=== PATIENT | male | born 1985 | race Caucasian/White ===

== ENCOUNTER 2019-04-18 17:41 | Inpatient (IN) | payer MEDICAID ==
[2019-04-18 18:24] LABS: BASOPHILS 0.1 % (0-2); EOSINOPHILS 0.8 % (0-7); HEMATOCRIT 32.1 % (42.0-54.0); HEMOGLOBIN 12.2 g/dL (13.5-17.5); IMMATURE GRANULOCYTES 1.2 % (0-5); LYMPHOCYTES 7.5 % (15-50); MCV 76.2 fL (80.0-100.0); MONOCYTES 3.8 % (2-11); NEUTROPHILS 86.6 % (40-80); PLATELET COUNT 123 10x3/uL (130-400); RBC 4.21 10x6/uL (4.20-6.10); RDW 14.9 % (11.5-14.5); WBC 8.5 10x3/uL (4.8-10.8)
[2019-04-18 18:37] LABS: INR 1.18 (0.85-1.17); PROTIME 14.5 SECONDS (11.6-15.0)
[2019-04-18 19:04] LABS: ALBUMIN 2.4 g/dL (3.4-5.0); ALKALINE PHOSPHATASE 118 U/L (46-116); ALT (SGPT) 77 U/L (10-68); BILIRUBIN - TOTAL 0.78 mg/dL (0.2-1.3); CALC OSMOLALITY 247 mosm/kg (275-300); CALCIUM 7.8 mg/dL (8.5-10.1); CARBON DIOXIDE 28.6 mmol/L (21.0-32.0); CHLORIDE - SERUM 90 mmol/L (98-107); CREATININE - SERUM 0.9 mg/dL (0.6-1.3); GLUCOSE 97 mg/dL (74-106); POTASSIUM - SERUM 3.8 mmol/L (3.5-5.1); PROTEIN - SERUM 6.9 g/dL (6.4-8.2); SODIUM 124 mmol/L (136-145); UREA NITROGEN 8 mg/dL (7-18); eGFR NON AFRICAN AMERICAN > 90 mL/min (90-120)
[2019-04-18 19:16] LABS: CKMB 0.1 U/L (0.0-3.6); CREATINE KINASE 253 UL (21-232)
[2019-04-18 19:17] LABS: TROPONIN-I < 0.017 ng/mL (0.000-0.060)
--- NOTE | 2019-04-18 19:46 | NUR ---
PT GONE FOR SCANS AT THIS TIME VIA STRETCHER
--- NOTE | 2019-04-18 20:02 | NUR ---
REPORT CALLED TO MATT, FLOOR NURSE AT THIS TIME.
[2019-04-18 20:37] VITALS: BP 112/79
--- NOTE | 2019-04-18 20:38 | NUR ---
ROCEPHIN INFUSION COMPLETE AT THIS TIME.
[2019-04-18 21:13] LABS: APPEARANCE CLEAR (CLEAR); BILIRUBIN NEGATIVE (NEGATIVE); COLOR YELLOW (YELLOW); GLUCOSE NEGATIVE (NEGATIVE); KETONE NEGATIVE (NEGATIVE); NITRITE NEGATIVE (NEGATIVE); PROTEIN TRACE mg/dL (NEGATIVE); SPECIFIC GRAVITY 1.005 (1.005-1.020); UROBILINOGEN NORMAL (NORMAL)
[2019-04-18 21:17] LABS: BACTERIA FEW /hpf (NONE SEEN); EPITHELIAL CELLS NSEEN /hpf (0-5); RED CELLS - URINE 0-5 /hpf (0-5); WHITE CELLS - URINE 0-5 /hpf (0-5)
[2019-04-18 21:27] LABS: UDS - AMPHET NEGATIVE QUAL (NEGATIVE); UDS - BARB NEGATIVE QUAL (NEGATIVE); UDS - BENZO NEGATIVE QUAL (NEGATIVE); UDS - COCAINE NEGATIVE QUAL (NEGATIVE); UDS - OPIATE NEGATIVE QUAL (NEGATIVE); UDS - PCP NEGATIVE QUAL (NEGATIVE); UDS - THC POSITIVE QUAL (NEGATIVE)
[2019-04-18 23:44] VITALS: BP 111/70
[2019-04-19] VITALS (7 sets, daily range): BP systolic 100–122; BP diastolic 57–78; BMI 22.4
--- NOTE | 2019-04-19 01:45 | NUR ---
ADMISSION ASSESSMENT COMPLETED. PT VERY WARM TO TOUCH. AXILLARY TEMP 101.[address] ROBERSON AND RECIEVED ORDER FOR TYLENOL FOR FEVER.
--- NOTE | 2019-04-19 01:55 | NUR ---
CALLED DR. ROBERSON TO INFORM HIM THAT PT HAS A TEMP OF 102. AT THIS TIME I HAVE NO MEDICATIONS TO HELP RELIEVE TEMP.
--- NOTE | 2019-04-19 01:58 | NUR ---
LOU HANSON WAS ABLE TO GET AHOLD OF DR. ROBERSON. MEDS ORDERED.
--- NOTE | 2019-04-19 07:00 | NUR ---
RECEIVED REPORT. ASSUMED CARE OF PATIENT. CALL LIGHT WITHIN REACH. RESP EVEN AND UNLABORED. PATIENT NOTED TO HAVE FREQUENT DRY COUGH. PATIENT WITH VERY EVIDENT RASH ALL OVER HIS BODY, MORE PROMINENT TO HIS FACE. LIPS ARE VERY DRY, APPEARS IF LIPS HAVE CRACKED AND DRY BLOOD NOTED TO LOWER LIP WHILE SPEAKING WITH PATIENT THIS AM. PATIENT COMPLAIN OF BODY ACHES AND THAT HE DIDN'T COME TO THE HOSPITAL SOONER BECAUSE HE THOUGHT HE JUST HAD A SUMMER COLD FROM ALLERGIES AND GOT MUCINEX. NO ACUTE DISTRESS. IV FLUIDS INFUSING ORDERED.
--- NOTE | 2019-04-19 07:59 | NUR ---
FRESH ICE WATER AND SODA PROVIDED ON REQUEST AT THIS TIME. NO DISTRESS.
--- NOTE | 2019-04-19 09:07 | NUR ---
AWAITING ON IV BACTRIM FOR ADMINISTRATION.
--- NOTE | 2019-04-19 09:43 | NUR ---
WAS GIVEN AN ORDER TO CONSULT ID FOR HIV. WHEN QUESTIONING PATIENT ABOUT MEDICATIONS FOR HIV, HE STATES HE HAS BEEN DELUSIONAL OVER THE PAST FEW WEEKS AND HE MAY NOT EVEN HAVE IT. THIS CATCHER PLUG ASKED HIM WHY WOULD HE THINK HE HAS IT AND WHY WOULD HE TELL PEOPLE HE HAS THIS DISEASE IF HE WAS NOT SURE. PATIENT STATES "HE DOESN'T KNOW". PATIENT STATES THAT HE HAS HAD SEXUAL ENCOUNTERS WITH A PERSON THAT IS HIV POSITIVE. CALLED NOEMI REED TO REQUEST HIV TESTING WE DO NOT HAVE CONFIRMATION OF THIS DIAGNOSIS AND PATIENT NOW STATES HE DOESN'T KNOW IF HE HAS IT OR NOT AND NOT SURE I NEED TO CONSULT ID IF WE DO NOT KNOW IF HE HAS HIV. BRIANNA STATES HE WILL LOOK AT HIS CHART AND ORDER TEST IF NEEDED. THANKED BRIANNA.
--- NOTE | 2019-04-19 13:49 | NUR ---
TEMP 103, MEDICATED WITH TYLENOL FOR TEMP AND BODY ACHES. CALL LIGHT WITHIN REACH. NO DISTRESS.
--- NOTE | 2019-04-19 13:58 | NUR ---
CONSULT PLACED FOR AFTER OBTAINING HIV TEST RESULTS.
--- NOTE | 2019-04-19 14:54 | NUR ---
SCDS APPLIED TO BILATERAL LOWER EXTREMITIES. NO DISTRESS.
--- NOTE | 2019-04-19 14:58 | NUR ---
TEMP 99.1 ORALLY.
--- NOTE | 2019-04-19 15:17 | NUR ---
BRIANNA PROVIDED 'S PHONE NUMBER WAS CONSULTED FOR PATIENTS RASH AND HE STATES THAT IF PATIENT NEEDS A CONSULT THAN HE WOULD LIKE THE PHYSICIAN TO CONSULT HIM DIRECTLY. DR. LATHAM' NUMBER [phone] PROVIDED TO BRIANNA.
[2019-04-19 15:43] LABS: HEMATOCRIT 27.2 % (42.0-54.0); HEMOGLOBIN 10.3 g/dL (13.5-17.5); MCH 28.8 pg (26.0-34.0); MCHC 37.9 g/dL (31.0-37.0); MEAN PLATELET VOLUME 10.6 fL (7.4-10.4); RBC 3.58 10x6/uL (4.20-6.10); RDW 14.8 % (11.5-14.5); WBC 7.5 10x3/uL (4.8-10.8)
[2019-04-19 15:44] LABS: PLATELET COUNT 95 10x3/uL (130-400)
[2019-04-19 15:55] LABS: ALBUMIN 2.1 g/dL (3.4-5.0); ALKALINE PHOSPHATASE 120 U/L (46-116); ALT (SGPT) 66 U/L (10-68); BILIRUBIN - TOTAL 0.59 mg/dL (0.2-1.3); CALC OSMOLALITY 251 mosm/kg (275-300); CALCIUM 7.2 mg/dL (8.5-10.1); CARBON DIOXIDE 24.7 mmol/L (21.0-32.0); CHLORIDE - SERUM 92 mmol/L (98-107); CREATININE - SERUM 0.8 mg/dL (0.6-1.3); GLUCOSE 95 mg/dL (74-106); POTASSIUM - SERUM 3.6 mmol/L (3.5-5.1); PROTEIN - SERUM 5.7 g/dL (6.4-8.2); SODIUM 126 mmol/L (136-145); UREA NITROGEN 9 mg/dL (7-18); eGFR NON AFRICAN AMERICAN > 90 mL/min (90-120)
[2019-04-19 16:05] LABS: EOSINOPHILS 1 % (0-7); LYMPHOCYTES 3 % (15-50); MONOCYTES 9 % (2-11); NEUTROPHILS 87 % (40-80); PLATELET ESTIMATE NORMAL
--- NOTE | 2019-04-19 16:13 | NUR ---
RESTING IN BED. NO DISTRESS.
--- NOTE | 2019-04-19 16:18 | NUR ---
CEPACHOL LOZENGE ORDER RECEIVED AND PLACED TO PHARMACY PT COMPLAIN OF SORE THROAT. JONA ON UNIT FOR ROUNDS.
--- NOTE | 2019-04-19 18:00 | NUR ---
EKG COMPLETED AND ON CHART
--- NOTE | 2019-04-19 18:08 | NUR ---
CALLED AND SPOKE WITH PATIENT IS SINUS TACHYCARDIA WITH A RATE OF 147. PATIENT WAS NOT TACHYCARDIC UNTIL HE GOT UP AND WENT TO THE RESTROOM. PATIENT FEVER IS ALSO TRENDING UPWARD AGAIN AT THIS TIME, 101.7. NEW ORDERS OBTAINED TO BOLUS WITH 500ML NS. ORDERS ENTERED AND BOLUS GIVEN FROM NEW BAG OF NS HANGING AT THIS TIME.
--- NOTE | 2019-04-19 18:10 | NUR ---
VS 130/85, 147, 17, 101.7, 99%
--- NOTE | 2019-04-19 18:42 | NUR ---
PATIENT RESTING IN BED. IB BOLUS OF 500ML NS COMPLETE. HR ST 136. NO DISTRESS. STATES HE FEELS FINE.
--- NOTE | 2019-04-19 19:00 | NUR ---
PATIENT LAYING IN BED. NO DISTRESS NOTED. COMPLAINS OF FEELING LIKE HE HAS A FEVER. TEMP 102.2. TYLENOL 650MG GIVEN. WILL CONTINUE TO MONITOR. NO OTHER COMPLAINTS AT THIS TIME.
--- NOTE | 2019-04-20 03:27 | NUR ---
I have reviewed this patient and I concur with the Shift Assessment completed by the Licensed Practical Nurse today this shift.
[2019-04-20 03:55] VITALS: BP 102/56
[2019-04-20 04:51] LABS: BASOPHILS 0.2 % (0-2); EOSINOPHILS 0 % (0-7); HEMATOCRIT 26.8 % (42.0-54.0); HEMOGLOBIN 9.8 g/dL (13.5-17.5); IMMATURE GRANULOCYTES 1.1 % (0-5); LYMPHOCYTES 9.5 % (15-50); MCH 28.2 pg (26.0-34.0); MCHC 36.6 g/dL (31.0-37.0); MEAN PLATELET VOLUME 10.1 fL (7.4-10.4); MONOCYTES 1.6 % (2-11); NEUTROPHILS 87.6 % (40-80); PLATELET COUNT 88 10x3/uL (130-400); RBC 3.48 10x6/uL (4.20-6.10); RDW 15.2 % (11.5-14.5); WBC 5.7 10x3/uL (4.8-10.8)
[2019-04-20 05:22] LABS: ALBUMIN 1.9 g/dL (3.4-5.0); ALKALINE PHOSPHATASE 134 U/L (46-116); ALT (SGPT) 59 U/L (10-68); BILIRUBIN - TOTAL 0.64 mg/dL (0.2-1.3); CALC OSMOLALITY 250 mosm/kg (275-300); CALCIUM 7.4 mg/dL (8.5-10.1); CARBON DIOXIDE 22.2 mmol/L (21.0-32.0); CHLORIDE - SERUM 94 mmol/L (98-107); GLUCOSE 88 mg/dL (74-106); POTASSIUM - SERUM 3.9 mmol/L (3.5-5.1); PROTEIN - SERUM 5.7 g/dL (6.4-8.2); SODIUM 126 mmol/L (136-145); UREA NITROGEN 10 mg/dL (7-18); eGFR NON AFRICAN AMERICAN > 90 mL/min (90-120)
--- NOTE | 2019-04-20 05:34 | NUR ---
PATIENT LAYING IN BED. PATIENT'S TEMP 99.0 AT THIS TIME. NO DISTRESS NOTED. NO COMPLAINTS AT THIS TIME.
--- NOTE | 2019-04-20 07:58 | NUR ---
AM ROUNDS COMPLETED. INTRODUCED MYSELF TO PT PRIMARY RN FOR TODAYS SHIFT. PT IS A&O LYING BACK IN BED SHIVERING. PT IS FEBRILE AND HAS BEEN RUNNING HIGH TEMPS THROUGHOUT THE NIGHT. WILL CONTINUE TO TREAT WITH TYLENOL ORDERED. SHIFT ASSESSMENT COMPLETED. PT HAS A FULL BODY DIFFUSED RED BODY RASH ALL OVER WITH MULTIPLE SMALL SPOTS DARKENED REDDISH PURPLE IN COLOR. NO ITCHING OR IRRITATION NOTED WITH IT PT STATES. PTS LIPS ARE DRY AND CRACKING, PROVIDED HIM WITH MOISTURIZER. EMPTIED BEDSIDE URINAL OF 425ML CLEAR YELLOW URINE. PT REQUESTING TO USE BEDPAN AND STATES HIS HR GETS TOO HIGH WHEN HE GETS OOB OR USES EXERTION, ASSISTED PT ONTO BEDPAN AND HE IS HAVING DIARRHEA AND STATES HE HAS FOR DAYS NOW AND WAS RECENTLY ON ANBX THERAPY. NEW ORDER OBTAINED FOR CDT SPECIMEN AND WILL SEND TO LAB. RR NONLABORED ON RA. HEART SOUNDS TACHYCARDIC BUT NORMAL S1S2 NOTED. PT IS WEARING SCDS. PT C/O GENERALIZED BODY ACHES AND PAINS AND STATES HE HAS ARTHRITIS. PT HAS R.FA PIV WITH NS @75ML/HR INFUSING AND NOW ANBX ROCEPHIN PIGGYBACK. PROVIDED PT WITH NEW NICOTENE PATCH TO L.DELTOID AND HE STATES IT IS HELPING WITH HIS CRAVINGS. ASSISTED PT UP IN BED TO EAT BREAKFAST PT STATES DECREASE IN APPETITE AND LOSS OF WEIGHT ABOUT 30 POUNDS IN A MONTH HE STATES. NO IMMEDIATE NEEDS AT THIS TIME. WILL DISCUSS WITH PRIMARY PT IS PRETTY ILL AT THIS TIME. CL IN REACH, BED IN LOWEST, SIDE RAILS X2 AND BUILT IN BED ALARM ON. WILL CTM.
[2019-04-20 08:05] VITALS: BP 101/66
[2019-04-20 11:38] VITALS: BP 116/73
--- NOTE | 2019-04-20 11:40 | NUR ---
TEMPERATURE REMAINS FEBRILE DESPITE TREATMENT OF TYLENOL. AT BEDSIDE FOR CONSULT. WILL AWAIT FURTHER PLANS. TOO SOON FOR NEXT DOSE OF TYLENOL. WILL CPOC.
[2019-04-20 12:29] VITALS: BMI 22.3
--- NOTE | 2019-04-20 13:09 | NUR ---
PT HAS NO APPETITE FOR LUNCH. REMOVED TRAY BUT DID ORDER HIM A ROOTBEER TO CHEER HIM UP AND HE VOICED THANKS. PROVIDED PT WITH A WARMED BLANKET HE IS SHIVERING AND REQUESTED ONE. EMPTIED URINAL OF 200ML CONCENTRATED URINE. PT WANTING TO TALK TO HIS MOTHER SO I CALLED HER PER HIS REQUEST AND TRANSFERRED THE PHONE CALL TO HIM. PT VOICED THANKS. NO CURRENT NEEDS. WILL CTM.
--- NOTE | 2019-04-20 15:51 | NUR ---
BACTRIM ANBX OVER AN HR LATE. STILL NOT AVAILABLE FROM PHARMACY. WILL CALL AND ASK FOR IT.
--- NOTE | 2019-04-20 18:41 | NUR ---
TEMPERATURE UP TO 103. PT HAS ALREADY MAXED HIS TYLENOL DOSE FOR THE DAY. WILL PAGE PRIMARY.
[2019-04-20 18:48] VITALS: BP 123/77
--- NOTE | 2019-04-20 18:50 | NUR ---
NEW ORDERS OBTAINED TO ALTERNATE BETWEEN MOTRIN AND TYLENOL FOR FEVER PLEASE.
--- NOTE | 2019-04-20 19:25 | NUR ---
AWAKE AND ALERT PRN FOR FEVER WILL BE GIVEN BED LOW AND LOCKED AND CALL LIGHT IN REACH SCD IS IN USE PT DENIES OTHER NEEDS
--- NOTE | 2019-04-20 19:32 | NUR ---
BEDSIDE SHIFT COMPLETED AND NIGHTSHIFT NURSE KARYNA WILL PROVIDED WITH MOTRIN ONCE VERIFIED WITH PHARMACY TO TRY AND DECREASE TEMPERATURE. PT VOICED THANKS AND DENIES ANY FURTHER NEEDS.
[2019-04-20 20:00] VITALS: BP 120/66
--- NOTE | 2019-04-21 00:57 | NUR ---
FEVER IS NOTABLE DOWN AT THIS TIME AND PT REPORTS FEELING MUCH BETTTER
--- NOTE | 2019-04-21 02:21 | NUR ---
I have reviewed this patient and I concur with the Shift Assessment completed by the Licensed Practical Nurse today this shift.
--- NOTE | 2019-04-21 03:27 | NUR ---
PT HR UP AND HE IS COUGHING AND GAGING AND CO SOME NAUSEA ZOFRAN AND MOLTRIN GIVEN BUT NOTED HR UP TO 185 SO I SURESH MCGOWAN AND IM WAITING [facility] WORKER BACK HR AROUND 160 NO CP
--- NOTE | 2019-04-21 03:38 | NUR ---
TEMP WAS READING 97.9 ORAL BUT CHECKED UNDER ARM AND FEVER OF 103 DETECTED I REMOVED SEVERAL BLANKETRS AT THIS TIME
--- NOTE | 2019-04-21 03:59 | NUR ---
NO CALL BACK FROM FAYE PT DENIES CP HE CONTINUES TO RETRACT BUT NO EMISIS
[2019-04-21 04:00] VITALS: BP 105/59
--- NOTE | 2019-04-21 05:40 | NUR ---
HR 138...PT RESTING AND AROUSES AND DENIES PAIN OR DISTRESS
--- NOTE | 2019-04-21 06:17 | NUR ---
HR 126 PT RESTING WITH NO NOTED DISTRESS
[2019-04-21 07:18] LABS: APTT 66.5 SECONDS (22.8-39.4); HEMATOCRIT 25.8 % (42.0-54.0); HEMOGLOBIN 9.4 g/dL (13.5-17.5); INR 1.65 (0.85-1.17); MCH 27.9 pg (26.0-34.0); MCHC 36.4 g/dL (31.0-37.0); MCV 76.6 fL (80.0-100.0); MEAN PLATELET VOLUME 10.9 fL (7.4-10.4); PLATELET COUNT 79 10x3/uL (130-400); PROTIME 18.9 SECONDS (11.6-15.0); RBC 3.37 10x6/uL (4.20-6.10); RDW 15.4 % (11.5-14.5); WBC 2.3 10x3/uL (4.8-10.8)
[2019-04-21 07:18] LABS: RAPID PLASMA REAGIN Non Reactive (Non Reactive)
[2019-04-21 07:27] LABS: ALBUMIN 1.6 g/dL (3.4-5.0); BILIRUBIN - TOTAL 0.31 mg/dL (0.2-1.3); CALCIUM 7.2 mg/dL (8.5-10.1); CARBON DIOXIDE 21.2 mmol/L (21.0-32.0); PROTEIN - SERUM 5.4 g/dL (6.4-8.2)
[2019-04-21 08:14] LABS: ANION GAP 13.1 mmol/L (8-16); CREATININE - SERUM 1.3 mg/dL (0.6-1.3); POTASSIUM - SERUM 3.3 mmol/L (3.5-5.1)
[2019-04-21 08:49] VITALS: BP 106/59
[2019-04-21 09:59] LABS: BASOPHILS 2 % (0-2); EOSINOPHILS 2 % (0-7); LYMPHOCYTES 6 % (15-50); MONOCYTES 5 % (2-11); NEUTROPHILS 75 % (40-80); PLATELET ESTIMATE DECREASED
[2019-04-21 10:00] LABS: ANISOCYTOSIS OCC
--- NOTE | 2019-04-21 10:12 | NUR ---
PT HAS POOR HYGIENE AND HAS BEEN SWEATING AND HAS FOUL ODOR. OFFERED A SHOWER AND HE WOULD LOVE ONE. ASSISTED PT INTO SHOWER CHAIR AND WITH SUPPLIES. PT VOICED THANKS. NO CURRENT NEEDS. WILL CTM.
--- NOTE | 2019-04-21 11:22 | NUR ---
PT TOOK SHOWER AND VOICED THANKS AND STATES IT FELT GREAT. PT IS NOW RESTING IN BED AND WANTS TO NAP. PT WAS ACTUALLY ABLE TO EAT THIS MORNING AND IS FEELING BETTER OVERALL. PT DENIES ANY CURRENT PAIN OR NEEDS AT THIS TIME. WILL CTM.
[2019-04-21 12:11] LABS: HEPATITIS C ANTIBODY <0.1 S/CO RAT (0.0-0.9)
[2019-04-21 12:57] LABS: % SATURATION 50 % (15-55); IRON 80 ug/dl (35-150); TOTAL IRON BIND CAPACITY 157 ug/dl (260-445); UNSAT IRON BIND CAPACITY 77 ug/dl (150-375)
[2019-04-21 13:43] VITALS: BP 92/47
[2019-04-21 17:26] VITALS: BP 94/57
--- NOTE | 2019-04-21 19:00 | NUR ---
PT IS IN PROCESS OF BEING TRASFERED TO ANOTHER FACILITY. DENIES PAIN SKIN IS WARM AND DRY I WILL SL IV BED IS LOW AND LOCKED CALL LIGHT IS IN PLACE.
[2019-04-21 20:00] VITALS: BP 95/57
--- NOTE | 2019-04-21 23:27 | NUR ---
PTIS NOW DCED TO TRANSFER WITH [facility]
[2019-04-22 12:12] LABS: ANA REFLEX - DIRECT Negative (Negative)
[2019-04-22 13:13] LABS: BASOS 0 % (Not Estab.); CD4 - % CD4 POS. LYMPH 1.8 % (30.8-58.5); CD4 - ABSOLUTE CD4 HELPER 7 /uL (359-1519); EOS 0 % (Not Estab.); HEMATOCRIT 26.3 % (37.5-51.0); HEMATOLOGY COMMENTS Note: (()); HEMOGLOBIN 9.3 g/dL (13.0-17.7); LYMPHS 16 % (Not Estab.); LYMPHS (ABSOLUTE) 0.4 x10E3/uL (0.7-3.1); MCH 28.4 pg (26.6-33.0); MCHC 35.4 g/dL (31.5-35.7); MCV 80 fL (79-97); MONOCYTES 4 % (Not Estab.); MONOCYTES (ABSOLUTE) 0.1 x10E3/uL (0.1-0.9); NEUTROPHILS 80 % (Not Estab.); NEUTROPHILS (ABSOLUTE) 1.8 x10E3/uL (1.4-7.0); PLATELETS 75 x10E3/uL (150-450); RBC 3.27 x10E6/uL (4.14-5.80); RDW 15.4 % (12.3-15.4); WBC 2.2 x10E3/uL (3.4-10.8)
[2019-04-22 19:08] LABS: HIV-1 RNA BY PCR 2530000 (()); LOG10 HIV-1 RNA 6.403 (())
[2019-04-23 04:09] LABS: FOLATE (FOLIC ACID) - SERUM 13.4 ng/mL (>3.0)
[2019-04-23 12:12] LABS: CRYPTOCOCCUS AG - SERUM Negative (Negative)
== END 2019-04-21 23:25 | disposition short-term general hospital (02) | DRG 974 ==
LOC: D.ER 17:41 → D.M2 19:08
PROVIDERS: Emergency Medicine; Family Medicine; Internal Medicine Pulmonary Disease; Student in an Organized Health Care Education/Training Program; ADMIT Internal Medicine Nephrology; ATTEND Internal Medicine Nephrology
DX: B20 Human immunodeficiency virus [HIV] disease (principal); J18.9 Pneumonia, unspecified organism; J96.01 Acute respiratory failure with hypoxia; E46 Unspecified protein-calorie malnutrition; B37.0 Candidal stomatitis; E87.1 Hypo-osmolality and hyponatremia; J98.4 Other disorders of lung; D69.6 Thrombocytopenia, unspecified; F17.200 Nicotine dependence, unspecified, uncomplicated; D70.4 Cyclic neutropenia; Z68.22 Body mass index [BMI] 22.0-22.9, adult; D50.9 Iron deficiency anemia, unspecified; L30.9 Dermatitis, unspecified

== ENCOUNTER 2019-06-21 16:53 | Emergency (ER) | payer SELFPAY ==
[~2019-06-21] VITALS: Ht 182.9 cm; Wt 63.6 kg
[2019-06-21 17:14] VITALS: Ht 182.9 cm; Wt 63.6 kg
[2019-06-21 18:05] LABS: BASOPHILS 0 % (0-2); EOSINOPHILS 0.3 % (0-7); HEMATOCRIT 25.8 % (42.0-54.0); HEMOGLOBIN 8.8 g/dL (13.5-17.5); IMMATURE GRANULOCYTES 0.3 % (0-5); LYMPHOCYTES 4.7 % (15-50); MCH 28.6 pg (26.0-34.0); MCHC 34.1 g/dL (31.0-37.0); MCV 83.8 fL (80.0-100.0); MEAN PLATELET VOLUME 10.3 fL (7.4-10.4); MONOCYTES 9.1 % (2-11); NEUTROPHILS 85.6 % (40-80); RBC 3.08 10x6/uL (4.20-6.10); RDW 14.8 % (11.5-14.5); WBC 3.6 10x3/uL (4.8-10.8)
[2019-06-21 18:08] LABS: PLATELET COUNT 106 10x3/uL (130-400)
[2019-06-21 18:26] LABS: ALBUMIN 2.3 g/dL (3.4-5.0); ALKALINE PHOSPHATASE 84 U/L (46-116); ALT (SGPT) 19 U/L (10-68); BILIRUBIN - TOTAL 0.35 mg/dL (0.2-1.3); CALC OSMOLALITY 257 mosm/kg (275-300); CALCIUM 8.4 mg/dL (8.5-10.1); CHLORIDE - SERUM 96 mmol/L (98-107); CREATININE - SERUM 0.8 mg/dL (0.6-1.3); GLUCOSE 86 mg/dL (74-106); POTASSIUM - SERUM 3.3 mmol/L (3.5-5.1); PROTEIN - SERUM 8.3 g/dL (6.4-8.2); SODIUM 130 mmol/L (136-145); UREA NITROGEN 8 mg/dL (7-18); eGFR NON AFRICAN AMERICAN > 90 mL/min (90-120)
[2019-06-21] MEDS ORDERED: AMOXICILLIN500 M1 PO (18:49)
[2019-06-21] MEDS ORDERED: PHENERGAN6.25 MG/5 PO (18:49)
[2019-06-21 19:51] VITALS: BP 96/54
== END 2019-06-21 19:52 | disposition home or self-care (01) ==
LOC: D.ER 16:53
PROVIDERS: Family Medicine
DX: J40 Bronchitis, not specified as acute or chronic (principal); J06.9 Acute upper respiratory infection, unspecified

== ENCOUNTER 2019-07-15 18:00 | Inpatient (IN) | payer OTHER ==
[~2019-07-15] VITALS: Ht 182.9 cm; Wt 63.5 kg
[~2019-07-15 18:00] MED LIST: AMOXICILLIN500 M1 PO; PHENERGAN6.25 MG/5 PO
--- NOTE | 2019-07-15 18:35 | NUR ---
LAB AT FOR 2ND SET OF BC
--- NOTE | 2019-07-15 18:35 | NUR ---
IV SITED AND 11ST SET OF BC'S DRAWN FROM SITE
[2019-07-15 18:47] LABS: BASOPHILS 0 % (0-2); EOSINOPHILS 0 % (0-7); HEMATOCRIT 23.6 % (42.0-54.0); IMMATURE GRANULOCYTES 0.3 % (0-5); LYMPHOCYTES 5.9 % (15-50); MCH 26.6 pg (26.0-34.0); MCHC 33.9 g/dL (31.0-37.0); MCV 78.4 fL (80.0-100.0); MEAN PLATELET VOLUME 10.8 fL (7.4-10.4); MONOCYTES 6.2 % (2-11); NEUTROPHILS 87.6 % (40-80); RBC 3.01 10x6/uL (4.20-6.10); RDW 15.1 % (11.5-14.5); WBC 3.1 10x3/uL (4.8-10.8)
[2019-07-15 19:11] LABS: ALKALINE PHOSPHATASE 76 U/L (46-116); ALT (SGPT) 14 U/L (10-68); BILIRUBIN - TOTAL 0.56 mg/dL (0.2-1.3); CALC OSMOLALITY 253 mosm/kg (275-300); CALCIUM 7.3 mg/dL (8.5-10.1); CARBON DIOXIDE 27.2 mmol/L (21.0-32.0); CHLORIDE - SERUM 92 mmol/L (98-107); CREATININE - SERUM 0.8 mg/dL (0.6-1.3); GLUCOSE 96 mg/dL (74-106); POTASSIUM - SERUM 3.7 mmol/L (3.5-5.1); PROTEIN - SERUM 7.3 g/dL (6.4-8.2); SODIUM 127 mmol/L (136-145); UREA NITROGEN 9 mg/dL (7-18); eGFR NON AFRICAN AMERICAN > 90 mL/min (90-120)
--- NOTE | 2019-07-15 19:12 | NUR ---
BS REPORT TO MARGIE DHILLON
[2019-07-15 19:22] LABS: PLATELET COUNT 62 10x3/uL (130-400)
[2019-07-15 19:38] VITALS: BP 110/69
--- NOTE | 2019-07-15 19:39 | NUR ---
AWAKE, ERSTING QUIETLY, RESPIRATIONS REGULAR, COMPLAINS OF BEING COLD, TEMP ELEVATED 101.4. NS INFUSING TO LEFT FA IV, TOLERATING WELL. NO ACUTE DISTRESS NOTED.
[2019-07-15 20:35] LABS: PLATELET ESTIMATE DECREASED
[2019-07-15 21:51] LABS: APPEARANCE CLEAR (CLEAR); BILIRUBIN NEGATIVE (NEGATIVE); COLOR YELLOW (YELLOW); GLUCOSE NEGATIVE (NEGATIVE); KETONE NEGATIVE (NEGATIVE); NITRITE NEGATIVE (NEGATIVE); PROTEIN NEGATIVE (NEGATIVE); UROBILINOGEN NORMAL (NORMAL)
[2019-07-15 23:33] LABS: % SATURATION 10 % (15-55); IRON 15 ug/dl (35-150); TOTAL IRON BIND CAPACITY 147 ug/dl (260-445); UNSAT IRON BIND CAPACITY 132 ug/dl (150-375)
[2019-07-16] VITALS (11 sets, daily range): BP systolic 109–131; BP diastolic 69–82; BMI 19.0
--- NOTE | 2019-07-16 00:39 | NUR ---
REPORT GIVEN TO BROWING GENERATOR MECHANIC, VS GIVEN 98.2, 101/67, 89, 100%.
[2019-07-16 06:14] LABS: MCH 26.9 pg (26.0-34.0); MCHC 33.9 g/dL (31.0-37.0); MCV 79.3 fL (80.0-100.0); MEAN PLATELET VOLUME 10.8 fL (7.4-10.4); RBC 2.42 10x6/uL (4.20-6.10); RDW 14.9 % (11.5-14.5); WBC 2.7 10x3/uL (4.8-10.8)
[2019-07-16 06:16] LABS: CALC OSMOLALITY 261 mosm/kg (275-300); CARBON DIOXIDE 25.2 mmol/L (21.0-32.0); CHLORIDE - SERUM 100 mmol/L (98-107); CREATININE - SERUM 0.8 mg/dL (0.6-1.3); GLUCOSE 86 mg/dL (74-106); HEMATOCRIT 19.2 % (42.0-54.0); HEMOGLOBIN 6.5 g/dL (13.5-17.5); MAGNESIUM - SERUM 1.7 mg/dL (1.8-2.4); PHOSPHOROUS 3.8 mg/dL (2.5-4.9); PLATELET COUNT 40 10x3/uL (130-400); POTASSIUM - SERUM 3.2 mmol/L (3.5-5.1); SODIUM 132 mmol/L (136-145); UREA NITROGEN 8 mg/dL (7-18); eGFR NON AFRICAN AMERICAN > 90 mL/min (90-120)
[2019-07-16 06:28] LABS: CALCIUM 6.9 mg/dL (8.5-10.1)
[2019-07-16 07:43] LABS: LYMPHOCYTES 4 % (15-50); MONOCYTES 1 % (2-11); NEUTROPHILS 92 % (40-80); PLATELET ESTIMATE DECREASED
--- NOTE | 2019-07-16 08:49 | NUR ---
AWAKE AND ALERT. ORIENTED X3. REQUESTED AND GIVEN 4MG MORPHINE SLOW IVP FOR C/O KNEE PAIN LEVEL 10. WILL MONITOR. LUNGS HAVE WHEEZES THROUGHOUT LUNG SPICER, NON PRODUCTIVE COUGH NOTED. SKIN IS INTACT WITHOUT REDNESS. IV TO LEFT FOREARM IS PATENT WITHOUT REDNESS AT INSERTION SITE. DENIES NEEDS. BREAKFAST SERVED IN ROOM.
--- NOTE | 2019-07-16 10:41 | NUR ---
RESTING QUIETLY IN BED. REFUSED SCD'S "UNLESS THEY HELP MY LEG CRAMPS". WILL MONITOR.
--- NOTE | 2019-07-16 13:50 | NUR ---
UNIT (1) OF PRBC TRANFUSION INITIATED. VSS. SEE TRANSFUSION CARD. PT IS AAO X 4. BED IS IN THE LOWEST POSITION. CALL LIGHT AND BEDSIDE TABLE ARE WITHIN REACH. SIDE RAILS X 2. PRBC UNIT VERIFIED WITH OBI BARRY RN AT PT BEDSIDE. SIGNED BLOOD CONSENTS ARE IN PT CHART. WILL STAY IN ROOM TO MONITOR CLOSELY FOR NEXT 15 MINUTES.
[2019-07-16 14:19] LABS: PATH REVIEW PERIPHERAL SMEAR REVIEWED
--- NOTE | 2019-07-16 17:10 | NUR ---
SECOND UNIT PRBC UP AT THIS TIME. VSS. NO C/O
--- NOTE | 2019-07-16 17:25 | NUR ---
TRANSFUSION CONTINUES WITHOUT COMPLICATIONS. VSS.
--- NOTE | 2019-07-16 19:23 | NUR ---
NO CHANGES NOTED. DENIES NEEDS.
[2019-07-17 01:31] VITALS: BP 126/78
[2019-07-17 05:54] VITALS: BP 134/80
[2019-07-17 06:47] LABS: BASOPHILS 0 % (0-2); EOSINOPHILS 0 % (0-7); HEMATOCRIT 22.7 % (42.0-54.0); HEMOGLOBIN 7.7 g/dL (13.5-17.5); LYMPHOCYTES 6.7 % (15-50); MCH 26.9 pg (26.0-34.0); MCHC 33.9 g/dL (31.0-37.0); MCV 79.4 fL (80.0-100.0); MEAN PLATELET VOLUME 11.9 fL (7.4-10.4); MONOCYTES 3.8 % (2-11); NEUTROPHILS 88.5 % (40-80); RBC 2.86 10x6/uL (4.20-6.10); RDW 14.8 % (11.5-14.5); WBC 2.1 10x3/uL (4.8-10.8)
[2019-07-17 07:05] LABS: PLATELET COUNT 32 10x3/uL (130-400)
[2019-07-17 07:12] LABS: ALBUMIN 1.6 g/dL (3.4-5.0); ALKALINE PHOSPHATASE 77 U/L (46-116); BILIRUBIN - TOTAL 0.58 mg/dL (0.2-1.3); CALC OSMOLALITY 253 mosm/kg (275-300); CARBON DIOXIDE 22.4 mmol/L (21.0-32.0); CHLORIDE - SERUM 98 mmol/L (98-107); CREATININE - SERUM 0.7 mg/dL (0.6-1.3); GLUCOSE 80 mg/dL (74-106); PROTEIN - SERUM 6.5 g/dL (6.4-8.2); SODIUM 128 mmol/L (136-145); UREA NITROGEN 7 mg/dL (7-18); eGFR NON AFRICAN AMERICAN > 90 mL/min (90-120)
[2019-07-17 07:13] LABS: ALT (SGPT) 10 U/L (10-68); POTASSIUM - SERUM 3.9 mmol/L (3.5-5.1)
--- NOTE | 2019-07-17 08:00 | NUR ---
AWAKE AND ALERT. ORIENTED X3. NO C/O AT THIS TIME. LUNGS HAVE WHEEZES THROUGHOUT LUNG SPICER, PRODUCTIVE COUGH NOTED WITH WHITISH SPUTUM. SKIN IS INTACT WITHOUT REDNESS. IV TO LEFT FOREARM IS PATENT WITHOUT REDNESS AT INSERTION SITE. DENIES NEEDS.
--- NOTE | 2019-07-17 09:23 | NUR ---
REQUESTED AND GIVNE 4MG MORPHINE SLOW IVP FOR C/O KNEE BACK PAIN LEVEL 8. WILL MONITOR.
[2019-07-17 09:28] VITALS: BP 124/75
--- NOTE | 2019-07-17 10:10 | NUR ---
RESTING QUIETLY IN BED WITH EYES CLOSED. DENIES NEEDS. VOIDED CLEAR YELLOW URINE USED URINAL.
--- NOTE | 2019-07-17 12:15 | NUR ---
LUNCH SERVED IN ROOM. REFUSED TO EAT AT THIS TIME. DENIES NEEDS.
[2019-07-17 12:32] VITALS: BP 150/60
--- NOTE | 2019-07-17 14:10 | NUR ---
REQUESTED AND GIVEN 4MG MORPHINE AND 4MG ZOFRAN SLOW IVP FOR C/O PAIN LEVEL 8 AND NAUSEA. WILL MONITOR.
--- NOTE | 2019-07-17 14:54 | NUR ---
SITTING UP IN BED EATING A SALAD. NO C/O NAUSE OR PAIN AT THIS TIME. MOM AT [facility].
--- NOTE | 2019-07-17 14:59 | MORECARE ---
CASE MANAGEMENT DISCHARGE SUMMARY PATIENT: YEMI DAVID UNIT: [id number] ADM DATE: 07/15/19 AGE: 34 : 87 SEX: M ROOM/BED: D.2239 AUTHOR: PAM JOSE PHYSICIAN: REFERRING PHYSICIAN: GISELL VILLASEÑOR MD DATE OF SERVICE: 07/17/19 Discharge Plan Patient Name: YEMI DAVID [facility] [facility] 1985 Planned Disposition: Anticipated Discharge Date: Discharge Date: Expected LOS: Initial Reviewer: [email or web address] Initial Review Date: 07/17/2019 Generated: 07/17/19 3:59 pm Comments DCP- Discharge Planning Updated by [email or web address]: Ora Keane on 07/17/19 12:[address] Patient Name: YEMI DAVID Admission Status: ER Accout number: [id number] Admission Date: 07-15-2019 : 1985 Admission Diagnosis: Attending: RAQUEL VILLASEÑOR Current LOS: 2 Anticipated DC Date: Planned Disposition: Primary Insurance: [facility] MANAGED MEDICAID Discharge Planning Comments: CM SPOKE WITH [facility] AT [phone]. JIM WRIGHT PAGER GIVEN FOR [facility] TO CALL. CM TO FOLLOW AND ASSIST. Farm Machinery Set Up Mechanic: Ora Keane Appended by Ora Keane on 07/17/2019 13:42 CDT: HAS BEEN ACCEPTED TO [facility], WAITING ON A BED. Patient Name: YEMI DAVID Page [phone] at 6225 All edits/amendments must be made on the electronic document DICTATION DATE: 07/17/199 PUBLIC INFORMATION RELATIONS MANAGER: CHIO 07/17/19 1459 RPT#: [id number] DC DATE: STATUS: ADM IN [facility] [address] [place] [address] END OF REPORT
[2019-07-17 16:08] LABS: BASOS 0 % (Not Estab.); CD4:8 - % CD4 POS. LYMPH 0.7 % (30.8-58.5); CD4:8 - ABS CD8 SUPPRESSOR 57 /uL (109-897); CD4:8 - ABSOLUTE CD4 HELPER 1 /uL (359-1519); CD4:8 - CD4/CD8 RATIO 0.01 (0.92-3.72); EOS 1 % (Not Estab.); HEMATOCRIT 24.6 % (37.5-51.0); HEMATOLOGY COMMENTS Note: (()); HEMOGLOBIN 7.6 g/dL (13.0-17.7); LYMPHS 7 % (Not Estab.); LYMPHS (ABSOLUTE) 0.1 x10E3/uL (0.7-3.1); MCHC 30.9 g/dL (31.5-35.7); MCV 84 fL (79-97); MONOCYTES 4 % (Not Estab.); MONOCYTES (ABSOLUTE) 0.1 x10E3/uL (0.1-0.9); NEUTROPHILS 87 % (Not Estab.); NEUTROPHILS (ABSOLUTE) 1.7 x10E3/uL (1.4-7.0); PLATELETS 42 x10E3/uL (150-450); RBC 2.92 x10E6/uL (4.14-5.80)
[2019-07-17 16:52] VITALS: BP 126/68
--- NOTE | 2019-07-17 18:47 | NUR ---
RESTING QUIETLY WITH EYES CLOSED. DENIES NEEDS. NO CHANGES NOTED.
[2019-07-17 20:15] VITALS: BP 124/68
[2019-07-18 00:06] VITALS: BP 122/75
[2019-07-18 04:02] VITALS: BP 100/65
[2019-07-18 05:49] LABS: BASOPHILS 0 % (0-2); EOSINOPHILS 0 % (0-7); HEMATOCRIT 23.5 % (42.0-54.0); HEMOGLOBIN 7.9 g/dL (13.5-17.5); IMMATURE GRANULOCYTES 0.6 % (0-5); LYMPHOCYTES 2.9 % (15-50); MCH 27.5 pg (26.0-34.0); MCHC 33.6 g/dL (31.0-37.0); MONOCYTES 2.6 % (2-11); NEUTROPHILS 93.9 % (40-80); RBC 2.87 10x6/uL (4.20-6.10); RDW 15.1 % (11.5-14.5)
[2019-07-18 05:52] LABS: MCV 81.9 fL (80.0-100.0); WBC 3.4 10x3/uL (4.8-10.8)
[2019-07-18 05:53] LABS: PLATELET COUNT 21 10x3/uL (130-400)
[2019-07-18 05:55] LABS: ALBUMIN 1.7 g/dL (3.4-5.0); ALKALINE PHOSPHATASE 317 U/L (46-116); BILIRUBIN - TOTAL 0.56 mg/dL (0.2-1.3); CALC OSMOLALITY 259 mosm/kg (275-300); CALCIUM 7.4 mg/dL (8.5-10.1); CARBON DIOXIDE 23.2 mmol/L (21.0-32.0); CHLORIDE - SERUM 101 mmol/L (98-107); CREATININE - SERUM 0.8 mg/dL (0.6-1.3); GLUCOSE 81 mg/dL (74-106); POTASSIUM - SERUM 3.4 mmol/L (3.5-5.1); PROTEIN - SERUM 6.6 g/dL (6.4-8.2); SODIUM 131 mmol/L (136-145); UREA NITROGEN 6 mg/dL (7-18); eGFR NON AFRICAN AMERICAN > 90 mL/min (90-120)
[2019-07-18 05:56] LABS: ALT (SGPT) 26 U/L (10-68)
--- NOTE | 2019-07-18 08:12 | NUR ---
PT RESTING IN BED. DENIES N/V AT THIS TIME. NO S/S OF ACUTE DISTRESS. CL IN PLACE.
--- NOTE | 2019-07-18 08:46 | NUR ---
CALLED [facility] ENGINEER IN [facility] TO 100.3. 150. 151/75. 95%
[2019-07-18 09:16] VITALS: BP 151/75
--- NOTE | 2019-07-18 09:30 | NUR ---
CALLED [facility] AND HAD DR DAVIS PAGED.
--- NOTE | 2019-07-18 12:02 | NUR ---
PLATELETS INFUSED. NO S/S OF ACUTE DISTRESS. PRBC INFUSING NO S/S OF ACUTE DISTRESS.
[2019-07-18 12:30] VITALS: BP 100/54
--- NOTE | 2019-07-18 18:01 | NUR ---
PT RESTING IN BED. PRBC INFUSING. NO S/S OF ACUTE DISTRESS. CL IN PLACE.
--- NOTE | 2019-07-18 18:46 | NUR ---
MICHAEL [facility] CALLED NO BEDS AT THIS TIME. WILL CALL WHEN ONE IS READY.
--- NOTE | 2019-07-18 19:15 | NUR ---
PT ALERT AND ORIENTED. BLOOD TRANFUSING WHEN ENTERING THE ROOM. IV TO THE RIGHT FORARM APPEARS PATENT WITH NO REDNESS OR SWELLING NOTED TO THE INSERTION SITE. PATIENT HAS SEVERAL BLANKETS ON TOP OF HIM AT THIS TIME. DENIES FURTHER NEEDS AT THIS TIME. CALL LIGHT IN REACH. CPOC.
--- NOTE | 2019-07-18 20:21 | NUR ---
PT ASKING FOR PAIN MEDICINE. ADVISED PATIENT NOT DUE AT THIS TIME. PATIENT STATES UNDERSTANDING. CALL LIGHT IN REACH, DENIES FURTHER NEEDS AT THIS TIME. BOILERMAKER SHIP.
[2019-07-18 20:40] VITALS: BP 131/62
[2019-07-19 01:10] VITALS: BP 109/65
--- NOTE | 2019-07-19 03:17 | NUR ---
I have reviewed this patient and I concur with the Shift Assessment completed by the Licensed Practical Nurse today this shift.
[2019-07-19 05:18] VITALS: BP 145/75
[2019-07-19 06:46] LABS: BASOPHILS 0 % (0-2); EOSINOPHILS 0.4 % (0-7); HEMATOCRIT 28.2 % (42.0-54.0); HEMOGLOBIN 9.9 g/dL (13.5-17.5); IMMATURE GRANULOCYTES 0.6 % (0-5); LYMPHOCYTES 2.4 % (15-50); MCH 29.6 pg (26.0-34.0); MCHC 35.1 g/dL (31.0-37.0); MCV 84.4 fL (80.0-100.0); MONOCYTES 2.4 % (2-11); NEUTROPHILS 94.2 % (40-80); RBC 3.34 10x6/uL (4.20-6.10); RDW 15.3 % (11.5-14.5)
[2019-07-19 06:47] LABS: PLATELET COUNT 27 10x3/uL (130-400)
[2019-07-19 07:11] LABS: ALBUMIN 1.7 g/dL (3.4-5.0); ALKALINE PHOSPHATASE 256 U/L (46-116); ALT (SGPT) 22 U/L (10-68); BILIRUBIN - TOTAL 0.77 mg/dL (0.2-1.3); CALCIUM 7.6 mg/dL (8.5-10.1); CHLORIDE - SERUM 105 mmol/L (98-107); CREATININE - SERUM 0.9 mg/dL (0.6-1.3); GLUCOSE 94 mg/dL (74-106); PROTEIN - SERUM 6.6 g/dL (6.4-8.2); SODIUM 135 mmol/L (136-145); eGFR NON AFRICAN AMERICAN > 90 mL/min (90-120)
[2019-07-19 07:12] LABS: CALC OSMOLALITY 268 mosm/kg (275-300); POTASSIUM - SERUM 4.7 mmol/L (3.5-5.1); UREA NITROGEN 11 mg/dL (7-18)
--- NOTE | 2019-07-19 07:52 | NUR ---
AAOX4. WATCHING TV. MORPHINE GIVEN FOR PAIN ORDERED PER MD. BROUGHT PT SOME ICE. NO S/S OF ACUTE DISTRESS. CL IN PLACE.
[2019-07-19 08:38] VITALS: BP 115/69
[2019-07-19 08:45] LABS: PLATELET ESTIMATE DECREASED; PLATELET MORPHOLOGY NORMAL PLT MORPH
--- NOTE | 2019-07-19 12:22 | NUR ---
CALLED MICHAEL [phone] AT [facility] NO BED OPEN.
[2019-07-19 12:40] VITALS: BP 114/79
[2019-07-19 14:08] LABS: HIV-1 RNA BY PCR 753000 (()); LOG10 HIV-1 RNA 5.877 (())
[2019-07-19 17:20] VITALS: BP 117/80
--- NOTE | 2019-07-19 18:18 | NUR ---
ASSISTED PT TO BR SUPERVISION ONLY. NO S/S OF ACUTE DISTRESS. CL IN PLACE.
--- NOTE | 2019-07-19 19:39 | NUR ---
RECREATION CLERK CALLED THIS NURSE INTO PATIENTS ROOM WHEN VITALS WERE BEING ASSESSED. PATIENT TEMPERATURE 102.6 ORALLY. PATIENT ROOM HOT AND PATIENT HAS 4 BLANKETS ON TOP OF HIM INCLUDING A BLANKET FROM THE WARMER. REMOVED BLANKETS AND PROVIDED PATIENT WITH SHEET. EDUCATED PATIENT ON INTERVENTIONS. LOOKING AT PATIENT MAR, PREVIOUS NURSE ADMINISTERED NORCO 7.5 TO PATIENT WITHIN THE HOUR, 184, PATIENT HAS TYLENOL IN SYSTEM AT THIS TIME. ALSO PROVIDED PATIENT WITH INCENTIVE SPIROMETER AND INSTRUCTED ON HOW TO USE AND CORRELEATION WITH LOWERING FEVER. PATIENT VERBALIZES UNDERSTANDING. USING I/S WHEN LEAVING ROOM. CALL LIGHT IN REACH.
[2019-07-19 20:00] VITALS: BP 122/73
--- NOTE | 2019-07-19 20:11 | NUR ---
FEVER DOWN TO 100.3
--- NOTE | 2019-07-19 23:04 | NUR ---
RECEIVED CALLED FROM [facility] THAT THEY HAVE A BED FOR THE PATIENT. UNIT F6 BED 620.
--- NOTE | 2019-07-19 23:17 | NUR ---
CALLED REPORT TO [facility]. VICKY HANSON WILL BE TAKING PATIENT.
--- NOTE | 2019-07-19 23:22 | NUR ---
CALL TO [employer]. 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
--- NOTE | 2019-07-20 00:18 | NUR ---
RUNNING ABX PER ORDER. PATIENT PACKED UP AND READY TO GO. WAITING FOR [facility] [employer]. PAPERWORK TOGETHER AND READY.
--- NOTE | 2019-07-20 00:57 | NUR ---
PT LEFT UNIT WITH [employer].
--- NOTE | 2019-07-20 02:23 | NUR ---
I have reviewed this patient and I concur with the Shift Assessment completed by the Licensed Practical Nurse today this shift.
--- NOTE | 2019-07-20 12:08 | MORECARE ---
CASE MANAGEMENT DISCHARGE SUMMARY PATIENT: YEMI DAVID UNIT: [id number] ADM DATE: 07/15/19 AGE: 34 : 87 SEX: M ROOM/BED: D.2239 AUTHOR: PAM JOSE PHYSICIAN: REFERRING PHYSICIAN: GISELL VILLASEÑOR MD DATE OF SERVICE: 07/20/19 Discharge Plan Patient Name: YEMI DAVID [facility] [facility] 1985 Planned Disposition: Anticipated Discharge Date: Discharge Date: 07/20/2019 Expected LOS: Initial Reviewer: [email or web address] Initial Review Date: 07/17/2019 Generated: 07/20/19 1:08 pm Comments DCP- Discharge Planning Updated by [email or web address]: Ora Keane on 07/17/19 12:[address] Patient Name: YEMI DAVID Admission Status: ER Accout number: [id number] Admission Date: 07-15-2019 : 1985 Admission Diagnosis: Attending: RAQUEL VILLASEÑOR Current LOS: 2 Anticipated DC Date: Planned Disposition: Primary Insurance: [facility] MANAGED MEDICAID Discharge Planning Comments: CM SPOKE WITH [facility] TRANSFER C[facility] AT [phone]. JIM WRIGHT PAGER GIVEN FOR [facility] TO CALL. CM TO FOLLOW AND ASSIST. Financial Risk Manager: Ora Keane Appended by Ora Keane on 07/17/2019 13:42 CDT: HAS BEEN ACCEPTED TO [facility], WAITING ON A BED. Last DP export: 07/17/19 1:59 p Patient Name: YEMI DAVID Page 85084 at 1208 All edits/amendments must be made on the electronic document DICTATION DATE: 07/20/19 1208 SQUAD BOSS: CHIO 07/20/19 1208 RPT#: [id number] DC DATE:07/20/19 STATUS: DIS IN [facility] [address] [place] [address] END OF REPORT
[2019-07-20 12:09] LABS: HIV AB INTERPRETATION HIV-1 Positive (())
[2019-07-29 17:05] VITALS: Ht 182.9 cm; Wt 63.5 kg
== END 2019-07-20 00:57 | disposition short-term general hospital (02) | DRG 974 ==
LOC: D.ER 18:00 → D.MS 22:44
PROVIDERS: Family Medicine; Internal Medicine Hematology & Oncology; ADMIT Emergency Medicine; ATTEND Emergency Medicine
DX: B20 Human immunodeficiency virus [HIV] disease (principal); J18.9 Pneumonia, unspecified organism; J96.21 Acute and chronic respiratory failure with hypoxia; B39.2 Pulmonary histoplasmosis capsulati, unspecified; E46 Unspecified protein-calorie malnutrition; Z68.1 Body mass index [BMI] 19.9 or less, adult; E87.1 Hypo-osmolality and hyponatremia; B37.0 Candidal stomatitis; F17.213 Nicotine dependence, cigarettes, with withdrawal; D50.9 Iron deficiency anemia, unspecified; E87.6 Hypokalemia; L30.9 Dermatitis, unspecified; E53.8 Deficiency of other specified B group vitamins; Z87.01 Personal history of pneumonia (recurrent)

== ENCOUNTER 2019-08-10 14:56 | Emergency (ER) | payer OTHER ==
[~2019-08-10] VITALS: Ht 182.9 cm; Wt 63.6 kg
[2019-08-10 14:57] VITALS: Ht 182.9 cm; Wt 63.6 kg
[2019-08-10] MEDS ORDERED: ACETAMINOPHEN500 M1 (15:08)
[2019-08-10] MEDS ORDERED: BIKTARVY 50-201 EACH (15:09)
[2019-08-10] MEDS ORDERED: ALBUTEROL SULF8.5 GM (15:09)
[2019-08-10] MEDS ORDERED: MYAMBUTOL400 MG (15:10)
[2019-08-10] MEDS ORDERED: ZITHROMAX500 MG PO (16:55)
[2019-08-10] MEDS ORDERED: SPORANOX100 MG PO (16:55)
[2019-08-10 18:05] VITALS: BP 108/61
== END 2019-08-10 18:12 | disposition home or self-care (01) ==
LOC: D.ER 14:56
DX: G89.29 Other chronic pain (principal); B20 Human immunodeficiency virus [HIV] disease

== ENCOUNTER 2019-09-06 12:19 | Inpatient (IN) | payer OTHER ==
[~2019-09-06] VITALS: Ht 182.9 cm; Wt 63.5 kg
[~2019-09-06 12:19] MED LIST changes: +ACETAMINOPHEN500 M1; +ALBUTEROL SULF8.5 GM; +BIKTARVY 50-201 EACH; +MYAMBUTOL400 MG; +SPORANOX100 MG PO; +ZITHROMAX500 MG PO
[2019-09-06 12:53] LABS: BASOPHILS 0.3 % (0-2); EOSINOPHILS 0.3 % (0-7); HEMATOCRIT 29.5 % (42.0-54.0); HEMOGLOBIN 9.9 g/dL (13.5-17.5); IMMATURE GRANULOCYTES 7.2 % (0-5); LYMPHOCYTES 10.6 % (15-50); MCH 30.1 pg (26.0-34.0); MCHC 33.6 g/dL (31.0-37.0); MCV 89.7 fL (80.0-100.0); MEAN PLATELET VOLUME 8.8 fL (7.4-10.4); MONOCYTES 11.5 % (2-11); NEUTROPHILS 70.1 % (40-80); RBC 3.29 10x6/uL (4.20-6.10); WBC 3.2 10x3/uL (4.8-10.8)
[2019-09-06 12:54] LABS: PLATELET COUNT 193 10x3/uL (130-400)
[2019-09-06 12:59] LABS: CALC OSMOLALITY 253 mosm/kg (275-300); CALCIUM 8.3 mg/dL (8.5-10.1); CARBON DIOXIDE 23.6 mmol/L (21.0-32.0); CHLORIDE - SERUM 96 mmol/L (98-107); CREATININE - SERUM 0.8 mg/dL (0.6-1.3); GLUCOSE 87 mg/dL (74-106); SODIUM 127 mmol/L (136-145); UREA NITROGEN 12 mg/dL (7-18); eGFR NON AFRICAN AMERICAN > 90 mL/min (90-120)
[2019-09-06 13:08] LABS: ALBUMIN 2.2 g/dL (3.4-5.0); ALKALINE PHOSPHATASE 78 U/L (46-116); ALT (SGPT) 13 U/L (10-68); AMYLASE - SERUM 39 U/L (25-115); BILIRUBIN - TOTAL 0.45 mg/dL (0.2-1.3); LIPASE 80 U/L (73-393); PROTEIN - SERUM 8.7 g/dL (6.4-8.2); TROPONIN-I < 0.017 ng/mL (0.000-0.060)
[2019-09-06 14:08] LABS: APPEARANCE CLEAR (CLEAR); BILIRUBIN NEGATIVE (NEGATIVE); COLOR YELLOW (YELLOW); GLUCOSE NEGATIVE (NEGATIVE); KETONE NEGATIVE (NEGATIVE); NITRITE NEGATIVE (NEGATIVE); PROTEIN NEGATIVE (NEGATIVE); UROBILINOGEN NORMAL (NORMAL)
[2019-09-06 17:00] LABS: INR 1.21 (0.85-1.17); PROTIME 14.8 SECONDS (11.6-15.0)
[2019-09-06 17:01] LABS: APTT 39.9 SECONDS (22.8-39.4)
--- NOTE | 2019-09-06 17:25 | NUR ---
PT TO ROOM FROM ER ON CART, ABLE TO TRANSFER TO BED. LARGE BRUISE NOTED TO RIGHT HIP. STATES HE IS HUNGRY. WITH PERSISTANT COUGH. PAIN TO HIP 10/10.
--- NOTE | 2019-09-06 17:31 | MORECARE ---
CASE MANAGEMENT DISCHARGE SUMMARY PATIENT: YEMI DAVID UNIT: [id number] ADM DATE: 09/06/19 AGE: 34 : 87 SEX: M ROOM/BED: D.1209 AUTHOR: PAM JOSE PHYSICIAN: REFERRING PHYSICIAN: VIOLETA ROBERSON MD DATE OF SERVICE: 09/06/19 Discharge Plan Patient Name: YEMI DAVID Facility: [facility]:[place] : 1985 Planned Disposition: Home Anticipated Discharge Date: 09/09/19 Discharge Date: Expected LOS: 3 Initial Reviewer: [email or web address] Initial Review Date: 09/06/2019 Generated: 09/06/19 6:31 pm Patient Name: YEMI DAVID Page [phone] at 1731 All edits/amendments must be made on the electronic document DICTATION DATE: 09/06/191730 MANAGER OF PRODUCT: CHIO 09/06/191730 RPT#: [id number] DC DATE: STATUS: ADM IN [facility] [address] [place] [address] END OF REPORT
--- NOTE | 2019-09-06 17:37 | MORECARE ---
CASE MANAGEMENT DISCHARGE SUMMARY PATIENT: YEMI VEGA UNIT: [id number] ADM DATE: 09/06/19 AGE: 34 : 87 SEX: M ROOM/BED: D.1209 AUTHOR: REBECA,DOC PHYSICIAN: REFERRING PHYSICIAN: VIOLETA ROBERSON MD DATE OF SERVICE: 09/06/19 Discharge Plan Patient Name: YEMI VEGA Facility: [facility]:[place] : 1985 Planned Disposition: Home Anticipated Discharge Date: 09/09/19 Discharge Date: Expected LOS: 3 Initial Reviewer: [email or web address] Initial Review Date: 09/06/2019 Generated: 09/06/19 6:37 pm DCP- Discharge Planning Updated by [email or web address]: Brandy Barnhart on 09/06/19 4:[address] DC PLAN: Return home with his mother and brother. ANTICIPATED DC NEEDS: Denied known dc needs. CM met with patient to complete initial dc planning assessment. CM educated patient on the CM role and verbal consent given by patient to complete assessment. CM verified patient's address, phone number, and emergency contact phone numbers. Patient lives at home with his mother and his brother. He stated he is dependent on his mother and his brother for ADL/IADL assistance. At discharge patient plans to return home and feels this is a safe discharge. CM discussed availability of home health, rehab services, and medical equipment. Patient denied known discharge needs at this time. Transportation provider at discharge will be either his mother or brother. CM will continue to follow and will assist as needed with dc plans/needs. Brandy Barnhart RN, [facility] DCPIA - Discharge Planning Initial Assessment Updated by [email or web address]: Brandy Barnhart on 09/06/19 5:31 pm * Is the patient Alert and Oriented? Yes * How many steps to enter\exit or inside your home? 3 flights * PCP No PCP - stated he goes to [facility] for his HIV treatment/medications. * Pharmacy [facility] [address] * Preadmission Environment Home with Family * ADLs Partial Dependent * Partial ADLs (Assistance needed) Ambulation Bathing Transfers * Equipment None * Other Equipment Unable to stand or walk on by himself. Stated he requires assistance with all ADL's. His mother and brother are his caregivers. * List name and contact numbers for known caregivers / representatives who currently or will assist patient after discharge: Carlitos Vega - brother - [phone] * Verbal permission to speak to the caregivers and representatives has been obtained from the patient. Yes * Community resources currently utilized None * Additional services required to return to the preadmission environment? No * Can the patient safely return to the preadmission environment? Yes * Has this patient been hospitalized within the prior 30 days at any hospital? No Last DP export: 09/06/19 4:31 Patient Name: YEMI VEGA Page [phone] at 1737 All edits/amendments must be made on the electronic document DICTATION DATE: 09/06/191736 COOKER HELPER: CHIO 09/06/191736 RPT#: [id number] DC DATE: STATUS: ADM IN [facility] [address] [place] [address] END OF REPORT
[2019-09-06] MEDS ORDERED: SULFAMETHOXAZOL1 TA2 PO (18:24)
[2019-09-06 19:07] VITALS: BP 89/54
--- NOTE | 2019-09-06 19:20 | NUR ---
PT LYING IN BED. CL IN REACH. DENIES NEEDS AT THIS TIME. BED IN LOW SIDE RAILS X2. A/O X4. RESP EVEN AND UNLABORED. LUNGS DIMINISHED. BOWEL ACTIVE X4. WILL CONTINUE TO MONITOR.
[2019-09-06 23:52] VITALS: BP 104/57
[2019-09-07 04:09] VITALS: BP 102/59
[2019-09-07 06:46] LABS: MCH 29.1 pg (26.0-34.0); MCHC 32.3 g/dL (31.0-37.0); MCV 90.2 fL (80.0-100.0); MEAN PLATELET VOLUME 8.6 fL (7.4-10.4); PLATELET COUNT 161 10x3/uL (130-400); WBC 2.6 10x3/uL (4.8-10.8)
[2019-09-07 06:48] LABS: ALBUMIN 1.7 g/dL (3.4-5.0); ALKALINE PHOSPHATASE 154 U/L (46-116); ALT (SGPT) 11 U/L (10-68); BILIRUBIN - TOTAL 0.29 mg/dL (0.2-1.3); CALC OSMOLALITY 250 mosm/kg (275-300); CALCIUM 7.5 mg/dL (8.5-10.1); CARBON DIOXIDE 21.4 mmol/L (21.0-32.0); CHLORIDE - SERUM 98 mmol/L (98-107); CREATININE - SERUM 0.9 mg/dL (0.6-1.3); GLUCOSE 84 mg/dL (74-106); MAGNESIUM - SERUM 1.4 mg/dL (1.8-2.4); PHOSPHOROUS 3.3 mg/dL (2.5-4.9); POTASSIUM - SERUM 3.4 mmol/L (3.5-5.1); PROTEIN - SERUM 6.8 g/dL (6.4-8.2); SODIUM 126 mmol/L (136-145); UREA NITROGEN 11 mg/dL (7-18); eGFR NON AFRICAN AMERICAN > 90 mL/min (90-120)
[2019-09-07 06:52] LABS: RBC 2.44 10x6/uL (4.20-6.10)
[2019-09-07 06:53] LABS: HEMOGLOBIN 7.1 g/dL (13.5-17.5)
--- NOTE | 2019-09-07 07:20 | NUR ---
RECIEVE REPORT. ALERT AND ORIENTED X4. RESTING IN BED. PAGE JONA, HERBOLOGIST FOR HGB 7.1. INITIATE ELECTROLYTE PROTOCOL ORDERED. DENIES ANY NEEDS AT THIS TIME. CONTINUE PLAN OF CARE AND SAFETY PRECAUTIONS.
[2019-09-07 08:02] VITALS: BP 92/53
[2019-09-07 08:36] LABS: % SATURATION 15 % (15-55); IRON 20 ug/dl (35-150); TOTAL IRON BIND CAPACITY 127 ug/dl (260-445); UNSAT IRON BIND CAPACITY 107 ug/dl (150-375)
[2019-09-07 09:36] LABS: BASOPHILS 0.4 % (0-2); EOSINOPHILS 0.4 % (0-7); IMMATURE GRANULOCYTES 1.9 % (0-5); LYMPHOCYTES 10.7 % (15-50); MONOCYTES 11.1 % (2-11); NEUTROPHILS 75.5 % (40-80)
--- NOTE | 2019-09-07 10:25 | NUR ---
ALERT AND ORIENTED X4. RESTING IN BED. BLOOD CONSENT SIGNED ON CHART. INITIATE UNIT1 PRBC TRANSFUSION THROUGH RT FA 20G IV. BP-99/67, HR-95, T-98.3, R-20. REMAIN IN ROOM FIRST 15 MINUTES TO MONITOR FOR REACTION.
--- NOTE | 2019-09-07 10:40 | NUR ---
ALERT AND ORIENTED X4. BP-106/69, HR-95, R-18, T-98.3. NO SIGNS OF REACTION. RECIEVING UPDRAFT. INCREASE TRANSFUSION RATE TO 125ml/HR. DENIES ANY NEEDS. CONTINUE PLAN OF CARE AND SAFETY PRECAUTIONS.
--- NOTE | 2019-09-07 10:51 | NUR ---
DR PRIDE AWARE OF CONSULT
[2019-09-07 12:17] VITALS: BP 106/69
--- NOTE | 2019-09-07 13:03 | NUR ---
ALERT AND ORIENTED X4. SITTING UP IN BED. TEMP SPIKE TO 101.2. BLOOD TRANSFUSION STOPPED. BP-110/64, HR-115. REPORTS NAUSEA. ZOFRAN ADMINISTERED ORDERED AT 1045. MESSAGE LEFT ON 'S PHONE. NOEMI REED NOTIFIED.
[2019-09-07 15:15] VITALS: Ht 182.9 cm; Wt 63.5 kg
[2019-09-07 16:30] VITALS: BP 95/56
--- NOTE | 2019-09-07 17:20 | NUR ---
ALERT AND ORIENTED X4. RESTING IN BED. FLU SCAB TAKEN TO LAB. TEMP 99. DENIES ANY NEEDS. CONTINUE PLAN OF CARE AND SAFETY PRECAUTIONS.
[2019-09-07 17:48] LABS: MAGNESIUM - SERUM 1.6 mg/dL (1.8-2.4); POTASSIUM - SERUM 3.5 mmol/L (3.5-5.1)
[2019-09-07 20:38] VITALS: BP 122/74
--- NOTE | 2019-09-07 21:00 | NUR ---
A/O WITH NO SIGNS OF ACUTE DISTRESS. IV TO THE RT FOREARM WITH NO REDNESS OR SWELLING. DURNING MED PASS PT BECAME NAUSEOUS AND THREW UP YELLOW EMESIS INTO BAG. GAVE ZOFRAN AND MORPHINE INSTEAD OF TYLENOL SINCE BP WAS UP. DENIES NO OTHER NEEDS AT THIS TIME. CONTINUE PLAN OF CARE.
[2019-09-08 00:09] VITALS: BP 92/57
[2019-09-08 04:00] VITALS: BP 106/64
[2019-09-08 05:59] LABS: BASOPHILS 0.4 % (0-2); EOSINOPHILS 0.4 % (0-7); HEMATOCRIT 25.4 % (42.0-54.0); HEMOGLOBIN 8.4 g/dL (13.5-17.5); LYMPHOCYTES 7.9 % (15-50); MCH 29.1 pg (26.0-34.0); MCHC 33.1 g/dL (31.0-37.0); MEAN PLATELET VOLUME 8.7 fL (7.4-10.4); MONOCYTES 12.2 % (2-11); NEUTROPHILS 77.1 % (40-80); PLATELET COUNT 163 10x3/uL (130-400); RBC 2.89 10x6/uL (4.20-6.10); RDW 19.5 % (11.5-14.5); WBC 2.5 10x3/uL (4.8-10.8)
[2019-09-08 06:23] LABS: MCV 87.9 fL (80.0-100.0)
[2019-09-08 06:29] LABS: ALBUMIN 1.8 g/dL (3.4-5.0); ALKALINE PHOSPHATASE 204 U/L (46-116); BILIRUBIN - TOTAL 0.28 mg/dL (0.2-1.3); CALC OSMOLALITY 258 mosm/kg (275-300); CALCIUM 7.6 mg/dL (8.5-10.1); CARBON DIOXIDE 22.6 mmol/L (21.0-32.0); CHLORIDE - SERUM 100 mmol/L (98-107); CREATININE - SERUM 0.9 mg/dL (0.6-1.3); GLUCOSE 89 mg/dL (74-106); MAGNESIUM - SERUM 1.5 mg/dL (1.8-2.4); POTASSIUM - SERUM 3.9 mmol/L (3.5-5.1); SODIUM 130 mmol/L (136-145); UREA NITROGEN 9 mg/dL (7-18); eGFR NON AFRICAN AMERICAN > 90 mL/min (90-120)
[2019-09-08 06:30] LABS: ALT (SGPT) 18 U/L (10-68)
[2019-09-08 08:34] VITALS: BP 98/52
--- NOTE | 2019-09-08 09:32 | NUR ---
PT RECEIVED ALERT AND ORIENTED IN BED. COMPLAINTS OF PAIN 10/10 TO RIGHT HIP. MORPHINE GIVEN.
[2019-09-08] MEDS ORDERED: SULFAMETHOXAZOL1 TA2 PO (10:41)
[2019-09-08] MEDS ORDERED: SPORANOX100 MG PO (10:41)
[2019-09-08 11:10] LABS: BASOS 0 % (Not Estab.); CD4 - % CD4 POS. LYMPH 6.7 % (30.8-58.5); CD4 - ABSOLUTE CD4 HELPER 13 /uL (359-1519); EOS 0 % (Not Estab.); HEMATOCRIT 26.6 % (37.5-51.0); HEMOGLOBIN 8.2 g/dL (13.0-17.7); LYMPHS 9 % (Not Estab.); LYMPHS (ABSOLUTE) 0.2 x10E3/uL (0.7-3.1); MCHC 30.8 g/dL (31.5-35.7); MCV 94 fL (79-97); MONOCYTES 12 % (Not Estab.); MONOCYTES (ABSOLUTE) 0.3 x10E3/uL (0.1-0.9); NEUTROPHILS 78 % (Not Estab.); PLATELETS 209 x10E3/uL (150-450); RBC 2.83 x10E6/uL (4.14-5.80); RDW 19.2 % (12.3-15.4); WBC 2.5 x10E3/uL (3.4-10.8)
--- NOTE | 2019-09-08 17:06 | NUR ---
IV REMOVED AND DISCHARGE PAPERWORK REVIEWED. SCRIPTS AT [facility]. PT TRANSPORTED OUT VIA WHEELCHAIR.
--- NOTE | 2019-09-08 19:07 | MORECARE ---
CASE MANAGEMENT DISCHARGE SUMMARY PATIENT: YEMI VEGA UNIT: [id number] ADM DATE: 09/06/19 AGE: 34 : 86 SEX: M ROOM/BED: D.1209 AUTHOR: REBECA,DOC PHYSICIAN: REFERRING PHYSICIAN: VIOLETA ROBERSON MD DATE OF SERVICE: 09/08/19 Discharge Plan Patient Name: YEMI VEGA Facility: [facility]:[place] : 1985 Planned Disposition: Home Anticipated Discharge Date: 09/09/19 Discharge Date: 09/08/2019 Expected LOS: 3 Initial Reviewer: [email or web address] Initial Review Date: 09/06/2019 Generated: 09/08/19 8:06 pm Comments DCP- Discharge Planning Updated by [email or web address]: Nyasia Vaz on 09/08/19 6:[address] CM received request for assistance in getting PA for Sporonox 200mg PO daily. CM contacted insurance company and completed PA over phone. Conf # [id number]. Ayanna stated we would have result faxed within 24hrs. CM received faxed PA approved and CM called [facility] on [facility]. CM confirmed that RX was there and clarified order. CM notified patient that Rx was approved and he could pick it up at pharmacy upon discharge. CM will continue to follow and assist as needed with discharge planning / needs. DCP- Discharge Planning Updated by [email or web address]: Brandy Barnhart on 09/06/19 4:[address] DC PLAN: Return home with his mother and brother. ANTICIPATED DC NEEDS: Denied known dc needs. CM met with patient to complete initial dc planning assessment. CM educated patient on the CM role and verbal consent given by patient to complete assessment. CM verified patient's address, phone number, and emergency contact phone numbers. Patient lives at home with his mother and his brother. He stated he is dependent on his mother and his brother for ADL/IADL assistance. At discharge patient plans to return home and feels this is a safe discharge. CM discussed availability of home health, rehab services, and medical equipment. Patient denied known discharge needs at this time. Transportation provider at discharge will be either his mother or brother. CM will continue to follow and will assist as needed with dc plans/needs. Brandy Barnhart RN, [facility] DCPIA - Discharge Planning Initial Assessment Updated by [id number]: Brandy Barnhart on 09/06/19 5:31 pm * Is the patient Alert and Oriented? Yes * How many steps to enter\exit or inside your home? 3 flights * PCP No PCP - stated he goes to [facility] for his HIV treatment/medications. * Pharmacy [facility] on [address] * Preadmission Environment Home with Family * ADLs Partial Dependent * Partial ADLs (Assistance needed) Ambulation Bathing Transfers * Equipment None * Other Equipment Unable to stand or walk on by himself. Stated he requires assistance with all ADL's. His mother and brother are his caregivers. * List name and contact numbers for known caregivers / representatives who currently or will assist patient after discharge: Carlitos Vega - brother - [phone] * Verbal permission to speak to the caregivers and representatives has been obtained from the patient. Yes * Community resources currently utilized None * Additional services required to return to the preadmission environment? No * Can the patient safely return to the preadmission environment? Yes * Has this patient been hospitalized within the prior 30 days at any hospital? No Last DP export: 09/06/19 4:37 Patient Name: YEMI VEGA Page 25583 at 1907 All edits/amendments must be made on the electronic document DICTATION DATE: 09/08/191905 OAKES MACHINE OPERATOR: CHIO 09/08/191905 RPT#: [id number] DC DATE:09/08/19 STATUS: DIS IN [facility] [address] [place] [address] END OF REPORT
== END 2019-09-08 17:07 | disposition home or self-care (01) | DRG 974 ==
LOC: D.ER 12:19 → D.M3 15:52
PROVIDERS: Family Medicine; ADMIT Internal Medicine Nephrology; ATTEND Internal Medicine Nephrology
DX: B20 Human immunodeficiency virus [HIV] disease (principal); J18.9 Pneumonia, unspecified organism; J96.21 Acute and chronic respiratory failure with hypoxia; B39.2 Pulmonary histoplasmosis capsulati, unspecified; E43 Unspecified severe protein-calorie malnutrition; F17.213 Nicotine dependence, cigarettes, with withdrawal; Z68.1 Body mass index [BMI] 19.9 or less, adult; E87.1 Hypo-osmolality and hyponatremia; S70.01XA Contusion of right hip, initial encounter; W19.XXXA Unspecified fall, initial encounter

== ENCOUNTER 2019-11-10 13:39 | Emergency (ER) | payer OTHER ==
[~2019-11-10] VITALS: Ht 182.9 cm; Wt 59.1 kg
[~2019-11-10 13:39] MED LIST changes: +SULFAMETHOXAZOL1 TA2 PO
[2019-11-10 13:48] VITALS: Ht 182.9 cm; Wt 59.1 kg
[2019-11-10 14:58] LABS: HEMATOCRIT 28.2 % (42.0-54.0); HEMOGLOBIN 8.8 g/dL (13.5-17.5); MCHC 31.2 g/dL (31.0-37.0); MCV 83.4 fL (80.0-100.0); MEAN PLATELET VOLUME 8.2 fL (7.4-10.4); RBC 3.38 10x6/uL (4.20-6.10); RDW 16.6 % (11.5-14.5); WBC 7.2 10x3/uL (4.8-10.8)
[2019-11-10 14:59] LABS: PLATELET COUNT 290 10x3/uL (130-400)
[2019-11-10 15:30] LABS: CALC OSMOLALITY 262 mosm/kg (275-300); CALCIUM 7.7 mg/dL (8.5-10.1); CARBON DIOXIDE 29.4 mmol/L (21.0-32.0); CHLORIDE - SERUM 99 mmol/L (98-107); CREATININE - SERUM 0.7 mg/dL (0.6-1.3); GLUCOSE 80 mg/dL (74-106); POTASSIUM - SERUM 3.9 mmol/L (3.5-5.1); SODIUM 133 mmol/L (136-145); UREA NITROGEN 8 mg/dL (7-18); eGFR NON AFRICAN AMERICAN > 90 mL/min (90-120)
[2019-11-10] MEDS ORDERED: ZOFRAN ODT4 MG/UDTAB PO (15:32)
[2019-11-10 15:36] LABS: ALBUMIN 1.8 g/dL (3.4-5.0); ALKALINE PHOSPHATASE 71 U/L (46-116); ALT (SGPT) 10 U/L (10-68); BILIRUBIN - TOTAL 0.21 mg/dL (0.2-1.3); PROTEIN - SERUM 7.4 g/dL (6.4-8.2)
[2019-11-10 15:46] LABS: LYMPHOCYTES 7 % (15-50); MONOCYTES 1 % (2-11); NEUTROPHILS 92 % (40-80); PLATELET ESTIMATE NORMAL
[2019-11-10 16:19] VITALS: BP 110/65
== END 2019-11-10 16:20 | disposition home or self-care (01) ==
LOC: D.ER 13:39
PROVIDERS: Family Medicine
DX: D64.9 Anemia, unspecified (principal); E87.1 Hypo-osmolality and hyponatremia; B20 Human immunodeficiency virus [HIV] disease

== ENCOUNTER 2020-01-11 19:27 | Inpatient (IN) | payer OTHER ==
[~2020-01-11] VITALS: Ht 182.9 cm; Wt 50.0 kg
[~2020-01-11 19:27] MED LIST changes: -ALBUTEROL SULF8.5 GM; +ALBUTEROL SULF8.5 GM INH; -BIKTARVY 50-201 EACH; +BIKTARVY 50-201 EACH PO; +ZOFRAN ODT4 MG/UDTAB PO
[2020-01-11] MEDS ORDERED: AZITHROMYCIN500 MG PO (19:41)
[2020-01-11] MEDS ORDERED: SMZ-TMP DS TABL1 TAB PO (19:41)
[2020-01-11] MEDS ORDERED: MUCINEX600 MG PO (19:43)
[2020-01-11] MEDS ORDERED: FOLIC ACID1 MG PO (19:43)
[2020-01-11] MEDS ORDERED: MELATONIN5 M3 PO (19:45)
[2020-01-11] MEDS ORDERED: MEGACE40 MG PO (19:45)
[2020-01-11] MEDS ORDERED: MULTI-DAY VITAM1 TAB PO (19:46)
[2020-01-11] MEDS ORDERED: PERCOCET 5-3251 TAB PO (19:47)
[2020-01-11] MEDS ORDERED: PHENERGAN6.25 MG/5 PO (19:47)
[2020-01-11] MEDS ORDERED: REMERON15 MG PO (19:48)
[2020-01-11] MEDS ORDERED: VITAMIN B-1100 M1 PO (19:48)
[2020-01-11] MEDS ORDERED: VITAMIN D10000 UNI1 PO (19:49)
--- NOTE | 2020-01-11 19:55 | NUR ---
PT MADE PUI AND MOVED TO E-3. SPOKE TO SPRINKLER TENDER AND JINNY MALAVE WELL.
[2020-01-11 20:44] LABS: BILIRUBIN NEGATIVE (NEGATIVE); GLUCOSE NEGATIVE (NEGATIVE); KETONE NEGATIVE (NEGATIVE); NITRITE NEGATIVE (NEGATIVE); UROBILINOGEN NORMAL (NORMAL)
[2020-01-11 20:46] LABS: BASOPHILS 0.3 % (0-2); EOSINOPHILS 0.3 % (0-7); HEMATOCRIT 24.7 % (42.0-54.0); IMMATURE GRANULOCYTES 18.8 % (0-5); LYMPHOCYTES 15.5 % (15-50); MCH 25.3 pg (26.0-34.0); MCHC 29.6 g/dL (31.0-37.0); MCV 85.5 fL (80.0-100.0); MEAN PLATELET VOLUME 9.4 fL (7.4-10.4); MONOCYTES 6.3 % (2-11); NEUTROPHILS 58.8 % (40-80); RBC 2.89 10x6/uL (4.20-6.10); RDW 19.3 % (11.5-14.5)
[2020-01-11 20:56] LABS: APTT 33.8 SECONDS (22.8-39.4); INR 1.15 (0.85-1.17); PROTIME 14.6 SECONDS (11.6-15.0)
[2020-01-11 20:58] LABS: CALC OSMOLALITY 275 mosm/kg (275-300); CALCIUM 7.1 mg/dL (8.5-10.1); CARBON DIOXIDE 26.1 mmol/L (21.0-32.0); CHLORIDE - SERUM 108 mmol/L (98-107); CREATININE - SERUM 0.5 mg/dL (0.6-1.3); POTASSIUM - SERUM 4.1 mmol/L (3.5-5.1); SODIUM 139 mmol/L (136-145); UREA NITROGEN 7 mg/dL (7-18); eGFR NON AFRICAN AMERICAN > 90 mL/min (90-120)
[2020-01-11 21:02] LABS: GLUCOSE 93 mg/dL (74-106)
[2020-01-11 21:05] LABS: HEMOGLOBIN 7.3 g/dL (13.5-17.5); PLATELET COUNT 151 10x3/uL (130-400)
--- NOTE | 2020-01-11 21:05 | NUR ---
PATIENT LAYING IN BED WITH O2 @ 2L/M.NO OBVIOUS DISTRESS NOTED. IV SITED X 1 ATTEMPT WITH 20G TO R AC. HEMOCULT GUIAC DONE WITH NEG RESULT. COVID-19 SWAB ALONG WITH FLU STREP COMPLETE. PATIENT HAD LARGE BM. TYENOL AND FLUID BOLUS INITIATED.SPECIMENS SENT TO LAB
[2020-01-11 21:15] LABS: ALBUMIN 0.9 g/dL (3.4-5.0); ALKALINE PHOSPHATASE 72 U/L (30-120); ALT (SGPT) 25 U/L (10-68); C-REACTIVE PROTEIN 8.2 mg/dL (0.0-0.9); CREATINE KINASE 9 UL (21-232); LIPASE 38 U/L (73-393); MAGNESIUM - SERUM 1.4 mg/dL (1.8-2.4); PRO BNP 889 pg/mL (0-125); PROTEIN - SERUM 4.2 g/dL (6.4-8.2); THYROID STIMULATING HORMONE 1.09 uIU/mL (0.36-3.74)
[2020-01-11 21:16] LABS: BILIRUBIN - TOTAL 0.09 mg/dL (0.2-1.3); TROPONIN-I < 0.017 ng/mL (0.000-0.060)
[2020-01-11 21:19] VITALS: BP 128/72
--- NOTE | 2020-01-11 22:30 | NUR ---
SPOKE WITH LOU CHRISTIAN APN SHE STATED NO BLOOD TRANSFUSION YET DR ALVAREZ AND SURESH TO DISCUSS. HOLD FOR NOW
--- NOTE | 2020-01-11 23:05 | NUR ---
CALLED [facility] SPOKE WITH NURSE ROGERS AND NOTIFIED PATIENT IS ADMITTED HERE TO ROOM [id number]
[2020-01-12 00:02] VITALS: BP 114/66; BMI 14.9
--- NOTE | 2020-01-12 01:08 | NUR ---
NO MED REC RECEIVED FROM [facility]. CALLED AND SPOKE WITH KRISTEN PATRICIA. STATED THAT THE PT HAD BEEN D/C'D IN THEIR COMPUTER AND WAS UNABLE TO PULL UP A MED REC. ALSO STATED THERE WERE NEW NURSES THAT PROBABLY DID'NT KNOW WHAT PAPERWORK TO SEND WHEN HE WAS TRANSFERED. NOEMI SALVADOR NOTIFIED. [facility] AM TO NOTIFY [facility] TO SEE IF ANYONE CAN PULL UP RECENT MEDICATION REC..
--- NOTE | 2020-01-12 01:57 | NUR ---
RECEIVED REPORT FROM SHANICE IN ER. ARRIVED TO FLOOR ON STRETCHER. ALERT AND ORIENTED X4 WITH PERIODS OF CONFUSION. IV TO RT HAND SL.. NO EDEMA OBSERVED. DENIES ANY NEEDS AT THIS TIME.
[2020-01-12 03:10] VITALS: BP 106/68
[2020-01-12 05:12] LABS: HEMATOCRIT 26.5 % (42.0-54.0); HEMOGLOBIN 7.8 g/dL (13.5-17.5); MCH 25.2 pg (26.0-34.0); MCHC 29.4 g/dL (31.0-37.0); MCV 85.8 fL (80.0-100.0); PLATELET COUNT 147 10x3/uL (130-400); RBC 3.09 10x6/uL (4.20-6.10); RDW 18.4 % (11.5-14.5); WBC 2.9 10x3/uL (4.8-10.8)
[2020-01-12] MEDS ORDERED: MELATONIN 3 MG1 TAB PO (05:25)
[2020-01-12] MEDS ORDERED: PHENERGAN25 M1 PO (05:29)
[2020-01-12] MEDS ORDERED: ZOFRAN8 MG PO (05:35)
[2020-01-12 05:38] LABS: ALBUMIN 0.8 g/dL (3.4-5.0); ALKALINE PHOSPHATASE 69 U/L (30-120); ALT (SGPT) 19 U/L (10-68); CALC OSMOLALITY 268 mosm/kg (275-300); CALCIUM 7.2 mg/dL (8.5-10.1); CARBON DIOXIDE 28.3 mmol/L (21.0-32.0); CHLORIDE - SERUM 106 mmol/L (98-107); CREATININE - SERUM 0.4 mg/dL (0.6-1.3); GLUCOSE 77 mg/dL (74-106); MAGNESIUM - SERUM 1.5 mg/dL (1.8-2.4); PHOSPHOROUS 3.7 mg/dL (2.5-4.9); POTASSIUM - SERUM 4.1 mmol/L (3.5-5.1); PRO BNP 1274 pg/mL (0-125); PROTEIN - SERUM 4.4 g/dL (6.4-8.2); SODIUM 136 mmol/L (136-145); THYROID STIMULATING HORMONE 1.13 uIU/mL (0.36-3.74); UREA NITROGEN 8 mg/dL (7-18); eGFR NON AFRICAN AMERICAN > 90 mL/min (90-120)
--- NOTE | 2020-01-12 05:40 | NUR ---
RECEIVED FAX FROM [facility] FOR INCURABLES OF CURRENT MEDICATIONS. HAVE UPDATED RECONCILLE MEDS.
[2020-01-12 05:45] LABS: LIPASE 33 U/L (73-393)
[2020-01-12 07:23] VITALS: BP 89/53
--- NOTE | 2020-01-12 07:55 | NUR ---
REPORT RECEIVED. WILL CONTINUE WITH POC. PT CURRENTLY LYING ON RIGHT SIDE. CALL LIGHT W/I REACH. RR EVEN AND UNLABORED ON 2L 02. BLOOD CURRENTLY INFUSING VIA R.AC PIV. NO S/S OF DISTRESS NOTED. PT DENIES ANY NEEDS. WILL CTM.
[2020-01-12 08:57] LABS: LYMPHOCYTES 8 % (15-50); MONOCYTES 20 % (2-11); NEUTROPHILS 56 % (40-80); PLATELET ESTIMATE NORMAL
[2020-01-12 08:58] LABS: ANISOCYTOSIS OCC; POLYCHROMASIA OCC
[2020-01-12 08:59] LABS: ROULEAUX OCC
[2020-01-12 09:22] VITALS: Ht 182.9 cm; Wt 50.0 kg
[2020-01-12 09:41] VITALS: BP 170/84
[2020-01-12 11:51] VITALS: BP 103/65
[2020-01-12 12:00] LABS: BILIRUBIN NEGATIVE (NEGATIVE); GLUCOSE NEGATIVE (NEGATIVE); KETONE NEGATIVE (NEGATIVE); NITRITE NEGATIVE (NEGATIVE)
--- NOTE | 2020-01-12 12:28 | NUR ---
PT LYING SEMI FOWLERS. CALL LIGHT W/I REACH. VSS AND WNL. PT DENIES ANY NEEDS. NO S/S OF DISTRESS NOTED. D51/2NS INFUSING @75ML/HR VIA R.FOR PIV. WILL CTM. VSS AND WNL.
--- NOTE | 2020-01-12 13:14 | NUR ---
I have reviewed this patient and I concur with the Shift Assessment completed by the Licensed Practical Nurse today this shift.
--- NOTE | 2020-01-12 13:24 | NUR ---
RECEIVED VERBAL ORDERS PER JONA FRANKLIN FOR A STAT H&H AND TO CHANGE PERCOCET ORDER TO MATCH WHAT PT TAKES AT HOME WITH IS 5MG TABS Q6HPRN. ORDER CHANGED.WILL CTM.
[2020-01-12 13:50] LABS: HEMATOCRIT 30.8 % (42.0-54.0)
[2020-01-12 13:51] LABS: HEMOGLOBIN 9.5 g/dL (13.5-17.5)
[2020-01-12 17:08] VITALS: BP 105/66
--- NOTE | 2020-01-12 19:23 | NUR ---
RECEIVED UP IN BED WITH EYES OPEN AND TV ON. ALERT AND ORIENTED X4. BEDFAST AT THIS TIME. O2@ 2 LITERS PER N/C. IV TO RT FA WITH D5 1/2 NS INFUSING AT 75CC/HR. TELEMETRY IN PLACE. REQUIRES TOTAL CARE EXCEPT ABLE TO FEED SELF. DENIES ANY NEEDS AT THIS TIME.
--- NOTE | 2020-01-12 23:56 | NUR ---
REMAINS IN DROPLET ISOLATION R/T POSSIBLE COVID 19 VIRUS.
[2020-01-13 00:30] VITALS: BP 103/61
[2020-01-13 04:30] VITALS: BP 106/68
[2020-01-13 05:27] LABS: HEMATOCRIT 31.8 % (42.0-54.0); HEMOGLOBIN 9.7 g/dL (13.5-17.5); MCH 26.4 pg (26.0-34.0); MCHC 30.5 g/dL (31.0-37.0); MCV 86.4 fL (80.0-100.0); MEAN PLATELET VOLUME 9.6 fL (7.4-10.4); PLATELET COUNT 129 10x3/uL (130-400); RBC 3.68 10x6/uL (4.20-6.10); RDW 18.5 % (11.5-14.5); WBC 2.8 10x3/uL (4.8-10.8)
[2020-01-13 05:43] LABS: ALBUMIN 0.8 g/dL (3.4-5.0); ALKALINE PHOSPHATASE 65 U/L (30-120); ALT (SGPT) 15 U/L (10-68); AMYLASE - SERUM 26 U/L (25-115); BILIRUBIN - TOTAL 0.15 mg/dL (0.2-1.3); CALC OSMOLALITY 272 mosm/kg (275-300); CALCIUM 7.6 mg/dL (8.5-10.1); CARBON DIOXIDE 28.4 mmol/L (21.0-32.0); CHLORIDE - SERUM 107 mmol/L (98-107); CREATININE - SERUM 0.4 mg/dL (0.6-1.3); GLUCOSE 77 mg/dL (74-106); MAGNESIUM - SERUM 1.7 mg/dL (1.8-2.4); PHOSPHOROUS 4.3 mg/dL (2.5-4.9); POTASSIUM - SERUM 4.2 mmol/L (3.5-5.1); PROTEIN - SERUM 4.7 g/dL (6.4-8.2); SODIUM 138 mmol/L (136-145); UREA NITROGEN 7 mg/dL (7-18); eGFR NON AFRICAN AMERICAN > 90 mL/min (90-120)
[2020-01-13 06:28] LABS: BASOPHILS 1 % (0-2); LYMPHOCYTES 38 % (15-50); NEUTROPHILS 58 % (40-80)
[2020-01-13 06:29] LABS: ANISOCYTOSIS OCC; PLATELET ESTIMATE NORMAL
[2020-01-13 08:10] LABS: PROLACTIN 28.6 ng/mL (4.0-15.2)
[2020-01-13 08:56] VITALS: BP 106/62
--- NOTE | 2020-01-13 09:36 | NUR ---
PATIENT RESTING IN BED WITH NO NEEDS VOICED. ALERT AND ORIENTED, BEDFAST. IV TO RIGHT FA D5 1/2 NS INFUSING AT 75, THROAT CX OBTAINED AND TAKEN TO LAB. DROPLET PRECAUTIONS USED. CL IN REACH
--- NOTE | 2020-01-13 10:20 | MORECARE ---
CASE MANAGEMENT DISCHARGE SUMMARY PATIENT: YEMI DAVID UNIT: [id number] ADM DATE: 01/11/20 AGE: 34 : 86 SEX: M ROOM/BED: D.2101 AUTHOR: PAM JOSE PHYSICIAN: REFERRING PHYSICIAN: ALLISON KNIGHT MD DATE OF SERVICE: 01/13/20 Discharge Plan Patient Name: YEMI DAVID Facility: [facility]:[place] : 1985 Planned Disposition: Nursing Facility KOFI Cert Anticipated Discharge Date: Discharge Date: Expected LOS: Initial Reviewer: [email or web address] Initial Review Date: 01/13/2020 Generated: 01/13/20 11:20 am DCPIA - Discharge Planning Initial Assessment Updated by ALIRIO: Mihai Monroe on 01/13/20 10:17 am * Is the patient Alert and Oriented? Yes * How many steps to enter\exit or inside your home? NONE * PCP [facility] * Pharmacy [facility] * Preadmission Environment Care Home Skilled Nursing * Facility Name [facility] * ADLs Partial Dependent * Partial ADLs (Assistance needed) Bathing Medication Management Toileting Transfers * Equipment Shower Chair Walker Wheelchair * Other Equipment ALL MEDICAL EQUIPMENT PROVIDED BY FACILITY * List name and contact numbers for known caregivers / representatives who currently or will assist patient after discharge: PERCY CRUMPER, * Verbal permission to speak to the caregivers and representatives has been obtained from the patient. N/A * Community resources currently utilized None * Please name any agencies selected above. NONE * Additional services required to return to the preadmission environment? No * Can the patient safely return to the preadmission environment? Yes * Has this patient been hospitalized within the prior 30 days at any hospital? Yes External Providers External Provider: [facility] Next Contact Date: 01/13/2020 Service Request Date: Service Type: Resolution: Reviewer: Comments: Coverage Notice Reviewer: [email or web address] Abdullahi Monroe Notice Issued Date-Time: 01/13/2020 9:57 Notice Type: Patient Choice Letter Notice Delivered To: Patient Relationship to Patient: High Rigger Name: Delivery Method: HAND - Hand Delivered Judy Days: Prior Verbal Notification: Recipient Understood Notice: Yes Recipient Signature: Yes Med Rec Note Co-signed by Attending: Coverage Notice Comment: [facility] Patient Name: YEMI DAVID Page 51421 at 1020 All edits/amendments must be made on the electronic document DICTATION DATE: 01/13/20 1020 ELECTRONICS ENGINEERING TECHNOLOGIST: CHIO 01/13/20 1020 RPT#: [id number] DC DATE: STATUS: ADM IN [facility] [address] [facility] [place] [address] END OF REPORT
--- NOTE | 2020-01-13 10:28 | MORECARE ---
CASE MANAGEMENT DISCHARGE SUMMARY PATIENT: YEMI DAVID UNIT: [id number] ADM DATE: 01/11/20 AGE: 34 : 86 SEX: M ROOM/BED: D.2101 AUTHOR: REBECADOC PHYSICIAN: REFERRING PHYSICIAN: ALLISON KNIGHT MD DATE OF SERVICE: 01/13/20 Discharge Plan Patient Name: YEMI DAVID Facility: [facility]:[place] : 1985 Planned Disposition: Nursing Facility KOFI Cert Anticipated Discharge Date: Discharge Date: Expected LOS: Initial Reviewer: [email or web address] Initial Review Date: 01/13/2020 Generated: 01/13/20 11:28 am Comments DCP- Discharge Planning Updated by [id number]: Mihai Monroe on 01/13/20 9:[address] Patient Name: YEMI DAVID Admission Status: ER Accout number: [id number] Admission Date: 01-11-2020 : 1985 Admission Diagnosis: Attending: ALLISON KNIGHT Current LOS: 2 Anticipated DC Date: Planned Disposition: Nursing Facility [facility] Cert Primary Insurance: [facility] PLANNED EXTERNAL PROVIDER: [facility], [facility] CARE MEDICAID BED Discharge Planning Comments: CM SPOKE TO PT VIA ROOM PHONE TO DISCUSS DISCHARGE PLANNING AND NEEDS. PT REPORTS LIVING AT [facility], HE HAS BEEN THERE FOR TWO WEEKS NOW. PT USES A SHOWER CHAIR, ROLLING WALKER AND WHEELCHAIR. PT REPORTS HAVING ASSISTANCE WITH GETTING UP OUT OF BED, TOILETING, SHOWERING AND PT DENIES DISCHARGE NEEDS, REPORTS PLAN TO RETURN TO [facility] AT DISCHARGE. CHOICE LETTER COMPLETED. CM VERIFIED BED STATUS WITH JASON [facility]. CM FAXED UPDATE INFORMATION TO [facility] AT [phone]. FOR DISCHARGE, NURSE REPORT TO BE CALLED TO [facility] AT [phone]. FAX DISCHARGE INFORMATION TO [facility] AT [phone]. [facility] TO ARRANGE VAN TRANSPORT IF PT IS ABLE TO SIT SAFELY FOR TRANSPORT. It Systems Engineer: Mihai Monroe DCPIA - Discharge Planning Initial Assessment Updated by [id number]: Mihai Monroe on 01/13/20 10:17 am * Is the patient Alert and Oriented? Yes * How many steps to enter\exit or inside your home? NONE * PCP DOCTOR FOR [facility] * Pharmacy [facility] * Preadmission Environment Half-Way Half-Way * Facility Name [facility] * ADLs Partial Dependent * Partial ADLs (Assistance needed) Bathing Medication Management Toileting Transfers * Equipment Shower Chair Walker Wheelchair * Other Equipment ALL MEDICAL EQUIPMENT PROVIDED BY FACILITY * List name and contact numbers for known caregivers / representatives who currently or will assist patient after discharge: PERCY CRUMPER, * Verbal permission to speak to the caregivers and representatives has been obtained from the patient. N/A * Community resources currently utilized None * Please name any agencies selected above. NONE * Additional services required to return to the preadmission environment? No * Can the patient safely return to the preadmission environment? Yes * Has this patient been hospitalized within the prior 30 days at any hospital? Yes Coverage Notice Reviewer: [id number] - Mihai Monroe Notice Issued Date-Time: 01/13/2020 9:57 Notice Type: Patient Choice Letter Notice Delivered To: Patient Relationship to Patient: Sanitary Inspector Name: Delivery Method: HAND - Hand Delivered Judy Days: Prior Verbal Notification: Recipient Understood Notice: Yes Recipient Signature: Yes Med Rec Note Co-signed by Attending: Coverage Notice Comment: [facility] Last DP export: 01/13/20 9:20 a Patient Name: YEMI DAVID Page 13406 at 1028 All edits/amendments must be made on the electronic document DICTATION DATE: 01/13/20 1028 BUCKLE FRAME SHAPER: CHIO 01/13/20 1028 RPT#: [id number] DC DATE: STATUS: ADM IN [facility] [address] [place] [address] END OF REPORT
--- NOTE | 2020-01-13 11:21 | MORECARE ---
CASE MANAGEMENT DISCHARGE SUMMARY PATIENT: YEMI DAVID UNIT: [id number] ADM DATE: 01/11/20 AGE: 34 : 87 SEX: M ROOM/BED: D.2101 AUTHOR: PAM JOSE PHYSICIAN: REFERRING PHYSICIAN: ALLISON KNIGHT MD DATE OF SERVICE: 01/13/20 Discharge Plan Patient Name: YEMI DAVID Facility: [facility]:[place] : 1985 Planned Disposition: Nursing Facility [facility] Cert Anticipated Discharge Date: Discharge Date: Expected LOS: Initial Reviewer: [email or web address] Initial Review Date: 01/13/2020 Generated: 01/13/20 12:20 pm Comments DCP- Discharge Planning Updated by [id number]: Mihai Monroe on 01/13/20 10:[address] Patient Name: YEMI DAVID Encounter No: [id number] : 1985 Primary Insurance: [facility] Anticipated DC Date: Planned Disposition: Nursing Facility [facility] Cert External Planned Provider:[facility], SKILLED MEDICAID BED Discharge Planning Comments: ARLEEN SPOKE TO JASON AT [facility], PT IN SKILLED BED AND WILL RETURN TO SKILLED BED AT DISCHARGE. JASON REQUESTED MICROBIOLOGY RESULTS. CM FAXED UPDATE INFORMATION TO [facility] AT [phone]. FOR DISCHARGE, [facility] WILL CALL FACILITY FOR VEBAL SCREENING QUESTIONAIRE PRIOR TO PT'S RETURN. NURSE REPORT TO BE CALLED TO [facility] AT [phone]. FAX DISCHARGE INFORMATION TO [facility] AT [phone]. [facility] TO ARRANGE VAN TRANSPORT IF PT IS ABLE TO SIT SAFELY FOR TRANSPORT. Senior Sas Developer: Mihai Monroe DCP- Discharge Planning Updated by [email or web address]: Mhiai Monroe on 01/13/20 9:[address] Patient Name: YEMI DAVID Admission Status: ER Accout number: [id number] Admission Date: 01-11-2020 : 1985 Admission Diagnosis: Attending: ALLISON KNIGHT Current LOS: 2 Anticipated DC Date: Planned Disposition: Nursing Facility [facility] Cert Primary Insurance: [facility] MANAGED MEDICAID PLANNED EXTERNAL PROVIDER: [facility], PSYCHOLOGICAL ASSISTANT CARE MEDICAID BED Discharge Planning Comments: CM SPOKE TO PT VIA ROOM PHONE TO DISCUSS DISCHARGE PLANNING AND NEEDS. PT REPORTS LIVING AT [facility], HE HAS BEEN THERE FOR TWO WEEKS NOW. PT USES A SHOWER CHAIR, ROLLING WALKER AND WHEELCHAIR. PT REPORTS HAVING ASSISTANCE WITH GETTING UP OUT OF BED, TOILETING, SHOWERING AND PT DENIES DISCHARGE NEEDS, REPORTS PLAN TO RETURN TO [facility] AT DISCHARGE. CHOICE LETTER COMPLETED. CM VERIFIED BED STATUS WITH JASON [facility]. CM FAXED UPDATE INFORMATION TO [facility] AT [phone]. FOR DISCHARGE, NURSE REPORT TO BE CALLED TO [facility] AT [phone]. FAX DISCHARGE INFORMATION TO [facility] AT [phone]. [facility] TO ARRANGE VAN TRANSPORT IF PT IS ABLE TO SIT SAFELY FOR TRANSPORT. Senior Sas Developer: Mihai Monroe DCPIA - Discharge Planning Initial Assessment Updated by [id number]: Mihai Monroe on 01/13/20 10:17 am * Is the patient Alert and Oriented? Yes * How many steps to enter\exit or inside your home? NONE * PCP DOCTOR FOR [facility] * Pharmacy [facility] * Preadmission Environment Public Health Analyst Long Term * Facility Name [facility] * ADLs Partial Dependent * Partial ADLs (Assistance needed) Bathing Medication Management Toileting Transfers * Equipment Shower Chair Walker Wheelchair * Other Equipment ALL MEDICAL EQUIPMENT PROVIDED BY FACILITY * List name and contact numbers for known caregivers / representatives who currently or will assist patient after discharge: JAVIER DAVID, BROTHER, * Verbal permission to speak to the caregivers and representatives has been obtained from the patient. N/A * Community resources currently utilized None * Please name any agencies selected above. NONE * Additional services required to return to the preadmission environment? No * Can the patient safely return to the preadmission environment? Yes * Has this patient been hospitalized within the prior 30 days at any hospital? Yes Coverage Notice Reviewer: [id number] - Mihai Monroe Notice Issued Date-Time: 01/13/2020 9:57 Notice Type: Patient Choice Letter Notice Delivered To: Patient Relationship to Patient: Plasterer Foreman Name: Delivery Method: HAND - Hand Delivered Judy Days: Prior Verbal Notification: Recipient Understood Notice: Yes Recipient Signature: Yes Med Rec Note Co-signed by Attending: Coverage Notice Comment: [facility] Last DP export: 01/13/20 9:28 a Patient Name: YEMI DAVID Page 88550 at 1121 All edits/amendments must be made on the electronic document DICTATION DATE: 01/13/20 112 NUT FORMER: CHIO 01/13/20 1120 RPT#: [id number] DC DATE: STATUS: ADM IN [facility] [address] [place] [address] END OF REPORT
[2020-01-13 12:50] VITALS: BP 104/62
--- NOTE | 2020-01-13 13:14 | NUR ---
PATIENT RESTING REPORTS PAIN BETTER AFTER TAKING PERCOCET. CL IN REACH
[2020-01-13 16:34] VITALS: BP 108/70
--- NOTE | 2020-01-13 17:18 | NUR ---
PATIENT RESTING WITH NO NEEDS VOICED, TEMP 99.0. CL IN REACH
[2020-01-13 20:00] VITALS: BP 114/69
--- NOTE | 2020-01-13 21:58 | NUR ---
PT LYING IN BED AWAKE ALERT AND ORIENTED. NO SIGNS OR SYMPTOMS OF DISTRESS NOTED. [id number] EVEN AND UNLABORED. PT COMOPLAINED OF 10/10 PAIN LEVEL. PRN PAIN MEDICATION GIVEN. NO FUTHER COMPLAINTS AT THIS TIME. PT ENCOURAGED TO CALL FOR HELP WHEN NEEDED AND WHEN GETTING IN AND OUT OF BED. CALL LIGHT WITH IN REACH AND BED IS IN LOWEST POSITION. WILL CONTINUE TO MONITOR
[2020-01-14] VITALS: BP 107/72
--- NOTE | 2020-01-14 03:49 | NUR ---
PRN PAIN MEDICATION GIVEN FOR 10/10 PAIN LEVEL. PT AWAKE ALERT AND ORIENTED x4 NO SIGNS OR SYMPTOMS OF DISTRESS NOTED. RESPIRATIONS EVEN AND UNLABORED. CALL LIGHT WITH IN REACH AND BED IS IN LOWEST POSITION. WILL CONTINUE TO MONITOR.
[2020-01-14 04:00] VITALS: BP 105/76; BP 134/64
[2020-01-14 06:23] LABS: ALBUMIN 0.7 g/dL (3.4-5.0); ALKALINE PHOSPHATASE 75 U/L (30-120); BILIRUBIN - TOTAL 0.16 mg/dL (0.2-1.3); CALCIUM 7.1 mg/dL (8.5-10.1); CARBON DIOXIDE 27.2 mmol/L (21.0-32.0); CHLORIDE - SERUM 104 mmol/L (98-107); CREATININE - SERUM 0.4 mg/dL (0.6-1.3); GLUCOSE 88 mg/dL (74-106); MAGNESIUM - SERUM 1.7 mg/dL (1.8-2.4); PHOSPHOROUS 3.6 mg/dL (2.5-4.9); POTASSIUM - SERUM 3.9 mmol/L (3.5-5.1); PROTEIN - SERUM 4.6 g/dL (6.4-8.2); SODIUM 134 mmol/L (136-145); eGFR NON AFRICAN AMERICAN > 90 mL/min (90-120)
[2020-01-14 06:25] LABS: BASOPHILS 0 % (0-2); EOSINOPHILS 0.4 % (0-7); HEMATOCRIT 28.8 % (42.0-54.0); HEMOGLOBIN 8.9 g/dL (13.5-17.5); IMMATURE GRANULOCYTES 11.6 % (0-5); LYMPHOCYTES 11.6 % (15-50); MCH 26.5 pg (26.0-34.0); MCHC 30.9 g/dL (31.0-37.0); MCV 85.7 fL (80.0-100.0); MEAN PLATELET VOLUME 9.6 fL (7.4-10.4); MONOCYTES 4.8 % (2-11); NEUTROPHILS 71.6 % (40-80); PLATELET COUNT 150 10x3/uL (130-400); RBC 3.36 10x6/uL (4.20-6.10); RDW 18.4 % (11.5-14.5); WBC 2.5 10x3/uL (4.8-10.8)
[2020-01-14 06:26] LABS: ALT (SGPT) 20 U/L (10-68); CALC OSMOLALITY 265 mosm/kg (275-300); UREA NITROGEN 9 mg/dL (7-18)
[2020-01-14 07:48] VITALS: BP 98/65
--- NOTE | 2020-01-14 08:20 | MORECARE ---
CASE MANAGEMENT DISCHARGE SUMMARY PATIENT: YEMI DAVID UNIT: [id number] ADM DATE: 01/11/20 AGE: 34 : [birth year] SEX: M ROOM/BED: D.2101 AUTHOR: PAM JOSE PHYSICIAN: REFERRING PHYSICIAN: ALLISON KNIGHT MD DATE OF SERVICE: 01/14/20 Discharge Plan Patient Name: YEMI DAVID Facility: [facility]:[place] : 1985 Planned Disposition: [facility] Facility Anticipated Discharge Date: Discharge Date: Expected LOS: Initial Reviewer: [id number] Initial Review Date: 01/13/2020 Generated: 01/14/20 9:20 am Comments DCP- Discharge Planning Updated by [id number]: Mihai Monroe on 01/13/20 10:[address] Patient Name: YEMI DAVID Encounter No: [id number] : 1985 Primary Insurance: [facility] MANAGED MEDICAID Anticipated DC Date: Planned Disposition: Nursing Facility [facility] Cert External Planned Provider:[facility], SKILLED MEDICAID BED Discharge Planning Comments: ARLEEN SPOKE TO JASON AT [facility], PT IN SKILLED BED AND WILL RETURN TO SKILLED BED AT DISCHARGE. JASNO REQUESTED MICROBIOLOGY RESULTS. CM FAXED UPDATE INFORMATION TO [facility] AT [phone]. FOR DISCHARGE, [facility] WILL CALL FACILITY FOR VEBAL SCREENING QUESTIONAIRE PRIOR TO PT'S RETURN. NURSE REPORT TO BE CALLED TO [facility] AT [phone]. FAX DISCHARGE INFORMATION TO [facility] AT [phone]. [facility] TO ARRANGE VAN TRANSPORT IF PT IS ABLE TO SIT SAFELY FOR TRANSPORT. Vermin Exterminator: Mihai Monroe DCP- Discharge Planning Updated by [id number]: Mihai Monroe on 01/13/20 9:[address] Patient Name: YEMI DAVID Admission Status: ER Accout number: [id number] Admission Date: 01-11-2020 : 1985 Admission Diagnosis: Attending: ALLISON KNIGHT Current LOS: 2 Anticipated DC Date: Planned Disposition: Nursing Facility [facility] Cert Primary Insurance: [facility] [place] MEDICAID PLANNED EXTERNAL PROVIDER: [facility], [employer] MEDICAID BED Discharge Planning Comments: CM SPOKE TO PT VIA ROOM PHONE TO DISCUSS DISCHARGE PLANNING AND NEEDS. PT REPORTS LIVING AT [facility], HE HAS BEEN THERE FOR TWO WEEKS NOW. PT USES A SHOWER CHAIR, ROLLING WALKER AND WHEELCHAIR. PT REPORTS HAVING ASSISTANCE WITH GETTING UP OUT OF BED, TOILETING, SHOWERING AND PT DENIES DISCHARGE NEEDS, REPORTS PLAN TO RETURN TO [facility] AT DISCHARGE. CHOICE LETTER COMPLETED. CM VERIFIED BED STATUS WITH JASON [facility]. CM FAXED UPDATE INFORMATION TO [facility] AT [phone]. FOR DISCHARGE, NURSE REPORT TO BE CALLED TO [facility] AT [phone]. FAX DISCHARGE INFORMATION TO [facility] AT [phone]. [facility] TO ARRANGE VAN TRANSPORT IF PT IS ABLE TO SIT SAFELY FOR TRANSPORT. Vermin Exterminator: Mihai Monroe DCPIA - Discharge Planning Initial Assessment Updated by [id number]: Mihai Monroe on 01/13/20 10:17 am * Is the patient Alert and Oriented? Yes * How many steps to enter\exit or inside your home? NONE * PCP DOCTOR FOR [facility] * Pharmacy [facility] * Preadmission Environment Residential Long-Term * [facility] * ADLs Partial Dependent * Partial ADLs (Assistance needed) Bathing Medication Management Toileting Transfers * Equipment Shower Chair Walker Wheelchair * Other Equipment ALL MEDICAL EQUIPMENT PROVIDED BY FACILITY * List name and contact numbers for known caregivers / representatives who currently or will assist patient after discharge: JAVIER DAVID, BROTHER, * Verbal permission to speak to the caregivers and representatives has been obtained from the patient. N/A * Community resources currently utilized None * Please name any agencies selected above. NONE * Additional services required to return to the preadmission environment? No * Can the patient safely return to the preadmission environment? Yes * Has this patient been hospitalized within the prior 30 days at any hospital? Yes Coverage Notice Reviewer: [id number] Abdullahi Monroe Notice Issued Date-Time: 01/13/2020 9:57 Notice Type: Patient Choice Letter Notice Delivered To: Patient Relationship to Patient: Teacher Learning Disabled Name: Delivery Method: HAND - Hand Delivered Judy Days: Prior Verbal Notification: Recipient Understood Notice: Yes Recipient Signature: Yes Med Rec Note Co-signed by Attending: Coverage Notice Comment: [facility] Last DP export: 01/13/20 10:21 a Patient Name: YEMI DAVID Page [id number] at 0820 All edits/amendments must be made on the electronic document DICTATION DATE: 01/14/20819 PRODUCTION TRUCK DRIVER: CHIO 01/14/20819 RPT#: [id number] DC DATE: STATUS: ADM IN [facility] [address] [place] [address] END OF REPORT
--- NOTE | 2020-01-14 09:10 | NUR ---
Nutrition Follow-up: Pt remains in droplet isolation; covid-19 pending. 100% x 3 meals recorded yesterday. Per GI, pt was not having diarrhea yesterday and will follow as needed. Diet: Regular, ice cream with meals Wt: 110# (01/13); 110# (01/10) Labs noted: Na 134, Ca 7.1, Mg 1.7, Alb 0.7 Meds noted: Carafate, Remeron, Folic Acid, Protonix, MagOx, D5 1/2NS @ 75, Thiamine, MVI -Continue current diet as tolerated and honor food preferences. -Offer nutrition supplements with meals. -Monitor wt. -RD following.
[2020-01-14 12:04] VITALS: BP 112/68
--- NOTE | 2020-01-14 12:20 | MORECARE ---
CASE MANAGEMENT DISCHARGE SUMMARY PATIENT: YEMI DAVID UNIT: [id number] ADM DATE: 01/11/20 AGE: 34 : 87 SEX: M ROOM/BED: D.5181 AUTHOR: PAM JOSE PHYSICIAN: REFERRING PHYSICIAN: ALLISON KNIGHT MD DATE OF SERVICE: 01/14/20 Discharge Plan Patient Name: YEMI DAVID Facility: [facility]:[place] : 1985 Planned Disposition: Shelter Facility Anticipated Discharge Date: Discharge Date: Expected LOS: Initial Reviewer: [id number] Initial Review Date: 01/13/2020 Generated: 01/14/20 1:19 pm Comments DCP- Discharge Planning Updated by [id number]: Mihai Monroe on 01/14/20 11:[address] Patient Name: YEMI DAVID Encounter No: [id number] : 1985 Primary Insurance: [employer] MANAGED MEDICAID Anticipated DC Date: Planned Disposition: Shelter Facility External Planned Provider: [facility], SKILLED MEDICAID BED Discharge Planning Comments: CM SPOKE TO JASON AT [facility], PT IN SKILLED BED AND WILL RETURN TO SKILLED BED AT DISCHARGE. JASON INFORMED CM THAT SHE WILL CALL CM ON DAY OF DISCHARGE AND HAS TO COMPLETE A COVID19 SCREENING VIA PHONE PRIOR TO PT'S RETURN TO FACILITY, UNLESS TESTING HAS RETURNED. FOR DISCHARGE, [facility] WILL CALL FACILITY FOR VEBAL COVID19 SCREENING QUESTIONAIRE PRIOR TO PT'S RETURN. NURSE REPORT TO BE CALLED TO [facility] AT [phone]. FAX DISCHARGE INFORMATION TO [facility] AT [phone]. [facility] TO ARRANGE VAN TRANSPORT IF PT IS ABLE TO SIT SAFELY FOR TRANSPORT. Outpatient Admitting Clerk: Mihai Monroe DCP- Discharge Planning Updated by [id number]: Mihai Monroe on 01/13/20 10:[address] Patient Name: YEMI DAVID Encounter No: [id number] : 1985 Primary Insurance: [employer] MANAGED MEDICAID Anticipated DC Date: Planned Disposition: Nursing Facility [facility] External Planned Provider:[facility], SKILLED MEDICAID BED Discharge Planning Comments: ARLEEN SPOKE TO JASON AT [facility], PT IN SKILLED BED AND WILL RETURN TO SKILLED BED AT DISCHARGE. JASON REQUESTED MICROBIOLOGY RESULTS. CM FAXED UPDATE INFORMATION TO [facility] AT [phone]. FOR DISCHARGE, [facility] WILL CALL FACILITY FOR VEBAL SCREENING QUESTIONAIRE PRIOR TO PT'S RETURN. NURSE REPORT TO BE CALLED TO [facility] AT [phone]. FAX DISCHARGE INFORMATION TO [facility] AT [phone]. [facility] TO ARRANGE VAN TRANSPORT IF PT IS ABLE TO SIT SAFELY FOR TRANSPORT. Outpatient Admitting Clerk: Mihai Monroe DCP- Discharge Planning Updated by [id number]: Mihai Monroe on 01/13/20 9:[address] Patient Name: YEMI DAVID Admission Status: ER Accout number: [id number] Admission Date: 01-11-2020 : 1985 Admission Diagnosis: Attending: ALLISON KNIGHT Current LOS: 2 Anticipated DC Date: Planned Disposition: Nursing Facility [facility] Primary Insurance: [facility] MANAGED MEDICAID PLANNED EXTERNAL PROVIDER: [facility], FOCUSING MACHINE OPERATOR CARE MEDICAID BED Discharge Planning Comments: CM SPOKE TO PT VIA ROOM PHONE TO DISCUSS DISCHARGE PLANNING AND NEEDS. PT REPORTS LIVING AT [facility], HE HAS BEEN THERE FOR TWO WEEKS NOW. PT USES A SHOWER CHAIR, ROLLING WALKER AND WHEELCHAIR. PT REPORTS HAVING ASSISTANCE WITH GETTING UP OUT OF BED, TOILETING, SHOWERING AND PT DENIES DISCHARGE NEEDS, REPORTS PLAN TO RETURN TO [facility] AT DISCHARGE. CHOICE LETTER COMPLETED. ARLEEN VERIFIED BED STATUS WITH JASON [facility]. ARLEEN FAXED UPDATE INFORMATION TO [facility] AT [phone]. FOR DISCHARGE, NURSE REPORT TO BE CALLED TO [facility] AT [phone]. FAX DISCHARGE INFORMATION TO [facility] AT [phone]. [facility] TO ARRANGE VAN TRANSPORT IF PT IS ABLE TO SIT SAFELY FOR TRANSPORT. Outpatient Admitting Clerk: Mihai Monroe DCPIA - Discharge Planning Initial Assessment Updated by [id number]: Mihai Monroe on 01/13/20 10:17 am * Is the patient Alert and Oriented? Yes * How many steps to enter\exit or inside your home? NONE * PCP DOCTOR FOR [facility] * Pharmacy [facility] FOR [facility] * Preadmission Environment [facility]dc Long-Term * Facility Name [facility] * ADLs Partial Dependent * Partial ADLs (Assistance needed) Bathing Medication Management Toileting Transfers * Equipment Shower Chair Walker Wheelchair * Other Equipment ALL MEDICAL EQUIPMENT PROVIDED BY FACILITY * List name and contact numbers for known caregivers / representatives who currently or will assist patient after discharge: BROTHER CRUMP, * Verbal permission to speak to the caregivers and representatives has been obtained from the patient. N/A * Community resources currently utilized None * Please name any agencies selected above. NONE * Additional services required to return to the preadmission environment? No * Can the patient safely return to the preadmission environment? Yes * Has this patient been hospitalized within the prior 30 days at any hospital? Yes Coverage Notice Reviewer: [id number] - Mihai Monroe Notice Issued Date-Time: 01/13/2020 9:57 Notice Type: Patient Choice Letter Notice Delivered To: Patient Relationship to Patient: Security And Privacy Consultant Name: Delivery Method: HAND - Hand Delivered Judy Days: Prior Verbal Notification: Recipient Understood Notice: Yes Recipient Signature: Yes Med Rec Note Co-signed by Attending: Coverage Notice Comment: [facility] Last DP export: 01/14/20 7:20 a Patient Name: YEMI DAVID Page [id number] at 1220 All edits/amendments must be made on the electronic document DICTATION DATE: 01/14/20 1219 BIOMEDICAL ENGINEERING SUPERVISOR: CHIO 01/14/20 1219 RPT#: [id number] DC DATE: STATUS: ADM IN [facility] [address] [address] END OF REPORT
--- NOTE | 2020-01-14 15:32 | MORECARE ---
CASE MANAGEMENT DISCHARGE SUMMARY PATIENT: YEMI DAVID UNIT: [id number] ADM DATE: 01/11/20 AGE: 34 : 87 SEX: M ROOM/BED: D.0302 AUTHOR: PAM JOSE PHYSICIAN: REFERRING PHYSICIAN: ALLISON KNIGHT MD DATE OF SERVICE: 01/14/20 Discharge Plan Patient Name: YEMI DAVID Facility: [facility]:[place] : 1985 Planned Disposition: [facility] Facility Anticipated Discharge Date: 01/14/20 Discharge Date: Expected LOS: 3 Initial Reviewer: [id number] Initial Review Date: 01/13/2020 Generated: 01/14/20 4:32 pm Comments DCP- Discharge Planning Updated by [id number]: Mihai Monroe on 01/14/20 11:[address] Patient Name: YEMI DAVID Encounter No: [id number] : 1985 Primary Insurance: [employer] MANAGED MEDICAID Anticipated DC Date: Planned Disposition: [facility] Facility External Planned Provider: [facility], SKILLED MEDICAID BED Discharge Planning Comments: CM SPOKE TO JASON AT [facility], PT IN SKILLED BED AND WILL RETURN TO SKILLED BED AT DISCHARGE. JASON INFORMED CM THAT SHE WILL CALL CM ON DAY OF DISCHARGE AND HAS TO COMPLETE A COVID19 SCREENING VIA PHONE PRIOR TO PT'S RETURN TO FACILITY, UNLESS TESTING HAS RETURNED. FOR DISCHARGE, [facility] WILL CALL FACILITY FOR VEBAL COVID19 SCREENING QUESTIONAIRE PRIOR TO PT'S RETURN. NURSE REPORT TO BE CALLED TO [facility] AT [phone]. FAX DISCHARGE INFORMATION TO [facility] AT [phone]. [facility] TO ARRANGE VAN TRANSPORT IF PT IS ABLE TO SIT SAFELY FOR TRANSPORT. Metal Products Viewer: Mihai Monroe DCP- Discharge Planning Updated by [id number]: Mihai Monroe on 01/13/20 10:[address] Patient Name: YEMI DAVID Encounter No: [id number] : 1985 Primary Insurance: [employer] MANAGED MEDICAID Anticipated DC Date: Planned Disposition: Nursing Facility [facility] Cert External Planned Provider:[facility], SKILLED MEDICAID BED Discharge Planning Comments: ARLEEN SPOKE TO JASON AT [facility], PT IN SKILLED BED AND WILL RETURN TO SKILLED BED AT DISCHARGE. JASON REQUESTED MICROBIOLOGY RESULTS. CM [facility] AT [phone]. FOR DISCHARGE, [facility] WILL CALL FACILITY FOR VEBAL SCREENING QUESTIONAIRE PRIOR TO PT'S RETURN. NURSE REPORT TO BE CALLED TO [facility] AT [phone]. FAX DISCHARGE INFORMATION TO [facility] AT [phone]. [facility] TO ARRANGE VAN TRANSPORT IF PT IS ABLE TO SIT SAFELY FOR TRANSPORT. Metal Products Viewer: Mihai Monroe DCP- Discharge Planning Updated by [id number]: Mihai Monroe on 01/13/20 9:[address] Patient Name: YEMI DAVID Admission Status: ER Accout number: [id number] Admission Date: 01-11-2020 : 1985 Admission Diagnosis: Attending: ALLISON KNIGHT Current LOS: 2 Anticipated DC Date: Planned Disposition: Nursing Facility [facility] PLANNED EXTERNAL PROVIDER: [facility], [employer] [employer] MEDICAID BED Discharge Planning Comments: CM SPOKE TO PT VIA ROOM PHONE TO DISCUSS DISCHARGE PLANNING AND NEEDS. PT REPORTS LIVING AT [facility], HE HAS BEEN THERE FOR TWO WEEKS NOW. PT USES A SHOWER CHAIR, ROLLING WALKER AND WHEELCHAIR. PT REPORTS HAVING ASSISTANCE WITH GETTING UP OUT OF BED, TOILETING, SHOWERING AND PT DENIES DISCHARGE NEEDS, REPORTS PLAN TO RETURN TO [facility] AT DISCHARGE. CHOICE LETTER COMPLETED. ARLEEN VERIFIED BED STATUS WITH JASON [facility]. ARLEEN FAXED UPDATE INFORMATION TO [facility] AT [phone]. FOR DISCHARGE, NURSE REPORT TO BE CALLED TO [facility] AT [phone]. FAX DISCHARGE INFORMATION TO [facility] AT [phone]. [facility] TO ARRANGE VAN TRANSPORT IF PT IS ABLE TO SIT SAFELY FOR TRANSPORT. Metal Products Viewer: Mihai Monroe DCPIA - Discharge Planning Initial Assessment Updated by [id number]: Mihai Monroe on 01/13/20 10:17 am * Is the patient Alert and Oriented? Yes * How many steps to enter\exit or inside your home? NONE * PCP DOCTOR FOR [facility] * Pharmacy [facility] * Preadmission Environment Pupil Personnel Worker [facility] * Facility Name [facility] * ADLs Partial Dependent * Partial ADLs (Assistance needed) Bathing Medication Management Toileting Transfers * Equipment Shower Chair Walker Wheelchair * Other Equipment ALL MEDICAL EQUIPMENT PROVIDED BY FACILITY * List name and contact numbers for known caregivers / representatives who currently or will assist patient after discharge: BROTHER CRUMP, * Verbal permission to speak to the caregivers and representatives has been obtained from the patient. N/A * Community resources currently utilized None * Please name any agencies selected above. NONE * Additional services required to return to the preadmission environment? No * Can the patient safely return to the preadmission environment? Yes * Has this patient been hospitalized within the prior 30 days at any hospital? Yes Coverage Notice Reviewer: [id number] - Mihai Monroe Notice Issued Date-Time: 01/13/2020 9:57 Notice Type: Patient Choice Letter Notice Delivered To: Patient Relationship to Patient: Automation And Controls Manager Name: Delivery Method: HAND - Hand Delivered Judy Days: Prior Verbal Notification: Recipient Understood Notice: Yes Recipient Signature: Yes Med Rec Note Co-signed by Attending: Coverage Notice Comment: [facility] Last DP export: 01/14/20 11:20 a Patient Name: YEMI DAVID Page [id number] at 1532 All edits/amendments must be made on the electronic document DICTATION DATE: 01/14/20 1532 REHAB DIRECTOR OCCUPATIONAL THERAPIST: CHIO 01/14/20 1532 RPT#: [id number] ME DATE: STATUS: ADM IN [facility] [address] [place] [address] END OF REPORT
--- NOTE | 2020-01-14 15:52 | MORECARE ---
CASE MANAGEMENT DISCHARGE SUMMARY PATIENT: YEMI DAVID UNIT: [id number] ADM DATE: 01/11/20 AGE: 34 : 87 SEX: M ROOM/BED: D.6031 AUTHOR: PAM JOSE PHYSICIAN: REFERRING PHYSICIAN: ALLISON KNIGHT MD DATE OF SERVICE: 01/14/20 Discharge Plan Patient Name: YEMI DAVID Facility: [facility]:[place] : 1985 Planned Disposition: Senior Living Facility Anticipated Discharge Date: 01/14/20 Discharge Date: Expected LOS: 3 Initial Reviewer: [id number] Initial Review Date: 01/13/2020 Generated: 01/14/20 4:52 pm Comments DCP- Discharge Planning Updated by [id number]: Mihai Monroe on 01/14/20 2:[address] Patient Name: YEMI DAVID Admission Status: ER Accout number: [id number] Admission Date: 01-11-2020 : 1985 Admission Diagnosis: Attending: ALLISON KNIGHT Current LOS: 3 Anticipated DC Date: 01-14-2020 Planned Disposition: Senior Living Facility Primary Insurance: [facility] MANAGED MEDICAID PLANNED EXTERNAL PROVIDER: [facility], SKILLED MEDICAID BED Discharge Planning Comments: CM RECEIVED DISCHARGE ORDER, SPOKE TO BEDSIDE NURSE AND PATIENT, PT REPORTS AGREEMENT WITH DISCHARGE PLAN AND CAN SIT FOR VAN TRANPORT. CM CALLED AND SPOKE TO [facility] AT [facility], , JASON REPORTS THAT THEY CANNOT ACCEPT PT BACK UNTIL COVID19 TESTING RESULT HAS BEEN RETURNED NEGATIVE. ARLEEN DISCUSSED THAT ENGINEER SPECIALIST INDICATED THAT PT DOES NOT HAVE COVID19 AND RECOMMENDED REMOVAL FROM ISOLATION; JASON TRANSFERRED CALL TO KATHRYN, MARGIN CLERK FOR [facility] WHO REPORTED THIS TO BE THEIR CORPORATE POLICY. CM NOTIFIED RN IMMUNOLOGY NURSE AND CM DIRECTOR BELLE. [facility] WILL NOT ACCEPT BACK UNTIL COVID19 TESTING RECEIVED AND NEGATIVE. FOR DISCHARGE, [facility] WILL CALL FACILITY FOR VEBAL COVID19 SCREENING QUESTIONAIRE PRIOR TO PT'S RETURN. NURSE REPORT TO BE CALLED TO [facility] AT [phone]. FAX DISCHARGE INFORMATION TO [facility] AT [phone]. [facility] TO ARRANGE VAN TRANSPORT. Electrotype Finisher: Mihai Monroe [facility]- Discharge Planning Updated by [id number]: Mihai Monroe on 01/14/20 11:[address] Patient Name: YEMI DAVID Encounter No: [id number] : 1985 Primary Insurance: [facility] MANAGED MEDICAID Anticipated DC Date: Planned Disposition: Senior Living Facility External Planned Provider: [facility], SKILLED MEDICAID BED Discharge Planning Comments: CM SPOKE TO JASON AT [facility], PT IN SKILLED BED AND WILL RETURN TO SKILLED BED AT DISCHARGE. JASON INFORMED CM THAT SHE WILL CALL ON DAY OF DISCHARGE AND HAS TO COMPLETE A COVID19 SCREENING VIA PHONE PRIOR TO PT'S RETURN TO FACILITY, UNLESS TESTING HAS RETURNED. FOR DISCHARGE, [facility] WILL CALL FACILITY FOR VEBAL COVID19 SCREENING QUESTIONAIRE PRIOR TO PT'S RETURN. NURSE REPORT TO BE CALLED TO [facility] AT [phone]. FAX DISCHARGE INFORMATION TO [facility] AT [phone]. [facility] TO ARRANGE VAN TRANSPORT IF PT IS ABLE TO SIT SAFELY FOR TRANSPORT. Electrotype Finisher: Mihai Monroe [facility]- Discharge Planning Updated by [id number]: Mihai Monroe on 01/13/20 10:[address] Patient Name: YEMI DAVID Encounter No: [id number] : 1985 Primary Insurance: [facility] MANAGED MEDICAID Anticipated DC Date: Planned Disposition: Nursing Facility [facility] External Planned Provider:[facility], SKILLED MEDICAID BED Discharge Planning Comments: CM SPOKE TO JASON AT [facility], PT IN SKILLED BED AND WILL RETURN TO SKILLED BED AT DISCHARGE. JASON REQUESTED MICROBIOLOGY RESULTS. CM FAXED UPDATE INFORMATION TO [facility] AT [phone]. FOR DISCHARGE, [facility] WILL CALL FACILITY FOR VEBAL SCREENING QUESTIONAIRE PRIOR TO PT'S RETURN. NURSE REPORT TO BE CALLED TO [facility] AT [phone]. FAX DISCHARGE INFORMATION TO [facility] AT [phone]. [facility] TO ARRANGE VAN TRANSPORT IF PT IS ABLE TO SIT SAFELY FOR TRANSPORT. Electrotype Finisher: Mihai Monroe DCP- Discharge Planning Updated by [id number]: Mihai Monroe on 01/13/20 9:[address] Patient Name: YEMI DAVID Admission Status: ER Accout number: [id number] Admission Date: 01-11-2020 : 1985 Admission Diagnosis: Attending: ALLISON KNIGHT Current LOS: 2 Anticipated DC Date: Planned Disposition: Nursing Facility [facility] Primary Insurance: [employer] MANAGED MEDICAID PLANNED EXTERNAL PROVIDER: [facility], [facility] MEDICAID BED Discharge Planning Comments: CM SPOKE TO PT VIA ROOM PHONE TO DISCUSS DISCHARGE PLANNING AND NEEDS. PT REPORTS LIVING AT [facility], HE HAS BEEN THERE FOR TWO WEEKS NOW. PT USES A SHOWER CHAIR, ROLLING WALKER AND WHEELCHAIR. PT REPORTS HAVING ASSISTANCE WITH GETTING UP OUT OF BED, TOILETING, SHOWERING AND PT DENIES DISCHARGE NEEDS, REPORTS PLAN TO RETURN TO [facility] AT DISCHARGE. CHOICE LETTER COMPLETED. CM VERIFIED BED STATUS WITH JASON JENKINS [facility]. CM FAXED UPDATE INFORMATION TO [facility] AT [phone]. FOR DISCHARGE, NURSE REPORT TO BE CALLED TO [facility] AT [phone]. FAX DISCHARGE INFORMATION TO [facility] AT [phone]. [facility] TO ARRANGE VAN TRANSPORT IF PT IS ABLE TO SIT SAFELY FOR TRANSPORT. Electrotype Finisher: Mihai Monroe DCP[facility] - Discharge Planning Initial Assessment Updated by [id number]: Mihai Monroe on 01/13/20 10:17 am * Is the patient Alert and Oriented? Yes * How many steps to enter\exit or inside your home? NONE * PCP DOCTOR FOR [facility] * Pharmacy [facility] FOR [facility] * Preadmission Environment Wire Stripping Machine Operator Snf * Facility Name [facility] * ADLs Partial Dependent * Partial ADLs (Assistance needed) Bathing Medication Management Toileting Transfers * Equipment Shower Chair Walker Wheelchair * Other Equipment ALL MEDICAL EQUIPMENT PROVIDED BY FACILITY * List name and contact numbers for known caregivers / representatives who currently or will assist patient after discharge: JAVIER DAVID, BROTHER, * Verbal permission to speak to the caregivers and representatives has been obtained from the patient. N/A * Community resources currently utilized None * Please name any agencies selected above. NONE * Additional services required to return to the preadmission environment? No * Can the patient safely return to the preadmission environment? Yes * Has this patient been hospitalized within the prior 30 days at any hospital? Yes Coverage Notice Reviewer: [id number] Abdullahi Monroe Notice Issued Date-Time: 01/13/2020 9:57 Notice Type: Patient Choice Letter Notice Delivered To: Patient Relationship to Patient: Raw Products Director Name: Delivery Method: HAND - Hand Delivered Judy Days: Prior Verbal Notification: Recipient Understood Notice: Yes Recipient Signature: Yes Med Rec Note Co-signed by Attending: Coverage Notice Comment: [facility] Last DP export: 01/14/20 2:32 p Patient Name: YEMI DAVID Page [phone] at 1552 All edits/amendments must be made on the electronic document DICTATION DATE: 01/14/20 1552 CILNICAL SCIENTIST: CHIO 01/14/20 155 RPT#: [id number] DC DATE: STATUS: ADM IN [facility] [address] [place] [address] END OF REPORT
--- NOTE | 2020-01-14 17:33 | NUR ---
I have reviewed this patient and I concur with the Shift Assessment completed by the Licensed Practical Nurse today this shift.
[2020-01-14 17:41] VITALS: BP 116/72
--- NOTE | 2020-01-14 19:21 | NUR ---
REPORT RECIEVED AND ROUNDING COMPLETE. NANCY LAYING IN BED ON RIGHT SIDE. MELISSATENBrit STATES HE HAS NO NEEDS AT THIS TIME. VIKI HAS A RIGHT FOREARM PIV WITH FLUIDS RUNNING, PIV SHOWS NO S/SX OF INFILTRATION. PATIENT SHOWS NO S/SX IF DISTRESS AT THIS TIME. PATIENT HAS CALL LIGHT WITHIN REACH AND BED IN LOWEST LOCKED POSITION.
[2020-01-14 20:00] VITALS: BP 109/66
[2020-01-15] VITALS: BP 102/73
--- NOTE | 2020-01-15 00:53 | NUR ---
REQUESTED PAIN MEDICATION FOR PAIN 08/06, LOCALED ON HIS TAILBONE AREA, EDUCATED ABOUT Q2 HR TURNING, TREATED PER DEC.
[2020-01-15 04:00] VITALS: BP 113/68
[2020-01-15 06:52] LABS: ALBUMIN 0.8 g/dL (3.4-5.0); ALKALINE PHOSPHATASE 87 U/L (30-120); ALT (SGPT) 20 U/L (10-68); BILIRUBIN - TOTAL 0.14 mg/dL (0.2-1.3); CALC OSMOLALITY 267 mosm/kg (275-300); CALCIUM 7.2 mg/dL (8.5-10.1); CARBON DIOXIDE 26.3 mmol/L (21.0-32.0); CHLORIDE - SERUM 102 mmol/L (98-107); CREATININE - SERUM 0.4 mg/dL (0.6-1.3); GLUCOSE 72 mg/dL (74-106); MAGNESIUM - SERUM 1.8 mg/dL (1.8-2.4); PHOSPHOROUS 3.9 mg/dL (2.5-4.9); POTASSIUM - SERUM 3.7 mmol/L (3.5-5.1); PROTEIN - SERUM 4.3 g/dL (6.4-8.2); SODIUM 135 mmol/L (136-145); UREA NITROGEN 10 mg/dL (7-18); eGFR NON AFRICAN AMERICAN > 90 mL/min (90-120)
[2020-01-15 07:54] VITALS: BP 108/59
[2020-01-15 08:18] LABS: HEMATOCRIT 29.3 % (42.0-54.0); HEMOGLOBIN 9.1 g/dL (13.5-17.5); MCH 26.5 pg (26.0-34.0); MCHC 31.1 g/dL (31.0-37.0); MCV 85.4 fL (80.0-100.0); MEAN PLATELET VOLUME 9.5 fL (7.4-10.4); PLATELET COUNT 156 10x3/uL (130-400); RBC 3.43 10x6/uL (4.20-6.10); RDW 18.5 % (11.5-14.5); WBC 2.4 10x3/uL (4.8-10.8)
[2020-01-15 09:11] LABS: ANISOCYTOSIS OCC; HYPOCHROMASIA OCC; LYMPHOCYTES 11 % (15-50); MONOCYTES 12 % (2-11); NEUTROPHILS 59 % (40-80); PLATELET ESTIMATE NORMAL; SMUDGE CELLS OCC
[2020-01-15 12:21] LABS: PATH REVIEW PERIPHERAL SMEAR REVIEWED
[2020-01-15 12:27] VITALS: BP 112/70
[2020-01-15 15:12] VITALS: BP 108/62
--- NOTE | 2020-01-15 19:30 | NUR ---
RECEIVED UP IN BED WITH EYES OPEN. ALERT AND ORIENTED X4. BEDFAST D/T WEAKNESS. IV TO RT FA WITH D5 1/2 NS INFUSING AT 75CC/HR. FEET REMAINS SWOLLEN . REMAINS ON AIR MATTRESS. DENIES AN Y NEEDS AT THIS TIME,
[2020-01-15 21:30] VITALS: BP 111/61
[2020-01-16 05:18] LABS: BASOPHILS 0 % (0-2); EOSINOPHILS 0.4 % (0-7); HEMATOCRIT 28.1 % (42.0-54.0); HEMOGLOBIN 8.5 g/dL (13.5-17.5); IMMATURE GRANULOCYTES 9.7 % (0-5); LYMPHOCYTES 12.2 % (15-50); MCHC 30.2 g/dL (31.0-37.0); MCV 85.9 fL (80.0-100.0); MEAN PLATELET VOLUME 9.2 fL (7.4-10.4); MONOCYTES 7.2 % (2-11); NEUTROPHILS 70.5 % (40-80); PLATELET COUNT 170 10x3/uL (130-400); RBC 3.27 10x6/uL (4.20-6.10); RDW 18.2 % (11.5-14.5); WBC 2.4 10x3/uL (4.8-10.8)
[2020-01-16 05:22] VITALS: BP 94/58
[2020-01-16 05:30] LABS: ALBUMIN 0.8 g/dL (3.4-5.0); ALKALINE PHOSPHATASE 82 U/L (30-120); ALT (SGPT) 19 U/L (10-68); CALC OSMOLALITY 263 mosm/kg (275-300); CARBON DIOXIDE 26.4 mmol/L (21.0-32.0); CHLORIDE - SERUM 102 mmol/L (98-107); CREATININE - SERUM 0.4 mg/dL (0.6-1.3); GLUCOSE 87 mg/dL (74-106); MAGNESIUM - SERUM 1.7 mg/dL (1.8-2.4); PHOSPHOROUS 3.5 mg/dL (2.5-4.9); POTASSIUM - SERUM 3.7 mmol/L (3.5-5.1); PROTEIN - SERUM 4.1 g/dL (6.4-8.2); SODIUM 133 mmol/L (136-145); UREA NITROGEN 9 mg/dL (7-18); eGFR NON AFRICAN AMERICAN > 90 mL/min (90-120)
--- NOTE | 2020-01-16 08:30 | NUR ---
PT LAYING SUPINE, RR EVEN AND UNLABORED ON ROOM AIR. DENIES NEEDS AT THIS TIME. STATES PAIN IN BOTTOM 10/10. PAIN MEDICATION RECIEVED PER ORDER. ASSISTED SETTING UP BREAKFAST TRAY. DENIES FURTHER NEEDS AT THIS TIME. ASSESSMENT COMPLETE. BLANCHABLE REDNESS NOTED TO BOTTOM. TOLD PATIENT TO KEEP OFF BACK AND TURN FREQUENTLY, PT VERBALIZED UNDERSTANDING. BED IN LOWEST POSITION. PHONE WITHIN REACH. WILL CONTINUE TO MONITOR.
[2020-01-16 09:24] VITALS: BP 108/70
--- NOTE | 2020-01-16 16:15 | NUR ---
BLANCHABLE REDNESS NOTED TO COCCYX. MEPILEX PLACED
[2020-01-16 16:53] VITALS: BP 110/70
--- NOTE | 2020-01-16 19:53 | NUR ---
RECEIVED UP IN BED WITH EYES OPEN AND TV ON. ALERT AND ORIENTED X4. REMAINS BEDFAST. ABLE TO TURN AN REPOSITION SELF. IV TO RT FA WITH D5 1/2 NS INFUSING AT 75CC/HR. DENIES ANY NEEDS AT THIS TIME.
[2020-01-16 21:07] VITALS: BP 107/66
[2020-01-17 05:59] VITALS: BP 102/64
[2020-01-17 06:14] LABS: HEMATOCRIT 29.3 % (42.0-54.0); HEMOGLOBIN 9.1 g/dL (13.5-17.5); MCH 26.4 pg (26.0-34.0); MCHC 31.1 g/dL (31.0-37.0); MCV 84.9 fL (80.0-100.0); MEAN PLATELET VOLUME 9.6 fL (7.4-10.4); PLATELET COUNT 188 10x3/uL (130-400); RBC 3.45 10x6/uL (4.20-6.10); RDW 18.3 % (11.5-14.5); WBC 2.5 10x3/uL (4.8-10.8)
[2020-01-17 06:25] LABS: ALBUMIN 0.8 g/dL (3.4-5.0); ALKALINE PHOSPHATASE 83 U/L (30-120); BILIRUBIN - TOTAL 0.13 mg/dL (0.2-1.3); CALC OSMOLALITY 263 mosm/kg (275-300); CALCIUM 7.2 mg/dL (8.5-10.1); CHLORIDE - SERUM 101 mmol/L (98-107); CREATININE - SERUM 0.5 mg/dL (0.6-1.3); GLUCOSE 84 mg/dL (74-106); MAGNESIUM - SERUM 1.7 mg/dL (1.8-2.4); PHOSPHOROUS 3.6 mg/dL (2.5-4.9); POTASSIUM - SERUM 3.4 mmol/L (3.5-5.1); PROTEIN - SERUM 4.8 g/dL (6.4-8.2); SODIUM 133 mmol/L (136-145); UREA NITROGEN 9 mg/dL (7-18); eGFR NON AFRICAN AMERICAN > 90 mL/min (90-120)
[2020-01-17 06:28] LABS: ALT (SGPT) 13 U/L (10-68)
[2020-01-17 06:47] LABS: EOSINOPHILS 1 % (0-7); LYMPHOCYTES 15 % (15-50); MONOCYTES 8 % (2-11); NEUTROPHILS 36 % (40-80); PLATELET ESTIMATE NORMAL
[2020-01-17 09:39] VITALS: BP 105/65
[2020-01-17 12:19] VITALS: BP 100/67
--- NOTE | 2020-01-17 13:14 | NUR ---
I have reviewed this patient and I concur with the Shift Assessment completed by the Licensed Practical Nurse today this shift.
[2020-01-17 16:53] VITALS: BP 95/60
--- NOTE | 2020-01-17 19:31 | NUR ---
RECEIVED UP IN BED WITH HOB ELEVATED. ALERT AND ORIENTED X4. REQUESTED A POPCICLE AND ONE GIVEN. REMAINS BEDFAST. IV TO RT FA WITH NS AT 75CC/HR WILL ADJUST TO 50CC/HR PER HR PER NEW ORDER. TELEMETRY IN PLACE. DENIES ANY NEEDS AT THSI TIME.
[2020-01-17 20:00] VITALS: BP 100/70
[2020-01-18 00:17] VITALS: BP 107/69
[2020-01-18 04:00] VITALS: BP 97/65
[2020-01-18 05:49] LABS: HEMATOCRIT 28.9 % (42.0-54.0); MCH 26.4 pg (26.0-34.0); MCHC 31.1 g/dL (31.0-37.0); MCV 84.8 fL (80.0-100.0); MEAN PLATELET VOLUME 9.4 fL (7.4-10.4); PLATELET COUNT 182 10x3/uL (130-400); RBC 3.41 10x6/uL (4.20-6.10); RDW 18.1 % (11.5-14.5); WBC 2.6 10x3/uL (4.8-10.8)
[2020-01-18 05:52] LABS: ALBUMIN 0.8 g/dL (3.4-5.0); ALKALINE PHOSPHATASE 85 U/L (30-120); CALC OSMOLALITY 268 mosm/kg (275-300); CALCIUM 7.3 mg/dL (8.5-10.1); CARBON DIOXIDE 25.9 mmol/L (21.0-32.0); CHLORIDE - SERUM 103 mmol/L (98-107); CREATININE - SERUM 0.4 mg/dL (0.6-1.3); GLUCOSE 82 mg/dL (74-106); PROTEIN - SERUM 4.5 g/dL (6.4-8.2); SODIUM 136 mmol/L (136-145); UREA NITROGEN 8 mg/dL (7-18); eGFR NON AFRICAN AMERICAN > 90 mL/min (90-120)
[2020-01-18 05:58] LABS: ALT (SGPT) 21 U/L (10-68)
--- NOTE | 2020-01-18 08:30 | NUR ---
REPORT RECIEVED. PT RESTING QUIETLY. RR EVEN AND UNLABORED ON ROOM AIR. HE HAS A R FA PIV INFUSING D5-1/2NS @ 50. BED LOCKED AND IN LOWEST POSITION, CALL LIGHT WITHIN REACH. WILL CTM
[2020-01-18 08:47] VITALS: BP 113/76
--- NOTE | 2020-01-18 09:21 | MORECARE ---
CASE MANAGEMENT DISCHARGE SUMMARY PATIENT: YEMI DAVID UNIT: [id number] ADM DATE: 01/11/20 AGE: 34 : [birth year] SEX: M ROOM/BED: D.4368 AUTHOR: PAM JOSE PHYSICIAN: REFERRING PHYSICIAN: ALLISON KNIGHT MD DATE OF SERVICE: 01/18/20 Discharge Plan Patient Name: YEMI DAVID Facility: [facility]:[place] : 1985 Planned Disposition: Senior Living Facility Anticipated Discharge Date: 01/14/20 Discharge Date: Expected LOS: 3 Initial Reviewer: ALIRIO Initial Review Date: 01/13/2020 Generated: 01/18/20 10:21 am Comments DCP- Discharge Planning Updated by [id number]: Mihai Monroe on 01/18/20 8:[address] Patient Name: YEMI DAVID Encounter No: [id number] : 1985 Primary Insurance: [employer] MANAGED MEDICAID Anticipated DC Date: 01-14-2020 Planned Disposition: Senior Living Facility External Planned Provider: [facility], SKILLED MEDICAID BED Discharge Planning Comments: CM REVIEWED CHART, PT'S COVID 19 TESTING RESULT IN CHART. CM FAXED UPDATE WITH TESTING RESULT TO [facility] AT [phone]. CALLED TO [facility] AT [phone], SPOKE TO JASON WHO WILL REVIEW RESULTS OF TESTING AND CALL CM BACK. NURSE REPORT TO BE CALLED TO [facility] AT [phone]. [facility] TO ARRANGE VAN TRANSPORT. Sales Trainee: Mihai Monroe DCP- Discharge Planning Updated by [id number]: Mihai Monroe on 01/14/20 2:[address] Patient Name: YEMI DAVID Admission Status: ER Accout number: [id number] Admission Date: 01-11-2020 : 1985 Admission Diagnosis: Attending: ALLISON KNIGHT Current LOS: 3 Anticipated DC Date: 01-14-2020 Planned Disposition: Senior Living Facility Primary Insurance: [employer] MANAGED MEDICAID PLANNED EXTERNAL PROVIDER: [facility], SKILLED MEDICAID BED Discharge Planning Comments: CM RECEIVED DISCHARGE ORDER, SPOKE TO BEDSIDE NURSE AND PATIENT, PT REPORTS AGREEMENT WITH DISCHARGE PLAN AND CAN SIT FOR VAN TRANPORT. CM CALLED AND SPOKE TO JASON AT [facility], , JASON REPORTS THAT THEY CANNOT ACCEPT PT BACK UNTIL COVID19 TESTING RESULT HAS BEEN RETURNED NEGATIVE. ARLEEN DISCUSSED THAT HUMAN RESOURCES PSYCHOLOGIST INDICATED THAT PT DOES NOT HAVE COVID19 AND RECOMMENDED REMOVAL FROM ISOLATION; JASON TRANSFERRED CALL TO KATHRYN, STEM ROLLER OR CRUSHER OPERATOR FOR [facility] WHO REPORTED THIS TO BE THEIR CORPORATE POLICY. CM NOTIFIED HEALTHCARE REPRESENTATIVE NURSE AND CM DIRECTOR BELLE. [facility] WILL NOT ACCEPT BACK UNTIL COVID19 TESTING RECEIVED AND NEGATIVE. FOR DISCHARGE, [facility] WILL CALL FACILITY FOR VEBAL COVID19 SCREENING QUESTIONAIRE PRIOR TO PT'S RETURN. NURSE REPORT TO BE CALLED TO [facility] AT [phone]. FAX DISCHARGE INFORMATION TO [facility] AT [phone]. [facility] TO ARRANGE VAN TRANSPORT. Sales Trainee: Mihai Monroe [facility]- Discharge Planning Updated by [id number]: Mihai Monroe on 01/14/20 11:[address] Patient Name: YEMI DAVID Encounter No: [id number] : 1985 Primary Insurance: [facility] Anticipated DC Date: Planned Disposition: Senior Living Facility External Planned Provider: [facility], SKILLED MEDICAID BED Discharge Planning Comments: CM SPOKE TO JASON AT [facility], PT IN SKILLED BED AND WILL RETURN TO SKILLED BED AT DISCHARGE. JASON INFORMED CM THAT SHE WILL CALL CM ON DAY OF DISCHARGE AND HAS TO COMPLETE A COVID19 SCREENING VIA PHONE PRIOR TO PT'S RETURN TO FACILITY, UNLESS TESTING HAS RETURNED. FOR DISCHARGE, [facility] WILL CALL FACILITY FOR VEBAL COVID19 SCREENING QUESTIONAIRE PRIOR TO PT'S RETURN. NURSE REPORT TO BE CALLED TO [facility] AT [phone]. FAX DISCHARGE INFORMATION TO [facility] AT [phone]. [facility] TO ARRANGE VAN TRANSPORT IF PT IS ABLE TO SIT SAFELY FOR TRANSPORT. Sales Trainee: Mihai Monroe DCP- Discharge Planning Updated by [id number]: Mihai Monroe on 01/13/20 10:[address] Patient Name: YEMI DAVID Encounter No: [id number] : 1985 Primary Insurance: [employer] MANAGED MEDICAID Anticipated DC Date: Planned Disposition: Nursing Facility [facility] Cert External Planned Provider:[facility], SKILLED MEDICAID BED Discharge Planning Comments: CM SPOKE TO JASON AT [facility], PT IN SKILLED BED AND WILL RETURN TO SKILLED BED AT DISCHARGE. JASON REQUESTED MICROBIOLOGY RESULTS. ARLEEN FAXED UPDATE INFORMATION TO [facility] AT [phone]. FOR DISCHARGE, [facility] WILL CALL FACILITY FOR VEBAL SCREENING QUESTIONAIRE PRIOR TO PT'S RETURN. NURSE REPORT [facility] AT [phone]. FAX DISCHARGE INFORMATION TO [facility] AT [phone]. [facility] TO ARRANGE VAN TRANSPORT IF PT IS ABLE TO SIT SAFELY FOR TRANSPORT. Sales Trainee: Mihai Monroe DCP- Discharge Planning Updated by [id number]: Mihai Monroe on 01/13/20 9:[address] Patient Name: YEMI DAVID Admission Status: ER Accout number: [id number] Admission Date: 01-11-2020 : 1985 Admission Diagnosis: Attending: ALLISON KNIGHT Current LOS: 2 Anticipated DC Date: Planned Disposition: Nursing Facility [facility] Primary Insurance: [employer] MANAGED MEDICAID PLANNED EXTERNAL PROVIDER: [facility], [facility] MEDICAID BED Discharge Planning Comments: CM SPOKE TO PT VIA ROOM PHONE TO DISCUSS DISCHARGE PLANNING AND NEEDS. PT REPORTS LIVING AT [facility], HE HAS BEEN THERE FOR TWO WEEKS NOW. PT USES A SHOWER CHAIR, ROLLING WALKER AND WHEELCHAIR. PT REPORTS HAVING ASSISTANCE WITH GETTING UP OUT OF BED, TOILETING, SHOWERING AND PT DENIES DISCHARGE NEEDS, REPORTS PLAN TO RETURN TO [facility] AT DISCHARGE. CHOICE LETTER COMPLETED. ARLEEN VERIFIED BED STATUS WITH JASON [facility]. CM FAXED UPDATE INFORMATION TO [facility] AT [phone]. FOR DISCHARGE, NURSE REPORT TO BE CALLED TO [facility] AT [phone]. FAX DISCHARGE INFORMATION TO [facility] AT [phone]. [facility] TO ARRANGE VAN TRANSPORT IF PT IS ABLE TO SIT SAFELY FOR TRANSPORT. Sales Trainee: Mihai Monroe DCPIA - Discharge Planning Initial Assessment Updated by [id number]: Mihai Monroe on 01/13/20 10:17 am * Is the patient Alert and Oriented? Yes * How many steps to enter\exit or inside your home? NONE * PCP DOCTOR FOR [facility] * Pharmacy PHARMACY FOR [facility] * Preadmission Environment Shelter Longterm * Facility Name [facility] * ADLs Partial Dependent * Partial ADLs (Assistance needed) Bathing Medication Management Toileting Transfers * Equipment Shower Chair Walker Wheelchair * Other Equipment ALL MEDICAL EQUIPMENT PROVIDED BY FACILITY * List name and contact numbers for known caregivers / representatives who currently or will assist patient after discharge: JAVIER DAVID, BROTHER, * Verbal permission to speak to the caregivers and representatives has been obtained from the patient. N/A * Community resources currently utilized None * Please name any agencies selected above. NONE * Additional services required to return to the preadmission environment? No * Can the patient safely return to the preadmission environment? Yes * Has this patient been hospitalized within the prior 30 days at any hospital? Yes Coverage Notice Reviewer: [id number] - Mihai Monroe Notice Issued Date-Time: 01/13/2020 9:57 Notice Type: Patient Choice Letter Notice Delivered To: Patient Relationship to Patient: Installation Engineer Name: Delivery Method: HAND - Hand Delivered Judy Days: Prior Verbal Notification: Recipient Understood Notice: Yes Recipient Signature: Yes Med Rec Note Co-signed by Attending: Coverage Notice Comment: [facility] Last DP export: 01/14/20 2:53 p Patient Name: YEMI DAVID Page 31870 at 0921 All edits/amendments must be made on the electronic document DICTATION DATE: 01/18/20920 ADULT PROBATION OFFICER: CHIO 01/18/20920 RPT#: [id number] DC DATE: STATUS: ADM IN [facility] [address] [place] [address] END OF REPORT
--- NOTE | 2020-01-18 09:34 | NUR ---
WHEN QUESTIONED ABOUT SMOKING CESSATION, HE REFUSED TO HAVE INFO FILLED OUT.
--- NOTE | 2020-01-18 09:42 | NUR ---
I have reviewed this patient and I concur with the Shift Assessment completed by the Licensed Practical Nurse today this shift.
[2020-01-18 09:47] LABS: EOSINOPHILS 1 % (0-7); LYMPHOCYTES 14 % (15-50); MONOCYTES 10 % (2-11); NEUTROPHILS 58 % (40-80); PLATELET ESTIMATE NORMAL
--- NOTE | 2020-01-18 10:16 | NUR ---
REPORT CALLED TO SONNY AT [facility]. D/C PAPERWORK GONE OVER AND SIGNED WITH PT. ALL QUESTIONS ANSWERED. PIV REMOVED, CATH TIP FULLY INTACT. TELEMETRY REMOVED AND RETURNED TO SCHOOL PSYCHOLOGIST. ALL VALUBLES PACKED AND WATING ON FACILITY TO ARRIVE FOR TRANSPORT. WILL CTM
--- NOTE | 2020-01-18 13:05 | NUR ---
STILL AWAITING [facility] TO SCIENTOLOGIST PT. SPOKE TO PEPITO AT FACILITY,SHE STAYED THEY DIDNT THINK HE WAS BEING DISCHARGED, BUT THEY WOULD SEND SOMEONE TO PICK HIM UP AT THIS TIME.
--- NOTE | 2020-01-18 15:04 | NUR ---
SPOKE WITH NEHEMIAH. SHE STATED PT COULD COME OFF ISOLATION.
--- NOTE | 2020-01-18 15:04 | MORECARE ---
CASE MANAGEMENT DISCHARGE SUMMARY PATIENT: YEMI DAVID UNIT: [id number] ADM DATE: 01/11/20 AGE: 34 : [birth year] SEX: M ROOM/BED: D.0001 AUTHOR: PAM JOSE PHYSICIAN: REFERRING PHYSICIAN: ALLISON KNIGHT MD DATE OF SERVICE: 01/18/20 Discharge Plan Patient Name: YEMI DAVID Facility: [facility]:[place] : 1985 Planned Disposition: Usp Facility Anticipated Discharge Date: 01/14/20 Discharge Date: Expected LOS: 3 Initial Reviewer: [id number] Initial Review Date: 01/13/2020 Generated: 01/18/20 4:03 pm Comments DCP- Discharge Planning Updated by [id number]: Mihai Monroe on 01/18/20 1:[address] Patient Name: YEMI DAVID Encounter No: [id number] : 1985 Primary Insurance: [employer] MA[employer]GED MEDICAID Anticipated DC Date: 01-14-2020 Planned Disposition: Usp Facility External Planned Provider: [facility], SKILLED MEDICAID BED DCP follow-up note: CM SPOKE TO MATERIAL HANDLING EQUIPMENT STEVEDORE NURSE WHO INFORMED CM THAT THE FACILITY TOLD THE NURSE THEY WOULD BE HERE OVER ONE HOUR AGO AND ASKED FOR UPDATE. CM CALLED AND SPOKE TO A NURSE, REID GOMEZ OF ADMISSIONS AND FINALLY, SUPERVISOR POLE YARD. [facility] SUBMITTED FOR INSURANCE AUTHORIZATION AND NOW WILL NOT ACCEPT PT BACK UNTIL AUTHORIZATION IS RECEIVED FROM PT'S INSURANCE AND THIS COULD TAKE UP TO 24 HOURS PER THE SUPERVISOR POLE YARD. MATERIAL HANDLING EQUIPMENT STEVEDORE NURSE NOTIFIED. CM NOW WAITING ON [facility] TO RECEIVE INSURANCE AUTHORIZATION FOR PT TO RETURN TO SKILLED CARE BED. Mihai Monroe, CASE MANAGEMENT DCP- Discharge Planning Updated by [id number]: Mihai Monroe on 01/18/20 8:[address] Patient Name: YEMI DAVID Encounter No: [id number] : 1985 Primary Insurance: [employer] MA[employer]ED MEDICAID Anticipated DC Date: 01-14-2020 Planned Disposition: Usp Facility External Planned Provider: [facility], SKILLED MEDICAID BED Discharge Planning Comments: CM REVIEWED CHART, PT'S COVID 19 TESTING RESULT IN CHART. CM FAXED UPDATE WITH TESTING RESULT TO [facility] AT [phone]. CALLED TO [facility] AT [phone], SPOKE TO JASON WHO WILL REVIEW RESULTS OF TESTING AND CALL CM BACK. NURSE REPORT TO BE CALLED TO [facility] AT [phone]. [facility] TO ARRANGE VAN TRANSPORT. Shoe Stock Associate: Mihai Monroe DCP- Discharge Planning Updated by [id number]: Mihai Monroe on 01/14/20 2:[address] Patient Name: YEMI DAVID Admission Status: ER Accout number: [id number] Admission Date: 01-11-2020 : 1985 Admission Diagnosis: Attending: ALLISON KNIGHT Current LOS: 3 Anticipated DC Date: 01-14-2020 Planned Disposition: Usp Facility Primary Insurance: [facility] MANAGED MEDICAID PLANNED EXTERNAL PROVIDER: [facility], SKILLED MEDICAID BED Discharge Planning Comments: CM RECEIVED DISCHARGE ORDER, SPOKE TO BEDSIDE NURSE AND PATIENT, PT REPORTS AGREEMENT WITH DISCHARGE PLAN AND CAN SIT FOR VAN TRANPORT. CM CALLED AND SPOKE TO JASON AT [facility], , JASON REPORTS THAT THEY CANNOT ACCEPT PT BACK UNTIL COVID19 TESTING RESULT HAS BEEN RETURNED NEGATIVE. ARLEEN DISCUSSED THAT STAMP CLASSIFIER INDICATED THAT PT DOES NOT HAVE COVID19 AND RECOMMENDED REMOVAL FROM ISOLATION; JASON TRANSFERRED CALL TO KATHRYN, SUPERVISOR POLE YARD FOR [facility] WHO REPORTED THIS TO BE THEIR CORPORATE POLICY. CM NOTIFIED MATERIAL HANDLING EQUIPMENT STEVEDORE NURSE AND CM DIRECTOR BELLE. [facility] WILL NOT ACCEPT BACK UNTIL COVID19 TESTING RECEIVED AND NEGATIVE. FOR DISCHARGE, [facility] WILL CALL FACILITY FOR VEBAL COVID19 SCREENING QUESTIONAIRE PRIOR TO PT'S RETURN. NURSE REPORT TO BE CALLED TO [facility] AT [phone]. FAX DISCHARGE INFORMATION TO [facility] AT [phone]. [facility] TO ARRANGE VAN TRANSPORT. Shoe Stock Associate: Mihai Monroe DCP- Discharge Planning Updated by [id number]: Mihai Monroe on 01/14/20 11:[address] Patient Name: YEMI DAVID Encounter No: [id number] : 1985 Primary Insurance: [employer] MA[employer]ED MEDICAID Anticipated DC Date: Planned Disposition: Usp Facility External Planned Provider: [facility], SKILLED MEDICAID BED Discharge Planning Comments: CM SPOKE TO JASON AT [facility], PT IN SKILLED BED AND WILL RETURN TO SKILLED BED AT DISCHARGE. JASON INFORMED THAT SHE WILL CALL ON DAY OF DISCHARGE AND HAS TO COMPLETE A COVID19 SCREENING VIA PHONE PRIOR TO PT'S RETURN TO FACILITY, UNLESS TESTING HAS RETURNED. FOR DISCHARGE, [facility] WILL CALL FACILITY FOR VEBAL COVID19 SCREENING QUESTIONAIRE PRIOR TO PT'S RETURN. NURSE REPORT TO BE CALLED TO [facility] AT [phone]. FAX DISCHARGE INFORMATION TO [facility] AT [phone]. [facility] TO ARRANGE VAN TRANSPORT IF PT IS ABLE TO SIT SAFELY FOR TRANSPORT. Shoe Stock Associate: Mihai Monroe [facility]- Discharge Planning Updated by [id number]: Mihai Monroe on 01/13/20 10:[address] Patient Name: YEMI DAVID Encounter No: [id number] : 1985 Primary Insurance: [employer] MA[employer]GED MEDICAID Anticipated DC Date: Planned Disposition: Nursing Facility [facility] External Planned Provider:[facility], SKILLED MEDICAID BED Discharge Planning Comments: CM SPOKE TO JASON AT [facility], PT IN SKILLED BED AND WILL RETURN TO SKILLED BED AT DISCHARGE. JASON REQUESTED MICROBIOLOGY RESULTS. CM FAXED UPDATE INFORMATION TO [facility] AT [phone]. FOR DISCHARGE, [facility] WILL CALL FACILITY FOR VEBAL SCREENING QUESTIONAIRE PRIOR TO PT'S RETURN. NURSE REPORT TO BE CALLED TO [facility] AT [phone]. FAX DISCHARGE INFORMATION TO [facility] AT [phone]. [facility] TO ARRANGE VAN TRANSPORT IF PT IS ABLE TO SIT SAFELY FOR TRANSPORT. Shoe Stock Associate: Mihai Monroe [facility]- Discharge Planning Updated by [id number]: Mihai Monroe on 01/13/20 9:[address] Patient Name: YEMI DAVID Admission Status: ER Accout number: [id number] Admission Date: 01-11-2020 : 1985 Admission Diagnosis: Attending: ALLISON KNIGHT Current LOS: 2 Anticipated DC Date: Planned Disposition: Nursing Facility [facility] Primary Insurance: [employer] MA[employer]GED MEDICAID PLANNED EXTERNAL PROVIDER: [facility], [facility]DC CARE MEDICAID BED Discharge Planning Comments: CM SPOKE TO PT VIA ROOM PHONE TO DISCUSS DISCHARGE PLANNING AND NEEDS. PT REPORTS LIVING AT [facility], HE HAS BEEN THERE FOR TWO WEEKS NOW. PT USES A SHOWER CHAIR, ROLLING WALKER AND WHEELCHAIR. PT REPORTS HAVING ASSISTANCE WITH GETTING UP OUT OF BED, TOILETING, SHOWERING AND PT DENIES DISCHARGE NEEDS, REPORTS PLAN TO RETURN TO [facility] AT DISCHARGE. CHOICE LETTER COMPLETED. CM VERIFIED BED STATUS WITH JASON JENKINS [facility]. CM FAXED UPDATE INFORMATION TO [facility] AT [phone]. FOR DISCHARGE, NURSE REPORT TO BE CALLED TO [facility] AT [phone]. FAX DISCHARGE INFORMATION TO [facility] AT [phone]. [facility]ANGE VAN TRANSPORT IF PT IS ABLE TO SIT SAFELY FOR TRANSPORT. Shoe Stock Associate: Mihai Monroe DCPIA - Discharge Planning Initial Assessment Updated by [id number]: Mihai Monroe on 01/13/20 10:17 am * Is the patient Alert and Oriented? Yes * How many steps to enter\exit or inside your home? NONE * PCP DOCTOR FOR [facility] * Pharmacy PHARMACY FOR [facility] * Preadmission Environment [facility] Inter[facility] * Facility Name [facility] * ADLs Partial Dependent * Partial ADLs (Assistance needed) Bathing Medication Management Toileting Transfers * Equipment Shower Chair Walker Wheelchair * Other Equipment ALL MEDICAL EQUIPMENT PROVIDED BY FACILITY * List name and contact numbers for known caregivers / representatives who currently or will assist patient after discharge: JAVIER DAVID, BROTHER, * Verbal permission to speak to the caregivers and representatives has been obtained from the patient. N/A * Community resources currently utilized None * Please name any agencies selected above. NONE * Additional services required to return to the preadmission environment? No * Can the patient safely return to the preadmission environment? Yes * Has this patient been hospitalized within the prior 30 days at any hospital? Yes Coverage Notice Reviewer: [id number] Abdullahi Monroe Notice Issued Date-Time: 01/13/2020 9:57 Notice Type: Patient Choice Letter Notice Delivered To: Patient Relationship to Patient: Brief Writer Name: Delivery Method: HAND - Hand Delivered Judy Days: Prior Verbal Notification: Recipient Understood Notice: Yes Recipient Signature: Yes Med Rec Note Co-signed by Attending: Coverage Notice Comment: [facility] Last DP export: 01/18/20 8:21 a Patient Name: YEMI DAVID Page 22431 at 1504 All edits/amendments must be made on the electronic document DICTATION DATE: 01/18/20 1503 ANIMAL TRAPPER: CHIO 01/18/20 1503 RPT#: [id number] DC DATE: STATUS: ADM IN [facility] [address] [place] [address] END OF REPORT
[2020-01-18 17:12] VITALS: BP 112/65
--- NOTE | 2020-01-18 19:15 | NUR ---
RECEIVED REPORT, WILL ASSUME CARE OF PT, DENIES ANY NEEDS AT THIS TIME, BED IS LOW, SRX2, CALL LIGHT IN REACH, WILL CONTINUE PLAN OF CARE
[2020-01-18 20:00] VITALS: BP 105/66
[2020-01-19] VITALS: BP 97/61
[2020-01-19 04:00] VITALS: BP 97/62
--- NOTE | 2020-01-19 04:21 | NUR ---
I have reviewed this patient and I concur with the Shift Assessment completed by the Licensed Practical Nurse today this shift.
[2020-01-19 05:59] LABS: HEMATOCRIT 31.3 % (42.0-54.0); HEMOGLOBIN 9.9 g/dL (13.5-17.5); MCH 26.4 pg (26.0-34.0); MCHC 31.6 g/dL (31.0-37.0); MCV 83.5 fL (80.0-100.0); RBC 3.75 10x6/uL (4.20-6.10); RDW 17.7 % (11.5-14.5); WBC 2.6 10x3/uL (4.8-10.8)
[2020-01-19 06:00] LABS: PLATELET COUNT 224 10x3/uL (130-400)
[2020-01-19 06:16] LABS: ALBUMIN 0.9 g/dL (3.4-5.0); ALKALINE PHOSPHATASE 94 U/L (30-120); ALT (SGPT) 22 U/L (10-68); BILIRUBIN - TOTAL 0.16 mg/dL (0.2-1.3); CALC OSMOLALITY 265 mosm/kg (275-300); CALCIUM 7.4 mg/dL (8.5-10.1); CARBON DIOXIDE 26.1 mmol/L (21.0-32.0); CHLORIDE - SERUM 101 mmol/L (98-107); CREATININE - SERUM 0.4 mg/dL (0.6-1.3); GLUCOSE 75 mg/dL (74-106); POTASSIUM - SERUM 4.3 mmol/L (3.5-5.1); PROTEIN - SERUM 4.8 g/dL (6.4-8.2); SODIUM 134 mmol/L (136-145); UREA NITROGEN 10 mg/dL (7-18); eGFR NON AFRICAN AMERICAN > 90 mL/min (90-120)
[2020-01-19 08:42] VITALS: BP 94/61
[2020-01-19 09:39] LABS: ANISOCYTOSIS OCC; LYMPHOCYTES 17 % (15-50); MONOCYTES 18 % (2-11); NEUTROPHILS 51 % (40-80); PLATELET ESTIMATE NORMAL
--- NOTE | 2020-01-19 10:10 | NUR ---
I have reviewed this patient and I concur with the Shift Assessment completed by the Licensed Practical Nurse today this shift.
--- NOTE | 2020-01-19 11:04 | NUR ---
Nutrition Follow-up: Pt reports good appetite/PO intake. Denies N/V, chewing/swallowing difficulties. C/o constipation; last BM 01/17. Diet: Regular PO intake: 79% avg x 7 meals Labs noted: Na 134, Ca 7.4, Alb 0.9 Meds noted: Carafate, Remeron, Folic Acid, Protonix -Encourage PO intake and honor food preferences. -Offer nutrition supplements with meals. -Need new wt; noted daily wts ordered. -RD following.
--- NOTE | 2020-01-19 17:01 | MORECARE ---
CASE MANAGEMENT DISCHARGE SUMMARY PATIENT: YEMI DAVID UNIT: [id number] ADM DATE: 01/11/20 AGE: 34 : [birth year] SEX: M ROOM/BED: D.2127 AUTHOR: PAM JOSE PHYSICIAN: REFERRING PHYSICIAN: ALLISON KNIGHT MD DATE OF SERVICE: 01/19/20 Discharge Plan Patient Name: YEMI DAVID Facility: [facility]:[place] : 1985 Planned Disposition: Senior Living Facility Anticipated Discharge Date: 01/14/20 Discharge Date: Expected LOS: 3 Initial Reviewer: [id number] Initial Review Date: 01/13/2020 Generated: 01/19/20 6:00 pm Comments DCP- Discharge Planning Updated by [id number]: Mihai Monroe on 01/19/20 3:[address] Patient Name: YEMI DAVID Encounter No: [id number] : 1985 Primary Insurance: [employer] MA[employer]GED MEDICAID Anticipated DC Date: 01-14-2020 Planned Disposition: Senior Living Facility External Planned Provider: [facility], SKILLED MEDICAID BED DCP follow-up note: CM CALLED AND SPOKE TO RICKY CANDELARIO OF [facility], WHO REPORTS THAT SHE JUST SPOKE TO INSURANCE WHO HAS NOT YET COMPLETED REVIEW AND PROVIDED AUTHORIZATION FOR PT'S SKILLED RETURN OF THIS TIME. THEY EXPECT TO HAVE INSURANCE AUTHORIZATION TOMORROW AND WILL NOT ACCEPT PT BACK UNTIL AUTHORIZATION IS RECEIVED FROM PT'S INSURANCE. BEDSIDE NURSE NOTIFIED. CM NOW WAITING ON [facility] TO RECEIVE INSURANCE AUTHORIZATION FOR PT TO RETURN TO SKILLED CARE BED. Mihai Monroe, CASE MANAGEMENT DCP- Discharge Planning Updated by [id number]: Mihai Monroe on 01/18/20 1:[address] Patient Name: YEMI DAVID Encounter No: [id number] : 1985 Primary Insurance: [employer] MA[employer]GED MEDICAID Anticipated DC Date: 01-14-2020 Planned Disposition: Senior Living Facility External Planned Provider: [facility], SKILLED MEDICAID BED DCP follow-up note: CM SPOKE TO VAT SKIMMER NURSE WHO INFORMED CM THAT THE FACILITY TOLD THE NURSE THEY WOULD BE HERE OVER ONE HOUR AGO AND ASKED FOR UPDATE. CM CALLED AND SPOKE TO A NURSE, THEN JASON OF ADMISSIONS AND FINALLY, PREVENTIVE MEDICINE OFFICER. [facility] SUBMITTED FOR INSURANCE AUTHORIZATION AND NOW WILL NOT ACCEPT PT BACK UNTIL AUTHORIZATION IS RECEIVED FROM PT'S INSURANCE AND THIS COULD TAKE UP TO 24 HOURS PER THE PREVENTIVE MEDICINE OFFICER. VAT SKIMMER NURSE NOTIFIED. CM NOW WAITING ON [facility] TO RECEIVE INSURANCE AUTHORIZATION FOR PT TO RETURN TO SKILLED CARE BED. Mihai Monroe, CASE MANAGEMENT DCP- Discharge Planning Updated by [id number]: Mihai Monroe on 01/18/20 8:[address] Patient Name: YEMI DAVID Encounter No: [id number] : 1985 Primary Insurance: [employer] MA[employer]GED MEDICAID Anticipated DC Date: 01-14-2020 Planned Disposition: Senior Living Facility External Planned Provider: [facility], SKILLED MEDICAID BED Discharge Planning Comments: CM REVIEWED CHART, PT'S COVID 19 TESTING RESULT IN CHART. CM FAXED UPDATE WITH TESTING RESULT TO [facility] AT [phone]. CALLED TO [facility] AT [phone], SPOKE TO JASON WHO WILL REVIEW RESULTS OF TESTING AND CALL CM BACK. NURSE REPORT TO BE CALLED TO [facility] AT [phone]. [facility] TO ARRANGE VAN TRANSPORT. Coal Trimmer: Mihai Monroe DCP- Discharge Planning Updated by [id number]: Mihai Monroe on 01/14/20 2:[address] Patient Name: YEMI DAVID Admission Status: ER Accout number: [id number] Admission Date: 01-11-2020 : 1985 Admission Diagnosis: Attending: ALLISON KNIGHT Current LOS: 3 Anticipated DC Date: 01-14-2020 Planned Disposition: Senior Living Facility Primary Insurance: [employer] MA[employer]GED MEDICAID PLANNED EXTERNAL PROVIDER: [facility], SKILLED MEDICAID BED Discharge Planning Comments: CM RECEIVED DISCHARGE ORDER, SPOKE TO BEDSIDE NURSE AND PATIENT, PT REPORTS AGREEMENT WITH DISCHARGE PLAN AND CAN SIT FOR VAN TRANPORT. CM CALLED AND SPOKE TO JASON AT [facility], , JASON REPORTS THAT THEY CANNOT ACCEPT PT BACK UNTIL COVID19 TESTING RESULT HAS BEEN RETURNED NEGATIVE. CM DISCUSSED THAT MANAGER INTERNATIONAL INDICATED THAT PT DOES NOT HAVE COVID19 AND RECOMMENDED REMOVAL FROM ISOLATION; JASON TRANSFERRED CALL TO KATHRYN, PREVENTIVE MEDICINE OFFICER FOR [facility] WHO REPORTED THIS TO BE THEIR CORPORATE POLICY. CM NOTIFIED VAT SKIMMER NURSE AND CM DIRECTOR BELLE. [facility] WILL NOT ACCEPT BACK UNTIL COVID19 TESTING RECEIVED AND NEGATIVE. FOR DISCHARGE, [facility] WILL CALL FACILITY FOR VEBAL COVID19 SCREENING QUESTIONAIRE PRIOR TO PT'S RETURN. NURSE REPORT TO BE CALLED TO [facility] AT [phone]. FAX DISCHARGE INFORMATION TO [facility] AT [phone]. [facility] TO ARRANGE VAN TRANSPORT. Coal Trimmer: Mihai Monroe DC- Discharge Planning Updated by [id number]: Mihai Monroe on 01/14/20 11:[address] Patient Name: YEMI DANGLAYO Encounter No: [id number] : 1985 Primary Insurance: [employer] MEDICAID Anticipated DC Date: Planned Disposition: Senior Living Facility External Planned Provider: [facility], SKILLED MEDICAID BED Discharge Planning Comments: CM SPOKE TO JASON AT [facility], PT IN SKILLED BED AND WILL RETURN TO SKILLED BED AT DISCHARGE. JASON INFORMED CM THAT SHE WILL CALL ON DAY OF DISCHARGE AND HAS TO COMPLETE A COVID19 SCREENING VIA PHONE PRIOR TO PT'S RETURN TO FACILITY, UNLESS TESTING HAS RETURNED. FOR DISCHARGE, [facility] WILL CALL FACILITY FOR VEBAL COVID19 SCREENING QUESTIONAIRE PRIOR TO PT'S RETURN. NURSE REPORT TO BE CALLED TO [facility] AT [phone]. FAX DISCHARGE INFORMATION TO [facility] AT [phone]. [facility] TO ARRANGE VAN TRANSPORT IF PT IS ABLE TO SIT SAFELY FOR TRANSPORT. Coal Trimmer: Mihai Monroe DCP- Discharge Planning Updated by [id number]: Mihai Monroe on 01/13/20 10:[address] Patient Name: YEMI DANGLAYO Encounter No: [id number] : 1985 Primary Insurance: [employer] MANAGED MEDICAID Anticipated DC Date: Planned Disposition: Nursing Facility [facility] Cert External Planned Provider:[facility], SKILLED MEDICAID BED Discharge Planning Comments: ARLEEN SPOKE TO JASON AT [facility], PT IN SKILLED BED AND WILL RETURN TO SKILLED BED AT DISCHARGE. JASON REQUESTED MICROBIOLOGY RESULTS. ARLEEN FAXED UPDATE INFORMATION TO [facility] AT [phone]. FOR DISCHARGE, [facility] WILL CALL FACILITY FOR VEBAL SCREENING QUESTIONAIRE PRIOR TO PT'S RETURN. NURSE REPORT TO BE CALLED TO [facility] AT [phone]. FAX DISCHARGE INFORMATION TO [facility] AT [phone]. [facility] TO ARRANGE VAN TRANSPORT IF PT IS ABLE TO SIT SAFELY FOR TRANSPORT. Coal Trimmer: Mihai Monroe DCP- Discharge Planning Updated by [id number]: Mihai Monroe on 01/13/20 9:[address] Patient Name: YEMI DAVID Admission Status: ER Accout number: [id number] Admission Date: 01-11-2020 : 1985 Admission Diagnosis: Attending: ALLISON KNIGHT Current LOS: 2 Anticipated DC Date: Planned Disposition: Nursing Facility [facility] Primary Insurance: [employer] MANAGED MEDICAID PLANNED EXTERNAL PROVIDER: [facility], VENTILATING EQUIPMENT INSTALLER CARE MEDICAID BED Discharge Planning Comments: CM SPOKE TO PT VIA ROOM PHONE TO DISCUSS DISCHARGE PLANNING AND NEEDS. PT REPORTS LIVING AT [facility], HE HAS BEEN THERE FOR TWO WEEKS NOW. PT USES A SHOWER CHAIR, ROLLING WALKER AND WHEELCHAIR. PT REPORTS HAVING ASSISTANCE WITH GETTING UP OUT OF BED, TOILETING, SHOWERING AND PT DENIES DISCHARGE NEEDS, REPORTS PLAN TO RETURN TO [facility] AT DISCHARGE. CHOICE LETTER COMPLETED. ARLEEN VERIFIED BED STATUS WITH JASON [facility]. CM FAXED UPDATE INFORMATION TO [facility] AT [phone]. FOR DISCHARGE, NURSE REPORT TO BE CALLED TO [facility] AT [phone]. FAX DISCHARGE INFORMATION TO [facility] AT [phone]. [facility] TO ARRANGE VAN TRANSPORT IF PT IS ABLE TO SIT SAFELY FOR TRANSPORT. Coal Trimmer: Mihai Monroe DCPIA - Discharge Planning Initial Assessment Updated by [id number]: Mihai Monroe on 01/13/20 10:17 am * Is the patient Alert and Oriented? Yes * How many steps to enter\exit or inside your home? NONE * PCP DOCTOR FOR [facility] * Pharmacy PHARMACY FOR [facility] * Preadmission Environment [facility] * Facility Name [facility] * ADLs Partial Dependent * Partial ADLs (Assistance needed) Bathing Medication Management Toileting Transfers * Equipment Shower Chair Walker Wheelchair * Other Equipment ALL MEDICAL EQUIPMENT PROVIDED BY FACILITY * List name and contact numbers for known caregivers / representatives who currently or will assist patient after discharge: BROTHER CRUMP, * Verbal permission to speak to the caregivers and representatives has been obtained from the patient. N/A * Community resources currently utilized None * Please name any agencies selected above. NONE * Additional services required to return to the preadmission environment? No * Can the patient safely return to the preadmission environment? Yes * Has this patient been hospitalized within the prior 30 days at any hospital? Yes Coverage Notice Reviewer: [id number] - Mihai Monroe Notice Issued Date-Time: 01/13/2020 9:57 Notice Type: Patient Choice Letter Notice Delivered To: Patient Relationship to Patient: Processing Operator Name: Delivery Method: HAND - Hand Delivered Judy Days: Prior Verbal Notification: Recipient Understood Notice: Yes Recipient Signature: Yes Med Rec Note Co-signed by Attending: Coverage Notice Comment: [facility] Last DP export: 01/18/20 2:04 p Patient Name: YEMI DAVID Page [id number] at 1701 All edits/amendments must be made on the electronic document DICTATION DATE: 01/19/20 1700 ZINC PLATE CUTTER: CHIO 01/19/20 170 RPT#: [id number] DC DATE: STATUS: ADM IN [facility] [address] [place] [address] END OF REPORT
--- NOTE | 2020-01-19 19:00 | NUR ---
RECEIVED BEDSIDE REPORT. PATIENT IS ALERT AND ORIENTED, RESTING COMFORTABLY IN BED. RESPIRATIONS ARE EVEN AND UNLABORED. NO S/S OF DISTRESS. NO C/O PAIN. CALL LIGHT WITHIN REACH. WILL CPOC.
[2020-01-19 19:30] VITALS: BP 102/68
[2020-01-20 00:33] VITALS: BP 100/52
[2020-01-20 04:56] VITALS: BP 100/68
[2020-01-20 05:52] LABS: HEMATOCRIT 32.9 % (42.0-54.0); HEMOGLOBIN 10.4 g/dL (13.5-17.5); MCH 26.3 pg (26.0-34.0); MCHC 31.6 g/dL (31.0-37.0); MCV 83.3 fL (80.0-100.0); MEAN PLATELET VOLUME 9.1 fL (7.4-10.4); PLATELET COUNT 216 10x3/uL (130-400); RBC 3.95 10x6/uL (4.20-6.10); RDW 17.9 % (11.5-14.5); WBC 2.8 10x3/uL (4.8-10.8)
[2020-01-20 06:08] LABS: ALKALINE PHOSPHATASE 99 U/L (30-120); ALT (SGPT) 25 U/L (10-68); BILIRUBIN - TOTAL 0.15 mg/dL (0.2-1.3); CALC OSMOLALITY 265 mosm/kg (275-300); CALCIUM 7.7 mg/dL (8.5-10.1); CARBON DIOXIDE 27.7 mmol/L (21.0-32.0); CHLORIDE - SERUM 101 mmol/L (98-107); CREATININE - SERUM 0.5 mg/dL (0.6-1.3); GLUCOSE 72 mg/dL (74-106); POTASSIUM - SERUM 4.5 mmol/L (3.5-5.1); PROTEIN - SERUM 5.1 g/dL (6.4-8.2); SODIUM 134 mmol/L (136-145); UREA NITROGEN 11 mg/dL (7-18); eGFR NON AFRICAN AMERICAN > 90 mL/min (90-120)
[2020-01-20 08:23] VITALS: BP 115/79
[2020-01-20 10:31] LABS: ANISOCYTOSIS OCC; EOSINOPHILS 1 % (0-7); LYMPHOCYTES 19 % (15-50); MONOCYTES 20 % (2-11); NEUTROPHILS 41 % (40-80); PLATELET ESTIMATE NORMAL
--- NOTE | 2020-01-20 11:01 | MORECARE ---
CASE MANAGEMENT DISCHARGE SUMMARY PATIENT: YEMI DAVID UNIT: [id number] ADM DATE: 01/11/20 AGE: 34 : 87 SEX: M ROOM/BED: D.8337 AUTHOR: PAM JOSE PHYSICIAN: REFERRING PHYSICIAN: ALLISON KNIGHT MD DATE OF SERVICE: 01/20/20 Discharge Plan Patient Name: YEMI DAVID Facility: [facility]:[place] : 1985 Planned Disposition: Long Term Facility Anticipated Discharge Date: 01/20/20 Discharge Date: Expected LOS: 9 Initial Reviewer: [id number] Initial Review Date: 01/13/2020 Generated: 01/20/20 12:01 pm Comments DCP- Discharge Planning Updated by [id number]: Mihai Monroe on 01/20/20 9:[address] Patient Name: YEMI DAVID Encounter No: [id number] : 1985 Primary Insurance: [employer] MEDICAID Anticipated DC Date: 01-20-2020 Planned Disposition: Long Term Facility External Planned Provider: [facility], SKILLED MEDICAID BED DCP follow-up note: CM FAXED UDPATE AND DISCHARGE INFORMATION TO [facility], . CM WAITING ON [facility] TO RECEIVE INSURANCE AUTHORIZATION FOR PT TO RETURN TO SKILLED CARE BED. ROLAND Hugo DCP- Discharge Planning Updated by [id number]: Mihai Monroe on 01/19/20 3:[address] Patient Name: YEMI DAVID Encounter No: [id number] : 1985 Primary Insurance: [employer] MEDICAID Anticipated DC Date: 01-14-2020 Planned Disposition: Long Term Facility External Planned Provider: [facility], SKILLED MEDICAID BED DCP follow-up note: CM CALLED AND SPOKE TO RICKY CANDELARIO OF [facility], WHO REPORTS THAT SHE JUST SPOKE TO INSURANCE WHO HAS NOT YET COMPLETED REVIEW AND PROVIDED AUTHORIZATION FOR PT'S SKILLED RETURN OF THIS TIME. THEY EXPECT TO HAVE INSURANCE AUTHORIZATION TOMORROW AND WILL NOT ACCEPT PT BACK UNTIL AUTHORIZATION IS RECEIVED FROM PT'S INSURANCE. BEDSIDE NURSE NOTIFIED. CM NOW WAITING ON [facility] TO RECEIVE INSURANCE AUTHORIZATION FOR PT TO RETURN TO SKILLED CARE BED. ROLAND Hugo DCP- Discharge Planning Updated by [id number]: Mihai Monroe on 01/18/20 1:[address] Patient Name: YEMI DAVID Encounter No: [id number] : 1985 Primary Insurance: [employer] MEDICAID Anticipated DC Date: 01-14-2020 Planned Disposition: Long Term Facility External Planned Provider: [facility], SKILLED MEDICAID BED DCP follow-up note: CM SPOKE TO WATCH MANUFACTURING SUPERVISOR NURSE WHO INFORMED CM THAT THE FACILITY TOLD THE NURSE THEY WOULD BE HERE OVER ONE HOUR AGO AND ASKED FOR UPDATE. CM CALLED AND SPOKE TO A NURSE, THEN JASON OF ADMISSIONS AND FINALLY, BOBBIN HANDLER. [facility] SUBMITTED FOR INSURANCE AUTHORIZATION AND NOW WILL NOT ACCEPT PT BACK UNTIL AUTHORIZATION IS RECEIVED FROM PT'S INSURANCE AND THIS COULD TAKE UP TO 24 HOURS PER THE BOBBIN HANDLER. WATCH MANUFACTURING SUPERVISOR NURSE NOTIFIED. CM NOW WAITING ON [facility] TO RECEIVE INSURANCE AUTHORIZATION FOR PT TO RETURN TO SKILLED CARE BED. ROLADN Hugo DCP- Discharge Planning Updated by [id number]: Mihai Monroe on 01/18/20 8:[address] Patient Name: YEMI DAVID Encounter No: [id number] : 1985 Primary Insurance: [employer]ED MEDICAID Anticipated DC Date: 01-14-2020 Planned Disposition: Long Term Facility External Planned Provider: [facility], SKILLED MEDICAID BED Discharge Planning Comments: CM REVIEWED CHART, PT'S COVID 19 TESTING RESULT IN CHART. CM FAXED UPDATE WITH TESTING RESULT TO [facility] AT [phone]. CALLED TO [facility] AT [phone], SPOKE TO JASON WHO WILL REVIEW RESULTS OF TESTING AND CALL CM BACK. NURSE REPORT TO BE CALLED TO [facility] AT [phone]. [facility] TO ARRANGE VAN TRANSPORT. Bulk Cooler Installer: Mihai Monroe DCP- Discharge Planning Updated by [id number]: Mihai Monroe on 01/14/20 2:[address] Patient Name: YEMI DAVID Admission Status: ER Accout number: [id number] Admission Date: 01-11-2020 : 1985 Admission Diagnosis: Attending: ALLISON KNIGHT Current LOS: 3 Anticipated DC Date: 01-14-2020 Planned Disposition: Long Term Facility Primary Insurance: [employer] MEDICAID PLANNED EXTERNAL PROVIDER: [facility], SKILLED MEDICAID BED Discharge Planning Comments: CM RECEIVED DISCHARGE ORDER, SPOKE TO BEDSIDE NURSE AND PATIENT, PT REPORTS AGREEMENT WITH DISCHARGE PLAN AND CAN SIT FOR VAN TRANPORT. CM CALLED AND SPOKE TO JASON AT [facility], , JASON REPORTS THAT THEY CANNOT ACCEPT PT BACK UNTIL COVID19 TESTING RESULT HAS BEEN RETURNED NEGATIVE. ARLEEN DISCUSSED THAT MATERIALS AND CORROSION ENGINEER INDICATED THAT PT DOES NOT HAVE COVID19 AND RECOMMENDED REMOVAL FROM ISOLATION; JASON TRANSFERRED CALL TO KATHRYN, BOBBIN HANDLER FOR [facility] WHO REPORTED THIS TO BE THEIR CORPORATE POLICY. CM NOTIFIED WATCH MANUFACTURING SUPERVISOR NURSE AND CM DIRECTOR BELLE. [facility] WILL NOT ACCEPT BACK UNTIL COVID19 TESTING RECEIVED AND NEGATIVE. FOR DISCHARGE, [facility] WILL CALL FACILITY FOR VEBAL COVID19 SCREENING QUESTIONAIRE PRIOR TO PT'S RETURN. NURSE REPORT TO BE CALLED TO [facility] AT [phone]. FAX DISCHARGE INFORMATION TO [facility] AT [phone]. [facility] TO ARRANGE VAN TRANSPORT. Bulk Cooler Installer: Mihai Monroe DCP- Discharge Planning Updated by [id number]: Mihai Monroe on 01/14/20 11:[address] Patient Name: YEMI DAVID Encounter No: [id number] : 1985 Primary Insurance: [employer]GED MEDICAID Anticipated DC Date: Planned Disposition: Long Term Facility External Planned Provider: [facility], SKILLED MEDICAID BED Discharge Planning Comments: CM SPOKE TO JASON AT [facility], PT IN SKILLED BED AND WILL RETURN TO SKILLED BED AT DISCHARGE. JASON INFORMED CM THAT SHE WILL CALL ON DAY OF DISCHARGE AND HAS TO COMPLETE A COVID19 SCREENING VIA PHONE PRIOR TO PT'S RETURN TO FACILITY, UNLESS TESTING HAS RETURNED. FOR DISCHARGE, [facility] WILL CALL FACILITY FOR VEBAL COVID19 SCREENING QUESTIONAIRE PRIOR TO PT'S RETURN. NURSE REPORT TO BE CALLED TO [facility] AT [phone]. FAX DISCHARGE INFORMATION TO [facility] AT [phone]. [facility] TO ARRANGE VAN TRANSPORT IF PT IS ABLE TO SIT SAFELY FOR TRANSPORT. Bulk Cooler Installer: Mihai Monroe MDP- Discharge Planning Updated by [id number]: Mihai Monroe on 01/13/20 10:[address] Patient Name: YEMI DAVID Encounter No: [id number] : 1985 Primary Insurance: [employer] MA[employer]GED MEDICAID Anticipated DC Date: Planned Disposition: Nursing Facility [facility] Cert External Planned Provider:[facility], SKILLED MEDICAID BED Discharge Planning Comments: CM SPOKE TO JASON AT [facility], PT IN SKILLED BED AND WILL RETURN TO SKILLED BED AT DISCHARGE. JASON REQUESTED MICROBIOLOGY RESULTS. CM FAXED UPDATE INFORMATION TO [facility] AT [phone]. FOR DISCHARGE, [facility] WILL CALL FACILITY FOR VEBAL SCREENING QUESTIONAIRE PRIOR TO PT'S RETURN. NURSE REPORT TO BE CALLED TO [facility] AT [phone]. FAX DISCHARGE INFORMATION TO [facility] AT [phone]. [facility] TO ARRANGE VAN TRANSPORT IF PT IS ABLE TO SIT SAFELY FOR TRANSPORT. Bulk Cooler Installer: Mihai Monroe [facility]- Discharge Planning Updated by [id number]: Mihai Monroe on 01/13/20 9:[address] Patient Name: YEMI DAVID Admission Status: ER Accout number: [id number] Admission Date: 01-11-2020 : 1985 Admission Diagnosis: Attending: ALLISON KNIGHT Current LOS: 2 Anticipated DC Date: Planned Disposition: Nursing Facility [facility] Primary Insurance: [employer] MA[employer]GED MEDICAID PLANNED EXTERNAL PROVIDER: [facility], SHERIFF DETECTIVE CARE MEDICAID BED Discharge Planning Comments: CM SPOKE TO PT VIA ROOM PHONE TO DISCUSS DISCHARGE PLANNING AND NEEDS. PT REPORTS LIVING AT [facility], HE HAS BEEN THERE FOR TWO WEEKS NOW. PT USES A SHOWER CHAIR, ROLLING WALKER AND WHEELCHAIR. PT REPORTS HAVING ASSISTANCE WITH GETTING UP OUT OF BED, TOILETING, SHOWERING AND PT DENIES DISCHARGE NEEDS, REPORTS PLAN TO RETURN TO [facility] AT DISCHARGE. CHOICE LETTER COMPLETED. ARLEEN VERIFIED BED STATUS WITH JESUS MANUEL. CM FAXED UPDATE INFORMATION TO [facility] AT [phone]. FOR DISCHARGE, NURSE REPORT TO BE CALLED TO [facility] AT [phone]. FAX DISCHARGE INFORMATION TO [facility] AT [phone]. [facility] TO ARRANGE VAN TRANSPORT IF PT IS ABLE TO SIT SAFELY FOR TRANSPORT. Bulk Cooler Installer: Mihai Monroe DCPIA - Discharge Planning Initial Assessment Updated by [id number]: Mihai Monroe on 01/13/20 10:17 am * Is the patient Alert and Oriented? Yes * How many steps to enter\exit or inside your home? NONE * PCP DOCTOR FOR [facility] * Pharmacy [facility]ARMACY FOR [facility] * Preadmission Environment Behavioral Sciences Instructor Usp * Facility Name [facility] * ADLs Partial Dependent * Partial ADLs (Assistance needed) Bathing Medication Management Toileting Transfers * Equipment Shower Chair Walker Wheelchair * Other Equipment ALL MEDICAL EQUIPMENT PROVIDED BY FACILITY * List name and contact numbers for known caregivers / representatives who currently or will assist patient after discharge: JAVIER DAVID, BROTHER, * Verbal permission to speak to the caregivers and representatives has been obtained from the patient. N/A * Community resources currently utilized None * Please name any agencies selected above. NONE * Additional services required to return to the preadmission environment? No * Can the patient safely return to the preadmission environment? Yes * Has this patient been hospitalized within the prior 30 days at any hospital? Yes External Providers External Provider: [facility] Next Contact Date: 01/13/2020 Service Request Date: Service Type: Resolution: Reviewer: Comments: Coverage Notice Reviewer: [id number] - Mihai Monroe Notice Issued Date-Time: 01/13/2020 9:57 Notice Type: Patient Choice Letter Notice Delivered To: Patient Relationship to Patient: Retina Subspecialist Name: Delivery Method: HAND - Hand Delivered Judy Days: Prior Verbal Notification: Recipient Understood Notice: Yes Recipient Signature: Yes Med Rec Note Co-signed by Attending: Coverage Notice Comment: [facility] Last DP export: 01/19/20 4:01 p Patient Name: YEMI DAVID Page 95910 at 1101 All edits/amendments must be made on the electronic document DICTATION DATE: 01/20/201100 TRANSPORTATION ASSOCIATE: CHIO 01/20/20 1101 RPT#: [id number] DC DATE: STATUS: ADM IN [facility] [address] [place] [address] END OF REPORT
--- NOTE | 2020-01-20 12:31 | NUR ---
STILL WAITING ON PRIOR AUTH FROM ASSISTED ON INSURANCE.
--- NOTE | 2020-01-20 15:45 | NUR ---
I have reviewed this patient and I concur with the Shift Assessment completed by the Licensed Practical Nurse today this shift.
--- NOTE | 2020-01-20 16:13 | NUR ---
PT RESTING IN BED A/O X4. PT STATES THAT HE IS VERY TIRED. VSS. NO S/S OF DISTRESS AT THIS TIME. BED LOW CALL LIGHT WITHIN REACH. WILL CONTINUE TO MONITOR.
--- NOTE | 2020-01-20 17:04 | MORECARE ---
CASE MANAGEMENT DISCHARGE SUMMARY PATIENT: YEMI DAVID UNIT: [id number] ADM DATE: 01/11/20 AGE: 34 : 87 SEX: M ROOM/BED: D.3762 AUTHOR: PAM JOSE PHYSICIAN: REFERRING PHYSICIAN: ALLISON KNIGHT MD DATE OF SERVICE: 01/20/20 Discharge Plan Patient Name: YEMI DAVID Facility: [facility]:[place] : 1985 Planned Disposition: Custodial Facility Anticipated Discharge Date: 01/20/20 Discharge Date: Expected LOS: 9 Initial Reviewer: [id number] Initial Review Date: 01/13/2020 Generated: 01/20/20 6:04 pm Comments DCP- Discharge Planning Updated by [id number]: Mihai Monroe on 01/20/20 3:[address] Patient Name: YEMI DAVID Encounter No: [id number] : 1985 Primary Insurance: [employer] MA[employer]GED MEDICAID Anticipated DC Date: 01-20-2020 Planned Disposition: Custodial Facility External Planned Provider: [facility], SKILLED MEDICAID BED DCP follow-up note: CM FAXED UDPATE AND DISCHARGE INFORMATION TO [facility], . CM WAITING ON [facility] TO RECEIVE INSURANCE AUTHORIZATION FOR PT TO RETURN TO SKILLED CARE BED. Mihai Monroe, CASE MANAGEMENT Appended by Mihai Monroe on 01/20/2020 16:58 CDT: CM CALLED AND SPOKE TO JASON OF [facility], , WHO REPORTS CALLING THE INSURANCE SEVERAL TIMES TODAY AND THAT THE INSURANCE COMPANY IS BLAMING THE DELAY OF REVIEW FOR AUTHORIZATION ON COVID 19. BEDSIDE NURSE UPDATED. CM WAITING ON [facility] TO RECEIVE INSURANCE AUTHORIZATION FOR PT TO RETURN TO SKILLED CARE BED. ROLAND Hugo DCP- Discharge Planning Updated by [id number]: Mihai Monroe on 01/19/20 3:[address] Patient Name: YEMI DAVID Encounter No: [id number] : 1985 Primary Insurance: [employer] MA[employer]GED MEDICAID Anticipated DC Date: 01-14-2020 Planned Disposition: Custodial Facility External Planned Provider: [facility], SKILLED MEDICAID BED DCP follow-up note: CM CALLED AND SPOKE TO RICKY KODAK OF [facility], WHO REPORTS THAT SHE JUST SPOKE TO INSURANCE WHO HAS NOT YET COMPLETED REVIEW AND PROVIDED AUTHORIZATION FOR PT'S SKILLED RETURN OF THIS TIME. THEY EXPECT TO HAVE INSURANCE AUTHORIZATION TOMORROW AND WILL NOT ACCEPT PT BACK UNTIL AUTHORIZATION IS RECEIVED FROM PT'S INSURANCE. BEDSIDE NURSE NOTIFIED. CM NOW WAITING ON [facility] TO RECEIVE INSURANCE AUTHORIZATION FOR PT TO RETURN TO SKILLED CARE BED. Mihai Monroe CASE MANAGEMENT DCP- Discharge Planning Updated by [id number]: Mihai Monroe on 01/18/20 1:[address] Patient Name: YEMI DAVID Encounter No: [id number] : 1985 Primary Insurance: [employer] MA[employer]GED MEDICAID Anticipated DC Date: 01-14-2020 Planned Disposition: Custodial Facility External Planned Provider: [facility], SKILLED MEDICAID BED DCP follow-up note: CM SPOKE TO PHARMACY SERVICES REPRESENTATIVE NURSE WHO INFORMED CM THAT THE FACILITY TOLD THE NURSE THEY WOULD BE HERE OVER ONE HOUR AGO AND ASKED FOR UPDATE. CM CALLED AND SPOKE TO A NURSE, REID GOMEZ OF ADMISSIONS AND FINALLY, SPORTS INSTRUCTOR. [facility] SUBMITTED FOR INSURANCE AUTHORIZATION AND NOW WILL NOT ACCEPT PT BACK UNTIL AUTHORIZATION IS RECEIVED FROM PT'S INSURANCE AND THIS COULD TAKE UP TO 24 HOURS PER THE SPORTS INSTRUCTOR. PHARMACY SERVICES REPRESENTATIVE NURSE NOTIFIED. CM NOW WAITING ON [facility] TO RECEIVE INSURANCE AUTHORIZATION FOR PT TO RETURN TO SKILLED CARE BED. ROLAND Hugo MANAGEMENT DCP- Discharge Planning Updated by [id number]: Mihai Monroe on 01/18/20 8:[address] Patient Name: YEMI DAVID Encounter No: [id number] : 1985 Primary Insurance: [employer] MA[employer]GED MEDICAID Anticipated DC Date: 01-14-2020 Planned Disposition: Custodial Facility External Planned Provider: [facility], SKILLED MEDICAID BED Discharge Planning Comments: CM REVIEWED CHART, PT'S COVID 19 TESTING RESULT IN CHART. CM FAXED UPDATE WITH TESTING RESULT TO [facility] AT [phone]. CALLED TO [facility] AT [phone], SPOKE TO JASON WHO WILL REVIEW RESULTS OF TESTING AND CALL CM BACK. NURSE REPORT TO BE CALLED TO [facility] AT [phone]. [facility] TO ARRANGE VAN TRANSPORT. Human Resources Benefits Coordinator: Mihai Monroe DCP- Discharge Planning Updated by [id number]: Mihai Monroe on 01/14/20 2:[address] Patient Name: YEMI DAVID Admission Status: ER Accout number: [id number] Admission Date: 01-11-2020 : 1985 Admission Diagnosis: Attending: ALLISON KNIGHT Current LOS: 3 Anticipated DC Date: 01-14-2020 Planned Disposition: Custodial Facility Primary Insurance: [facility] MANAGED MEDICAID PLANNED EXTERNAL PROVIDER: [facility], SKILLED MEDICAID BED Discharge Planning Comments: CM RECEIVED DISCHARGE ORDER, SPOKE TO BEDSIDE NURSE AND PATIENT, PT REPORTS AGREEMENT WITH DISCHARGE PLAN AND CAN SIT FOR VAN TRANPORT. CM CALLED AND SPOKE TO JASON AT [facility], [address] [place] [address], JASON REPORTS THAT THEY CANNOT ACCEPT PT BACK UNTIL COVID19 TESTING RESULT HAS BEEN RETURNED NEGATIVE. ARLEEN DISCUSSED THAT CUP TRIMMING MACHINE OPERATOR INDICATED THAT PT DOES NOT HAVE COVID19 AND RECOMMENDED REMOVAL FROM ISOLATION; JSAON TRANSFERRED CALL TO KATHRYN, SPORTS INSTRUCTOR FOR [facility] WHO REPORTED THIS TO BE THEIR CORPORATE POLICY. CM NOTIFIED PHARMACY SERVICES REPRESENTATIVE NURSE AND CM DIRECTOR BELLE. [facility] WILL NOT ACCEPT BACK UNTIL COVID19 TESTING RECEIVED AND NEGATIVE. FOR DISCHARGE, [facility] WILL CALL FACILITY FOR VEBAL COVID19 SCREENING QUESTIONAIRE PRIOR TO PT'S RETURN. NURSE REPORT TO BE CALLED TO [facility] AT [phone]. FAX DISCHARGE INFORMATION TO [facility] AT [phone]. [facility] TO ARRANGE VAN TRANSPORT. Human Resources Benefits Coordinator: Mihai Monroe DCP- Discharge Planning Updated by [id number]: Mihai Monroe on 01/14/20 11:[address] Patient Name: YEMI DAVID Encounter No: [id number] : 1985 [facility] Anticipated DC Date: Planned Disposition: Custodial Facility External Planned Provider: [facility], SKILLED MEDICAID BED Discharge Planning Comments: CM SPOKE TO JASON AT [facility], PT IN SKILLED BED AND WILL RETURN TO SKILLED BED AT DISCHARGE. JASON INFORMED CM THAT SHE WILL CALL ON DAY OF DISCHARGE AND HAS TO COMPLETE A COVID19 SCREENING VIA PHONE PRIOR TO PT'S RETURN TO FACILITY, UNLESS TESTING HAS RETURNED. FOR DISCHARGE, [facility] WILL CALL FACILITY FOR VEBAL COVID19 SCREENING QUESTIONAIRE PRIOR TO PT'S RETURN. NURSE REPORT TO BE CALLED TO [facility] AT [phone]. FAX DISCHARGE INFORMATION TO [facility] AT [phone]. [facility] TO ARRANGE VAN TRANSPORT IF PT IS ABLE TO SIT SAFELY FOR TRANSPORT. Human Resources Benefits Coordinator: Mihai Monroe [facility]- Discharge Planning Updated by [id number]: Mihai Monroe on 01/13/20 10:[address] Patient Name: YEMI DAVID Encounter No: [id number] : 1985 Primary Insurance: [employer] MANAGED MEDICAID Anticipated DC Date: Planned Disposition: Nursing Facility [facility] External Planned Provider:[facility], SKILLED MEDICAID BED Discharge Planning Comments: CM SPOKE TO JASON AT [facility], PT IN SKILLED BED AND WILL RETURN TO SKILLED BED AT DISCHARGE. JASON REQUESTED MICROBIOLOGY RESULTS. CM FAXED UPDATE INFORMATION TO [facility] AT [phone]. FOR DISCHARGE, [facility] WILL CALL FACILITY FOR VEBAL SCREENING QUESTIONAIRE PRIOR TO PT'S RETURN. NURSE REPORT TO BE CALLED TO [facility] AT [phone]. FAX DISCHARGE INFORMATION TO [facility] AT [phone]. [facility] TO ARRANGE VAN TRANSPORT IF PT IS ABLE TO SIT SAFELY FOR TRANSPORT. Human Resources Benefits Coordinator: Mihai Monroe MDP- Discharge Planning Updated by [id number]: Mihai Monroe on 01/13/20 9:[address] Patient Name: YEMI DAVID Admission Status: ER Accout number: [id number] Admission Date: 01-11-2020 : 1985 Admission Diagnosis: Attending: ALLISON KNIGHT Current LOS: 2 Anticipated DC Date: Planned Disposition: Nursing Facility [facility] Primary Insurance: [employer]ED MEDICAID PLANNED EXTERNAL PROVIDER: [facility], JEWEL SETTER CARE MEDICAID BED Discharge Planning Comments: CM SPOKE TO PT VIA ROOM PHONE TO DISCUSS DISCHARGE PLANNING AND NEEDS. PT REPORTS LIVING AT [facility], HE HAS BEEN THERE FOR TWO WEEKS NOW. PT USES A SHOWER CHAIR, ROLLING WALKER AND WHEELCHAIR. PT REPORTS HAVING ASSISTANCE WITH GETTING UP OUT OF BED, TOILETING, SHOWERING AND PT DENIES DISCHARGE NEEDS, REPORTS PLAN TO RETURN TO [facility] AT DISCHARGE. CHOICE LETTER COMPLETED. CM VERIFIED BED STATUS WITH JASON JENKINS [facility]. CM FAXED UPDATE INFORMATION TO [facility] AT [phone]. FOR DISCHARGE, NURSE REPORT TO BE CALLED TO [facility] AT [phone]. FAX DISCHARGE INFORMATION TO [facility] AT [phone]. [facility] TO [facility] TRANSPORT IF PT IS ABLE TO SIT SAFELY FOR TRANSPORT. Human Resources Benefits Coordinator: Mihai Monroe DCPIA - Discharge Planning Initial Assessment Updated by [id number]: Mihai Monroe on 01/13/20 10:17 am * Is the patient Alert and Oriented? Yes * How many steps to enter\exit or inside your home? NONE * PCP DOCTOR FOR [facility] * Pharmacy [facility]AC[facility] FOR [facility] * Preadmission Environment Fpc Fpc * Facility Name [facility] * ADLs Partial Dependent * Partial ADLs (Assistance needed) Bathing Medication Management Toileting Transfers * Equipment Shower Chair Walker Wheelchair * Other Equipment ALL MEDICAL EQUIPMENT PROVIDED BY FACILITY * List name and contact numbers for known caregivers / representatives who currently or will assist patient after discharge: JAVIER DAVID, BROTHER, * Verbal permission to speak to the caregivers and representatives has been obtained from the patient. N/A * Community resources currently utilized None * Please name any agencies selected above. NONE * Additional services required to return to the preadmission environment? No * Can the patient safely return to the preadmission environment? Yes * Has this patient been hospitalized within the prior 30 days at any hospital? Yes Coverage Notice Reviewer: [id number] Abdullahi Mihai Monroe Notice Issued Date-Time: 01/13/2020 9:57 Notice Type: Patient Choice Letter Notice Delivered To: Patient Relationship to Patient: Quail Farmer Name: Delivery Method: HAND - Hand Delivered Judy Days: Prior Verbal Notification: Recipient Understood Notice: Yes Recipient Signature: Yes Med Rec Note Co-signed by Attending: Coverage Notice Comment: [facility] Last DP export: 01/20/20 10:01 a Patient Name: YEMI DAVID Page 60029 at 1704 All edits/amendments must be made on the electronic document DICTATION DATE: 01/20/201703 DIRECTOR OF PARKS AND RECREATION: CHIO 01/20/201703 RPT#: [id number] DC DATE: STATUS: ADM IN [facility] [address] [place] [address] END OF REPORT
--- NOTE | 2020-01-20 19:45 | NUR ---
RECEIVED BEDSIDE REPORT. PATIENT ALERT AND ORIENTED, RESTING COMFORTABLY IN BED. RESPIRATIONS ARE EVEN AND UNLABORED. NO S/S OF DISTRESS. NO C/O PAIN. CALL LIGHT WITHIN REACH.
[2020-01-20 20:00] VITALS: BP 105/69
--- NOTE | 2020-01-20 22:00 | NUR ---
PT IN BED, AAO X 3, RESP EVEN AND UNLABORED, NO DISTRESS NOTED, CL IN REACH, SR UP X 2.
[2020-01-21] VITALS: BP 98/59
--- NOTE | 2020-01-21 00:19 | NUR ---
[facility] RECORD BE FAXED TO [phone].
[2020-01-21 04:00] VITALS: BP 102/61
[2020-01-21 04:49] LABS: BASOPHILS 0.4 % (0-2); EOSINOPHILS 1.1 % (0-7); HEMATOCRIT 29.4 % (42.0-54.0); LYMPHOCYTES 18.9 % (15-50); MCH 25.7 pg (26.0-34.0); MCHC 30.6 g/dL (31.0-37.0); MEAN PLATELET VOLUME 9.4 fL (7.4-10.4); MONOCYTES 7.8 % (2-11); NEUTROPHILS 61.8 % (40-80); PLATELET COUNT 190 10x3/uL (130-400); WBC 2.8 10x3/uL (4.8-10.8)
[2020-01-21 05:14] LABS: ALKALINE PHOSPHATASE 90 U/L (30-120); BILIRUBIN - TOTAL 0.21 mg/dL (0.2-1.3); CALC OSMOLALITY 263 mosm/kg (275-300); CALCIUM 7.7 mg/dL (8.5-10.1); CARBON DIOXIDE 26.7 mmol/L (21.0-32.0); CHLORIDE - SERUM 101 mmol/L (98-107); CREATININE - SERUM 0.5 mg/dL (0.6-1.3); GLUCOSE 75 mg/dL (74-106); POTASSIUM - SERUM 4.1 mmol/L (3.5-5.1); PROTEIN - SERUM 5.3 g/dL (6.4-8.2); SODIUM 133 mmol/L (136-145); UREA NITROGEN 11 mg/dL (7-18); eGFR NON AFRICAN AMERICAN > 90 mL/min (90-120)
[2020-01-21 05:18] LABS: ALT (SGPT) 17 U/L (10-68)
--- NOTE | 2020-01-21 07:10 | NUR ---
REPORT RECIEVED FROM WOOD CUT ENGRAVER AND PATIENT CARE ASSUMED. PATIENT LAYING IN BED ON BACK AWAKE, ALERT AND ORIENTED X 4. PATIENT IS STABLE AND VSS. PATIENT DENIES ANY NEEDS OR PAIN. WILL CONTINUE WITH PLAN OF CARE. SR UP X 2 BED IN LOW POSITION AND CALL LIGHT IN REACH.
--- NOTE | 2020-01-21 08:58 | MORECARE ---
CASE MANAGEMENT DISCHARGE SUMMARY PATIENT: YEMI DAVID UNIT: [id number] ADM DATE: 01/11/20 AGE: 34 : [birth year] SEX: M ROOM/BED: D.2111 AUTHOR: PAM JOSE PHYSICIAN: REFERRING PHYSICIAN: ALLISON KNIGHT MD DATE OF SERVICE: 01/21/20 Discharge Plan Patient Name: YEMI DAVID Facility: [facility]:[place] : 1985 Planned Disposition: [facility] Facility Anticipated Discharge Date: 01/21/20 Discharge Date: Expected LOS: 10 Initial Reviewer: [id number] Initial Review Date: 01/13/2020 Generated: 01/21/20 9:58 am Comments DCP- Discharge Planning Updated by [id number]: Mihai Monroe on 01/20/20 3:[address] Patient Name: YEMI DAVID Encounter No: [id number] : 1985 Primary Insurance: [employer] MA[employer]GED MEDICAID Anticipated DC Date: 01-20-2020 Planned Disposition: [facility] Facility External Planned Provider: [facility], SKILLED MEDICAID BED DCP follow-up note: CM FAXED UDPATE AND DISCHARGE INFORMATION TO [facility], . CM WAITING ON [facility] TO RECEIVE INSURANCE AUTHORIZATION FOR PT TO RETURN TO SKILLED CARE BED. Mihai Monroe, CASE MANAGEMENT Appended by Mihai Monroe on 01/20/2020 16:58 CDT: CM CALLED AND SPOKE TO JASON OF [facility], , WHO REPORTS CALLING THE INSURANCE SEVERAL TIMES TODAY AND THAT THE INSURANCE COMPANY IS BLAMING THE DELAY OF REVIEW FOR AUTHORIZATION ON COVID 19. BEDSIDE NURSE UPDATED. CM WAITING ON [facility] TO RECEIVE INSURANCE AUTHORIZATION FOR PT TO RETURN TO SKILLED CARE BED. ROLAND Hugo DCP- Discharge Planning Updated by [id number]: Mihai Monroe on 01/19/20 3:[address] Patient Name: YEMI DAVID Encounter No: [id number] : 1985 Primary Insurance: [employer] MA[employer]GED MEDICAID Anticipated DC Date: 01-14-2020 Planned Disposition: [facility]fp Facility External Planned Provider: [facility], SKILLED MEDICAID BED DCP follow-up note: CM CALLED AND SPOKE TO RICKY KODAK OF [facility], WHO REPORTS THAT SHE JUST SPOKE TO INSURANCE WHO HAS NOT YET COMPLETED REVIEW AND PROVIDED AUTHORIZATION FOR PT'S SKILLED RETURN OF THIS TIME. THEY EXPECT TO HAVE INSURANCE AUTHORIZATION TOMORROW AND WILL NOT ACCEPT PT BACK UNTIL AUTHORIZATION IS RECEIVED FROM PT'S INSURANCE. BEDSIDE NURSE NOTIFIED. CM NOW WAITING ON [facility] TO RECEIVE INSURANCE AUTHORIZATION FOR PT TO RETURN TO SKILLED CARE BED. Mihai Monroe CASE MANAGEMENT DCP- Discharge Planning Updated by [id number]: Mihai Monroe on 01/18/20 1:[address] Patient Name: YEMI DAVID Encounter No: [id number] : 1985 Primary Insurance: [employer] MA[employer]GED MEDICAID Anticipated DC Date: 01-14-2020 Planned Disposition: [facility]fp Facility External Planned Provider: [facility], SKILLED MEDICAID BED DCP follow-up note: CM SPOKE TO INSULATION FOREMAN NURSE WHO INFORMED CM THAT THE FACILITY TOLD THE NURSE THEY WOULD BE HERE OVER ONE HOUR AGO AND ASKED FOR UPDATE. CM CALLED AND SPOKE TO A NURSE, REID GOMEZ OF ADMISSIONS AND FINALLY, FURNACE CHECKER. [facility] SUBMITTED FOR INSURANCE AUTHORIZATION AND NOW WILL NOT ACCEPT PT BACK UNTIL AUTHORIZATION IS RECEIVED FROM PT'S INSURANCE AND THIS COULD TAKE UP TO 24 HOURS PER THE FURNACE CHECKER. INSULATION FOREMAN NURSE NOTIFIED. CM NOW WAITING ON [facility] TO RECEIVE INSURANCE AUTHORIZATION FOR PT TO RETURN TO SKILLED CARE BED. ROLAND Hugo MANAGEMENT DCP- Discharge Planning Updated by [id number]: Mihai Monroe on 01/18/20 8:[address] Patient Name: YEMI DAVID Encounter No: [id number] : 1985 Primary Insurance: [employer] MANAGED MEDICAID Anticipated DC Date: 01-14-2020 Planned Disposition: [facility]fp Facility External Planned Provider: [facility], SKILLED MEDICAID BED Discharge Planning Comments: CM REVIEWED CHART, PT'S COVID 19 TESTING RESULT IN CHART. CM FAXED UPDATE WITH TESTING RESULT TO [facility] AT [phone]. CALLED TO [facility] AT [phone], SPOKE TO JASON WHO WILL REVIEW RESULTS OF TESTING AND CALL CM BACK. NURSE REPORT TO BE CALLED TO [facility] AT [phone]. [facility] TO ARRANGE VAN TRANSPORT. Patrol Police Sergeant: Mihai Monroe DCP- Discharge Planning Updated by [id number]: Mihai Monroe on 01/14/20 2:[address] Patient Name: YEMI DAVID Admission Status: ER Accout number: [id number] Admission Date: 01-11-2020 : 1985 Admission Diagnosis: Attending: ALLISON KNIGHT Current LOS: 3 Anticipated DC Date: 01-14-2020 Planned Disposition: Mcfp Facility Primary Insurance: [facility] MANAGED MEDICAID PLANNED EXTERNAL PROVIDER: [facility], SKILLED MEDICAID BED Discharge Planning Comments: CM RECEIVED DISCHARGE ORDER, SPOKE TO BEDSIDE NURSE AND PATIENT, PT REPORTS AGREEMENT WITH DISCHARGE PLAN AND CAN SIT FOR VAN TRANPORT. CM CALLED AND SPOKE TO JASON AT [facility], [address] [place] [address], JASON REPORTS THAT THEY CANNOT ACCEPT PT BACK UNTIL COVID19 TESTING RESULT HAS BEEN RETURNED NEGATIVE. ARLEEN DISCUSSED THAT ARTISAN PLASTERER INDICATED THAT PT DOES NOT HAVE COVID19 AND RECOMMENDED REMOVAL FROM ISOLATION; JASON TRANSFERRED CALL TO KATHRYN, FURNACE CHECKER FOR [facility] WHO REPORTED THIS TO BE THEIR CORPORATE POLICY. CM NOTIFIED INSULATION FOREMAN NURSE AND CM DIRECTOR BELLE. [facility] WILL NOT ACCEPT BACK UNTIL COVID19 TESTING RECEIVED AND NEGATIVE. FOR DISCHARGE, [facility] WILL CALL FACILITY FOR VEBAL COVID19 SCREENING QUESTIONAIRE PRIOR TO PT'S RETURN. NURSE REPORT TO BE CALLED TO [facility] AT [phone]. FAX DISCHARGE INFORMATION TO [facility] AT [phone]. [facility] TO ARRANGE VAN TRANSPORT. Patrol Police Sergeant: Mihai Monroe DCP- Discharge Planning Updated by [id number]: Mihai Monroe on 01/14/20 11:[address] Patient Name: YEMI DAVID Encounter No: [id number] : 1985 Primary Insurance: [facility] MANAGED MEDICAID Anticipated DC Date: Planned Disposition: Mcfp Facility External Planned Provider: [facility], SKILLED MEDICAID BED Discharge Planning Comments: CM SPOKE TO JASON AT [facility], PT IN SKILLED BED AND WILL RETURN TO SKILLED BED AT DISCHARGE. JASON INFORMED CM THAT SHE WILL CALL ON DAY OF DISCHARGE AND HAS TO COMPLETE A COVID19 SCREENING VIA PHONE PRIOR TO PT'S RETURN TO FACILITY, UNLESS TESTING HAS RETURNED. FOR DISCHARGE, [facility] WILL CALL FACILITY FOR VEBAL COVID19 SCREENING QUESTIONAIRE PRIOR TO PT'S RETURN. NURSE REPORT TO BE CALLED TO [facility] AT [phone]. FAX DISCHARGE INFORMATION TO [facility] AT [phone]. [facility] TO ARRANGE VAN TRANSPORT IF PT IS ABLE TO SIT SAFELY FOR TRANSPORT. Patrol Police Sergeant: Mihai Monroe [facility]- Discharge Planning Updated by [id number]: Mihai Monroe on 01/13/20 10:[address] Patient Name: YEMI DAVID Encounter No: [id number] : 1985 Primary Insurance: [employer] MANAGED MEDICAID Anticipated DC Date: Planned Disposition: Nursing Facility [facility] External Planned Provider:[facility], SKILLED MEDICAID BED Discharge Planning Comments: CM SPOKE TO JASON AT [facility], PT IN SKILLED BED AND WILL RETURN TO SKILLED BED AT DISCHARGE. JASON REQUESTED MICROBIOLOGY RESULTS. CM FAXED UPDATE INFORMATION TO [facility] AT [phone]. FOR DISCHARGE, [facility] WILL CALL FACILITY FOR VEBAL SCREENING QUESTIONAIRE PRIOR TO PT'S RETURN. NURSE REPORT TO BE CALLED TO [facility] AT [phone]. FAX DISCHARGE INFORMATION TO [facility] AT [phone]. [facility] TO ARRANGE VAN TRANSPORT IF PT IS ABLE TO SIT SAFELY FOR TRANSPORT. Patrol Police Sergeant: Mihai Monroe AZP- Discharge Planning Updated by [id number]: Mihai Monroe on 01/13/20 9:[address] Patient Name: YEMI DAVID Admission Status: ER Accout number: [id number] Admission Date: 01-11-2020 : 1985 Admission Diagnosis: Attending: ALLISON KNIGHT Current LOS: 2 Anticipated DC Date: Planned Disposition: Nursing Facility [facility] Primary Insurance: [employer] MA[employer]GED MEDICAID PLANNED EXTERNAL PROVIDER: [facility], FORGING OPERATOR CARE MEDICAID BED Discharge Planning Comments: CM SPOKE TO PT VIA ROOM PHONE TO DISCUSS DISCHARGE PLANNING AND NEEDS. PT REPORTS LIVING AT [facility], HE HAS BEEN THERE FOR TWO WEEKS NOW. PT USES A SHOWER CHAIR, ROLLING WALKER AND WHEELCHAIR. PT REPORTS HAVING ASSISTANCE WITH GETTING UP OUT OF BED, TOILETING, SHOWERING AND PT DENIES DISCHARGE NEEDS, REPORTS PLAN TO RETURN TO [facility] AT DISCHARGE. CHOICE LETTER COMPLETED. CM VERIFIED BED STATUS WITH JASON JENKINS [facility]. CM FAXED UPDATE INFORMATION TO [facility] AT [phone]. FOR DISCHARGE, NURSE REPORT TO BE CALLED TO [facility] AT [phone]. FAX DISCHARGE INFORMATION TO [facility] AT [phone]. [facility] TO ARRANGE VAN TRANSPORT IF PT IS ABLE TO SIT SAFELY FOR TRANSPORT. Patrol Police Sergeant: Mihai Monroe DCPIA - Discharge Planning Initial Assessment Updated by [id number]: Mihai Monroe on 01/13/20 10:17 am * Is the patient Alert and Oriented? Yes * How many steps to enter\exit or inside your home? NONE * PCP DOCTOR FOR [facility] * Pharmacy [facility] * Preadmission Environment [facility] * Facility Name [facility] * ADLs Partial Dependent * Partial ADLs (Assistance needed) Bathing Medication Management Toileting Transfers * Equipment Shower Chair Walker Wheelchair * Other Equipment ALL MEDICAL EQUIPMENT PROVIDED BY FACILITY * List name and contact numbers for known caregivers / representatives who currently or will assist patient after discharge: JAVIER DAVID, BROTHER, * Verbal permission to speak to the caregivers and representatives has been obtained from the patient. N/A * Community resources currently utilized None * Please name any agencies selected above. NONE * Additional services required to return to the preadmission environment? No * Can the patient safely return to the preadmission environment? Yes * Has this patient been hospitalized within the prior 30 days at any hospital? Yes Coverage Notice Reviewer: [id number] Abdullahi Mihai Garciawell Notice Issued Date-Time: 01/13/2020 9:57 Notice Type: Patient Choice Letter Notice Delivered To: Patient Relationship to Patient: Room Service Food Service Attendant Name: Delivery Method: HAND - Hand Delivered Judy Days: Prior Verbal Notification: Recipient Understood Notice: Yes Recipient Signature: Yes Med Rec Note Co-signed by Attending: Coverage Notice Comment: [facility] Last DP export: 01/20/20 4:04 p Patient Name: YEMI DAVID Page [phone] at 0858 All edits/amendments must be made on the electronic document DICTATION DATE: 01/21/20857 CALENDERER: CHIO 01/21/20857 RPT#: [id number] DC DATE: STATUS: ADM IN [facility] [address] [place] [address] END OF REPORT
--- NOTE | 2020-01-21 09:05 | MORECARE ---
CASE MANAGEMENT DISCHARGE SUMMARY PATIENT: YEMI DAVID UNIT: [id number] ADM DATE: 01/11/20 AGE: 34 : [birth year] SEX: M ROOM/BED: D.2111 AUTHOR: PAM JOSE PHYSICIAN: REFERRING PHYSICIAN: ALLISON KNIGHT MD DATE OF SERVICE: 01/21/20 Discharge Plan Patient Name: YEMI DAVID Facility: [facility]:[place] : 1985 Planned Disposition: Care Home Facility Anticipated Discharge Date: 01/21/20 Discharge Date: Expected LOS: 10 Initial Reviewer: [id number] Initial Review Date: 01/13/2020 Generated: 01/21/20 10:05 am Comments DCP- Discharge Planning Updated by [id number]: Mihai Monroe on 01/21/20 8:[address] Patient Name: YEMI DAVID Encounter No: [id number] : 1985 Primary Insurance: [employer] MANAGED MEDICAID Anticipated DC Date: 01-21-2020 Planned Disposition: Care Home Facility External Planned Provider: [facility], SKILLED MEDICAID BED DCP follow-up note: CM RECEIVED CALL FROM JASON OF [facility], THEY HAVE RECEIVED INSURANCE AUTHORIZATION AND WILL WOOD ROUTER HAND PT AT 1330 HOURS TODAY. CM NOTIFED PT WHO IS IN AGREEMENT WITH DISCHARGE BACK TO REHAB TODAY; CM NOTIFIED PREFLIGHT INSPECTOR NURSE AND CM FAXED NEW DISCHARGE ORDER TO [facility], . NURSE REPORT TO BE CALLED TO [facility], , VAN TO WOOD ROUTER HAND TODAY AT 1330 HOURS. Mihai Monroe, CASE MANAGEMENT DCP- Discharge Planning Updated by [id number]: Mihai Monroe on 01/20/20 3:[address] Patient Name: YEMI DAVID Encounter No: [id number] : 1985 Primary Insurance: [employer] MANAGED MEDICAID Anticipated DC Date: 01-20-2020 Planned Disposition: Care Home Facility External Planned Provider: [facility], SKILLED MEDICAID BED DCP follow-up note: CM FAXED UDPATE AND DISCHARGE INFORMATION TO [facility], . CM WAITING ON [facility] TO RECEIVE INSURANCE AUTHORIZATION FOR PT TO RETURN TO SKILLED CARE BED. Mihai Monroe, CASE MANAGEMENT Appended by Mihai Monroe on 01/20/2020 16:58 CDT: CM CALLED AND SPOKE TO JASON OF [facility], , WHO REPORTS CALLING THE INSURANCE SEVERAL TIMES TODAY AND THAT THE INSURANCE COMPANY IS BLAMING THE DELAY OF REVIEW FOR AUTHORIZATION ON COV 19. BEDSIDE NURSE UPDATED. CM WAITING ON [facility] TO RECEIVE INSURANCE AUTHORIZATION FOR PT TO RETURN TO SKILLED CARE BED. Mihai Monroe CASE MANAGEMENT DCP- Discharge Planning Updated by [id number]: Mihai Monroe on 01/19/20 3:[address] Patient Name: YEMI DAVID Encounter No: [id number] : 1985 Primary Insurance: [employer] MANAGED MEDICAID Anticipated DC Date: 01-14-2020 Planned Disposition: Care Home Facility External Planned Provider: [facility], SKILLED MEDICAID BED DCP follow-up note: CM CALLED AND SPOKE TO RICKY KODAK OF [facility], WHO REPORTS THAT SHE JUST SPOKE TO INSURANCE WHO HAS NOT YET COMPLETED REVIEW AND PROVIDED AUTHORIZATION FOR PT'S SKILLED RETURN OF THIS TIME. THEY EXPECT TO HAVE INSURANCE AUTHORIZATION TOMORROW AND WILL NOT ACCEPT PT BACK UNTIL AUTHORIZATION IS RECEIVED FROM PT'S INSURANCE. BEDSIDE NURSE NOTIFIED. CM NOW WAITING ON [facility] TO RECEIVE INSURANCE AUTHORIZATION FOR PT TO RETURN TO SKILLED CARE BED. Mihai Monroe, CASE MANAGEMENT DCP- Discharge Planning Updated by [id number]: Mihai Monroe on 01/18/20 1:[address] Patient Name: YEMI DAVID Encounter No: [id number] : 1985 Primary Insurance: [employer] MANAGED MEDICAID Anticipated DC Date: 01-14-2020 Planned Disposition: Care Home Facility External Planned Provider: [facility], SKILLED MEDICAID BED DCP follow-up note: CM SPOKE TO PREFLIGHT INSPECTOR NURSE WHO INFORMED CM THAT THE FACILITY TOLD THE NURSE THEY WOULD BE HERE OVER ONE HOUR AGO AND ASKED FOR UPDATE. CM CALLED AND SPOKE TO A NURSE, THEN JASON OF ADMISSIONS AND FINALLY, CLAIMS ACCOUNT SPECIALIST. [facility] SUBMITTED FOR INSURANCE AUTHORIZATION AND NOW WILL NOT ACCEPT PT BACK UNTIL AUTHORIZATION IS RECEIVED FROM PT'S INSURANCE AND THIS COULD TAKE UP TO 24 HOURS PER THE CLAIMS ACCOUNT SPECIALIST. PREFLIGHT INSPECTOR NURSE NOTIFIED. CM NOW WAITING ON [facility] TO RECEIVE INSURANCE AUTHORIZATION FOR PT TO RETURN TO SKILLED CARE BED. Mihai Monroe, CASE MANAGEMENT DCP- Discharge Planning Updated by [id number]: Mihai Monroe on 01/18/20 8:[address] Patient Name: YEMI DAVID Encounter No: [id number] : 1985 Primary Insurance: [employer] MANAGED MEDICAID Anticipated DC Date: 01-14-2020 Planned Disposition: Care Home Facility External Planned Provider: [facility], SKILLED MEDICAID BED Discharge Planning Comments: CM REVIEWED CHART, PT'S COVID 19 TESTING RESULT IN CHART. CM FAXED UPDATE WITH TESTING RESULT TO [facility] AT [phone]. CALLED TO [facility] AT [phone], SPOKE TO JASON WHO WILL REVIEW RESULTS OF TESTING AND CALL CM BACK. NURSE REPORT TO BE CALLED TO [facility] AT [phone]. [facility] TO ARRANGE VAN TRANSPORT. Ct Scan Tech: Mihai Monroe DCP- Discharge Planning Updated by [id number]: Mihai Monroe on 01/14/20 2:[address] Patient Name: YEMI DAVID Admission Status: ER Accout number: [id number] Admission Date: 01-11-2020 : 1985 Admission Diagnosis: Attending: ALLISON KNIGHT Current LOS: 3 Anticipated DC Date: 01-14-2020 Planned Disposition: Care Home Facility Primary Insurance: [employer] MANAGED MEDICAID PLANNED EXTERNAL PROVIDER: [facility], SKILLED MEDICAID BED Discharge Planning Comments: CM RECEIVED DISCHARGE ORDER, SPOKE TO BEDSIDE NURSE AND PATIENT, PT REPORTS AGREEMENT WITH DISCHARGE PLAN AND CAN SIT FOR VAN TRANPORT. CM CALLED AND SPOKE TO JASON AT [facility], , JASON REPORTS THAT THEY CANNOT ACCEPT PT BACK UNTIL COVID19 TESTING RESULT HAS BEEN RETURNED NEGATIVE. CM DISCUSSED THAT SHELTER MONITOR INDICATED THAT PT DOES NOT HAVE COVID19 AND RECOMMENDED REMOVAL FROM ISOLATION; JASON TRANSFERRED CALL TO KATHRYN, CLAIMS ACCOUNT SPECIALIST FOR [facility] WHO REPORTED THIS TO BE THEIR CORPORATE POLICY. CM NOTIFIED PREFLIGHT INSPECTOR NURSE AND CM DIRECTOR BELLE. [facility] WILL NOT ACCEPT BACK UNTIL COVID19 TESTING RECEIVED AND NEGATIVE. FOR DISCHARGE, [facility] WILL CALL FACILITY FOR VEBAL COVID19 SCREENING QUESTIONAIRE PRIOR TO PT'S RETURN. NURSE REPORT TO BE CALLED TO [facility] AT [phone]. FAX DISCHARGE INFORMATION TO [facility] AT [phone]. [facility] TO ARRANGE VAN TRANSPORT. Ct Scan Tech: Mihai Monroe [facility]- Discharge Planning Updated by [id number]: Mihai Monroe on 01/14/20 11:[address] Patient Name: YEMI DAVID Encounter No: [id number] : 1985 Primary Insurance: [facility] MANAGED MEDICAID Anticipated DC Date: Planned Disposition: Care Home Facility External Planned Provider: [facility], SKILLED MEDICAID BED Discharge Planning Comments: CM SPOKE TO JASON AT [facility], PT IN SKILLED BED AND WILL RETURN TO SKILLED BED AT DISCHARGE. JASON INFORMED CM THAT SHE WILL CALL ON DAY OF DISCHARGE AND HAS TO COMPLETE A COVID19 SCREENING VIA PHONE PRIOR TO PT'S RETURN TO FACILITY, UNLESS TESTING HAS RETURNED. FOR DISCHARGE, [facility] WILL CALL FACILITY FOR VEBAL COVID19 SCREENING QUESTIONAIRE PRIOR TO PT'S RETURN. NURSE REPORT TO BE CALLED TO [facility] AT [phone]. FAX DISCHARGE INFORMATION TO [facility] AT [phone]. [facility] TO ARRANGE VAN TRANSPORT IF PT IS ABLE TO SIT SAFELY FOR TRANSPORT. Ct Scan Tech: Mihai Monroe [facility]- Discharge Planning Updated by [id number]: Mihai Monroe on 01/13/20 10:[address] Patient Name: YEMI DAVID Encounter No: [id number] : 1985 Primary Insurance: [employer] MANAGED MEDICAID Anticipated DC Date: Planned Disposition: Nursing Facility [facility] External Planned Provider:[facility], SKILLED MEDICAID BED Discharge Planning Comments: ARLEEN SPOKE TO JASON AT [facility], PT IN SKILLED BED AND WILL RETURN TO SKILLED BED AT DISCHARGE. JASON REQUESTED MICROBIOLOGY RESULTS. CM FAXED UPDATE INFORMATION TO [facility] AT [phone]. FOR DISCHARGE, [facility] WILL CALL FACILITY FOR VEBAL SCREENING QUESTIONAIRE PRIOR TO PT'S RETURN. NURSE REPORT TO BE CALLED TO [facility] AT [phone]. FAX DISCHARGE INFORMATION TO [facility] AT [phone]. [facility] TO ARRANGE VAN TRANSPORT IF PT IS ABLE TO SIT SAFELY FOR TRANSPORT. Ct Scan Tech: Mihai Monroe DCP- Discharge Planning Updated by [id number]: Mihai Monroe on 01/13/20 9:[address] Patient Name: YEMI DAVID Admission Status: ER Accout number: [id number] Admission Date: 01-11-2020 : 1985 Admission Diagnosis: Attending: ALLISON KNIGHT Current LOS: 2 Anticipated DC Date: Planned Disposition: Nursing Facility [facility] Primary Insurance: [employer] MANAGED MEDICAID PLANNED EXTERNAL PROVIDER: [facility], [facility]CI CARE MEDICAID BED Discharge Planning Comments: CM SPOKE TO PT VIA ROOM PHONE TO DISCUSS DISCHARGE PLANNING AND NEEDS. PT REPORTS LIVING AT [facility], HE HAS BEEN THERE FOR TWO WEEKS NOW. PT USES A SHOWER CHAIR, ROLLING WALKER AND WHEELCHAIR. PT REPORTS HAVING ASSISTANCE WITH GETTING UP OUT OF BED, TOILETING, SHOWERING AND PT DENIES DISCHARGE NEEDS, REPORTS PLAN TO RETURN TO [facility] AT DISCHARGE. CHOICE LETTER COMPLETED. ARLEEN VERIFIED BED STATUS WITH JASON [facility]. CM FAXED UPDATE INFORMATION TO [facility] AT [phone]. FOR DISCHARGE, NURSE REPORT TO BE CALLED TO [facility] AT [phone]. FAX DISCHARGE INFORMATION TO [facility] AT [phone]. [facility] TO ARRANGE VAN TRANSPORT IF PT IS ABLE TO SIT SAFELY FOR TRANSPORT. Ct Scan Tech: Mihai Monroe DCPIA - Discharge Planning Initial Assessment Updated by [id number]: Mihai Monroe on 01/13/20 10:17 am * Is the patient Alert and Oriented? Yes * How many steps to enter\exit or inside your home? NONE * PCP DOCTOR FOR [facility] * Pharmacy [facility] * Preadmission Environment [facility] * Facility Name [facility] * ADLs Partial Dependent * Partial ADLs (Assistance needed) Bathing Medication Management Toileting Transfers * Equipment Shower Chair Walker Wheelchair * Other Equipment ALL MEDICAL EQUIPMENT PROVIDED BY FACILITY * List name and contact numbers for known caregivers / representatives who currently or will assist patient after discharge: PERCY CRUMPER, * Verbal permission to speak to the caregivers and representatives has been obtained from the patient. N/A * Community resources currently utilized None * Please name any agencies selected above. NONE * Additional services required to return to the preadmission environment? No * Can the patient safely return to the preadmission environment? Yes * Has this patient been hospitalized within the prior 30 days at any hospital? Yes Coverage Notice Reviewer: [id number] - Mihai Monroe Notice Issued Date-Time: 01/13/2020 9:57 Notice Type: Patient Choice Letter Notice Delivered To: Patient Relationship to Patient: Players Assistant Name: Delivery Method: HAND - Hand Delivered Judy Days: Prior Verbal Notification: Recipient Understood Notice: Yes Recipient Signature: Yes Med Rec Note Co-signed by Attending: Coverage Notice Comment: [facility] Last DP export: 01/21/20 7:58 a Patient Name: YEMI DAVID Page [phone] at 0905 All edits/amendments must be made on the electronic document DICTATION DATE: 01/21/20904 TECHNICAL ACCOUNT REPRESENTATIVE: CHIO 01/21/20904 RPT#: [id number] DC DATE: STATUS: ADM IN [facility] [address] [place] [address] END OF REPORT
[2020-01-21 09:16] VITALS: BP 104/68
--- NOTE | 2020-01-21 09:57 | MORECARE ---
CASE MANAGEMENT DISCHARGE SUMMARY PATIENT: YEMI DAVID UNIT: [id number] ADM DATE: 01/11/20 AGE: 34 : [birth year] SEX: M ROOM/BED: D.2111 AUTHOR: PAM JOSE PHYSICIAN: REFERRING PHYSICIAN: ALLISON KNIGHT MD DATE OF SERVICE: 01/21/20 Discharge Plan Patient Name: YEMI DAVID Facility: [facility]:[place] : 1985 Planned Disposition: Residential Facility Anticipated Discharge Date: 01/21/20 Discharge Date: Expected LOS: 10 Initial Reviewer: [id number] Initial Review Date: 01/13/2020 Generated: 01/21/20 10:57 am Comments DCP- Discharge Planning Updated by [id number]: Mihai Monroe on 01/21/20 8:[address] Patient Name: YEMI DAVID Encounter No: [id number] : 1985 Primary Insurance: [employer]ID Anticipated DC Date: 01-21-2020 Planned Disposition: Residential Facility External Planned Provider: [facility], SKILLED MEDICAID BED DCP follow-up note: CM RECEIVED CALL FROM JASON OF [facility], THEY HAVE RECEIVED INSURANCE AUTHORIZATION AND WILL PLANNING SPECIALIST PT AT 1330 HOURS TODAY. CM NOTIFED PT WHO IS IN AGREEMENT WITH DISCHARGE BACK TO REHAB TODAY; CM NOTIFIED SCUTCHER TENDER NURSE AND CM FAXED NEW DISCHARGE ORDER TO [facility], . NURSE REPORT TO BE CALLED TO [facility], , VAN TO PLANNING SPECIALIST TODAY AT 1330 HOURS. Mihai Monroe, CASE MANAGEMENT DCP- Discharge Planning Updated by [id number]: Mihai Monroe on 01/20/20 3:[address] Patient Name: YEMI DAVID Encounter No: [id number] : 1985 Primary Insurance: [employer]ID Anticipated DC Date: 01-20-2020 Planned Disposition: Residential Facility External Planned Provider: [facility], SKILLED MEDICAID BED DCP follow-up note: CM FAXED UDPATE AND DISCHARGE INFORMATION TO [facility], . CM WAITING ON [facility] TO RECEIVE INSURANCE AUTHORIZATION FOR PT TO RETURN TO SKILLED CARE BED. Mihai Monroe, CASE MANAGEMENT Appended by Mihai Monroe on 01/20/2020 16:58 CDT: CM CALLED AND SPOKE TO JASON OF [facility], , WHO REPORTS CALLING THE INSURANCE SEVERAL TIMES TODAY AND THAT THE INSURANCE COMPANY IS BLAMING THE DELAY OF REVIEW FOR AUTHORIZATION ON COV 19. BEDSIDE NURSE UPDATED. CM WAITING ON [facility] TO RECEIVE INSURANCE AUTHORIZATION FOR PT TO RETURN TO SKILLED CARE BED. Mihai Monroe CASE MANAGEMENT DCP- Discharge Planning Updated by [id number]: Mihai Monroe on 01/19/20 3:[address] Patient Name: YEMI DAVID Encounter No: [id number] : 1985 Primary Insurance: [employer] MED[employer]ID Anticipated DC Date: 01-14-2020 Planned Disposition: Residential Facility External Planned Provider: [facility], SKILLED MEDICAID BED DCP follow-up note: CM CALLED AND SPOKE TO RICKY KODAK OF [facility], WHO REPORTS THAT SHE JUST SPOKE TO INSURANCE WHO HAS NOT YET COMPLETED REVIEW AND PROVIDED AUTHORIZATION FOR PT'S SKILLED RETURN OF THIS TIME. THEY EXPECT TO HAVE INSURANCE AUTHORIZATION TOMORROW AND WILL NOT ACCEPT PT BACK UNTIL AUTHORIZATION IS RECEIVED FROM PT'S INSURANCE. BEDSIDE NURSE NOTIFIED. CM NOW WAITING ON [facility] TO RECEIVE INSURANCE AUTHORIZATION FOR PT TO RETURN TO SKILLED CARE BED. Mihai Monroe, CASE MANAGEMENT DCP- Discharge Planning Updated by [id number]: Mihai Monroe on 01/18/20 1:[address] Patient Name: YEMI DAVID Encounter No: [id number] : 1985 Primary Insurance: [employer] MED[employer]ID Anticipated DC Date: 01-14-2020 Planned Disposition: Residential Facility External Planned Provider: [facility], SKILLED MEDICAID BED DCP follow-up note: CM SPOKE TO SCUTCHER TENDER NURSE WHO INFORMED CM THAT THE FACILITY TOLD THE NURSE THEY WOULD BE HERE OVER ONE HOUR AGO AND ASKED FOR UPDATE. CM CALLED AND SPOKE TO A NURSE, THEN JASON OF ADMISSIONS AND FINALLY, MANUFACTURING TEST TECHNICIAN. [facility] SUBMITTED FOR INSURANCE AUTHORIZATION AND NOW WILL NOT ACCEPT PT BACK UNTIL AUTHORIZATION IS RECEIVED FROM PT'S INSURANCE AND THIS COULD TAKE UP TO 24 HOURS PER THE MANUFACTURING TEST TECHNICIAN. SCUTCHER TENDER NURSE NOTIFIED. CM NOW WAITING ON [facility] TO RECEIVE INSURANCE AUTHORIZATION FOR PT TO RETURN TO SKILLED CARE BED. Mihai Monroe, CASE MANAGEMENT DCP- Discharge Planning Updated by [id number]: Mihai Monroe on 01/18/20 8:[address] Patient Name: YEMI DAVID Encounter No: [id number] : 1985 Primary Insurance: [employer] MEDICAID Anticipated DC Date: 01-14-2020 Planned Disposition: Residential Facility External Planned Provider: [facility], SKILLED MEDICAID BED Discharge Planning Comments: CM REVIEWED CHART, PT'S COVID 19 TESTING RESULT IN CHART. CM FAXED UPDATE WITH TESTING RESULT TO [facility] AT [phone]. CALLED TO [facility] AT [phone], SPOKE TO JASON WHO WILL REVIEW RESULTS OF TESTING AND CALL CM BACK. NURSE REPORT TO BE CALLED TO [facility] AT [phone]. [facility] TO ARRANGE VAN TRANSPORT. Traffic Investigator: Mihai Monroe DCP- Discharge Planning Updated by [id number]: Mihai Monroe on 01/14/20 2:[address] Patient Name: YEMI DAVID Admission Status: ER Accout number: [id number] Admission Date: 01-11-2020 : 1985 Admission Diagnosis: Attending: ALLISON KNIGHT Current LOS: 3 Anticipated DC Date: 01-14-2020 Planned Disposition: Residential Facility Primary Insurance: [employer] MA[employer]ED MEDICAID PLANNED EXTERNAL PROVIDER: [facility], SKILLED MEDICAID BED Discharge Planning Comments: CM RECEIVED DISCHARGE ORDER, SPOKE TO BEDSIDE NURSE AND PATIENT, PT REPORTS AGREEMENT WITH DISCHARGE PLAN AND CAN SIT FOR VAN TRANPORT. CM CALLED AND SPOKE TO JASON AT [facility], , JASON REPORTS THAT THEY CANNOT ACCEPT PT BACK UNTIL COVID19 TESTING RESULT HAS BEEN RETURNED NEGATIVE. CM DISCUSSED THAT MACHINE STITCHER INDICATED THAT PT DOES NOT HAVE COVID19 AND RECOMMENDED REMOVAL FROM ISOLATION; JASON TRANSFERRED CALL TO KATHRYN, MANUFACTURING TEST TECHNICIAN FOR [facility] WHO REPORTED THIS TO BE THEIR CORPORATE POLICY. CM NOTIFIED SCUTCHER TENDER NURSE AND CM DIRECTOR BELLE. [facility] WILL NOT ACCEPT BACK UNTIL COVID19 TESTING RECEIVED AND NEGATIVE. FOR DISCHARGE, [facility] WILL CALL FACILITY FOR VEBAL COVID19 SCREENING QUESTIONAIRE PRIOR TO PT'S RETURN. NURSE REPORT TO BE CALLED TO [facility] AT [phone]. FAX DISCHARGE INFORMATION TO [facility] AT [phone]. [facility] TO ARRANGE VAN TRANSPORT. Traffic Investigator: Mihai Monroe [facility]- Discharge Planning Updated by [id number]: Mihai Monroe on 01/14/20 11:[address] Patient Name: YEMI DAVID Encounter No: [id number] : 1985 [facility] Insurance: [facility] Anticipated DC Date: Planned Disposition: Residential Facility External Planned Provider: [facility], SKILLED MEDICAID BED Discharge Planning Comments: CM SPOKE TO JASON AT [facility], PT IN SKILLED BED AND WILL RETURN TO SKILLED BED AT DISCHARGE. JASON INFORMED CM THAT SHE WILL CALL ON DAY OF DISCHARGE AND HAS TO COMPLETE A COVID19 SCREENING VIA PHONE PRIOR TO PT'S RETURN TO FACILITY, UNLESS TESTING HAS RETURNED. FOR DISCHARGE, [facility] WILL CALL FACILITY FOR VEBAL COVID19 SCREENING QUESTIONAIRE PRIOR TO PT'S RETURN. NURSE REPORT TO BE CALLED TO [facility] AT [phone]. FAX DISCHARGE INFORMATION TO [facility] AT [phone]. [facility] TO ARRANGE VAN TRANSPORT IF PT IS ABLE TO SIT SAFELY FOR TRANSPORT. Traffic Investigator: Mihai Monroe [facility]- Discharge Planning Updated by [id number]: Mihai Monreo on 01/13/20 10:[address] Patient Name: YEMI DAVID Encounter No: [id number] : 1985 Primary Insurance: [employer]ED MEDICAID Anticipated DC Date: Planned Disposition: Nursing Facility [facility] External Planned Provider:[facility], SKILLED MEDICAID BED Discharge Planning Comments: ARLEEN SPOKE TO JASON AT [facility], PT IN SKILLED BED AND WILL RETURN TO SKILLED BED AT DISCHARGE. JASON REQUESTED MICROBIOLOGY RESULTS. CM FAXED UPDATE INFORMATION TO [facility] AT [phone]. FOR DISCHARGE, [facility] WILL CALL FACILITY FOR VEBAL SCREENING QUESTIONAIRE PRIOR TO PT'S RETURN. NURSE REPORT TO BE CALLED TO [facility] AT [phone]. FAX DISCHARGE INFORMATION TO [facility] AT [phone]. [facility] TO ARRANGE VAN TRANSPORT IF PT IS ABLE TO SIT SAFELY FOR TRANSPORT. Traffic Investigator: Mihai Monroe DCP- Discharge Planning Updated by [id number]: Mihai Monroe on 01/13/20 9:[address] Patient Name: YEMI DAVID Admission Status: ER Accout number: [id number] Admission Date: 01-11-2020 : 1985 Admission Diagnosis: Attending: ALLISON KNIGHT Current LOS: 2 Anticipated DC Date: Planned Disposition: Nursing Facility [facility] Primary Insurance: [employer] MANAGED MEDICAID PLANNED EXTERNAL PROVIDER: [facility], [facility] CARE MEDICAID BED Discharge Planning Comments: CM SPOKE TO PT VIA ROOM PHONE TO DISCUSS DISCHARGE PLANNING AND NEEDS. PT REPORTS LIVING AT [facility], HE HAS BEEN THERE FOR TWO WEEKS NOW. PT USES A SHOWER CHAIR, ROLLING WALKER AND WHEELCHAIR. PT REPORTS HAVING ASSISTANCE WITH GETTING UP OUT OF BED, TOILETING, SHOWERING AND PT DENIES DISCHARGE NEEDS, REPORTS PLAN TO RETURN TO [facility] AT DISCHARGE. CHOICE LETTER COMPLETED. ARLEEN VERIFIED BED STATUS WITH JASON [facility]. CM FAXED UPDATE INFORMATION TO [facility] AT [phone]. FOR DISCHARGE, NURSE REPORT TO BE CALLED TO [facility] AT [phone]. FAX DISCHARGE INFORMATION TO [facility] AT [phone]. [facility] TO ARRANGE VAN TRANSPORT IF PT IS ABLE TO SIT SAFELY FOR TRANSPORT. Traffic Investigator: Mihai Monroe DCPIA - Discharge Planning Initial Assessment Updated by [id number]: Mihai Monroe on 01/13/20 10:17 am * Is the patient Alert and Oriented? Yes * How many steps to enter\exit or inside your home? NONE * PCP DOCTOR FOR [facility] * Pharmacy [facility] * Preadmission [facility] * Facility Name [facility] * ADLs Partial Dependent * Partial ADLs (Assistance needed) Bathing Medication Management Toileting Transfers * Equipment Shower Chair Walker Wheelchair * Other Equipment ALL MEDICAL EQUIPMENT PROVIDED BY FACILITY * List name and contact numbers for known caregivers / representatives who currently or will assist patient after discharge: JAVIER DAVID, BROTHER, * Verbal permission to speak to the caregivers and representatives has been obtained from the patient. N/A * Community resources currently utilized None * Please name any agencies selected above. NONE * Additional services required to return to the preadmission environment? No * Can the patient safely return to the preadmission environment? Yes * Has this patient been hospitalized within the prior 30 days at any hospital? Yes External Providers External Provider: [facility] Next Contact Date: 01/13/2020 Service Request Date: Service Type: Resolution: Reviewer: Comments: Coverage Notice Reviewer: [id number] - Mihai Monroe Notice Issued Date-Time: 01/13/2020 9:57 Notice Type: Patient Choice Letter Notice Delivered To: Patient Relationship to Patient: Brass Roller Name: Delivery Method: HAND - Hand Delivered Judy Days: Prior Verbal Notification: Recipient Understood Notice: Yes Recipient Signature: Yes Med Rec Note Co-signed by Attending: Coverage Notice Comment: [facility] Last DP export: 01/21/20 8:05 a Patient Name: YEMI DAVID Page [phone] at 0957 All edits/amendments must be made on the electronic document DICTATION DATE: 01/21/20956 COMMANDING OFFICER HOMICIDE SQUAD: CHIO 01/21/20956 RPT#: [id number] DC DATE: STATUS: ADM IN [facility] [address] [place] [address] END OF REPORT
--- NOTE | 2020-01-21 10:51 | NUR ---
PATIENT LAYING IN BED ON LT SIDE WITH EYES CLOSED AND BREATHING EVENLY. PATIENT HAS AN ORDER FRO DC. VAN WILL BE HERE TO PICK HIM UP AT 1300.
[2020-01-21 14:18] VITALS: BP 120/77
--- NOTE | 2020-01-21 15:38 | MORECARE ---
CASE MANAGEMENT DISCHARGE SUMMARY PATIENT: YEMI DAVID UNIT: [id number] ADM DATE: 01/11/20 AGE: 34 : [birth year] SEX: M ROOM/BED: D.2111 AUTHOR: PAM JOSE PHYSICIAN: REFERRING PHYSICIAN: ALLISON KNIGHT MD DATE OF SERVICE: 01/21/20 Discharge Plan Patient Name: YEMI DAVID Facility: [facility]:[place] : 1985 Planned Disposition: Retirement Facility Anticipated Discharge Date: 01/21/20 Discharge Date: Expected LOS: 10 Initial Reviewer: [email or web address] Initial Review Date: 01/13/2020 Generated: 01/21/20 4:37 pm Comments DCP- Discharge Planning Updated by [email or web address]: Mihai Monroe on 01/21/20 8:[address] Patient Name: YEMI DAVID Encounter No: [id number] : 1985 Primary Insurance: [employer]ED MEDICAID Anticipated DC Date: 01-21-2020 Planned Disposition: Retirement Facility External Planned Provider: [facility], SKILLED MEDICAID BED DCP follow-up note: CM RECEIVED CALL FROM JASON OF [facility], THEY HAVE RECEIVED INSURANCE AUTHORIZATION AND WILL [facility]TER PT AT 1330 HOURS TODAY. CM NOTIFED PT WHO IS IN AGREEMENT WITH DISCHARGE BACK TO REHAB TODAY; CM NOTIFIED ANALOG DEVICE DESIGNER NURSE AND CM FAXED NEW DISCHARGE ORDER TO [facility], . NURSE REPORT TO BE CALLED TO [facility], , VAN TO YE[facility] CAKE CUTTER TODAY AT 1330 HOURS. Mihai Monroe, CASE MANAGEMENT DCP- Discharge Planning Updated by [email or web address]: Mihai Monroe on 01/20/20 3:[address] Patient Name: YEMI DAVID Encounter No: [id number] : 1985 Primary Insurance: [employer]ED MEDICAID Anticipated DC Date: 01-20-2020 Planned Disposition: Retirement Facility External Planned Provider: [facility], SKILLED MEDICAID BED DCP follow-up note: CM FAXED UDPATE AND DISCHARGE INFORMATION TO [facility], . CM WAITING ON [facility] TO RECEIVE INSURANCE AUTHORIZATION FOR PT TO RETURN TO SKILLED CARE BED. Mihai Monroe, CASE MANAGEMENT Appended by Mihai Monroe on 01/20/2020 16:58 CDT: CM CALLED AND SPOKE TO JASON OF [facility], , WHO REPORTS CALLING THE INSURANCE SEVERAL TIMES TODAY AND THAT THE INSURANCE COMPANY IS BLAMING THE DELAY OF REVIEW FOR AUTHORIZATION ON COV 19. BEDSIDE NURSE UPDATED. CM WAITING ON [facility] TO RECEIVE INSURANCE AUTHORIZATION FOR PT TO RETURN TO SKILLED CARE BED. Mihai Monroe CASE MANAGEMENT DCP- Discharge Planning Updated by [email or web address]: Mihai Monroe on 01/19/20 3:[address] Patient Name: YEMI DAVID Encounter No: [id number] : 1985 Primary Insurance: [employer] MA[employer]ED MEDICAID Anticipated DC Date: 01-14-2020 Planned Disposition: Retirement Facility External Planned Provider: [facility], SKILLED MEDICAID BED DCP follow-up note: CM CALLED AND SPOKE TO RICKY KODAK OF [facility], WHO REPORTS THAT SHE JUST SPOKE TO INSURANCE WHO HAS NOT YET COMPLETED REVIEW AND PROVIDED AUTHORIZATION FOR PT'S SKILLED RETURN OF THIS TIME. THEY EXPECT TO HAVE INSURANCE AUTHORIZATION TOMORROW AND WILL NOT ACCEPT PT BACK UNTIL AUTHORIZATION IS RECEIVED FROM PT'S INSURANCE. BEDSIDE NURSE NOTIFIED. CM NOW WAITING ON [facility] TO RECEIVE INSURANCE AUTHORIZATION FOR PT TO RETURN TO SKILLED CARE BED. Mihai Monroe, CASE MANAGEMENT DCP- Discharge Planning Updated by [email or web address]: Mihai Monroe on 01/18/20 1:[address] Patient Name: YEMI DAVID Encounter No: [id number] : 1985 Primary Insurance: [employer] MA[employer]GED MEDICAID Anticipated DC Date: 01-14-2020 Planned Disposition: Retirement Facility External Planned Provider: [facility], SKILLED MEDICAID BED DCP follow-up note: CM SPOKE TO ANALOG DEVICE DESIGNER NURSE WHO INFORMED CM THAT THE FACILITY TOLD THE NURSE THEY WOULD BE HERE OVER ONE HOUR AGO AND ASKED FOR UPDATE. CM CALLED AND SPOKE TO A NURSE, THEN JASON OF ADMISSIONS AND FINALLY, SEEING EYE DOG TRAINER. [facility] SUBMITTED FOR INSURANCE AUTHORIZATION AND NOW WILL NOT ACCEPT PT BACK UNTIL AUTHORIZATION IS RECEIVED FROM PT'S INSURANCE AND THIS COULD TAKE UP TO 24 HOURS PER THE SEEING EYE DOG TRAINER. ANALOG DEVICE DESIGNER NURSE NOTIFIED. CM NOW WAITING ON [facility] TO RECEIVE INSURANCE AUTHORIZATION FOR PT TO RETURN TO SKILLED CARE BED. Mihai Monroe, CASE MANAGEMENT DCP- Discharge Planning Updated by [email or web address]: Mihai Monroe on 01/18/20 8:[address] Patient Name: YEMI DAVID Encounter No: [id number] : 1985 Primary Insurance: [employer] MA[employer]ED MEDICAID Anticipated DC Date: 01-14-2020 Planned Disposition: Retirement Facility External Planned Provider: [facility], SKILLED MEDICAID BED Discharge Planning Comments: CM REVIEWED CHART, PT'S COVID 19 TESTING RESULT IN CHART. CM FAXED UPDATE WITH TESTING RESULT TO [facility] AT [phone]. CALLED TO [facility] AT [phone], SPOKE TO JASON WHO WILL REVIEW RESULTS OF TESTING AND CALL CM BACK. NURSE REPORT TO BE CALLED TO [facility] AT [phone]. [facility] TO ARRANGE VAN TRANSPORT. Field Appraiser: Mihai Monroe DCP- Discharge Planning Updated by [email or web address]: Mihai Monroe on 01/14/20 2:[address] Patient Name: YEMI DAVID Admission Status: ER Accout number: [id number] Admission Date: 01-11-2020 : 1985 Admission Diagnosis: Attending: ALLISON KNIGHT Current LOS: 3 Anticipated DC Date: 01-14-2020 Planned Disposition: Retirement Facility Primary Insurance: [employer] MA[employer]GED MEDICAID PLANNED EXTERNAL PROVIDER: [facility], SKILLED MEDICAID BED Discharge Planning Comments: CM RECEIVED DISCHARGE ORDER, SPOKE TO BEDSIDE NURSE AND PATIENT, PT REPORTS AGREEMENT WITH DISCHARGE PLAN AND CAN SIT FOR VAN TRANPORT. CM CALLED AND SPOKE TO JASON AT [facility], , JASON REPORTS THAT THEY CANNOT ACCEPT PT BACK UNTIL COVID19 TESTING RESULT HAS BEEN RETURNED NEGATIVE. CM DISCUSSED THAT INTERNATIONAL TRADE MANAGER INDICATED THAT PT DOES NOT HAVE COVID19 AND RECOMMENDED REMOVAL FROM ISOLATION; JASON TRANSFERRED CALL TO KATHRYN, SEEING EYE DOG TRAINER FOR [facility] WHO REPORTED THIS TO BE THEIR CORPORATE POLICY. CM NOTIFIED ANALOG DEVICE DESIGNER NURSE AND CM DIRECTOR BELLE. [facility] WILL NOT ACCEPT BACK UNTIL COVID19 TESTING RECEIVED AND NEGATIVE. FOR DISCHARGE, [facility] WILL CALL FACILITY FOR VEBAL COVID19 SCREENING QUESTIONAIRE PRIOR TO PT'S RETURN. NURSE REPORT TO BE CALLED TO [facility] AT [phone]. FAX DISCHARGE INFORMATION TO [facility] AT [phone]. [facility] TO ARRANGE VAN TRANSPORT. Field Appraiser: Mihai Monroe [facility]- Discharge Planning Updated by [email or web address]: Mihai Monroe on 01/14/20 11:[address] Patient Name: YEMI DAVID Encounter No: [id number] : 1985 Primary [facility] Anticipated DC Date: Planned Disposition: Retirement Facility External Planned Provider: [facility], SKILLED MEDICAID BED Discharge Planning Comments: CM SPOKE TO JASON AT [facility], PT IN SKILLED BED AND WILL RETURN TO SKILLED BED AT DISCHARGE. JASON INFORMED CM THAT SHE WILL CALL ON DAY OF DISCHARGE AND HAS TO COMPLETE A COVID19 SCREENING VIA PHONE PRIOR TO PT'S RETURN TO FACILITY, UNLESS TESTING HAS RETURNED. FOR DISCHARGE, [facility] WILL CALL FACILITY FOR VEBAL COVID19 SCREENING QUESTIONAIRE PRIOR TO PT'S RETURN. NURSE REPORT TO BE CALLED TO [facility] AT [phone]. FAX DISCHARGE INFORMATION TO [facility] AT [phone]. [facility] TO ARRANGE VAN TRANSPORT IF PT IS ABLE TO SIT SAFELY FOR TRANSPORT. Field Appraiser: Mihai Monroe [facility]- Discharge Planning Updated by [email or web address]: Mihai Monroe on 01/13/20 10:[address] Patient Name: YEMI DAVID Encounter No: [id number] : 1985 Primary Insurance: [employer] MANAGED MEDICAID Anticipated DC Date: Planned Disposition: Nursing Facility [facility] External Planned Provider:[facility], SKILLED MEDICAID BED Discharge Planning Comments: ARLEEN SPOKE TO JASON AT [facility], PT IN SKILLED BED AND WILL RETURN TO SKILLED BED AT DISCHARGE. JASON REQUESTED MICROBIOLOGY RESULTS. CM FAXED UPDATE INFORMATION TO [facility] AT [phone]. FOR DISCHARGE, [facility] WILL CALL FACILITY FOR VEBAL SCREENING QUESTIONAIRE PRIOR TO PT'S RETURN. NURSE REPORT TO BE CALLED TO [facility] AT [phone]. FAX DISCHARGE INFORMATION TO [facility] AT [phone]. [facility] TO ARRANGE VAN TRANSPORT IF PT IS ABLE TO SIT SAFELY FOR TRANSPORT. Field Appraiser: Mihai Monroe DCP- Discharge Planning Updated by [email or web address]: Mihai Monroe on 01/13/20 9:[address] Patient Name: YEMI DAVID Admission Status: ER Accout number: [id number] Admission Date: 01-11-2020 : 1985 Admission Diagnosis: Attending: ALLISON KNIGHT Current LOS: 2 Anticipated DC Date: Planned Disposition: Nursing Facility [facility] Primary Insurance: [employer] MANAGED MEDICAID PLANNED EXTERNAL PROVIDER: [facility], ALF CARE MEDICAID BED Discharge Planning Comments: CM SPOKE TO PT VIA ROOM PHONE TO DISCUSS DISCHARGE PLANNING AND NEEDS. PT REPORTS LIVING AT [facility], HE HAS BEEN THERE FOR TWO WEEKS NOW. PT USES A SHOWER CHAIR, ROLLING WALKER AND WHEELCHAIR. PT REPORTS HAVING ASSISTANCE WITH GETTING UP OUT OF BED, TOILETING, SHOWERING AND PT DENIES DISCHARGE NEEDS, REPORTS PLAN TO RETURN TO [facility] AT DISCHARGE. CHOICE LETTER COMPLETED. ARLEEN VERIFIED BED STATUS WITH JASON [facility]. CM FAXED UPDATE INFORMATION TO [facility] AT [phone]. FOR DISCHARGE, NURSE REPORT TO BE CALLED TO [facility] AT [phone]. FAX DISCHARGE INFORMATION TO [facility] AT [phone]. [facility] TO ARRANGE VAN TRANSPORT IF PT IS ABLE TO SIT SAFELY FOR TRANSPORT. Field Appraiser: Mihai Monroe DCPIA - Discharge Planning Initial Assessment Updated by [email or web address]: Mihai Monroe on 01/13/20 10:17 am * Is the patient Alert and Oriented? Yes * How many steps to enter\exit or inside your home? 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 N/A * Community resources currently utilized None * Please name any agencies selected above. NONE * Additional services required to return to the preadmission environment? No * Can the patient safely return to the preadmission environment? Yes * Has this patient been hospitalized within the prior 30 days at any hospital? Yes External Providers External Provider: OTHER-OTHER Next Contact Date: 01/21/2020 Service Request Date: Service Type: Resolution: Reviewer: Comments: Coverage Notice Reviewer: [email or web address] - Mihai Monroe Notice Issued Date-Time: 01/13/2020 9:57 Notice Type: Patient Choice Letter Notice Delivered To: Patient Relationship to Patient: Ground Support Agent Name: Delivery Method: HAND - Hand Delivered Judy Days: Prior Verbal Notification: Recipient Understood Notice: Yes Recipient Signature: Yes Med Rec Note Co-signed by Attending: Coverage Notice Comment: [facility] Last DP export: 01/21/20 8:57 a Patient Name: YEMI DAVID Page [phone] at 1538 All edits/amendments must be made on the electronic document DICTATION DATE: 01/21/201536 ARABIC LINGUIST: CHIO 01/21/201536 RPT#: [id number] DC DATE: STATUS: ADM IN [facility] [address] [facility] [place] [address] END OF REPORT
--- NOTE | 2020-01-21 15:47 | MORECARE ---
CASE MANAGEMENT DISCHARGE SUMMARY PATIENT: YEMI DAVID UNIT: [id number] ADM DATE: 01/11/20 AGE: 34 : [birth year] SEX: M ROOM/BED: D.2111 AUTHOR: PAM JOSE PHYSICIAN: REFERRING PHYSICIAN: ALLISON KNIGHT MD DATE OF SERVICE: 01/21/20 Discharge Plan Patient Name: YEMI DAVID Facility: [facility]:[place] : 1985 Planned Disposition: Senior Living Facility Anticipated Discharge Date: 01/21/20 Discharge Date: Expected LOS: 10 Initial Reviewer: [id number] Initial Review Date: 01/13/2020 Generated: 01/21/20 4:47 pm Comments DCP- Discharge Planning Updated by [id number]: Mihai Monroe on 01/21/20 8:[address] Patient Name: YEMI DAVID Encounter No: [id number] : 1985 Primary Insurance: [employer]ED MEDICAID Anticipated DC Date: 01-21-2020 Planned Disposition: Senior Living Facility External Planned Provider: [facility], SKILLED MEDICAID BED DCP follow-up note: CM RECEIVED CALL FROM JASON OF [facility], THEY HAVE RECEIVED INSURANCE AUTHORIZATION AND WILL TRUSS ASSEMBLER PT AT 1330 HOURS TODAY. CM NOTIFED PT WHO IS IN AGREEMENT WITH DISCHARGE BACK TO REHAB TODAY; CM NOTIFIED FIRE EATER NURSE AND CM FAXED NEW DISCHARGE ORDER TO [facility], . NURSE REPORT TO BE CALLED TO [facility], , VAN TO TRUSS ASSEMBLER TODAY AT 1330 HOURS. Mihai Monroe, CASE MANAGEMENT DCP- Discharge Planning Updated by [id number]: Mihai Monroe on 01/20/20 3:[address] Patient Name: YEMI DAVID Encounter No: [id number] : 1985 Primary Insurance: [employer]ED MEDICAID Anticipated DC Date: 01-20-2020 Planned Disposition: Senior Living Facility External Planned Provider: [facility], SKILLED MEDICAID BED DCP follow-up note: CM FAXED UDPATE AND DISCHARGE INFORMATION TO [facility], . CM WAITING ON [facility] TO RECEIVE INSURANCE AUTHORIZATION FOR PT TO RETURN TO SKILLED CARE BED. Mihai Monroe, CASE MANAGEMENT Appended by Mihai Monroe on 01/20/2020 16:58 CDT: CM CALLED AND SPOKE TO JASON OF [facility], , WHO REPORTS CALLING THE INSURANCE SEVERAL TIMES TODAY AND THAT THE INSURANCE COMPANY IS BLAMING THE DELAY OF REVIEW FOR AUTHORIZATION ON COV 19. BEDSIDE NURSE UPDATED. CM WAITING ON [facility] TO RECEIVE INSURANCE AUTHORIZATION FOR PT TO RETURN TO SKILLED CARE BED. Mihai Monroe CASE MANAGEMENT DCP- Discharge Planning Updated by [id number]: Mihai Monroe on 01/19/20 3:[address] Patient Name: YEMI DAVID Encounter No: [id number] : 1985 Primary Insurance: [employer]ED MEDICAID Anticipated DC Date: 01-14-2020 Planned Disposition: Senior Living Facility External Planned Provider: [facility], SKILLED MEDICAID BED DCP follow-up note: CM CALLED AND SPOKE TO RICKY KODAK OF [facility], WHO REPORTS THAT SHE JUST SPOKE TO INSURANCE WHO HAS NOT YET COMPLETED REVIEW AND PROVIDED AUTHORIZATION FOR PT'S SKILLED RETURN OF THIS TIME. THEY EXPECT TO HAVE INSURANCE AUTHORIZATION TOMORROW AND WILL NOT ACCEPT PT BACK UNTIL AUTHORIZATION IS RECEIVED FROM PT'S INSURANCE. BEDSIDE NURSE NOTIFIED. CM NOW WAITING ON [facility] TO RECEIVE INSURANCE AUTHORIZATION FOR PT TO RETURN TO SKILLED CARE BED. Mihai Monroe, CASE MANAGEMENT DCP- Discharge Planning Updated by [id number]: Mihai Monroe on 01/18/20 1:[address] Patient Name: YEMI DAVID Encounter No: [id number] : 1985 Primary Insurance: [employer]ED MEDICAID Anticipated DC Date: 01-14-2020 Planned Disposition: Senior Living Facility External Planned Provider: [facility], SKILLED MEDICAID BED DCP follow-up note: CM SPOKE TO FIRE EATER NURSE WHO INFORMED CM THAT THE FACILITY TOLD THE NURSE THEY WOULD BE HERE OVER ONE HOUR AGO AND ASKED FOR UPDATE. CM CALLED AND SPOKE TO A NURSE, THEN JASON OF ADMISSIONS AND FINALLY, [employer] CONSULTANT. [facility] SUBMITTED FOR INSURANCE AUTHORIZATION AND NOW WILL NOT ACCEPT PT BACK UNTIL AUTHORIZATION IS RECEIVED FROM PT'S INSURANCE AND THIS COULD TAKE UP TO 24 HOURS PER THE [employer] CONSULTANT. FIRE EATER NURSE NOTIFIED. CM NOW WAITING ON [facility] TO RECEIVE INSURANCE AUTHORIZATION FOR PT TO RETURN TO SKILLED CARE BED. Mihai Monroe, CASE MANAGEMENT DCP- Discharge Planning Updated by [id number]: Mihai Monroe on 01/18/20 8:[address] Patient Name: YEMI DAVID Encounter No: [id number] : 1985 Primary Insurance: [employer]ED MEDICAID Anticipated DC Date: 01-14-2020 Planned Disposition: Senior Living Facility External Planned Provider: [facility], SKILLED MEDICAID BED Discharge Planning Comments: CM REVIEWED CHART, PT'S COVID 19 TESTING RESULT IN CHART. CM FAXED UPDATE WITH TESTING RESULT TO [facility] AT [phone]. CALLED TO [facility] AT [phone], SPOKE TO JASON WHO WILL REVIEW RESULTS OF TESTING AND CALL CM BACK. NURSE REPORT TO BE CALLED TO [facility] AT [phone]. [facility] TO ARRANGE VAN TRANSPORT. Air Vice Marshal: Mihai Monroe DCP- Discharge Planning Updated by [id number]: Mihai Monroe on 01/14/20 2:[address] Patient Name: YEIM DAVID Admission Status: ER Accout number: [id number] Admission Date: 01-11-2020 : 1985 Admission Diagnosis: Attending: ALLISON KNIGHT Current LOS: 3 Anticipated DC Date: 01-14-2020 Planned Disposition: Senior Living Facility Primary Insurance: [employer] MA[employer]ED MEDICAID PLANNED EXTERNAL PROVIDER: [facility], SKILLED MEDICAID BED Discharge Planning Comments: CM RECEIVED DISCHARGE ORDER, SPOKE TO BEDSIDE NURSE AND PATIENT, PT REPORTS AGREEMENT WITH DISCHARGE PLAN AND CAN SIT FOR VAN TRANPORT. CM CALLED AND SPOKE TO JASON AT [facility], , JASON REPORTS THAT THEY CANNOT ACCEPT PT BACK UNTIL COVID19 TESTING RESULT HAS BEEN RETURNED NEGATIVE. CM DISCUSSED THAT CERTIFIED HYPERBARIC TECHNOLOGIST INDICATED THAT PT DOES NOT HAVE COVID19 AND RECOMMENDED REMOVAL FROM ISOLATION; JASON TRANSFERRED CALL TO KATHRYN, [employer] CONSULTANT FOR [facility] WHO REPORTED THIS TO BE THEIR CORPORATE POLICY. CM NOTIFIED FIRE EATER NURSE AND CM DIRECTOR BELLE. [facility] WILL NOT ACCEPT BACK UNTIL COVID19 TESTING RECEIVED AND NEGATIVE. FOR DISCHARGE, [facility] WILL CALL FACILITY FOR VEBAL COVID19 SCREENING QUESTIONAIRE PRIOR TO PT'S RETURN. NURSE REPORT TO BE CALLED TO [facility] AT [phone]. FAX DISCHARGE INFORMATION TO [facility] AT [phone]. [facility] TO ARRANGE VAN TRANSPORT. Air Vice Marshal: Mihai Monroe [facility]- Discharge Planning Updated by [id number]: Mihai Monroe on 01/14/20 11:[address] Patient Name: YEMI DAVID Encounter No: [id number] : 1985 Primary Insurance: [employer] MANAGED MEDICAID Anticipated DC Date: Planned Disposition: Senior Living Facility External Planned Provider: [facility], SKILLED MEDICAID BED Discharge Planning Comments: CM SPOKE TO JASON AT [facility], PT IN SKILLED BED AND WILL RETURN TO SKILLED BED AT DISCHARGE. JASON INFORMED CM THAT SHE WILL CALL ON DAY OF DISCHARGE AND HAS TO COMPLETE A COVID19 SCREENING VIA PHONE PRIOR TO PT'S RETURN TO FACILITY, UNLESS TESTING HAS RETURNED. FOR DISCHARGE, [facility] WILL CALL FACILITY FOR VEBAL COVID19 SCREENING QUESTIONAIRE PRIOR TO PT'S RETURN. NURSE REPORT TO BE CALLED TO [facility] AT [phone]. FAX DISCHARGE INFORMATION TO [facility] AT [phone]. [facility] TO ARRANGE VAN TRANSPORT IF PT IS ABLE TO SIT SAFELY FOR TRANSPORT. Air Vice Marshal: Mihai Monroe [facility]- Discharge Planning Updated by [id number]: Mihai Monroe on 01/13/20 10:[address] Patient Name: YEMI DAVID Encounter No: [id number] : 1985 Primary Insurance: [employer] MA[employer]ED MEDICAID Anticipated DC Date: Planned Disposition: Nursing Facility [facility] External Planned Provider:[facility], SKILLED MEDICAID BED Discharge Planning Comments: ARLEEN SPOKE TO JASON AT [facility], PT IN SKILLED BED AND WILL RETURN TO SKILLED BED AT DISCHARGE. JASON REQUESTED MICROBIOLOGY RESULTS. CM FAXED UPDATE INFORMATION TO [facility] AT [phone]. FOR DISCHARGE, [facility] WILL CALL FACILITY FOR VEBAL SCREENING QUESTIONAIRE PRIOR TO PT'S RETURN. NURSE REPORT TO BE CALLED TO [facility] AT [phone]. FAX DISCHARGE INFORMATION TO [facility] AT [phone]. [facility] TO ARRANGE VAN TRANSPORT IF PT IS ABLE TO SIT SAFELY FOR TRANSPORT. Air Vice Marshal: Mihai Monroe DCP- Discharge Planning Updated by [id number]: Mihai Monroe on 01/13/20 9:[address] Patient Name: YEMI DAVID Admission Status: ER Accout number: [id number] Admission Date: 01-11-2020 : 1985 Admission Diagnosis: Attending: ALLISON KNIGHT Current LOS: 2 Anticipated DC Date: Planned Disposition: Nursing Facility [facility] Primary Insurance: [employer] MANAGED MEDICAID PLANNED EXTERNAL PROVIDER: [facility], [facility] MEDICAID BED Discharge Planning Comments: CM SPOKE TO PT VIA ROOM PHONE TO DISCUSS DISCHARGE PLANNING AND NEEDS. PT REPORTS LIVING AT [facility], HE HAS BEEN THERE FOR TWO WEEKS NOW. PT USES A SHOWER CHAIR, ROLLING WALKER AND WHEELCHAIR. PT REPORTS HAVING ASSISTANCE WITH GETTING UP OUT OF BED, TOILETING, SHOWERING AND PT DENIES DISCHARGE NEEDS, REPORTS PLAN TO RETURN TO [facility] AT DISCHARGE. CHOICE LETTER COMPLETED. ARLEEN VERIFIED BED STATUS WITH JASON [facility]. CM FAXED UPDATE INFORMATION TO [facility] AT [phone]. FOR DISCHARGE, NURSE REPORT TO BE CALLED TO [facility] AT [phone]. FAX DISCHARGE INFORMATION TO [facility] AT [phone]. [facility] TO ARRANGE VAN TRANSPORT IF PT IS ABLE TO SIT SAFELY FOR TRANSPORT. Air Vice Marshal: Mihai Monroe [facility] - Discharge Planning Initial Assessment Updated by [id number]: Mihai Monroe on 01/13/20 10:17 am * Is the patient Alert and Oriented? Yes * How many steps to enter\exit or inside your home? NONE * PCP DOCTOR FOR [facility] * Pharmacy [facility] * Preadmission Environment Head Nurse Retirement * Facility Name [facility] * ADLs Partial Dependent * Partial ADLs (Assistance needed) Bathing Medication Management Toileting Transfers * Equipment Shower Chair Walker Wheelchair * Other Equipment ALL MEDICAL EQUIPMENT PROVIDED BY FACILITY * List name and contact numbers for known caregivers / representatives who currently or will assist patient after discharge: PERCY CRUMPER, * Verbal permission to speak to the caregivers and representatives has been obtained from the patient. N/A * Community resources currently utilized None * Please name any agencies selected above. NONE * Additional services required to return to the preadmission environment? No * Can the patient safely return to the preadmission environment? Yes * Has this patient been hospitalized within the prior 30 days at any hospital? Yes Coverage Notice Reviewer: [id number] - Mihai Monroe Notice Issued Date-Time: 01/13/2020 9:57 Notice Type: Patient Choice Letter Notice Delivered To: Patient Relationship to Patient: Dental Office Coordinator Name: Delivery Method: HAND - Hand Delivered Judy Days: Prior Verbal Notification: Recipient Understood Notice: Yes Recipient Signature: Yes Med Rec Note Co-signed by Attending: Coverage Notice Comment: [facility] Last DP export: 01/21/20 2:38 p Patient Name: YEMI DAVID Page [phone] at 1547 All edits/amendments must be made on the electronic document DICTATION DATE: 01/21/20 1547 SOLUTIONS CONSULTANT: CHIO 01/21/20 1547 RPT#: [id number] DC DATE: STATUS: ADM IN [facility] [address] [place] [address] END OF REPORT
--- NOTE | 2020-01-21 15:56 | MORECARE ---
CASE MANAGEMENT DISCHARGE SUMMARY PATIENT: YEMI DAVID UNIT: [id number] ADM DATE: 01/11/20 AGE: 34 : [birth year] SEX: M ROOM/BED: D.2111 AUTHOR: REBECADOC PHYSICIAN: REFERRING PHYSICIAN: ALLISON KNIGHT MD DATE OF SERVICE: 01/21/20 Discharge Plan Patient Name: YEMI DAVID Facility: [facility]:[place] : 1985 Planned Disposition: Long Term Facility Anticipated Discharge Date: 01/21/20 Discharge Date: Expected LOS: 10 Initial Reviewer: [id number] Initial Review Date: 01/13/2020 Generated: 01/21/20 4:56 pm Comments DCP- Discharge Planning Updated by [id number]: Mihai Monreo on 01/21/20 2:[address] Patient Name: YEMI DAVID Encounter No: [id number] : 1985 Primary Insurance: [employer]ED MEDICAID Anticipated DC Date: 01-21-2020 Planned Disposition: Long Term Facility External Planned Provider: [facility], SKILLED MEDICAID BED DCP follow-up note: CM SPOKE TO BEDSIDE NURSE WHO INFORMED CM THAT [facility] DID NOT CHAIRMAN PRESIDENT AND CHIEF EXECUTIVE OFFICER PT AGREED AND SHE CALLED FACILITY WHO INFORMED NURSE THAT PT IS NOT GOING BACK TO [facility], BUT TO [facility] IN [place]. CM CALLED [facility], , SPOKE TO CLINICAL MEDICAL TRANSCRIPTIONIST WHO INFORMED CM THAT THEIR CORPORATE OFFICE HAS JUST REACHED DECISION THAT ALL PATIENTS WITH RESPIRATORY SYPTOMS WILL GO TO [facility]. JASON OF [facility] PROVIDED CM WITH CONTACT INFORMATION TO CALL [facility] AT [phone]. PT NOTIFIED. BEDSIDE NURSE NOTIFIED. CM CALLED [facility] AT [phone], WHO WILL CHECK TO SEE IF THERE IS ANYTHING ELSE THEY NEED AND WILL CALL CM BACK IN 10 - 15 MINUTES. CM RECEIVED TELEPHONE MESSAGE FROM FRAN SEQUEIRA OF [facility], . CM CALLED FRAN WHO INFORMED CM THAT SHE NEEDS PT'S NEGATIVE COVID19 TESTING RESULTS FAXED TO HER AND THEY ARE TRYING TO GET EVERYTHING FOR PT TO BE TRANSPORTED TODAY, BUT CANNOT PROMISE THIS. CM FAXED COVID19 TESTING RESULTS TO [facility] AT [phone]. FRAN ADVISED THAT PT WILL NOT BE ALLOWED TO SMOKE AND WILL BE QUARANTINED FOR 14 DAYS PRIOR TO BEING RETURNED TO [facility]. CM WAITING [facility] TO CALL TO ACCEPT PT AND PROVIDE TRANSPORTATION ARRANGEMENT INFORMATION. Mihai Monroe CASE MANAGEMENT DCP- Discharge Planning Updated by [id number]: Mihai Monroe on 01/21/20 8:[address] Patient Name: YEMI DAVID Encounter No: [id number] : 1985 Primary Insurance: [employer] MA[employer]GED MEDICAID Anticipated DC Date: 01-21-2020 Planned Disposition: Long Term Facility External Planned Provider: [facility], SKILLED MEDICAID BED DCP follow-up note: CM RECEIVED CALL FROM JASON OF [facility], THEY HAVE RECEIVED INSURANCE AUTHORIZATION AND WILL CHAIRMAN PRESIDENT AND CHIEF EXECUTIVE OFFICER PT AT 1330 HOURS TODAY. CM NOTIFED PT WHO IS IN AGREEMENT WITH DISCHARGE BACK TO REHAB TODAY; CM NOTIFIED CLINICAL TRIALS NURSE NURSE AND CM FAXED NEW DISCHARGE ORDER TO [facility], . NURSE REPORT TO BE CALLED TO [facility], , VAN TO CHAIRMAN PRESIDENT AND CHIEF EXECUTIVE OFFICER TODAY AT 1330 HOURS. ROLAND Hugo DCP- Discharge Planning Updated by [id number]: Mihai Monroe on 01/20/20 3:[address] Patient Name: YEMI DAVID Encounter No: [id number] : 1985 Primary Insurance: [employer] MA[employer]GED MEDICAID Anticipated DC Date: 01-20-2020 Planned Disposition: Long Term Facility External Planned Provider: [facility], SKILLED MEDICAID BED DCP follow-up note: CM FAXED [place]ATE AND DISCHARGE INFORMATION TO [facility], . CM WAITING ON [facility] TO RECEIVE INSURANCE AUTHORIZATION FOR PT TO RETURN TO SKILLED CARE BED. Mihai Monroe, CASE MANAGEMENT Appended by Mihai Monroe on 01/20/2020 16:58 CDT: CM CALLED AND SPOKE TO JASON OF [facility], , WHO REPORTS CALLING THE INSURANCE SEVERAL TIMES TODAY AND THAT THE INSURANCE COMPANY IS BLAMING THE DELAY OF REVIEW FOR AUTHORIZATION ON . BEDSIDE NURSE UPDATED. CM WAITING ON [facility] TO RECEIVE INSURANCE AUTHORIZATION FOR PT TO RETURN TO SKILLED CARE BED. Mihai Monroe, CASE MANAGEMENT DCP- Discharge Planning Updated by [id number]: Mihai Monroe on 01/19/20 3:[address] Patient Name: YEMI DAVID Encounter No: [id number] : 1985 Primary Insurance: [employer]GED MEDICAID Anticipated DC Date: 01-14-2020 Planned Disposition: Long Term Facility External Planned Provider: [facility], SKILLED MEDICAID BED DCP follow-up note: CM CALLED AND SPOKE TO RICKY CANDELARIO OF [facility], WHO REPORTS THAT SHE JUST SPOKE TO INSURANCE WHO HAS NOT YET COMPLETED REVIEW AND PROVIDED AUTHORIZATION FOR PT'S SKILLED RETURN OF THIS TIME. THEY EXPECT TO HAVE INSURANCE AUTHORIZATION TOMORROW AND WILL NOT ACCEPT PT BACK UNTIL AUTHORIZATION IS RECEIVED FROM PT'S INSURANCE. BEDSIDE NURSE NOTIFIED. CM NOW WAITING ON [facility] TO RECEIVE INSURANCE AUTHORIZATION FOR PT TO RETURN TO SKILLED CARE BED. Mihai Monroe, CASE MANAGEMENT DCP- Discharge Planning Updated by [id number]: Mihai Monroe on 01/18/20 1:[address] Patient Name: YEMI DAVID Encounter No: [id number] : 1985 Primary Insurance: [employer] MA[employer]GED MEDICAID Anticipated DC Date: 01-14-2020 Planned Disposition: Long Term Facility External Planned Provider: [facility], SKILLED MEDICAID BED DCP follow-up note: CM SPOKE TO CLINICAL TRIALS NURSE NURSE WHO INFORMED CM THAT THE FACILITY TOLD THE NURSE THEY WOULD BE HERE OVER ONE HOUR AGO AND ASKED FOR UPDATE. CM CALLED AND SPOKE TO A NURSE, REID GOMEZ OF ADMISSIONS AND FINALLY, CLINICAL MEDICAL TRANSCRIPTIONIST. [facility] SUBMITTED FOR INSURANCE AUTHORIZATION AND NOW WILL NOT ACCEPT PT BACK UNTIL AUTHORIZATION IS RECEIVED FROM PT'S INSURANCE AND THIS COULD TAKE UP TO 24 HOURS PER THE CLINICAL MEDICAL TRANSCRIPTIONIST. CLINICAL TRIALS NURSE NURSE NOTIFIED. CM NOW WAITING ON [facility] TO RECEIVE INSURANCE AUTHORIZATION FOR PT TO RETURN TO SKILLED CARE BED. Mihai Monroe, CASE MANAGEMENT DCP- Discharge Planning Updated by [id number]: Mihai Monroe on 01/18/20 8:[address] Patient Name: YEMI DAVID Encounter No: [id number] : 1985 Primary Insurance: [employer] MANAGED MEDICAID Anticipated DC Date: 01-14-2020 Planned Disposition: Long Term Facility External Planned Provider: [facility], SKILLED MEDICAID BED Discharge Planning Comments: CM REVIEWED CHART, PT'S COVID 19 TESTING RESULT IN CHART. CM FAXED UPDATE WITH TESTING RESULT TO [facility] AT [phone]. CALLED TO [facility] AT [phone], SPOKE TO JASON WHO WILL REVIEW RESULTS OF TESTING AND CALL CM BACK. NURSE REPORT TO BE CALLED TO [facility] AT [phone]. [facility] TO ARRANGE VAN TRANSPORT. Sas Administrator: Mihai Monroe DCP- Discharge Planning Updated by [id number]: Mihai Monroe on 01/14/20 2:[address] Patient Name: YEMI DAVID Admission Status: ER Accout number: [id number] Admission Date: 01-11-2020 : 1985 Admission Diagnosis: Attending: ALLISON KNIGHT Current LOS: 3 Anticipated DC Date: 01-14-2020 Planned Disposition: Long Term Facility Primary Insurance: [employer] MANAGED MEDICAID PLANNED EXTERNAL PROVIDER: [facility], SKILLED MEDICAID BED Discharge Planning Comments: CM RECEIVED DISCHARGE ORDER, SPOKE TO BEDSIDE NURSE AND PATIENT, PT REPORTS AGREEMENT WITH DISCHARGE PLAN AND CAN SIT FOR VAN TRANPORT. CM CALLED AND SPOKE TO JASON AT [facility], , JASON REPORTS THAT THEY CANNOT ACCEPT PT BACK UNTIL COVID19 TESTING RESULT HAS BEEN RETURNED NEGATIVE. ARLEEN DISCUSSED THAT IMPROVEMENT AUDITOR INDICATED THAT PT DOES NOT HAVE COVID19 AND RECOMMENDED REMOVAL FROM ISOLATION; JASON TRANSFERRED CALL TO KATHRYN, CLINICAL MEDICAL TRANSCRIPTIONIST FOR [facility] WHO REPORTED THIS TO BE THEIR CORPORATE POLICY. CM NOTIFIED CLINICAL TRIALS NURSE NURSE AND CM DIRECTOR BELLE. [facility] WILL NOT ACCEPT BACK UNTIL COVID19 TESTING RECEIVED AND NEGATIVE. FOR DISCHARGE, [facility] WILL CALL FACILITY FOR VEBAL COVID19 SCREENING QUESTIONAIRE PRIOR TO PT'S RETURN. NURSE REPORT TO BE CALLED TO [facility] AT [phone]. FAX DISCHARGE INFORMATION TO [facility] AT [phone]. [facility] TO ARRANGE VAN TRANSPORT. Sas Administrator: Mihai Monroe [facility]- Discharge Planning Updated by [id number]: Mihai Monroe on 01/14/20 11:[address] Patient Name: YEMI DAVID Encounter No: [id number] : 1985 Primary Insurance: [employer] MANAGED MEDICAID Anticipated DC Date: Planned Disposition: Long Term Facility External Planned Provider: [facility], SKILLED MEDICAID BED Discharge Planning Comments: CM SPOKE TO JASON AT [facility], PT IN SKILLED BED AND WILL RETURN TO SKILLED BED AT DISCHARGE. JASON INFORMED THAT SHE WILL CALL ON DAY OF DISCHARGE AND HAS TO COMPLETE A COVID19 SCREENING VIA PHONE PRIOR TO PT'S RETURN TO FACILITY, UNLESS TESTING HAS RETURNED. FOR DISCHARGE, [facility] WILL CALL FACILITY FOR VEBAL COVID19 SCREENING QUESTIONAIRE PRIOR TO PT'S RETURN. NURSE REPORT TO BE CALLED TO [facility] AT [phone]. FAX DISCHARGE INFORMATION TO [facility] AT [phone]. [facility] TO ARRANGE VAN TRANSPORT IF PT IS ABLE TO SIT SAFELY FOR TRANSPORT. Sas Administrator: Mihai Monroe [facility]- Discharge Planning Updated by [id number]: Mihai Monroe on 01/13/20 10:[address] Patient Name: YEMI DAVID Encounter No: [id number] : 1985 Primary Insurance: NOV[employer]Y MANAGED MEDICAID Anticipated DC Date: Planned Disposition: Nursing Facility [facility] External Planned Provider:[facility], SKILLED MEDICAID BED Discharge Planning Comments: CM SPOKE TO JASON AT [facility], PT IN SKILLED BED AND WILL RETURN TO SKILLED BED AT DISCHARGE. JASON REQUESTED MICROBIOLOGY RESULTS. ARLEEN FAXED UPDATE INFORMATION TO [facility] AT [phone]. FOR DISCHARGE, [facility] WILL CALL FACILITY FOR MARY BERRIOS PRIOR TO PT'S RETURN. NURSE REPORT TO BE CALLED TO [facility] AT [phone]. FAX DISCHARGE INFORMATION TO [facility] AT [phone]. [facility] TO ARRANGE VAN TRANSPORT IF PT IS ABLE TO SIT SAFELY FOR TRANSPORT. Sas Administrator: Mihai Monroe DCP- Discharge Planning Updated by [id number]: Mihai Monroe on 01/13/20 9:[address] Patient Name: YEMI DAVID Admission Status: ER Accout number: [id number] Admission Date: 01-11-2020 : 1985 Admission Diagnosis: Attending: ALLISON KNIGHT Current LOS: 2 Anticipated DC Date: Planned Disposition: Nursing Facility [facility] Primary Insurance: [employer] MEDICAID PLANNED EXTERNAL PROVIDER: [facility], ASSESSOR CARE MEDICAID BED Discharge Planning Comments: CM SPOKE TO PT VIA ROOM PHONE TO DISCUSS DISCHARGE PLANNING AND NEEDS. PT [facility], HE HAS BEEN THERE FOR TWO WEEKS NOW. PT USES A SHOWER CHAIR, ROLLING WALKER AND WHEELCHAIR. PT REPORTS HAVING ASSISTANCE WITH GETTING UP OUT OF BED, TOILETING, SHOWERING AND PT DENIES DISCHARGE NEEDS, REPORTS PLAN TO RETURN TO [facility] AT DISCHARGE. CHOICE LETTER COMPLETED. CM VERIFIED BED STATUS WITH JASON [facility]. CM FAXED UPDATE INFORMATION TO [facility] AT [phone]. FOR DISCHARGE, NURSE REPORT TO BE CALLED TO [facility] AT [phone]. FAX DISCHARGE INFORMATION TO [facility] AT [phone]. [facility] TO ARRANGE VAN TRANSPORT IF PT IS ABLE TO SIT SAFELY FOR TRANSPORT. Sas Administrator: Mihai Monroe DCPIA - Discharge Planning Initial Assessment Updated by [id number]: Mihai Monroe on 01/13/20 10:17 am * Is the patient Alert and Oriented? Yes * How many steps to enter\exit or inside your home? NONE * PCP DOCTOR FOR [facility] * Pharmacy [facility]ARMACY [facility] * Preadmission Environment Catering Administrative Assistant Fdc * Facility Name [facility] * ADLs Partial Dependent * Partial ADLs (Assistance needed) Bathing Medication Management Toileting Transfers * Equipment Shower Chair Walker Wheelchair * Other Equipment ALL MEDICAL EQUIPMENT PROVIDED BY FACILITY * List name and contact numbers for known caregivers / representatives who currently or will assist patient after discharge: JAVIER DAVID, BROTHER, * Verbal permission to speak to the caregivers and representatives has been obtained from the patient. N/A * Community resources currently utilized None * Please name any agencies selected above. NONE * Additional services required to return to the preadmission environment? No * Can the patient safely return to the preadmission environment? Yes * Has this patient been hospitalized within the prior 30 days at any hospital? Yes Coverage Notice Reviewer: [id number] Abdullahi Monroe Notice Issued Date-Time: 01/13/2020 9:57 Notice Type: Patient Choice Letter Notice Delivered To: Patient Relationship to Patient: Principal Accounts Clerk Name: Delivery Method: HAND - Hand Delivered Judy Days: Prior Verbal Notification: Recipient Understood Notice: Yes Recipient Signature: Yes Med Rec Note Co-signed by Attending: Coverage Notice Comment: [facility] Last DP export: 01/21/20 2:47 p Patient Name: YEMI DAVID Page [id number] at 1556 All edits/amendments must be made on the electronic document DICTATION DATE: 01/21/20 1556 BUSINESS OPERATIONS DIRECTOR: CHIO 01/21/201555 RPT#: [id number] DC DATE: STATUS: ADM IN [facility] [address] [place] [address] END OF REPORT
[2020-01-21 18:14] VITALS: BP 117/78
--- NOTE | 2020-01-21 19:22 | NUR ---
EVENING ROUNDS COMPLETED. AAOX3, APPEARS LETHARGIC. AFVSS, PT DENIES ANY NEED FOR COMFORT CARE. WILL CPOC.
[2020-01-21 20:00] VITALS: BP 106/67
[2020-01-22] VITALS: BP 107/60
[2020-01-22 04:40] LABS: ALKALINE PHOSPHATASE 94 U/L (30-120); BILIRUBIN - TOTAL 0.12 mg/dL (0.2-1.3); CALC OSMOLALITY 262 mosm/kg (275-300); CALCIUM 7.5 mg/dL (8.5-10.1); CARBON DIOXIDE 26.7 mmol/L (21.0-32.0); CHLORIDE - SERUM 99 mmol/L (98-107); CREATININE - SERUM 0.6 mg/dL (0.6-1.3); GLUCOSE 84 mg/dL (74-106); POTASSIUM - SERUM 4.2 mmol/L (3.5-5.1); PROTEIN - SERUM 5.5 g/dL (6.4-8.2); SODIUM 132 mmol/L (136-145); UREA NITROGEN 10 mg/dL (7-18); eGFR NON AFRICAN AMERICAN > 90 mL/min (90-120)
[2020-01-22 04:48] LABS: ALT (SGPT) 11 U/L (10-68)
[2020-01-22 04:52] LABS: BASOPHILS 0 % (0-2); EOSINOPHILS 0.6 % (0-7); HEMATOCRIT 30.2 % (42.0-54.0); HEMOGLOBIN 9.5 g/dL (13.5-17.5); IMMATURE GRANULOCYTES 10.9 % (0-5); LYMPHOCYTES 16.9 % (15-50); MCH 26.2 pg (26.0-34.0); MCHC 31.5 g/dL (31.0-37.0); MCV 83.4 fL (80.0-100.0); MEAN PLATELET VOLUME 9.5 fL (7.4-10.4); MONOCYTES 6.9 % (2-11); NEUTROPHILS 64.7 % (40-80); PLATELET COUNT 184 10x3/uL (130-400); RBC 3.62 10x6/uL (4.20-6.10); RDW 17.8 % (11.5-14.5); WBC 3.3 10x3/uL (4.8-10.8)
--- NOTE | 2020-01-22 08:32 | MORECARE ---
CASE MANAGEMENT DISCHARGE SUMMARY PATIENT: YEMI DAVID UNIT: [id number] ADM DATE: 01/11/20 AGE: 34 : [birth year] SEX: M ROOM/BED: D.2111 AUTHOR: REBECADOC PHYSICIAN: REFERRING PHYSICIAN: ALLISON KNIGHT MD DATE OF SERVICE: 01/22/20 Discharge Plan Patient Name: YEMI DAVID Facility: [facility]:[place] : 1985 Planned Disposition: [facility] Facility Anticipated Discharge Date: 01/22/20 Discharge Date: Expected LOS: 11 Initial Reviewer: [id number] Initial Review Date: 01/13/2020 Generated: 01/22/20 9:31 am DCP- Discharge Planning Updated by [email or web address]: Mihai Monore on 01/21/20 2:[address] Patient Name: YEMI DAVID Encounter No: [id number] : 1985 Primary Insurance: [employer] MEDICAID Anticipated DC Date: 01-21-2020 Planned Disposition: [facility] Facility External Planned Provider: [facility] MEDICAID BED DCP follow-up note: CM SPOKE TO BEDSIDE NURSE WHO INFORMED CM THAT [facility] DID NOT SANITARY ENGINEERING TEACHER PT AGREED AND SHE CALLED FACILITY WHO INFORMED NURSE THAT PT IS NOT GOING BACK TO [facility], BUT TO [facility] IN [place]. CM CALLED [facility], , SPOKE TO NAIL SETTER WHO INFORMED CM THAT THEIR CORPORATE OFFICE HAS JUST REACHED DECISION THAT ALL PATIENTS WITH RESPIRATORY SYPTOMS WILL GO TO [facility]. JASON OF [facility] PROVIDED CM WITH CONTACT INFORMATION TO CALL [facility] ([place], [place]) AT [phone]. PT NOTIFIED. BEDSIDE NURSE NOTIFIED. CM CALLED [facility] ([place], [place]) AT [phone], WHO WILL CHECK TO SEE IF THERE IS ANYTHING ELSE THEY NEED AND WILL CALL CM BACK IN 10 - 15 MINUTES. CM RECEIVED TELEPHONE MESSAGE FROM FRAN SEQUEIRA OF [facility], . CM CALLED FRAN WHO INFORMED CM THAT SHE NEEDS PT'S NEGATIVE COVID19 TESTING RESULTS FAXED TO HER AND THEY ARE TRYING TO GET EVERYTHING FOR PT TO BE TRANSPORTED TODAY, BUT CANNOT PROMISE THIS. CM FAXED COVID19 TESTING RESULTS TO [facility] AT [phone]. FRAN ADVISED THAT PT WILL NOT BE ALLOWED TO SMOKE AND WILL BE QUARANTINED FOR 14 DAYS PRIOR TO BEING RETURNED TO [facility]. CM WAITING [facility] TO CALL TO ACCEPT PT AND PROVIDE TRANSPORTATION ARRANGEMENT INFORMATION. Mihai Monroe CASE MANAGEMENT DCP- Discharge Planning Updated by [id number]: Mihai Monroe on 01/21/20 8:[address] Patient Name: YEMI DAVID Encounter No: [id number] : 1985 Primary Insurance: [employer] MEDICAID Anticipated DC Date: 01-21-2020 Planned Disposition: [facility] Facility External Planned Provider: [facility], SKILLED MEDICAID BED DCP follow-up note: CM RECEIVED CALL FROM JASON OF [facility], THEY HAVE RECEIVED INSURANCE AUTHORIZATION AND WILL SANITARY ENGINEERING TEACHER PT AT 1330 HOURS TODAY. CM NOTIFED PT WHO IS IN AGREEMENT WITH DISCHARGE BACK TO REHAB TODAY; CM NOTIFIED HORTICULTURE INSTRUCTOR NURSE AND CM FAXED NEW DISCHARGE ORDER TO [facility], . NURSE REPORT TO BE CALLED TO [facility], , VAN TO SANITARY ENGINEERING TEACHER TODAY AT 1330 HOURS. ROLAND Hugo DCP- Discharge Planning Updated by [id number]: Mihai Monroe on 01/20/20 3:[address] Patient Name: YEMI DAVID Encounter No: [id number] : 1985 Primary Insurance: [employer] MEDICAID Anticipated DC Date: 01-20-2020 Planned Disposition: [facility] Facility External Planned Provider: [facility], SKILLED MEDICAID BED DCP follow-up note: CM FAXED UDPATE AND DISCHARGE INFORMATION TO [facility], . CM WAITING ON [facility] TO RECEIVE INSURANCE AUTHORIZATION FOR PT TO RETURN TO SKILLED CARE BED. Mihai Monroe, CASE MANAGEMENT Appended by Mihai Monroe on 01/20/2020 16:58 CDT: CM CALLED AND SPOKE TO JASON OF [facility], , WHO REPORTS CALLING THE INSURANCE SEVERAL TIMES TODAY AND THAT THE INSURANCE COMPANY IS BLAMING THE DELAY OF REVIEW FOR AUTHORIZATION ON . BEDSIDE NURSE UPDATED. CM WAITING ON [facility] TO RECEIVE INSURANCE AUTHORIZATION FOR PT TO RETURN TO SKILLED CARE BED. Mihai Monroe, CASE MANAGEMENT DCP- Discharge Planning Updated by [id number]: Mihai Monroe on 01/19/20 3:[address] Patient Name: YEMI DAVID Encounter No: [id number] : 1985 Primary Insurance: [employer] MEDICAID Anticipated DC Date: 01-14-2020 Planned Disposition: [facility] Facility External Planned Provider: [facility], SKILLED MEDICAID BED DCP follow-up note: CM CALLED AND SPOKE TO RICKY CANDELARIO OF [facility], WHO REPORTS THAT SHE JUST SPOKE TO INSURANCE WHO HAS NOT YET COMPLETED REVIEW AND PROVIDED AUTHORIZATION FOR PT'S SKILLED RETURN OF THIS TIME. THEY EXPECT TO HAVE INSURANCE AUTHORIZATION TOMORROW AND WILL NOT ACCEPT PT BACK UNTIL AUTHORIZATION IS RECEIVED FROM PT'S INSURANCE. BEDSIDE NURSE NOTIFIED. CM NOW WAITING ON [facility] TO RECEIVE INSURANCE AUTHORIZATION FOR PT TO RETURN TO SKILLED CARE BED. Mihai Monroe, CASE MANAGEMENT DCP- Discharge Planning Updated by [id number]: Mihai Monroe on 01/18/20 1:[address] Patient Name: YEMI DAVID Encounter No: [id number] : 1985 Primary Insurance: [employer] MEDICAID Anticipated DC Date: 01-14-2020 Planned Disposition: [facility] Facility External Planned Provider: [facility], SKILLED MEDICAID BED DCP follow-up note: CM SPOKE TO HORTICULTURE INSTRUCTOR NURSE WHO INFORMED CM THAT THE FACILITY TOLD THE NURSE THEY WOULD BE HERE OVER ONE HOUR AGO AND ASKED FOR UPDATE. CM CALLED AND SPOKE TO A NURSE, REID GOMEZ OF ADMISSIONS AND FINALLY, NAIL SETTER. [facility] SUBMITTED FOR INSURANCE AUTHORIZATION AND NOW WILL NOT ACCEPT PT BACK UNTIL AUTHORIZATION IS RECEIVED FROM PT'S INSURANCE AND THIS COULD TAKE UP TO 24 HOURS PER THE NAIL SETTER. HORTICULTURE INSTRUCTOR NURSE NOTIFIED. CM NOW WAITING ON [facility] TO RECEIVE INSURANCE AUTHORIZATION FOR PT TO RETURN TO SKILLED CARE BED. Mihai Monroe, CASE MANAGEMENT DCP- Discharge Planning Updated by [id number]: Mihai Monroe on 01/18/20 8:[address] Patient Name: YEMI DAVID Encounter No: [id number] : 1985 Primary Insurance: [employer] MEDICAID Anticipated DC Date: 01-14-2020 Planned Disposition: [facility] Facility External Planned Provider: [facility], SKILLED MEDICAID BED Discharge Planning Comments: CM REVIEWED CHART, PT'S COVID 19 TESTING RESULT IN CHART. CM FAXED UPDATE WITH TESTING RESULT TO [facility] AT [phone]. CALLED TO [facility] AT [phone], SPOKE TO JASON WHO WILL REVIEW RESULTS OF TESTING AND CALL CM BACK. NURSE REPORT TO BE CALLED TO [facility] AT [phone]. [facility] TO ARRANGE VAN TRANSPORT. Blood And Plasma Laboratory Assistant: Mihai Monroe DCP- Discharge Planning Updated by [id number]: Mihai Monroe on 01/14/20 2:[address] Patient Name: YEMI DAVID Admission Status: ER Accout number: [id number] Admission Date: 01-11-2020 : 1985 Admission Diagnosis: Attending: ALLISON KNIGHT Current LOS: 3 Anticipated DC Date: 01-14-2020 Planned Disposition: [facility] Facility Primary Insurance: [employer] MEDICAID PLANNED EXTERNAL PROVIDER: [facility], SKILLED MEDICAID BED Discharge Planning Comments: CM RECEIVED DISCHARGE ORDER, SPOKE TO BEDSIDE NURSE AND PATIENT, PT REPORTS AGREEMENT WITH DISCHARGE PLAN AND CAN SIT FOR VAN TRANPORT. CM CALLED AND SPOKE TO JASON AT [facility], , JASON REPORTS THAT THEY CANNOT ACCEPT PT BACK UNTIL COVID19 TESTING RESULT HAS BEEN RETURNED NEGATIVE. ARLEEN DISCUSSED THAT CHIEF OF FIELD OPERATIONS INDICATED THAT PT DOES NOT HAVE COVID19 AND RECOMMENDED REMOVAL FROM ISOLATION; JASON TRANSFERRED CALL TO KATHRYN, NAIL SETTER FOR [facility] WHO REPORTED THIS TO BE THEIR CORPORATE POLICY. CM NOTIFIED HORTICULTURE INSTRUCTOR NURSE AND CM DIRECTOR BELLE. [facility] WILL NOT ACCEPT BACK UNTIL COVID19 TESTING RECEIVED AND NEGATIVE. FOR DISCHARGE, [facility] WILL CALL FACILITY FOR VEBAL COVID19 SCREENING QUESTIONAIRE PRIOR TO PT'S RETURN. NURSE REPORT TO BE CALLED TO [facility] AT [phone]. FAX DISCHARGE INFORMATION TO [facility] AT [phone]. [facility] TO ARRANGE VAN TRANSPORT. Blood And Plasma Laboratory Assistant: Mihai Monroe [facility]- Discharge Planning Updated by [id number]: Mihai Monroe on 01/14/20 11:[address] Patient Name: YEMI DAVID Encounter No: [id number] : 1985 Primary Insurance: [employer] MEDICAID Anticipated DC Date: Planned Disposition: [facility] Facility External Planned Provider: [facility] SKILLED MEDICAID BED Discharge Planning Comments: CM SPOKE TO JASON AT [facility], PT IN SKILLED BED AND WILL RETURN TO SKILLED BED AT DISCHARGE. JASON INFORMED THAT SHE WILL CALL ON DAY OF DISCHARGE AND HAS TO COMPLETE A COVID19 SCREENING VIA PHONE PRIOR TO PT'S RETURN TO FACILITY, UNLESS TESTING HAS RETURNED. FOR DISCHARGE, [facility] WILL CALL FACILITY FOR VEBAL COVID19 SCREENING QUESTIONAIRE PRIOR TO PT'S RETURN. NURSE REPORT TO BE CALLED TO [facility] AT [phone]. FAX DISCHARGE INFORMATION TO [facility] AT [phone]. [facility] TO ARRANGE VAN TRANSPORT IF PT IS ABLE TO SIT SAFELY FOR TRANSPORT. Blood And Plasma Laboratory Assistant: Mihai Monroe [facility]- Discharge Planning Updated by [id number]: Mihai Monroe on 01/13/20 10:[address] Patient Name: YEMI DAVID Encounter No: [id number] : 1985 Primary Insurance: [employer] MEDICAID Anticipated DC Date: Planned Disposition: Nursing Facility [facility] External Planned Provider:[facility], SKILLED MEDICAID BED Discharge Planning Comments: CM SPOKE TO JSAON AT [facility], PT IN SKILLED BED AND WILL RETURN TO SKILLED BED AT DISCHARGE. JASON REQUESTED MICROBIOLOGY RESULTS. ARLEEN FAXED UPDATE INFORMATION TO [facility] AT [phone]. FOR DISCHARGE, [facility] WILL CALL FACILITY FOR MARY BERRIOS PRIOR TO PT'S RETURN. NURSE REPORT TO BE CALLED TO [facility] AT [phone]. FAX DISCHARGE INFORMATION TO [facility] AT [phone]. [facility] TO ARRANGE VAN TRANSPORT IF PT IS ABLE TO SIT SAFELY FOR TRANSPORT. Blood And Plasma Laboratory Assistant: Mihai Monroe DCP- Discharge Planning Updated by [id number]: Mihai Monroe on 01/13/20 9:[address] Patient Name: YEMI DAVID Admission Status: ER Accout number: [id number] Admission Date: 01-11-2020 : 1985 Admission Diagnosis: Attending: ALLISON KNIGHT Current LOS: 2 Anticipated DC Date: Planned Disposition: Nursing Facility [facility] Primary Insurance: [employer] MEDICAID PLANNED EXTERNAL PROVIDER: [facility], ASSISTED CARE MEDICAID BED Discharge Planning Comments: CM SPOKE TO PT VIA ROOM PHONE TO DISCUSS DISCHARGE PLANNING AND NEEDS. PT REPORTS LIVING AT [facility], HE HAS BEEN THERE FOR TWO WEEKS NOW. PT USES A SHOWER CHAIR, ROLLING WALKER AND WHEELCHAIR. PT REPORTS HAVING ASSISTANCE WITH GETTING UP OUT OF BED, TOILETING, SHOWERING AND PT DENIES DISCHARGE NEEDS, REPORTS PLAN TO RETURN TO [facility] AT DISCHARGE. CHOICE LETTER COMPLETED. CM VERIFIED BED STATUS WITH JASON [facility]. CM FAXED UPDATE INFORMATION TO [facility] AT [phone]. FOR DISCHARGE, NURSE REPORT TO BE CALLED TO [facility] AT [phone]. FAX DISCHARGE INFORMATION TO [facility] AT [phone]. [facility] TO ARRANGE VAN TRANSPORT IF PT IS ABLE TO SIT SAFELY FOR TRANSPORT. Blood And Plasma Laboratory Assistant: Mihai Monroe DCPIA - Discharge Planning Initial Assessment Updated by [id number]: Mihai Monroe on 01/13/20 10:17 am * Is the patient Alert and Oriented? Yes * How many steps to enter\exit or inside your home? NONE * PCP DOCTOR FOR [facility] * Pharmacy [facility]Y FOR [facility] * Preadmission Environment Escrow Manager Assisted * Facility Name [facility] * ADLs Partial Dependent * Partial ADLs (Assistance needed) Bathing Medication Management Toileting Transfers * Equipment Shower Chair Walker Wheelchair * Other Equipment ALL MEDICAL EQUIPMENT PROVIDED BY FACILITY * List name and contact numbers for known caregivers / representatives who currently or will assist patient after discharge: PERCY CRUMPER, * Verbal permission to speak to the caregivers and representatives has been obtained from the patient. N/A * Community resources currently utilized None * Please name any agencies selected above. NONE * Additional services required to return to the preadmission environment? No * Can the patient safely return to the preadmission environment? Yes * Has this patient been hospitalized within the prior 30 days at any hospital? Yes Coverage Notice Reviewer: [id number] Abdullahi Monroe Notice Issued Date-Time: 01/13/2020 9:57 Notice Type: Patient Choice Letter Notice Delivered To: Patient Relationship to Patient: Cook Vegetable Name: Delivery Method: HAND - Hand Delivered Judy Days: Prior Verbal Notification: Recipient Understood Notice: Yes Recipient Signature: Yes Med Rec Note Co-signed by Attending: Coverage Notice Comment: [facility] Last DP export: 01/21/20 2:56 p Patient Name: YEMI DAVID Page [phone] at 0832 All edits/amendments must be made on the electronic document DICTATION DATE: 01/22/20830 FIRST CALENDER WORKER: CHIO 01/22/20830 RPT#: [id number] DC DATE: STATUS: ADM IN [facility] [address] [place] [address] END OF REPORT
[2020-01-22 08:48] VITALS: BP 105/72
--- NOTE | 2020-01-22 09:00 | NUR ---
AM ROUNDS COMPLETED. INTRODUCED MYSELF TO PT PRIMARY RN FOR TODAYS SHIFT. PT IS A&O SITTING UP IN BED RESTING QUIETLY. SHIFT ASSESSMENT COMPLETED. PT STATES HE SLEPT OKAY HES JUST VERY TIRED AND WOULD LIKE TO REST. PT ATE 75% OF HIS BREAKFAST. PT STATES HE IS SUPPOSED TO BE DISCHARGED TODAY AND I'VE DISCUSSED WITH CASE MANAGEMENT AND WE ARE STILL WORKING ON HIS PLACEMENT. NO IMMEDIATE NEEDS AT THIS TIME. CL IN REACH, BED IN LOWEST, SIDE RAILS X2. WILL CPOC.
--- NOTE | 2020-01-22 10:50 | NUR ---
PT C/O GENERALIZED PAIN ALL OVER, REQUESTING AND PROVIDED WITH HIS PRN PERCOCET. PT VOICED THANKS AND IS JUST RESTING QUIETLY LYING IN BED ON HIS L.SIDE. PT DENIES ANY FURTHER NEEDS AT THIS TIME. CL IN REACH, BED IN LOWEST, SIDE RAILS X2. WILL CTM.
[2020-01-22 12:18] VITALS: BP 112/73
--- NOTE | 2020-01-22 12:57 | MORECARE ---
CASE MANAGEMENT DISCHARGE SUMMARY PATIENT: YEMI DAVID UNIT: [id number] ADM DATE: 01/11/20 AGE: 34 : [birth year] SEX: M ROOM/BED: D.2111 AUTHOR: PAM JOSE PHYSICIAN: REFERRING PHYSICIAN: ALLISON KNIGHT MD DATE OF SERVICE: 01/22/20 Discharge Plan Patient Name: YEMI DAVID Facility: [facility]:[place] : 1985 Planned Disposition: Penitentiary Facility Anticipated Discharge Date: 01/22/20 Discharge Date: Expected LOS: 11 Initial Reviewer: [id number] Initial Review Date: 01/13/2020 Generated: 01/22/20 1:57 pm Comments DCP- Discharge Planning Updated by [id number]: Mihai Monroe on 01/22/20 11:[address] Patient Name: YEMI DAVID Encounter No: [id number] : 1985 Primary Insurance: [employer] MA[employer]GED MEDICAID Anticipated DC Date: 01-22-2020 Planned Disposition: Penitentiary Facility External Planned Provider: [facility], SKILLED MEDICAID BED DCP follow-up note: CM RECEIVED CALL FROM [facility] AT [phone], THEY ARE ACCEPTING PT TODAY AND WILL ARRANGE VAN PRODUCTION UTILITY WORKER. PT NOTIFIED. BEDSIDE NURSE NOTIFIED. STRUCTURAL STEEL FITTER NURSE NOTIFIED. CM FAXED DISCHARGE ORDER AND INFORMATION TO [facility] AT [phone]. NURSE REPORT TO BE CALLED TO [facility], . [facility] ARRANGING VAN PRODUCTION UTILITY WORKER FOR TODAY. Mihai Monroe CASE MANAGEMENT DCP- Discharge Planning Updated by [id number]: Mihai Monroe on 01/21/20 2:[address] Patient Name: YEMI DAVID Encounter No: [id number] : 1985 Primary Insurance: [employer] MA[employer]GED MEDICAID Anticipated DC Date: 01-21-2020 Planned Disposition: Penitentiary Facility External Planned Provider: [facility], SKILLED MEDICAID BED DCP follow-up note: CM SPOKE TO BEDSIDE NURSE WHO INFORMED CM THAT [facility] DID NOT PRODUCTION UTILITY WORKER PT AGREED AND SHE CALLED FACILITY WHO INFORMED NURSE THAT PT IS NOT GOING BACK TO [facility], BUT TO [facility] [place]. CM CALLED [facility], , SPOKE TO CHILDCARE ATTENDANT WHO INFORMED CM THAT THEIR CORPORATE OFFICE HAS JUST REACHED DECISION THAT ALL PATIENTS WITH RESPIRATORY SYPTOMS WILL GO TO [facility]. JASON OF [facility] PROVIDED CM WITH CONTACT INFORMATION TO CALL [facility] AT [phone]. PT NOTIFIED. BEDSIDE NURSE NOTIFIED. CM CALLED [facility] AT [phone], WHO WILL CHECK TO SEE IF THERE IS ANYTHING ELSE THEY NEED AND WILL CALL CM BACK IN 10 - 15 MINUTES. CM RECEIVED TELEPHONE MESSAGE FROM [facility], . CM CALLED FRAN WHO INFORMED CM THAT SHE NEEDS PT'S NEGATIVE COVID19 TESTING RESULTS FAXED TO HER AND THEY ARE TRYING TO GET EVERYTHING FOR PT TO BE TRANSPORTED TODAY, BUT CANNOT PROMISE THIS. CM FAXED COVID19 TESTING RESULTS TO [facility] AT [phone]. [facility] ADVISED THAT PT WILL NOT BE ALLOWED TO SMOKE AND WILL BE QUARANTINED FOR 14 DAYS PRIOR TO BEING RETURNED TO [facility]. CM WAITING [facility] TO CALL TO ACCEPT PT AND PROVIDE TRANSPORTATION ARRANGEMENT INFORMATION. Mihai Monroe, CASE MANAGEMENT DCP- Discharge Planning Updated by [id number]: Mihai Monroe on 01/21/20 8:[address] Patient Name: YEMI DAVID Encounter No: [id number] : 1985 [facility] Anticipated DC Date: 01-21-2020 Planned Disposition: Penitentiary Facility External Planned Provider: [facility], SKILLED MEDICAID BED DCP follow-up note: CM RECEIVED CALL FROM JASON OF [facility], THEY HAVE RECEIVED INSURANCE AUTHORIZATION AND WILL PRODUCTION UTILITY WORKER PT AT 1330 HOURS TODAY. CM NOTIFED PT WHO IS IN AGREEMENT WITH DISCHARGE BACK TO REHAB TODAY; CM NOTIFIED STRUCTURAL STEEL FITTER NURSE AND CM FAXED NEW DISCHARGE ORDER TO [facility], . NURSE REPORT TO BE CALLED TO [facility], , VAN TO PRODUCTION UTILITY WORKER TODAY AT 1330 HOURS. Mihai Monroe CASE MANAGEMENT DCP- Discharge Planning Updated by [id number]: Mihai Monroe on 01/20/20 3:[address] Patient Name: YEMI DAVID Encounter No: [id number] : 1985 Primary Insurance: [employer] MA[employer]GED MEDICAID Anticipated DC Date: 01-20-2020 Planned Disposition: Penitentiary Facility External Planned Provider: [facility], SKILLED MEDICAID BED DCP follow-up note: CM FAXED UDPATE AND DISCHARGE INFORMATION TO [facility], . CM WAITING ON [facility] TO RECEIVE INSURANCE AUTHORIZATION FOR PT TO RETURN TO SKILLED CARE BED. Mihai Monroe, CASE MANAGEMENT Appended by Mihai Monroe on 01/20/2020 16:58 CDT: CM CALLED AND SPOKE TO JASON OF [facility], , WHO REPORTS CALLING THE INSURANCE SEVERAL TIMES TODAY AND THAT THE INSURANCE COMPANY IS BLAMING THE DELAY OF REVIEW FOR AUTHORIZATION ON . BEDSIDE NURSE UPDATED. CM WAITING ON [facility] TO RECEIVE INSURANCE AUTHORIZATION FOR PT TO RETURN TO SKILLED CARE BED. Mihai Monroe CASE MANAGEMENT DCP- Discharge Planning Updated by [id number]: Mihai Monroe on 01/19/20 3:[address] Patient Name: YEMI DAVID Encounter No: [id number] : 1985 Primary Insurance: [employer] MA[employer]GED MEDICAID Anticipated DC Date: 01-14-2020 Planned Disposition: Penitentiary Facility External Planned Provider: [facility], SKILLED MEDICAID BED DCP follow-up note: CM CALLED AND SPOKE TO RICKY CANDELARIO OF [facility], WHO REPORTS THAT SHE JUST SPOKE TO INSURANCE WHO HAS NOT YET COMPLETED REVIEW AND PROVIDED AUTHORIZATION FOR PT'S SKILLED RETURN OF THIS TIME. THEY EXPECT TO HAVE INSURANCE AUTHORIZATION TOMORROW AND WILL NOT ACCEPT PT BACK UNTIL AUTHORIZATION IS RECEIVED FROM PT'S INSURANCE. BEDSIDE NURSE NOTIFIED. CM NOW WAITING ON [facility] TO RECEIVE INSURANCE AUTHORIZATION FOR PT TO RETURN TO SKILLED CARE BED. Mihai Monroe CASE MANAGEMENT DCP- Discharge Planning Updated by [id number]: Mihai Monroe on 01/18/20 1:[address] Patient Name: YEMI DAVID Encounter No: [id number] : 1985 Primary Insurance: [employer] MA[employer]GED MEDICAID Anticipated DC Date: 01-14-2020 Planned Disposition: Penitentiary Facility External Planned Provider: [facility], SKILLED MEDICAID BED DCP follow-up note: CM SPOKE TO STRUCTURAL STEEL FITTER NURSE WHO INFORMED CM THAT THE FACILITY TOLD THE NURSE THEY WOULD BE HERE OVER ONE HOUR AGO AND ASKED FOR UPDATE. CM CALLED AND SPOKE TO A NURSE, THEN [facility]AS[facility] OF ADMISSIONS AND FINALLY, CHILDCARE ATTENDANT. [facility] SUBMITTED FOR INSURANCE AUTHORIZATION AND NOW WILL NOT ACCEPT PT BACK UNTIL AUTHORIZATION IS RECEIVED FROM PT'S INSURANCE AND THIS COULD TAKE UP TO 24 HOURS PER THE CHILDCARE ATTENDANT. STRUCTURAL STEEL FITTER NURSE NOTIFIED. CM NOW WAITING ON [facility] TO RECEIVE INSURANCE AUTHORIZATION FOR PT TO RETURN TO SKILLED CARE BED. Mihai Monroe, CASE MANAGEMENT DCP- Discharge Planning Updated by [id number]: Mihai Monroe on 01/18/20 8:[address] Patient Name: YEMI DAVID Encounter No: [id number] : 1985 Primary Insurance: [employer] MA[employer]GED MEDICAID Anticipated DC Date: 01-14-2020 Planned Disposition: Penitentiary Facility External Planned Provider: [facility], SKILLED MEDICAID BED Discharge Planning Comments: CM REVIEWED CHART, PT'S COVID 19 TESTING RESULT IN CHART. CM FAXED UPDATE WITH TESTING RESULT TO [facility] AT [phone]. CALLED TO [facility] AT [phone], SPOKE TO [facility] WHO WILL REVIEW RESULTS OF TESTING AND CALL CM BACK. NURSE REPORT TO BE CALLED TO [facility] AT [phone]. [facility] TO ARRANGE VAN TRANSPORT. Inspection And Testing Supervisor: Mihai Monroe DCP- Discharge Planning Updated by [id number]: Mihai Monroe on 01/14/20 2:[address] Patient Name: YEMI DAVID Admission Status: ER Accout number: [id number] Admission Date: 01-11-2020 : 1985 Admission Diagnosis: Attending: ALLISON KNIGHT Current LOS: 3 Anticipated DC Date: 01-14-2020 Planned Disposition: Penitentiary Facility Primary Insurance: [employer] MANAGED MEDICAID PLANNED EXTERNAL PROVIDER: [facility], SKILLED MEDICAID BED Discharge Planning Comments: CM RECEIVED DISCHARGE ORDER, SPOKE TO BEDSIDE NURSE AND PATIENT, PT REPORTS AGREEMENT WITH DISCHARGE PLAN AND CAN SIT FOR VAN TRANPORT. CM CALLED AND SPOKE TO JASON AT [facility], , JASON REPORTS THAT THEY CANNOT ACCEPT PT BACK UNTIL COVID19 TESTING RESULT HAS BEEN RETURNED NEGATIVE. ARLEEN DISCUSSED THAT VITAMIN MANAGER INDICATED THAT PT DOES NOT HAVE COVID19 AND RECOMMENDED REMOVAL FROM ISOLATION; JASON TRANSFERRED CALL TO KATHRYN, CHILDCARE ATTENDANT FOR [facility] WHO REPORTED THIS TO BE THEIR CORPORATE POLICY. CM NOTIFIED STRUCTURAL STEEL FITTER NURSE AND CM DIRECTOR BELLE. [facility] WILL NOT ACCEPT BACK UNTIL COVID19 TESTING RECEIVED AND NEGATIVE. FOR DISCHARGE, [facility] WILL CALL FACILITY FOR VEBAL COVID19 SCREENING QUESTIONAIRE PRIOR TO PT'S RETURN. NURSE REPORT TO BE CALLED TO [facility] AT [phone]. FAX DISCHARGE INFORMATION TO [facility] AT [phone]. [facility] TO ARRANGE VAN TRANSPORT. Inspection And Testing Supervisor: Mihai Monroe [facility]- Discharge Planning Updated by [id number]: Mihai Monroe on 01/14/20 11:[address] Patient Name: YEMI DAVID Encounter No: [id number] : 1985 Primary Insurance: [employer] MANAGED MEDICAID Anticipated DC Date: Planned Disposition: Penitentiary Facility External Planned Provider: [facility], SKILLED MEDICAID BED Discharge Planning Comments: CM SPOKE TO JASON AT [facility], PT IN SKILLED BED AND WILL RETURN TO SKILLED BED AT DISCHARGE. [facility] INFORMED CM THAT SHE WILL CALL CM ON DAY OF DISCHARGE AND HAS TO COMPLETE A COVID19 SCREENING VIA PHONE PRIOR TO PT'S RETURN TO FACILITY, UNLESS TESTING HAS RETURNED. FOR DISCHARGE, [facility] WILL CALL FACILITY FOR VEBAL COVID19 SCREENING QUESTIONAIRE PRIOR TO PT'S RETURN. NURSE REPORT TO BE CALLED TO [facility] AT [phone]. FAX DISCHARGE INFORMATION TO [facility] AT [phone]. [facility] TO ARRANGE VAN TRANSPORT IF PT IS ABLE TO SIT SAFELY FOR TRANSPORT. Inspection And Testing Supervisor: Mihai Monroe [facility]- Discharge Planning Updated by [id number]: Mihai Monroe on 01/13/20 10:[address] Patient Name: YEMI DAVID Encounter No: [id number] : 1985 Primary Insurance: [employer] MANAGED MEDICAID Anticipated DC Date: Planned Disposition: Nursing Facility [facility] Cert External Planned Provider:[facility], SKILLED MEDICAID BED Discharge Planning Comments: ARLEEN SPOKE TO JASON AT [facility], PT IN SKILLED BED AND WILL RETURN TO SKILLED BED AT DISCHARGE. JASON REQUESTED MICROBIOLOGY RESULTS. CM FAXED UPDATE INFORMATION TO [facility] AT [phone]. FOR DISCHARGE, [facility] WILL CALL FACILITY FOR VEBAL SCREENING QUESTIONAIRE PRIOR TO PT'S RETURN. NURSE REPORT TO BE CALLED TO [facility] AT [phone]. FAX DISCHARGE INFORMATION TO [facility] AT [phone]. [facility] TO ARRANGE VAN TRANSPORT IF PT IS ABLE TO SIT SAFELY FOR TRANSPORT. Inspection And Testing Supervisor: Mihai Monroe [facility]- Discharge Planning Updated by [id number]: Mihai Monroe on 01/13/20 9:[address] Patient Name: YEMI DAVID Admission Status: ER Accout number: [id number] Admission Date: 01-11-2020 : 1985 Admission Diagnosis: Attending: ALLISON KNIGHT Current LOS: 2 Anticipated DC Date: Planned Disposition: Nursing Facility [facility] Primary Insurance: [employer] MANAGED MEDICAID PLANNED EXTERNAL PROVIDER: [facility], [facility] CARE MEDICAID BED Discharge Planning Comments: CM SPOKE TO PT VIA ROOM PHONE TO DISCUSS DISCHARGE PLANNING AND NEEDS. PT REPOR[facility], HE HAS BEEN THERE FOR TWO WEEKS NOW. PT USES A SHOWER CHAIR, ROLLING WALKER AND WHEELCHAIR. PT REPORTS HAVING ASSISTANCE WITH GETTING UP OUT OF BED, TOILETING, SHOWERING AND PT DENIES DISCHARGE NEEDS, REPORTS PLAN TO RETURN TO [facility] AT DISCHARGE. CHOICE LETTER COMPLETED. ARLEEN VERIFIED BED STATUS WITH JOSE. CM FAXED UPDATE INFORMATION TO [facility] AT [phone]. FOR DISCHARGE, NURSE REPORT TO BE CALLED TO [facility] AT [phone]. FAX DISCHARGE INFORMATION TO [facility] AT [phone]. [facility] TO ARRANGE VAN TRANSPORT IF PT IS ABLE TO SIT SAFELY FOR TRANSPORT. Inspection And Testing Supervisor: Mhiai Monroe [facility] - Discharge Planning Initial Assessment Updated by ALIRIO: Mihai Monroe on 01/13/20 10:17 am * Is the patient Alert and Oriented? Yes * How many steps to enter\exit or inside your home? NONE * PCP DOCTOR FOR [facility] * Pharmacy [facility] * Preadmission Environment [facility] * [facility] * ADLs Partial Dependent * Partial ADLs (Assistance needed) Bathing Medication Management Toileting Transfers * Equipment Shower Chair Walker Wheelchair * Other Equipment ALL MEDICAL EQUIPMENT PROVIDED BY FACILITY * List name and contact numbers for known caregivers / representatives who currently or will assist patient after discharge: JAVIER DAVID, BROTHER, * Verbal permission to speak to the caregivers and representatives has been obtained from the patient. N/A * Community resources currently utilized None * Please name any agencies selected above. NONE * Additional services required to return to the preadmission environment? No * Can the patient safely return to the preadmission environment? Yes * Has this patient been hospitalized within the prior 30 days at any hospital? Yes Coverage Notice Reviewer: [id number] - Mihai Monroe Notice Issued Date-Time: 01/13/2020 9:57 Notice Type: Patient Choice Letter Notice Delivered To: Patient Relationship to Patient: Subway Repair Supervisor Name: Delivery Method: HAND - Hand Delivered Judy Days: Prior Verbal Notification: Recipient Understood Notice: Yes Recipient Signature: Yes Med Rec Note Co-signed by Attending: Coverage Notice Comment: [facility] Last DP export: 01/22/20 7:31 a Patient Name: YEMI DAVID Page [phone] at 1257 All edits/amendments must be made on the electronic document DICTATION DATE: 01/22/201255 RESIDENT INTERN: CHIO 01/22/20 125 RPT#: [id number] DC DATE: STATUS: ADM IN [facility] [address] [place] [address] END OF REPORT
--- NOTE | 2020-01-22 13:09 | NUR ---
PT C/O HIS STOMACH CRAMPING AFTER LUNCH AND HIS SKIN ITCHING. PROVIDED PT WITH PRN ZOFRAN AND BENADRYL REQUESTED. PT VOICED THANKS AND IS RESTING QUIETLY IN BED, STILL WAITING TO BE PICKED UP BY [place] [facility]. CL IN REACH, BED IN LOWEST, SIDE RAILS X2. WILL CPOC.
--- NOTE | 2020-01-22 13:50 | NUR ---
D/C PTS L.FA PIV WITH CATHETER TIP FULLY INTACT. DISCHARGE PAPERS SIGNED AND IN CHART. ALL BELONGINGS COLLECTED. [facility] IS SUPPOSED TO BE HERE SHORTLY. NO FURTHER NEEDS AT THIS TIME.
--- NOTE | 2020-01-22 14:13 | MORECARE ---
CASE MANAGEMENT DISCHARGE SUMMARY PATIENT: YEMI DAVID UNIT: [id number] ADM DATE: 01/11/20 AGE: 34 : 87 SEX: M ROOM/BED: D.2111 AUTHOR: PAM JOSE PHYSICIAN: REFERRING PHYSICIAN: ALLISON KNIGHT MD DATE OF SERVICE: 01/22/20 Discharge Plan Patient Name: YEMI DAVID Facility: [facility]:[place] : 1985 Planned Disposition: Correction Facility Anticipated Discharge Date: 01/22/20 Discharge Date: Expected LOS: 11 Initial Reviewer: [id number] Initial Review Date: 01/13/2020 Generated: 01/22/20 3:12 pm Comments DCP- Discharge Planning Updated by [id number]: Mihai Monroe on 01/22/20 11:[address] Patient Name: YEMI DAVID Encounter No: [id number] : 1985 Primary Insurance: [employer] MA[employer]GED MEDICAID Anticipated DC Date: 01-22-2020 Planned Disposition: Correction Facility External Planned Provider: [facility], SKILLED MEDICAID BED DCP follow-up note: CM RECEIVED CALL FROM [facility] AT [phone], THEY ARE ACCEPTING PT TODAY AND WILL ARRANGE VAN ORACLE APPLICATION ARCHITECT. PT NOTIFIED. BEDSIDE NURSE NOTIFIED. FACULTY CRIMINAL JUSTICE NURSE NOTIFIED. CM FAXED DISCHARGE ORDER AND INFORMATION TO [facility] AT [phone]. NURSE REPORT TO BE CALLED TO [facility], . [facility] ARRANGING VAN ORACLE APPLICATION ARCHITECT FOR TODAY. Mihai Monroe CASE MANAGEMENT DCP- Discharge Planning Updated by [email or web address]: Mihai Monroe on 01/21/20 2:[address] Patient Name: YEMI DAVID Encounter No: [id number] : 1985 Primary Insurance: [employer] MA[employer]GED MEDICAID Anticipated DC Date: 01-21-2020 Planned Disposition: Correction Facility External Planned Provider: [facility], SKILLED MEDICAID BED DCP follow-up note: CM SPOKE TO BEDSIDE NURSE WHO INFORMED CM THAT [facility] DID NOT ORACLE APPLICATION ARCHITECT PT AGREED AND SHE CALLED FACILITY WHO INFORMED NURSE THAT PT IS NOT GOING BACK TO [facility], BUT TO [facility] [place]. CM CALLED [facility], , SPOKE TO ACCOUNT MANAGER SALES REPRESENTATIVE WHO INFORMED CM THAT THEIR CORPORATE OFFICE HAS JUST REACHED DECISION THAT ALL PATIENTS WITH RESPIRATORY SYPTOMS WILL GO TO [facility]. JASON OF [facility] PROVIDED CM WITH CONTACT INFORMATION TO CALL [facility] AT [phone]. PT NOTIFIED. BEDSIDE NURSE NOTIFIED. CM CALLED [facility] AT [phone], WHO WILL CHECK TO SEE IF THERE IS ANYTHING ELSE THEY NEED AND WILL CALL CM BACK IN 10 - 15 MINUTES. CM RECEIVED TELEPHONE MESSAGE FROM [facility], . CM CALLED FRAN WHO INFORMED CM THAT SHE NEEDS PT'S NEGATIVE COVID19 TESTING RESULTS FAXED TO HER AND THEY ARE TRYING TO GET EVERYTHING FOR PT TO BE TRANSPORTED TODAY, BUT CANNOT PROMISE THIS. CM FAXED COVID19 TESTING RESULTS TO [facility] AT [phone]. FRAN ADVISED THAT PT WILL NOT BE ALLOWED TO SMOKE AND WILL BE QUARANTINED FOR 14 DAYS PRIOR TO BEING RETURNED TO [facility]. CM WAITING [facility] TO CALL TO ACCEPT PT AND PROVIDE TRANSPORTATION ARRANGEMENT INFORMATION. Mihai Monroe, CASE MANAGEMENT DCP- Discharge Planning Updated by [id number]: Mihai Monroe on 01/21/20 8:[address] Patient Name: YEMI DAVID Encounter No: [id number] : 1985 Primary [facility] Anticipated DC Date: 01-21-2020 Planned Disposition: Correction Facility External Planned Provider: [facility], SKILLED MEDICAID BED DCP follow-up note: CM RECEIVED CALL FROM JASON OF [facility], THEY HAVE RECEIVED INSURANCE AUTHORIZATION AND WILL ORACLE APPLICATION ARCHITECT PT AT 1330 HOURS TODAY. CM NOTIFED PT WHO IS IN AGREEMENT WITH DISCHARGE BACK TO REHAB TODAY; CM NOTIFIED FACULTY CRIMINAL JUSTICE NURSE AND CM FAXED NEW DISCHARGE ORDER TO [facility], . NURSE REPORT TO BE CALLED TO [facility], , VAN TO ORACLE APPLICATION ARCHITECT TODAY AT 1330 HOURS. Mihai Monroe CASE MANAGEMENT DCP- Discharge Planning Updated by [id number]: Mihai Monroe on 01/20/20 3:[address] Patient Name: YEMI DAVID Encounter No: [id number] : 1985 Primary Insurance: [employer]YS MANAGED MEDICAID Anticipated DC Date: 01-20-2020 Planned Disposition: Correction Facility External Planned Provider: [facility], SKILLED MEDICAID BED DCP follow-up note: CM FAXED UDPATE AND DISCHARGE INFORMATION TO [facility], . CM WAITING ON [facility] TO RECEIVE INSURANCE AUTHORIZATION FOR PT TO RETURN TO SKILLED CARE BED. Mihai Monroe, CASE MANAGEMENT Appended by Mihai Monroe on 01/20/2020 16:58 CDT: CM CALLED AND SPOKE TO JASON OF [facility], , WHO REPORTS CALLING THE INSURANCE SEVERAL TIMES TODAY AND THAT THE INSURANCE COMPANY IS BLAMING THE DELAY OF REVIEW FOR AUTHORIZATION ON . BEDSIDE NURSE UPDATED. CM WAITING ON [facility] TO RECEIVE INSURANCE AUTHORIZATION FOR PT TO RETURN TO SKILLED CARE BED. Mihai Monroe CASE MANAGEMENT DCP- Discharge Planning Updated by [id number]: Mihai Monroe on 01/19/20 3:[address] Patient Name: YEMI DAVID Encounter No: [id number] : 1985 Primary Insurance: [employer]YS MANAGED MEDICAID Anticipated DC Date: 01-14-2020 Planned Disposition: Correction Facility External Planned Provider: [facility], SKILLED MEDICAID BED DCP follow-up note: CM CALLED AND SPOKE TO RICKY CANDELARIO OF [facility], WHO REPORTS THAT SHE JUST SPOKE TO INSURANCE WHO HAS NOT YET COMPLETED REVIEW AND PROVIDED AUTHORIZATION FOR PT'S SKILLED RETURN OF THIS TIME. THEY EXPECT TO HAVE INSURANCE AUTHORIZATION TOMORROW AND WILL NOT ACCEPT PT BACK UNTIL AUTHORIZATION IS RECEIVED FROM PT'S INSURANCE. BEDSIDE NURSE NOTIFIED. CM NOW WAITING ON [facility] TO RECEIVE INSURANCE AUTHORIZATION FOR PT TO RETURN TO SKILLED CARE BED. Mihai Monroe CASE MANAGEMENT DCP- Discharge Planning Updated by [id number]: Mihai Monroe on 01/18/20 1:[address] Patient Name: YEMI DAVID Encounter No: [id number] : 1985 Primary Insurance: [employer] MANAGED MEDICAID Anticipated DC Date: 01-14-2020 Planned Disposition: Correction Facility External Planned Provider: [facility], SKILLED MEDICAID BED DCP follow-up note: CM SPOKE TO FACULTY CRIMINAL JUSTICE NURSE WHO INFORMED CM THAT THE FACILITY TOLD THE NURSE THEY WOULD BE HERE OVER ONE HOUR AGO AND ASKED FOR UPDATE. CM CALLED AND SPOKE TO A NURSE, THEN JASON OF ADMISSIONS AND FINALLY, ACCOUNT MANAGER SALES REPRESENTATIVE. [facility] SUBMITTED FOR INSURANCE AUTHORIZATION AND NOW WILL NOT ACCEPT PT BACK UNTIL AUTHORIZATION IS RECEIVED FROM PT'S INSURANCE AND THIS COULD TAKE UP TO 24 HOURS PER THE ACCOUNT MANAGER SALES REPRESENTATIVE. FACULTY CRIMINAL JUSTICE NURSE NOTIFIED. CM NOW WAITING ON [facility] TO RECEIVE INSURANCE AUTHORIZATION FOR PT TO RETURN TO SKILLED CARE BED. Mihai Monroe, CASE MANAGEMENT DCP- Discharge Planning Updated by [id number]: Mihai Monroe on 01/18/20 8:[address] Patient Name: YEMI DAVID Encounter No: [id number] : 1985 Primary Insurance: [employer] MANAGED MEDICAID Anticipated DC Date: 01-14-2020 Planned Disposition: Correction Facility External Planned Provider: [facility], SKILLED MEDICAID BED Discharge Planning Comments: CM REVIEWED CHART, PT'S COVID 19 TESTING RESULT IN CHART. CM FAXED UPDATE WITH TESTING RESULT TO [facility] AT [phone]. CALLED TO [facility] AT [phone], SPOKE TO JASON WHO WILL REVIEW RESULTS OF TESTING AND CALL CM BACK. NURSE REPORT TO BE CALLED TO [facility] AT [phone]. [facility] TO ARRANGE VAN TRANSPORT. Plaster Machine Tender: Mihai Monroe DCP- Discharge Planning Updated by [id number]: Mihai Monroe on 01/14/20 2:[address] Patient Name: YEMI DAVID Admission Status: ER Accout number: [id number] Admission Date: 01-11-2020 : 1985 Admission Diagnosis: Attending: ALLISON KNIGHT Current LOS: 3 Anticipated DC Date: 01-14-2020 Planned Disposition: Correction Facility Primary Insurance: [employer] MANAGED MEDICAID PLANNED EXTERNAL PROVIDER: [facility], SKILLED MEDICAID BED Discharge Planning Comments: CM RECEIVED DISCHARGE ORDER, SPOKE TO BEDSIDE NURSE AND PATIENT, PT REPORTS AGREEMENT WITH DISCHARGE PLAN AND CAN SIT FOR VAN TRANPORT. CM CALLED AND SPOKE TO JASON AT [facility], , JASON REPORTS THAT THEY CANNOT ACCEPT PT BACK UNTIL COVID19 TESTING RESULT HAS BEEN RETURNED NEGATIVE. ARLEEN DISCUSSED THAT CREDIT UNION EXAMINER INDICATED THAT PT DOES NOT HAVE COVID19 AND RECOMMENDED REMOVAL FROM ISOLATION; JASON TRANSFERRED CALL TO KATHRYN, ACCOUNT MANAGER SALES REPRESENTATIVE FOR [facility] WHO REPORTED THIS TO BE THEIR CORPORATE POLICY. CM NOTIFIED FACULTY CRIMINAL JUSTICE NURSE AND CM DIRECTOR BELLE. [facility] WILL NOT ACCEPT BACK UNTIL COVID19 TESTING RECEIVED AND NEGATIVE. FOR DISCHARGE, [facility] WILL CALL FACILITY FOR VEBAL COVID19 SCREENING QUESTIONAIRE PRIOR TO PT'S RETURN. NURSE REPORT TO BE CALLED TO [facility] AT [phone]. FAX DISCHARGE INFORMATION TO [facility] AT [phone]. [facility] TO ARRANGE VAN TRANSPORT. Plaster Machine Tender: Mihai Monroe [facility]- Discharge Planning Updated by [id number]: Mihai Monroe on 01/14/20 11:[address] Patient Name: YEMI DAVID Encounter No: [id number] : 1985 Primary Insurance: [employer] MANAGED MEDICAID Anticipated DC Date: Planned Disposition: Correction Facility External Planned Provider: [facility], SKILLED MEDICAID BED Discharge Planning Comments: CM SPOKE TO JASON AT [facility], PT IN SKILLED BED AND WILL RETURN TO SKILLED BED AT DISCHARGE. JASON INFORMED CM THAT SHE WILL CALL CM ON DAY OF DISCHARGE AND HAS TO COMPLETE A COVID19 SCREENING VIA PHONE PRIOR TO PT'S RETURN TO FACILITY, UNLESS TESTING HAS RETURNED. FOR DISCHARGE, [facility] WILL CALL FACILITY FOR VEBAL COVID19 SCREENING QUESTIONAIRE PRIOR TO PT'S RETURN. NURSE REPORT TO BE CALLED TO [facility] AT [phone]. FAX DISCHARGE INFORMATION TO [facility] AT [phone]. [facility] TO ARRANGE VAN TRANSPORT IF PT IS ABLE TO SIT SAFELY FOR TRANSPORT. Plaster Machine Tender: Mihai Monroe [facility]- Discharge Planning Updated by [id number]: Mihai Monroe on 01/13/20 10:[address] Patient Name: YEMI DAVID Encounter No: [id number] : 1985 Primary Insurance: [employer] MANAGED MEDICAID Anticipated DC Date: Planned Disposition: Nursing Facility [facility] Cert External Planned Provider:[facility], SKILLED MEDICAID BED Discharge Planning Comments: ARLEEN SPOKE TO JASON AT [facility], PT IN SKILLED BED AND WILL RETURN TO SKILLED BED AT DISCHARGE. JASON REQUESTED MICROBIOLOGY RESULTS. CM FAXED UPDATE INFORMATION TO [facility] AT [phone]. FOR DISCHARGE, [facility] WILL CALL FACILITY FOR VEBAL SCREENING QUESTIONAIRE PRIOR TO PT'S RETURN. NURSE REPORT TO BE CALLED TO [facility] AT [phone]. FAX DISCHARGE INFORMATION TO [facility] AT [phone]. [facility] TO ARRANGE VAN TRANSPORT IF PT IS ABLE TO SIT SAFELY FOR TRANSPORT. Plaster Machine Tender: Mihai Monroe [facility]- Discharge Planning Updated by [id number]: Mihai Monroe on 01/13/20 9:[address] Patient Name: YEMI DAVID Admission Status: ER Accout number: [id number] Admission Date: 01-11-2020 : 1985 Admission Diagnosis: Attending: ALLISON KNIGHT Current LOS: 2 Anticipated DC Date: Planned Disposition: Nursing Facility [facility] Primary Insurance: [employer] MANAGED MEDICAID PLANNED EXTERNAL PROVIDER: [facility], SNF CARE MEDICAID BED Discharge Planning Comments: CM SPOKE TO PT VIA ROOM PHONE TO DISCUSS DISCHARGE PLANNING AND NEEDS. PT REPORTS [facility] AT [facility], HE HAS BEEN THERE FOR TWO WEEKS NOW. PT USES A SHOWER CHAIR, ROLLING WALKER AND WHEELCHAIR. PT REPORTS HAVING ASSISTANCE WITH GETTING UP OUT OF BED, TOILETING, SHOWERING AND PT DENIES DISCHARGE NEEDS, REPORTS PLAN TO RETURN TO [facility] AT DISCHARGE. CHOICE LETTER COMPLETED. ARLEEN VERIFIED BED STATUS WITH JOSE. CM FAXED UPDATE INFORMATION TO [facility] AT [phone]. FOR DISCHARGE, NURSE REPORT TO BE CALLED TO [facility] AT [phone]. FAX DISCHARGE INFORMATION TO [facility] AT [phone]. [facility] TO ARRANGE VAN TRANSPORT IF PT IS ABLE TO SIT SAFELY FOR TRANSPORT. Plaster Machine Tender: Mihai Monroe DCPIA - Discharge Planning Initial Assessment Updated by ALIRIO: Mihai Monroe on 01/13/20 10:17 am * Is the patient Alert and Oriented? Yes * How many steps to enter\exit or inside your home? NONE * PCP DOCTOR FOR [facility] * Pharmacy [facility] * Preadmission Environment Senior Living Half-Way * Facility Name [facility] * ADLs Partial Dependent * Partial ADLs (Assistance needed) Bathing Medication Management Toileting Transfers * Equipment Shower Chair Walker Wheelchair * Other Equipment ALL MEDICAL EQUIPMENT PROVIDED BY FACILITY * List name and contact numbers for known caregivers / representatives who currently or will assist patient after discharge: JAVIER DAVID, BROTHER, * Verbal permission to speak to the caregivers and representatives has been obtained from the patient. N/A * Community resources currently utilized None * Please name any agencies selected above. NONE * Additional services required to return to the preadmission environment? No * Can the patient safely return to the preadmission environment? Yes * Has this patient been hospitalized within the prior 30 days at any hospital? Yes Coverage Notice Reviewer: [id number] - Mihai Monroe Notice Issued Date-Time: 01/13/2020 9:57 Notice Type: Patient Choice Letter Notice Delivered To: Patient Relationship to Patient: Tester Regulator Name: Delivery Method: HAND - Hand Delivered Judy Days: Prior Verbal Notification: Recipient Understood Notice: Yes Recipient Signature: Yes Med Rec Note Co-signed by Attending: Coverage Notice Comment: [facility] Last DP export: 01/22/20 11:57 a Patient Name: YEMI DAVID Page 26981 at 1413 All edits/amendments must be made on the electronic document DICTATION DATE: 01/22/201411 EMPLOYEE RELATIONS ADMINISTRATOR: CHIO 01/22/201411 RPT#: [id number] DC DATE: STATUS: ADM IN [facility] [address] [place] [address] END OF REPORT
== END 2020-01-22 15:35 | DRG 865 ==
LOC: D.ER 19:27 → D.M2 22:13
PROVIDERS: Emergency Medicine; Family Medicine; ADMIT Family Medicine; ATTEND Family Medicine
DX: B34.9 Viral infection, unspecified (principal); E43 Unspecified severe protein-calorie malnutrition; B20 Human immunodeficiency virus [HIV] disease; Z68.1 Body mass index [BMI] 19.9 or less, adult; F17.213 Nicotine dependence, cigarettes, with withdrawal; D64.9 Anemia, unspecified; K21.9 Gastro-esophageal reflux disease without esophagitis; K52.9 Noninfective gastroenteritis and colitis, unspecified; D50.9 Iron deficiency anemia, unspecified; J44.9 Chronic obstructive pulmonary disease, unspecified; R62.7 Adult failure to thrive; Z20.828 Contact with and (suspected) exposure to other viral communicable diseases

== ENCOUNTER 2020-04-04 23:40 | Inpatient (IN) | payer OTHER ==
[~2020-04-04] VITALS: Ht 182.9 cm; Wt 44.5 kg
[~2020-04-04 23:40] MED LIST changes: +AZITHROMYCIN500 MG PO; +FOLIC ACID1 MG PO; +MEGACE40 MG PO; +MELATONIN 3 MG1 TAB PO; +MELATONIN5 M3 PO; +MUCINEX600 MG PO; +MULTI-DAY VITAM1 TAB PO; +PERCOCET 5-3251 TAB PO; +PHENERGAN25 M1 PO; +REMERON15 MG PO; +SMZ-TMP DS TABL1 TAB PO; +VITAMIN B-1100 M1 PO; +VITAMIN D10000 UNI1 PO; +ZOFRAN8 MG PO
[2020-04-05 00:53] LABS: CALC OSMOLALITY 255 mosm/kg (275-300); CALCIUM 8.7 mg/dL (8.5-10.1); CARBON DIOXIDE 25.5 mmol/L (21.0-32.0); CHLORIDE - SERUM 96 mmol/L (98-107); CREATININE - SERUM 0.6 mg/dL (0.6-1.3); GLUCOSE 86 mg/dL (74-106); POTASSIUM - SERUM 3.7 mmol/L (3.5-5.1); SODIUM 127 mmol/L (136-145); UREA NITROGEN 18 mg/dL (7-18); eGFR NON AFRICAN AMERICAN > 90 mL/min (90-120)
[2020-04-05 00:55] LABS: BASOPHILS 0.2 % (0-2); EOSINOPHILS 1.6 % (0-7); HEMATOCRIT 31.1 % (42.0-54.0); HEMOGLOBIN 9.9 g/dL (13.5-17.5); IMMATURE GRANULOCYTES 7.8 % (0-5); LYMPHOCYTES 8.4 % (15-50); MCH 26.5 pg (26.0-34.0); MCHC 31.8 g/dL (31.0-37.0); MCV 83.4 fL (80.0-100.0); MONOCYTES 11.1 % (2-11); NEUTROPHILS 70.9 % (40-80); RBC 3.73 10x6/uL (4.20-6.10); RDW 17.6 % (11.5-14.5); WBC 5.7 10x3/uL (4.8-10.8)
[2020-04-05 00:56] LABS: PLATELET COUNT 340 10x3/uL (130-400)
[2020-04-05 00:57] LABS: BILIRUBIN NEGATIVE (NEGATIVE); GLUCOSE NEGATIVE (NEGATIVE); KETONE NEGATIVE (NEGATIVE); NITRITE NEGATIVE (NEGATIVE); UROBILINOGEN NORMAL (NORMAL)
[2020-04-05 01:06] LABS: ALBUMIN 1.8 g/dL (3.4-5.0); ALKALINE PHOSPHATASE 81 U/L (30-120); ALT (SGPT) 6 U/L (10-68); BILIRUBIN - TOTAL 0.31 mg/dL (0.2-1.3); CREATINE KINASE 6 UL (21-232); LIPASE 53 U/L (73-393); MAGNESIUM - SERUM 1.9 mg/dL (1.8-2.4); PRO BNP 302 pg/mL (0-125); PROTEIN - SERUM 6.5 g/dL (6.4-8.2); THYROID STIMULATING HORMONE 0.63 uIU/mL (0.36-3.74)
[2020-04-05 04:00] VITALS: BP 153/71
[2020-04-05 04:19] VITALS: BP 96/70; BMI 13.3
--- NOTE | 2020-04-05 07:30 | NUR ---
PT LAYING SUPINE. RR EVEN AND UNLABORED ON RA. DENIES NEEDS OR PAIN AT THIS TIME. CALL LIGHT WITHIN REACH. BED IN LOWEST POSITION. WILL CONTINUE TO MONITOR.
[2020-04-05 10:03] VITALS: BP 81/45
--- NOTE | 2020-04-05 10:16 | NUR ---
I have reviewed this patient and I concur with the Shift Assessment completed by the Licensed Practical Nurse today this shift.
[2020-04-05 11:05] VITALS: Ht 182.9 cm; Wt 44.5 kg
[2020-04-05 13:33] VITALS: BP 95/48
[2020-04-05 18:29] VITALS: BP 80/46
[2020-04-05 20:00] VITALS: BP 107/72
--- NOTE | 2020-04-05 23:40 | NUR ---
PT RESTING COMFORTABLY AT THIS TIME. PT WITH FREQUENT NAUSEA. PT RESTING COMFORTABLY AT THIS TIME. VITALS STABLE AT THIS TIME. WILL CONTINUE TO MONITOR.
[2020-04-06] VITALS (7 sets, daily range): BP systolic 81–100; BP diastolic 50–69
--- NOTE | 2020-04-06 03:33 | NUR ---
I have reviewed this patient and I concur with the Shift Assessment completed by the Licensed Practical Nurse today this shift.
[2020-04-06 05:27] LABS: ALBUMIN 1.6 g/dL (3.4-5.0); ALKALINE PHOSPHATASE 73 U/L (30-120); ALT (SGPT) 6 U/L (10-68); BILIRUBIN - TOTAL 0.23 mg/dL (0.2-1.3); CALC OSMOLALITY 265 mosm/kg (275-300); CALCIUM 8.8 mg/dL (8.5-10.1); CARBON DIOXIDE 26.7 mmol/L (21.0-32.0); CHLORIDE - SERUM 100 mmol/L (98-107); CREATININE - SERUM 0.6 mg/dL (0.6-1.3); POTASSIUM - SERUM 3.8 mmol/L (3.5-5.1); PROTEIN - SERUM 5.8 g/dL (6.4-8.2); SODIUM 133 mmol/L (136-145); UREA NITROGEN 20 mg/dL (7-18); eGFR NON AFRICAN AMERICAN > 90 mL/min (90-120)
[2020-04-06 05:45] LABS: GLUCOSE 52 mg/dL (74-106)
[2020-04-06 06:08] LABS: HEMATOCRIT 31.6 % (42.0-54.0); HEMOGLOBIN 9.6 g/dL (13.5-17.5); MCH 25.9 pg (26.0-34.0); MCHC 30.4 g/dL (31.0-37.0); MCV 85.2 fL (80.0-100.0); MEAN PLATELET VOLUME 9.4 fL (7.4-10.4); PLATELET COUNT 276 10x3/uL (130-400); RBC 3.71 10x6/uL (4.20-6.10); RDW 17.7 % (11.5-14.5)
--- NOTE | 2020-04-06 06:18 | NUR ---
PT GLUCOSE 52. GAVE ORAL GLUC AND SPRITE. WILL CONTINUE TO MONITOR.
[2020-04-06 10:31] LABS: ANISOCYTOSIS OCC; EOSINOPHILS 3 % (0-7); LYMPHOCYTES 14 % (15-50); MONOCYTES 14 % (2-11); NEUTROPHILS 59 % (40-80); PLATELET ESTIMATE NORMAL
--- NOTE | 2020-04-06 11:15 | NUR ---
Nutrition Follow-up: Poor PO intake with nausea. Noted Megace started yesterday and hospice consulted. Diet: Clear Liquid AAT Wt: 98# (04/05) Labs noted: Na 133, Glu 52, Alb 1.6 Meds noted: Megace, vitamin D, Remeron, Phenergan, NS @ 150 -Rec ADAT; encourage PO intake and honor food preferences within diet restrictions. -Monitor wt. -RD following.
--- NOTE | 2020-04-06 11:53 | MORECARE ---
CASE MANAGEMENT DISCHARGE SUMMARY PATIENT: YEMI DAVID UNIT: [id number] ADM DATE: 04/05/20 AGE: 35 : 86 SEX: M ROOM/BED: D.2104 AUTHOR: PAM JOSE PHYSICIAN: REFERRING PHYSICIAN: DRU CARRANZA MD DATE OF SERVICE: 04/06/20 Discharge Plan Patient Name: YEMI DAVID Facility: [facility]:[place] : 1985 Planned Disposition: Home with Hospice Anticipated Discharge Date: Discharge Date: Expected LOS: Initial Reviewer: [id number] Initial Review Date: 04/07/2020 Generated: 04/06/20 12:53 pm External Providers [facility] Next Contact Date: Service Request Date: Service Type: Resolution: Reviewer: Comments: Coverage Notice Reviewer: [id number] Abdullahi Vinson Notice Issued Date-Time: 04/06/2020 11:25 Notice Type: Patient Choice Letter Notice Delivered To: Patient Relationship to Patient: Self Waste Chopper Name: Delivery Method: HAND - Hand Delivered Judy Days: Prior Verbal Notification: Recipient Understood Notice: Yes Recipient Signature: Yes Med Rec Note Co-signed by Attending: Coverage Notice Comment: [facility] for [facility] Patient Name: YEMI DAVID Page 54592 at 1153 All edits/amendments must be made on the electronic document DICTATION DATE: 04/06/20 1153 MOTOR BLOCK MECHANIC: CHIO 04/06/20 1153 RPT#: [id number] DC DATE: STATUS: ADM IN [facility] [address] [place] [address] END OF REPORT
--- NOTE | 2020-04-06 12:00 | MORECARE ---
CASE MANAGEMENT DISCHARGE SUMMARY PATIENT: YEMI VEGA UNIT: [id number] ADM DATE: 04/05/20 AGE: 35 : 86 SEX: M ROOM/BED: D.2104 AUTHOR: PAM JOSE PHYSICIAN: REFERRING PHYSICIAN: DRU CARRANZA MD DATE OF SERVICE: 04/06/20 Discharge Plan Patient Name: YEMI VEGA Facility: [facility]:[place] : 1985 Planned Disposition: Home with Hospice Anticipated Discharge Date: Discharge Date: Expected LOS: Initial Reviewer: [id number] Initial Review Date: 04/07/2020 Generated: 04/06/20 1:00 pm DCPIA - Discharge Planning Initial Assessment Updated by [id number]: Lottie Vinson on 04/06/20 11:55 am * Is the patient Alert and Oriented? Yes * How many steps to enter\exit or inside your home? 0/0 * PCP None * Pharmacy [facility] [address] * Preadmission Environment Home with Family * ADLs Partial Dependent * Partial ADLs (Assistance needed) Ambulation * Equipment Bedside Commode Wheelchair * List name and contact numbers for known caregivers / representatives who currently or will assist patient after discharge: Carlitos Vega - brother - [phone] Sobia Vega - mother - no phone * Verbal permission to speak to the caregivers and representatives has been obtained from the patient. Yes * Community resources currently utilized None * Additional services required to return to the preadmission environment? Yes * Can the patient safely return to the preadmission environment? Yes * Has this patient been hospitalized within the prior 30 days at any hospital? No Coverage Notice Reviewer: [id number] - Lottie Vinson Notice Issued Date-Time: 04/06/2020 11:25 Notice Type: Patient Choice Letter Notice Delivered To: Patient Relationship to Patient: Self Legal Activity Adjudicator Name: Delivery Method: HAND - Hand Delivered Judy Days: Prior Verbal Notification: Recipient Understood Notice: Yes Recipient Signature: Yes Med Rec Note Co-signed by Attending: Coverage Notice Comment: [facility] for [facility] Last DP export: 04/06/20 10:53 a Patient Name: YEMI VEGA Page 27710 at 1200 All edits/amendments must be made on the electronic document DICTATION DATE: 04/06/20 1200 TECHNICAL SERVICES ANALYST: CHIO 04/06/201199 RPT#: [id number] DC DATE: STATUS: ADM IN [facility] [address] [place] [address] END OF REPORT
--- NOTE | 2020-04-06 12:08 | MORECARE ---
CASE MANAGEMENT DISCHARGE SUMMARY PATIENT: YEMI VEGA UNIT: [id number] ADM DATE: 04/05/20 AGE: 35 : 86 SEX: M ROOM/BED: D.2104 AUTHOR: PAM JOSE PHYSICIAN: REFERRING PHYSICIAN: DRU CARRANZA MD DATE OF SERVICE: 04/06/20 Discharge Plan Patient Name: YEMI VEGA Facility: [facility]:[place] : 1985 Planned Disposition: Home with Hospice Anticipated Discharge Date: Discharge Date: Expected LOS: Initial Reviewer: [id number] Initial Review Date: 04/07/2020 Generated: 04/06/20 1:07 pm Comments DCP- Discharge Planning Updated by [id number]: Lottie Vinson on 04/06/20 11:[address] Patient Name: YEMI VEGA Admission Status: ER Accout number: [id number] Admission Date: 04-05-2020 : 1985 Admission Diagnosis: Attending: DRU CARRANZA Current LOS: 1 Anticipated DC Date: Planned Disposition: Home with Hospice Primary Insurance: [id number] MANAGED MEDICAID Discharge Planning Comments: CM met with patient to discuss hospice consult I received this morning. He states he discussed Hospice with [facility] and FUAD signed for [facility]. He states he lives with his mother. States many times they do not have food in the house. I provided him with written food bank list. He states he is mainly in his wheelchair at home. He no longer drives. His mother can drive, but doesn't because she has no car. States she takes the bus where she needs to go. States they do not have a phone. States his brother is his insurance salesperson. His home address is [address] [place], [place] [id number] in [place]. I sent correction to Tara Brannon. I called Anton with [facility] and clinical faxed. Anton states he will meet with the patient in about 45 minutes, I have informed the patient of this and he agrees. CM will continue to follow and assist with discharge planning/needs. Brick Siding Applicator: Lottie Vinson DCPIA - Discharge Planning Initial Assessment Updated by [id number]: Lottie Vinson on 04/06/20 11:55 am * Is the patient Alert and Oriented? Yes * How many steps to enter\exit or inside your home? 0/0 * PCP None * Pharmacy [facility] [address] * Preadmission Environment Home with Family * ADLs Partial Dependent * Partial ADLs (Assistance needed) Ambulation * Equipment Bedside Commode Wheelchair * List name and contact numbers for known caregivers / representatives who currently or will assist patient after discharge: Carlitos Vega - brother - [phone] Sobia Vega - mother - no phone * Verbal permission to speak to the caregivers and representatives has been obtained from the patient. Yes * Community resources currently utilized None * Additional services required to return to the preadmission environment? Yes * Can the patient safely return to the preadmission environment? Yes * Has this patient been hospitalized within the prior 30 days at any hospital? No Coverage Notice Reviewer: [id number] Abdullahi Vinson Notice Issued Date-Time: 04/06/2020 11:25 Notice Type: Patient Choice Letter Notice Delivered To: Patient Relationship to Patient: Self Surgical Services Manager Name: Delivery Method: HAND - Hand Delivered Judy Days: Prior Verbal Notification: Recipient Understood Notice: Yes Recipient Signature: Yes Med Rec Note Co-signed by Attending: Coverage Notice Comment: [facility] for [facility] Last DP export: 04/06/20 11:00 a Patient Name: YEMI VEGA Page 84106 at 1208 All edits/amendments must be made on the electronic document DICTATION DATE: 04/06/201206 BODY PRESS OPERATOR: CHIO 04/06/201206 RPT#: [id number] DC DATE: STATUS: ADM IN [facility] [address] [place] [address] END OF REPORT
--- NOTE | 2020-04-06 12:32 | NUR ---
PT REQUESTING SOUPS, STILL AWAITING [facility] TO COME DISCUSS ADMITING TO THERE SERVICE. [place] DIET RECEIVED FROM ELEMENTARY SCHOOL PROFESSIONAL.
--- NOTE | 2020-04-06 15:03 | MORECARE ---
CASE MANAGEMENT DISCHARGE SUMMARY PATIENT: YEMI VEGA UNIT: [id number] ADM DATE: 04/05/20 AGE: 35 : 87 SEX: M ROOM/BED: D.2104 AUTHOR: PAM JOSE PHYSICIAN: REFERRING PHYSICIAN: RDU CARRANZA MD DATE OF SERVICE: 04/06/20 Discharge Plan Patient Name: YEMI VEGA Facility: [facility]:[place] : 1985 Planned Disposition: Home with Hospice Anticipated Discharge Date: Discharge Date: Expected LOS: Initial Reviewer: [email or web address] Initial Review Date: 04/07/2020 Generated: 04/06/20 4:02 pm Comments DCP- Discharge Planning Updated by [id number]: Lottie Vinson on 04/06/20 1:[address] [facility] has evaluated and will accept the patient when he is discharged for home hospice. He is to call the motel where he lives and find out if he can have a hospital bed and let me know. I will call [facility] if hospital bed is needed. CM will continue to follow and assist with discharge planning/needs. DCP- Discharge Planning Updated by [email or web address]: Lottie Vinson on 04/06/20 11:[address] Patient Name: YEMI VEGA Admission Status: ER Accout number: [id number] Admission Date: 04-05-2020 : 1985 Admission Diagnosis: Attending: DRU CARRANZA Current LOS: 1 Anticipated DC Date: Planned Disposition: Home with Hospice Primary Insurance: [employer] MANAGED MEDICAID Discharge Planning Comments: CM met with patient to discuss hospice consult I received this morning. He states he discussed Hospice with [facility] and FAUD signed for [facility]. He states he lives with his mother. States many times they do not have food in the house. I provided him with written food bank list. He states he is mainly in his wheelchair at home. He no longer drives. His mother can drive, but doesn't because she has no car. States she takes the bus where she needs to go. States they do not have a phone. States his brother is his electronic parts salesperson. His home address is [address] [place], [place] [id number] in [place]. I sent correction to Tara Brannon. I called Anton with [facility] and clinical faxed. Anton states he will meet with the patient in about 45 minutes, I have informed the patient of this and he agrees. CM will continue to follow and assist with discharge planning/needs. Dipper Clock And Watch Hands: Lottie Vinson DCPIA - Discharge Planning Initial Assessment Updated by [email or web address]: Lottie Karel on 04/06/20 11:55 am * Is the patient Alert and Oriented? Yes * How many steps to enter\exit or inside your home? 0/0 * PCP None * Pharmacy [facility] [address] * Preadmission Environment Home with Family * ADLs Partial Dependent * Partial ADLs (Assistance needed) Ambulation * Equipment Bedside Commode Wheelchair * List name and contact numbers for known caregivers / representatives who currently or will assist patient after discharge: Carlitos Vega - brother - [phone] Sobia Vega - mother - no phone * Verbal permission to speak to the caregivers and representatives has been obtained from the patient. Yes * Community resources currently utilized None * Additional services required to return to the preadmission environment? Yes * Can the patient safely return to the preadmission environment? Yes * Has this patient been hospitalized within the prior 30 days at any hospital? No Coverage Notice Reviewer: [id number] - Lottie Karel Notice Issued Date-Time: 04/06/2020 11:25 Notice Type: Patient Choice Letter Notice Delivered To: Patient Relationship to Patient: Self Mortgage Broker Name: Delivery Method: HAND - Hand Delivered Judy Days: Prior Verbal Notification: Recipient Understood Notice: Yes Recipient Signature: Yes Med Rec Note Co-signed by Attending: Coverage Notice Comment: FUAD for [facility] Last DP export: 04/06/20 11:08 a Patient Name: YEMI VEGA Page [id number] at 1503 All edits/amendments must be made on the electronic document DICTATION DATE: 04/06/201501 RADIATION THERAPY TECHNOLOGIST: CHIO 04/06/201501 RPT#: [id number] DC DATE: STATUS: ADM IN [facility] [address] [place] [address] END OF REPORT
[2020-04-06 15:11] LABS: BASOS 0 % (Not Estab.); CD4 - % CD4 POS. LYMPH 1.5 % (30.8-58.5); CD4 - ABSOLUTE CD4 HELPER 5 /uL (359-1519); EOS 0 % (Not Estab.); HEMATOCRIT 27.5 % (37.5-51.0); HEMATOLOGY COMMENTS Note: (()); HEMOGLOBIN 8.9 g/dL (13.0-17.7); LYMPHS 6 % (Not Estab.); LYMPHS (ABSOLUTE) 0.3 x10E3/uL (0.7-3.1); MCHC 32.4 g/dL (31.5-35.7); MCV 83 fL (79-97); MONOCYTES 6 % (Not Estab.); MONOCYTES (ABSOLUTE) 0.3 x10E3/uL (0.1-0.9); NEUTROPHILS 83 % (Not Estab.); NEUTROPHILS (ABSOLUTE) 4.1 x10E3/uL (1.4-7.0); PLATELETS 336 x10E3/uL (150-450); RDW 17.2 % (11.6-15.4); WBC 4.7 x10E3/uL (3.4-10.8)
--- NOTE | 2020-04-06 16:33 | NUR ---
PT IS AWAITING ARRANGEMENTS TO BE COMPLETED TO DC HOME WITH [facility]. [facility].
--- NOTE | 2020-04-06 16:53 | MORECARE ---
CASE MANAGEMENT DISCHARGE SUMMARY PATIENT: YEMI VEGA UNIT: [id number] ADM DATE: 04/05/20 AGE: 35 : 86 SEX: M ROOM/BED: D.2104 AUTHOR: PAM JOSE PHYSICIAN: REFERRING PHYSICIAN: DRU CARRANZA MD DATE OF SERVICE: 04/06/20 Discharge Plan Patient Name: YEMI VEGA Facility: [facility]:[place] : 1985 Planned Disposition: Home with Hospice Anticipated Discharge Date: Discharge Date: Expected LOS: Initial Reviewer: [email or web address] Initial Review Date: 04/07/2020 Generated: 04/06/20 5:52 pm Comments DCP- Discharge Planning Updated by [email or web address]: Lottie Karel on 04/06/20 3:[address] Patient states that motel will allow a hospital bed. I notified Shruthi and Anton with [facility]. Shruthi states they should have all equipment delivered and ready for patient on 04/07. DCP- Discharge Planning Updated by [email or web address]: Lottie Karel on 04/06/20 1:[address] [facility] has evaluated and will accept the patient when he is discharged for home hospice. He is to call the motel where he lives and find out if he can have a hospital bed and let me know. I will call [facility] if hospital bed is needed. CM will continue to follow and assist with discharge planning/needs. DCP- Discharge Planning Updated by [email or web address]: Lottie Rowleypauline on 04/06/20 11:[address] Patient Name: YEMI VEGA Admission Status: ER Accout number: [id number] Admission Date: 04-05-2020 : 1985 Admission Diagnosis: Attending: DRU CARRANZA Current LOS: 1 Anticipated DC Date: Planned Disposition: Home with Hospice Primary Insurance: [employer] MANAGED MEDICAID Discharge Planning Comments: CM met with patient to discuss hospice consult I received this morning. He states he discussed Hospice with [facility] and [facility]AD signed for [facility]. He states he lives with his mother. States many times they do not have food in the house. I provided him with written food bank list. He states he is mainly in his wheelchair at home. He no longer drives. His mother can drive, but doesn't because she has no car. States she takes the bus where she needs to go. States they do not have a phone. States his brother is his insurance salesperson. His home address is [address] [place], [place] [id number] in [place]. I sent correction to Tara Brannon. I called Anton with [facility] and clinical faxed. Anton states he will meet with the patient in about 45 minutes, I have informed the patient of this and he agrees. CM will continue to follow and assist with discharge planning/needs. Manager Critical Care Unit: Lottie Vinson DCPIA - Discharge Planning Initial Assessment Updated by [email or web address]: Lottie Vinson on 04/06/20 11:55 am * Is the patient Alert and Oriented? Yes * How many steps to enter\exit or inside your home? 0/0 * PCP None * Pharmacy [facility] [address] * Preadmission Environment Home with Family * ADLs Partial Dependent * Partial ADLs (Assistance needed) Ambulation * Equipment Bedside Commode Wheelchair * List name and contact numbers for known caregivers / representatives who currently or will assist patient after discharge: Carlitos Vega - brother - [phone] Sobia Vega - mother - no phone * Verbal permission to speak to the caregivers and representatives has been obtained from the patient. Yes * Community resources currently utilized None * Additional services required to return to the preadmission environment? Yes * Can the patient safely return to the preadmission environment? Yes * Has this patient been hospitalized within the prior 30 days at any hospital? No Coverage Notice Reviewer: [id number] - Lottie Vinson Notice Issued Date-Time: 04/06/2020 11:25 Notice Type: Patient Choice Letter Notice Delivered To: Patient Relationship to Patient: Self Lotus Notes Developer Name: Delivery Method: HAND - Hand Delivered Judy Days: Prior Verbal Notification: Recipient Understood Notice: Yes Recipient Signature: Yes Med Rec Note Co-signed by Attending: Coverage Notice Comment: FUAD for [facility] Last DP export: 04/06/20 2:03 p Patient Name: YEMI VEGA Page [id number] at 1653 All edits/amendments must be made on the electronic document DICTATION DATE: 04/06/201651 TICKER WIRER: CHIO 04/06/201651 RPT#: [id number] DC DATE: STATUS: ADM IN [facility] [address] [place] [address] END OF REPORT
[2020-04-06 17:08] LABS: BASOS 0 % (Not Estab.); CD4:8 - ABS CD8 SUPPRESSOR 356 /uL (109-897); CD4:8 - ABSOLUTE CD4 HELPER 8 /uL (359-1519); CD4:8 - CD4/CD8 RATIO 0.02 (0.92-3.72); EOS 1 % (Not Estab.); HEMATOLOGY COMMENTS Note: (()); HEMOGLOBIN 8.9 g/dL (13.0-17.7); LYMPHS 8 % (Not Estab.); LYMPHS (ABSOLUTE) 0.4 x10E3/uL (0.7-3.1); MCH 26.8 pg (26.6-33.0); MCHC 31.8 g/dL (31.5-35.7); MCV 84 fL (79-97); MONOCYTES 11 % (Not Estab.); MONOCYTES (ABSOLUTE) 0.5 x10E3/uL (0.1-0.9); NEUTROPHILS 71 % (Not Estab.); NEUTROPHILS (ABSOLUTE) 3.8 x10E3/uL (1.4-7.0); PLATELETS 333 x10E3/uL (150-450); RBC 3.32 x10E6/uL (4.14-5.80); RDW 17.1 % (11.6-15.4); WBC 4.9 x10E3/uL (3.4-10.8)
--- NOTE | 2020-04-06 17:08 | NUR ---
[facility] CALLED REPORTS THEY ARE ATTEMPTING TO DELIVER HOSPITAL BED BUT NO ANSWER AT [phone]. PT REPORTS THIS IS THE ONLY NUMBER AVAILABLE, THIS IS HIS BROTHERS NUMBER AND HIS MOTHER DOES NOT HAVE A NUMBER. PT REPORTS HIS MOTHER IS AT HIS HOME/MOTEL AWAITING THE BED. [facility] REPORTS THEY WILL TRY THE NUMBER AGAIN.
--- NOTE | 2020-04-06 17:23 | NUR ---
PT CALLED NURSE TO ROOM REPORTS HE ATE PUDDING WHICH HE BELIVES IS COCONUT. HE HAS ANAPHYLAXIS REACTION TO COCONUT. LEAD PRESSMAN ROTO GRAVURE PRINTING NOTIFIED BENADRYL 25 MG IV GIVEN. WILL COTNINUE TO MONITOR.
--- NOTE | 2020-04-06 17:46 | NUR ---
clarified with dietary pt received cheescake pudding, they do not have coconut pudding. Discussed with pt and CHIP MACHINE OPERATOR.
--- NOTE | 2020-04-06 18:10 | NUR ---
PT REPORTS HOSPITAL BED HAS BEEN DELIVERED TO HIS HOTEL/HOME.
--- NOTE | 2020-04-06 22:31 | NUR ---
PT A/O X4 SITTING UP IN BED. PT COMPLAINS OF PAIN 8/10 GENERALIZED AND IN BUTTOCK. RR EVEN AND UNLABORED. NO S/S OF DISTRESS AT THIS TIME. PRN PAIN MEDICATION GIVEN. BED LOW CALL LIGHT WITHIN REACH. WILL CONTINUE TO MONITOR.
[2020-04-07 04:00] VITALS: BP 90/55
[2020-04-07 08:00] VITALS: BP 93/50
--- NOTE | 2020-04-07 09:34 | MORECARE ---
CASE MANAGEMENT DISCHARGE SUMMARY PATIENT: YEMI VEGA UNIT: [id number] ADM DATE: 04/05/20 AGE: 35 : 86 SEX: M ROOM/BED: D.5512 AUTHOR: PAM JOSE PHYSICIAN: REFERRING PHYSICIAN: DRU CARRANZA MD DATE OF SERVICE: 04/07/20 Discharge Plan Patient Name: YEMI VEGA Facility: [facility]:[place] : 1985 Planned Disposition: Home with Hospice Anticipated Discharge Date: Discharge Date: Expected LOS: Initial Reviewer: [email or web address] Initial Review Date: 04/07/2020 Generated: 04/07/20 10:33 am Comments DCP- Discharge Planning Updated by [email or web address]: Lottie Vinson on 04/07/20 8:[address] Received discharge orders. I spoke with the patient and he states he has his brother's friend will pick him up for discharge. I spoke with Anton with [facility]. Anton states that they attempted to deliver hospital bed yesterday and no one answered the door or phone. I spoke with the patient and he states that his mother should've been home but sometimes does not hear the door. He states he is ok with going home without equipment and will be there for hospice to deliver equipment today. I informed Anton and will let them know when patient discharges. Discharge home today with [facility]. DCP- Discharge Planning Updated by [email or web address]: Lottie Vinson on 04/06/20 3:[address] Patient states that mot will allow a hospital bed. I notified Shruthi and Anton with [facility]. Shruthi states they should have all equipment delivered and ready for patient on 04/07. DCP- Discharge Planning Updated by [email or web address]: Lottie Vinson on 04/06/20 1:[address] [facility] has evaluated and will accept the patient when he is discharged for home hospice. He is to call the motel where he lives and find out if he can have a hospital bed and let me know. I will call [facility] if hospital bed is needed. CM will continue to follow and assist with discharge planning/needs. DCP- Discharge Planning Updated by [email or web address]: Lottie Vinson on 04/06/20 11:[address] Patient Name: YEMI VEGA Admission Status: ER Accout number: [id number] Admission Date: 04-05-2020 : 1985 Admission Diagnosis: Attending: DRU CARRANZA Current LOS: 1 Anticipated DC Date: Planned Disposition: Home with Hospice Primary Insurance: NOV[employer]YS MANAGED MEDICAID Discharge Planning Comments: CM met with patient to discuss hospice consult I received this morning. He states he discussed Hospice with [facility] and [facility] signed for [facility]. He states he lives with his mother. States many times they do not have food in the house. I provided him with written food bank list. He states he is mainly in his wheelchair at home. He no longer drives. His mother can drive, but doesn't because she has no car. States she takes the bus where she needs to go. States they do not have a phone. States his brother is his tooth cutter contact wheel. His home address is [address] [place] [address] in [place]. I sent correction to Tara Brannon. I called Anton with [facility] and clinical faxed. Anton states he will meet with the patient in about 45 minutes, I have informed the patient of this and he agrees. CM will continue to follow and assist with discharge planning/needs. Exercise Specialist: Lottie Vinson DCPIA - Discharge Planning Initial Assessment Updated by [email or web address]: Lottie Vinson on 04/06/20 11:55 am * Is the patient Alert and Oriented? Yes * How many steps to enter\exit or inside your home? 0/0 * PCP None * Pharmacy [facility] [address] * Preadmission Environment Home with Family * ADLs Partial Dependent * Partial ADLs (Assistance needed) Ambulation * Equipment Bedside Commode Wheelchair * List name and contact numbers for known caregivers / representatives who currently or will assist patient after discharge: Carlitos Vega - brother - [phone] Sobia Vega - mother - no phone * Verbal permission to speak to the caregivers and representatives has been obtained from the patient. Yes * Community resources currently utilized None * Additional services required to return to the preadmission environment? Yes * Can the patient safely return to the preadmission environment? Yes * Has this patient been hospitalized within the prior 30 days at any hospital? No Coverage Notice Reviewer: [email or web address] Abdullahi Lottie Karel Notice Issued Date-Time: 04/06/2020 11:25 Notice Type: Patient Choice Letter Notice Delivered To: Patient Relationship to Patient: Self Land Law Examiner Name: Delivery Method: HAND - Hand Delivered Judy Days: Prior Verbal Notification: Recipient Understood Notice: Yes Recipient Signature: Yes Med Rec Note Co-signed by Attending: Coverage Notice Comment: FUAD for [facility] Last DP export: 04/06/20 3:53 p Patient Name: YEMI VEGA Page 55315 at 0934 All edits/amendments must be made on the electronic document DICTATION DATE: 04/07/20932 HOUSEHOLD APPLIANCE REPAIRER: CHIO 04/07/20932 RPT#: [id number] DC DATE: STATUS: ADM IN [facility] [address] [place] [address] END OF REPORT
--- NOTE | 2020-04-07 11:00 | NUR ---
IV AND TELEMETRY DCD. DC PLANS GIVEN. UNDERSTANDING VOICED. ESCORTED TO CAR BY Kimi
--- NOTE | 2020-04-08 07:41 | MORECARE ---
CASE MANAGEMENT DISCHARGE SUMMARY PATIENT: YEMI VEGA UNIT: [id number] ADM DATE: 04/05/20 AGE: 35 : 87 SEX: M ROOM/BED: D.2101 AUTHOR: PAM JOSE PHYSICIAN: REFERRING PHYSICIAN: DRU CARRANZA MD DATE OF SERVICE: 04/08/20 Discharge Plan Patient Name: YEMI VEGA Facility: [facility]:[place] : 1985 Planned Disposition: Home with Hospice Anticipated Discharge Date: Discharge Date: 04/07/2020 Expected LOS: 0 Initial Reviewer: [email or web address] Initial Review Date: 04/07/2020 Generated: 04/08/20 8:40 am Comments DCP- Discharge Planning Updated by [email or web address]: Lottie Vinson on 04/07/20 8:[address] Received discharge orders. I spoke with the patient and he states he has his brother's friend will pick him up for discharge. I spoke with Anton with [facility]. Anton states that they attempted to deliver hospital bed yesterday and no one answered the door or phone. I spoke with the patient and he states that his mother should've been home but sometimes does not hear the door. He states he is ok with going home without equipment and will be there for hospice to deliver equipment today. I informed Anton and will let them know when patient discharges. Discharge home today with [facility]. DCP- Discharge Planning Updated by [id number]: Lottie Vinson on 04/06/20 3:[address] Patient states that mot will allow a hospital bed. I notified Shruthi and Anton with [facility]. Shruthi states they should have all equipment delivered and ready for patient on 04/07. DCP- Discharge Planning Updated by [id number]: Lottie Vinson on 04/06/20 1:[address] [facility] has evaluated and will accept the patient when he is discharged for home hospice. He is to call the motel where he lives and find out if he can have a hospital bed and let me know. I will call [facility] if hospital bed is needed. CM will continue to follow and assist with discharge planning/needs. DCP- Discharge Planning Updated by [id number]: Lottie Vinson on 04/06/20 11:[address] Patient Name: YEMI VEGA Admission Status: ER Accout number: [id number] Admission Date: 04-05-2020 : 1985 Admission Diagnosis: Attending: DRU CARRANZA Current LOS: 1 Anticipated DC Date: Planned Disposition: Home with Hospice Primary Insurance: NOV[employer] MANAGED MEDICAID Discharge Planning Comments: CM met with patient to discuss hospice consult I received this morning. He states he discussed Hospice with [facility] and [facility] signed for [facility]. He states he lives with his mother. States many times they do not have food in the house. I provided him with written food bank list. He states he is mainly in his wheelchair at home. He no longer drives. His mother can drive, but doesn't because she has no car. States she takes the bus where she needs to go. States they do not have a phone. States his brother is his veterans contact representative. His home address is [address] [place] [address] in [place]. I sent correction to Tara Brannon. I called Anton with [facility] and clinical faxed. Anton states he will meet with the patient in about 45 minutes, I have informed the patient of this and he agrees. CM will continue to follow and assist with discharge planning/needs. Reproduction Machine Loader: Lottie Vinson DCPIA - Discharge Planning Initial Assessment Updated by [email or web address]: Lottie Vinson on 04/06/20 11:55 am * Is the patient Alert and Oriented? Yes * How many steps to enter\exit or inside your home? 0/0 * PCP None * Pharmacy [facility] [address] * Preadmission Environment Home with Family * ADLs Partial Dependent * Partial ADLs (Assistance needed) Ambulation * Equipment Bedside Commode Wheelchair * List name and contact numbers for known caregivers / representatives who currently or will assist patient after discharge: Carlitos Vega - brother - [phone] Sobia Vega - mother - no phone * Verbal permission to speak to the caregivers and representatives has been obtained from the patient. Yes * Community resources currently utilized None * Additional services required to return to the preadmission environment? Yes * Can the patient safely return to the preadmission environment? Yes * Has this patient been hospitalized within the prior 30 days at any hospital? No Coverage Notice Reviewer: [email or web address] Abdullahi Lottie Karel Notice Issued Date-Time: 04/06/2020 11:25 Notice Type: Patient Choice Letter Notice Delivered To: Patient Relationship to Patient: Self Director Wholesale Name: Delivery Method: HAND - Hand Delivered Judy Days: Prior Verbal Notification: Recipient Understood Notice: Yes Recipient Signature: Yes Med Rec Note Co-signed by Attending: Coverage Notice Comment: FUAD for [facility] Last DP export: 04/07/20 8:34 a Patient Name: YEMI VEGA Page 85078 at 0741 All edits/amendments must be made on the electronic document DICTATION DATE: 04/08/20740 OCCUPATIONAL PSYCHOLOGIST: CHIO 04/08/20740 RPT#: [id number] DC DATE:04/07/20 STATUS: DIS IN [facility] [address] [place] [address] END OF REPORT
[2020-04-08 09:11] LABS: HIV-1 RNA BY PCR 202000 (()); LOG10 HIV-1 RNA 5.305 (())
== END 2020-04-07 11:27 | disposition home health service (06) | DRG 974 ==
LOC: D.ER 23:40 → D.M2 04-05 01:02
PROVIDERS: Family Medicine; ADMIT Legal Medicine; ATTEND Legal Medicine
DX: B20 Human immunodeficiency virus [HIV] disease (principal); E43 Unspecified severe protein-calorie malnutrition; A31.9 Mycobacterial infection, unspecified; Z68.1 Body mass index [BMI] 19.9 or less, adult; E87.1 Hypo-osmolality and hyponatremia; R11.10 Vomiting, unspecified; R19.7 Diarrhea, unspecified; D63.8 Anemia in other chronic diseases classified elsewhere; R62.7 Adult failure to thrive

== ENCOUNTER 2020-04-17 00:48 | Inpatient (IN) | payer OTHER ==
[~2020-04-17] VITALS: Ht 182.9 cm; Wt 40.8 kg
[2020-04-17 01:06] LABS: BASOPHILS 0 % (0-2); EOSINOPHILS 0.3 % (0-7); HEMATOCRIT 37.6 % (42.0-54.0); HEMOGLOBIN 11.3 g/dL (13.5-17.5); MCH 26.1 pg (26.0-34.0); MCHC 30.1 g/dL (31.0-37.0); MCV 86.8 fL (80.0-100.0); MEAN PLATELET VOLUME 9.4 fL (7.4-10.4); MONOCYTES 4.5 % (2-11); NEUTROPHILS 79.2 % (40-80); PLATELET COUNT 253 10x3/uL (130-400); RBC 4.33 10x6/uL (4.20-6.10); RDW 17.6 % (11.5-14.5); WBC 5.8 10x3/uL (4.8-10.8)
[2020-04-17 01:18] LABS: CALC OSMOLALITY 273 mosm/kg (275-300); CALCIUM 7.5 mg/dL (8.5-10.1); CARBON DIOXIDE 25.2 mmol/L (21.0-32.0); CHLORIDE - SERUM 105 mmol/L (98-107); CREATININE - SERUM 0.4 mg/dL (0.6-1.3); POTASSIUM - SERUM 3.9 mmol/L (3.5-5.1); SODIUM 136 mmol/L (136-145); UREA NITROGEN 17 mg/dL (7-18); eGFR NON AFRICAN AMERICAN > 90 mL/min (90-120)
[2020-04-17 01:19] LABS: GLUCOSE 106 mg/dL (74-106)
[2020-04-17 01:27] LABS: ALBUMIN 1.5 g/dL (3.4-5.0); ALKALINE PHOSPHATASE 944 U/L (30-120); ALT (SGPT) 17 U/L (10-68); AMYLASE - SERUM 27 U/L (25-115); BILIRUBIN - TOTAL 0.14 mg/dL (0.2-1.3); LIPASE 31 U/L (73-393); PRE-ALBUMIN 11.6 mg/dL (18.0-35.7); PROTEIN - SERUM 5.7 g/dL (6.4-8.2); TROPONIN-I < 0.017 ng/mL (0.000-0.060)
[2020-04-17 03:29] LABS: BILIRUBIN NEGATIVE (NEGATIVE); GLUCOSE NEGATIVE (NEGATIVE); KETONE NEGATIVE (NEGATIVE); NITRITE NEGATIVE (NEGATIVE); SPECIFIC GRAVITY 1.015 (1.005-1.020); UROBILINOGEN NORMAL (NORMAL)
[2020-04-17] MEDS ORDERED: LEVOFLOXACIN500 MG PO (05:09)
[2020-04-17] MEDS ORDERED: MORPHINE SULFAT15 M4 PO (05:11)
[2020-04-17 05:22] VITALS: BP 114/76; BMI 12.2
[2020-04-17 06:32] LABS: HEMATOCRIT 33.1 % (42.0-54.0); LYMPHOCYTES 12.1 % (15-50); MCH 25.8 pg (26.0-34.0); MCHC 30.2 g/dL (31.0-37.0); MCV 85.5 fL (80.0-100.0); MEAN PLATELET VOLUME 8.8 fL (7.4-10.4); PLATELET COUNT 219 10x3/uL (130-400); RBC 3.87 10x6/uL (4.20-6.10); RDW 17.1 % (11.5-14.5); WBC 4.9 10x3/uL (4.8-10.8)
[2020-04-17 06:42] LABS: CALC OSMOLALITY 268 mosm/kg (275-300); CARBON DIOXIDE 25.7 mmol/L (21.0-32.0); CHLORIDE - SERUM 105 mmol/L (98-107); CREATININE - SERUM 0.4 mg/dL (0.6-1.3); GLUCOSE 87 mg/dL (74-106); POTASSIUM - SERUM 3.9 mmol/L (3.5-5.1); SODIUM 135 mmol/L (136-145); UREA NITROGEN 13 mg/dL (7-18); eGFR NON AFRICAN AMERICAN > 90 mL/min (90-120)
[2020-04-17 06:46] LABS: CALCIUM 6.9 mg/dL (8.5-10.1)
--- NOTE | 2020-04-17 07:10 | NUR ---
PT BROUGHT HOME MEDS MEDS COUNTED WITH 2ED NURSE AT BEDSIDE WITH PT. MORPHINE SUL 15MG ER #42 TABS BIKTARUY 50MG/200MG/25MG #23 TABS OXYCODONE/ ACETAMINOPHEN 5/325 #91 TABS ETHAMBUTOL 400MG # 32 TABS TRAMADOL 50MG #4 TABS AZITHROMYCIN 50MG #8 TABS REMERON 15MG # 9 TABS LEVOQUIN 500MG #12 TABS FOLIC ACID 1MG #18 TABS PROMETHAZINE 25 MG # 0 TABS NAMES AND DOSE TAKEN FROM PACKAGING PLACED IN BAG AND SEALED AT BEDSIDE TAKEN TO PHARM TO BE LOCKED UP.
[2020-04-17 07:15] VITALS: BP 111/75
[2020-04-17 12:00] VITALS: BP 97/71
[2020-04-17 16:00] VITALS: BP 101/74
--- NOTE | 2020-04-17 17:31 | NUR ---
PATIENT STATES HE DOESNT WANT HOSPICE AT THIS TIME BC HE ISNT READY TO . HE WANTS TO TRY TO GET HOME HEALTH FOR PT. PATIENT IN BED WITH IV INTACT. RECIEVED PAIN MEDS AND PEPCID. CALL LIGHT WITHIN REACH.
[2020-04-17 20:00] VITALS: BP 119/82
--- NOTE | 2020-04-17 20:30 | NUR ---
AWAKE,ALERT.COMPLAINTS OF PAIN NORCO GIVEN PER REQUEST. IV TO RFA INTACT WITHOUT REDNESS OR EDEMA NOTED. NO DISTRESS NOTED. CL IN REACH
[2020-04-18] VITALS: BP 109/79
--- NOTE | 2020-04-18 00:20 | MORECARE ---
CASE MANAGEMENT DISCHARGE SUMMARY PATIENT: YEMI DAVID UNIT: [id number] ADM DATE: 04/17/20 AGE: 35 : 86 SEX: M ROOM/BED: D.2232 AUTHOR: PAM JOSE PHYSICIAN: REFERRING PHYSICIAN: DRU CARRANZA MD DATE OF SERVICE: 04/18/20 Discharge Plan Patient Name: YEMI DAVID Facility: [facility]:[place] : 1985 Planned Disposition: Anticipated Discharge Date: Discharge Date: Expected LOS: Initial Reviewer: [email or web address] Initial Review Date: 04/17/2020 Generated: 04/18/20 1:19 am Comments DCP- Discharge Planning Updated by [email or web address]: Nyasia Vaz on 04/17/20 11:[address] CM had consult for [facility]. Patient is requiring IV pain medication. CM called [facility] since patient had [facility] at home. Hospice came to eval and patient and spoke to him about code status. Patient stated that he wants everything done and aggressive treatment. He doesn't want to . Hospice stated that if patient changes his mind then to re-consult. Patient Name: YEMI DAVID Page 06556 at 0020 All edits/amendments must be made on the electronic document DICTATION DATE: 04/18/2018 HERBARIUM CURATOR: CHIO 04/18/20 0019 RPT#: [id number] DC DATE: STATUS: ADM IN [facility] [address] [place] [address] END OF REPORT
--- NOTE | 2020-04-18 01:17 | NUR ---
I have reviewed this patient and I concur with the Shift Assessment completed by the Licensed Practical Nurse today this shift.
[2020-04-18 04:00] VITALS: BP 123/81
[2020-04-18 06:14] LABS: CALC OSMOLALITY 262 mosm/kg (275-300); CALCIUM 7.6 mg/dL (8.5-10.1); CARBON DIOXIDE 28.1 mmol/L (21.0-32.0); CHLORIDE - SERUM 101 mmol/L (98-107); CREATININE - SERUM 0.5 mg/dL (0.6-1.3); MAGNESIUM - SERUM 1.7 mg/dL (1.8-2.4); PHOSPHOROUS 2.9 mg/dL (2.5-4.9); SODIUM 133 mmol/L (136-145); UREA NITROGEN 10 mg/dL (7-18); eGFR NON AFRICAN AMERICAN > 90 mL/min (90-120)
[2020-04-18 06:16] LABS: GLUCOSE 60 mg/dL (74-106)
--- NOTE | 2020-04-18 06:45 | NUR ---
ALERT AND ORIENTED, RESTING IN BED WITH EYES OPEN. NO C/O PAIN. NO S/S OF ACUTE DISTRESS NOTED. UP WITH ASSIST. REFUSED SCDS. ON ELECTROLYTE PROTOCOL, MAGNESIUM 1.7, WILL FOLLOW EP PROTOCOL. IV TO RIGHT FOREARM, NS INFUSING @ 100ML/HR. SITE PATENT WITHOUT REDNESS OR SWELLING. DENIES ANY NEEDS AT THIS TIME. CALL LIGHT IN REACH. WILL CONTINUE TO MONITOR.
[2020-04-18 09:31] VITALS: BP 92/46
--- NOTE | 2020-04-18 10:37 | NUR ---
I have reviewed this patient and I concur with the Shift Assessment completed by the Licensed Practical Nurse today this shift.
[2020-04-18 13:28] VITALS: Ht 182.9 cm; Wt 40.8 kg
[2020-04-18 14:02] VITALS: BP 90/45
--- NOTE | 2020-04-18 16:40 | NUR ---
SHOWER GIVEN AT THIS TIME WITH LINEN CHANGE. C/L IN REACH AT BEDSIDE.
--- NOTE | 2020-04-18 18:46 | NUR ---
ALERT AND ORIENTED. C/O PAIN TO BACK, GAVE NORCO FOR PAIN AND PUT ON EGG CRATE MATTRESS. APPLIED HOT PACK TO LOWER BACK. NO S/S OF ACUTE DISTRESS NOTED. DENIES ANY NEEDS AT THIS TIME. CALL LIGHT IN REACH. WILL CONTINUE TO MONITOR.
[2020-04-18 20:45] VITALS: BP 124/63
[2020-04-19 04:00] VITALS: BP 134/87
[2020-04-19 04:45] LABS: CALCIUM 7.8 mg/dL (8.5-10.1); CHLORIDE - SERUM 102 mmol/L (98-107); POTASSIUM - SERUM 3.5 mmol/L (3.5-5.1); SODIUM 134 mmol/L (136-145)
[2020-04-19 04:46] LABS: CALC OSMOLALITY 267 mosm/kg (275-300); CREATININE - SERUM 0.3 mg/dL (0.6-1.3); GLUCOSE 68 mg/dL (74-106); UREA NITROGEN 17 mg/dL (7-18); eGFR NON AFRICAN AMERICAN > 90 mL/min (90-120)
--- NOTE | 2020-04-19 07:42 | NUR ---
ALERT AND ORIENTED. LUNGS CLEAR BILATERALLY. HEART SOUNDS S1 AND S2 HEARD IN ALL SPICER. BOWEL SOUNDS ACTIVE X 4. IV TO LFA PATENT WITHOUT REDNESS. DENIES NEEDS. BED LOW. CALL CURTIS AND PERSONAL ITEMS IN REACH. WILL CONTINUE TO MONITOR.
[2020-04-19 08:00] VITALS: BP 126/73
[2020-04-19 12:00] VITALS: BP 124/69
--- NOTE | 2020-04-19 12:29 | MORECARE ---
CASE MANAGEMENT DISCHARGE SUMMARY PATIENT: YEMI DAVID UNIT: [id number] ADM DATE: 04/17/20 AGE: 35 : 87 SEX: M ROOM/BED: D.2232 AUTHOR: PAM JOSE PHYSICIAN: REFERRING PHYSICIAN: DRU CARRANZA MD DATE OF SERVICE: 04/19/20 Discharge Plan Patient Name: YEMI DAVID Facility: [facility]:[place] : 1985 Planned Disposition: Anticipated Discharge Date: Discharge Date: Expected LOS: Initial Reviewer: [email or web address] Initial Review Date: 04/17/2020 Generated: 04/19/20 1:28 pm Comments DCP- Discharge Planning Updated by [id number]: Ora Keane on 04/19/20 11:[address] Patient Name: YEMI DAVID Admission Status: ER Accout number: [id number] Admission Date: 04-17-2020 : 1985 Admission Diagnosis: Attending: DRU CARRANZA Current LOS: 2 Anticipated DC Date: Planned Disposition: Primary Insurance: [employer] MEDICAID Discharge Planning Comments: CM CONTACTED [place] WITH [facility] FOR CONSULT. Last Greaser: Ora Keane DCP- Discharge Planning Updated by [email or web address]: Nyasia Vaz on 04/17/20 11:[address] CM had consult for [facility]. Patient is requiring IV pain medication. CM called [facility] since patient had [facility] at home. Hospice came to eval and patient and spoke to him about code status. Patient stated that he wants everything done and aggressive treatment. He doesn't want to . Hospice stated that if patient changes his mind then to re-consult. External Providers External Provider: [facility] Next Contact Date: Service Request Date: Service Type: Resolution: Reviewer: Comments: Last DP export: 04/17/20 11:20 p Patient Name: YEMI DAVID Page [id number] at 1229 All edits/amendments must be made on the electronic document DICTATION DATE: 04/19/20 1228 TRANSLATIONAL SPECIALIST: CHIO 04/19/20 1228 RPT#: [id number] DC DATE: STATUS: ADM IN [facility] [address] [place] [address] END OF REPORT
--- NOTE | 2020-04-19 15:34 | MORECARE ---
CASE MANAGEMENT DISCHARGE SUMMARY PATIENT: YEMI DAVID UNIT: [id number] ADM DATE: 04/17/20 AGE: 35 : 87 SEX: M ROOM/BED: D.2232 AUTHOR: PAM JOSE PHYSICIAN: REFERRING PHYSICIAN: DRU CARRANZA MD DATE OF SERVICE: 04/19/20 Discharge Plan Patient Name: YEMI DAVID Facility: [facility]:[place] : 1985 Planned Disposition: Anticipated Discharge Date: Discharge Date: Expected LOS: Initial Reviewer: [email or web address] Initial Review Date: 04/17/2020 Generated: 04/19/20 4:33 pm Comments DCP- Discharge Planning Updated by [email or web address]: Ora Keane on 04/19/20 2:[address] Patient Name: YEMI DAVID Admission Status: ER Accout number: [id number] Admission Date: 04-17-2020 : 1985 Admission Diagnosis: Attending: DRU CARRANZA Current LOS: 2 Anticipated DC Date: Planned Disposition: Primary Insurance: [employer] MEDICAID Discharge Planning Comments: CM CONTACTED [place] WITH [facility] FOR CONSULT. Environmental Education Specialist: Ora Keane Appended by Ora Keane on 04/19/2020 15:27 CDT: PATIENT BEING DC'D TO HOME IN AMBULANCE AND [facility] WILL READMIT ON ARRIVAL TO HOME. PATIENT HAS FAMILY WAITING ON HIM AT HOME. DCP- Discharge Planning Updated by [email or web address]: Nyasia Vaz on 04/17/20 11:[address] CM had consult for [facility]. Patient is requiring IV pain medication. CM called [facility] since patient had [facility] at home. Hospice came to eval and patient and spoke to him about code status. Patient stated that he wants everything done and aggressive treatment. He doesn't want to . Hospice stated that if patient changes his mind then to re-consult. Last DP export: 04/19/20 11:29 a Patient Name: YEMI DAVID Page [id number] at 1534 All edits/amendments must be made on the electronic document DICTATION DATE: 04/19/201532 PEANUT CLEANER: CHIO 04/19/20 153 RPT#: [id number] DC DATE: STATUS: ADM IN [facility] [address] [place] [address] END OF REPORT
--- NOTE | 2020-04-19 16:01 | NUR ---
DISCHARGE EDUCATION PROVIDED BOTH WRITTEN AND VERBAL. VERBALIZED UNDERSTANDING. DENIES FURTHER QUESTIONS. IV REMOVED FROM [facility] WITH TIP INACT. CALLED PHARMACY TO GET PATIENT MEDS FROM [facility]. PATIENT TO DC BY AMBULANCE.
--- NOTE | 2020-04-19 16:14 | NUR ---
MEDS RETURNED TO PATIENT. REPOSSESSION FORM SIGNED BY PATIENT AND NURSE AND PLACED IN CHART.
--- NOTE | 2020-04-19 17:07 | NUR ---
PATIENT DC HOME VIA AMBULANCE WITH ALL BELONGINGS.
--- NOTE | 2020-04-20 10:55 | MORECARE ---
CASE MANAGEMENT DISCHARGE SUMMARY PATIENT: YEMI DAVID UNIT: [id number] ADM DATE: 04/17/20 AGE: 35 : 87 SEX: M ROOM/BED: D.2232 AUTHOR: PAM JOSE PHYSICIAN: REFERRING PHYSICIAN: DUR CARRANZA MD DATE OF SERVICE: 04/20/20 Discharge Plan Patient Name: YEMI DAVID Facility: [facility]:[place] : 1985 Planned Disposition: Anticipated Discharge Date: Discharge Date: 04/19/2020 Expected LOS: Initial Reviewer: [email or web address] Initial Review Date: 04/17/2020 Generated: 04/20/20 11:55 am Comments DCP- Discharge Planning Updated by [email or web address]: Ora Keane on 04/19/20 2:[address] Patient Name: YEMI DAVID Admission Status: ER Accout number: [id number] Admission Date: 04-17-2020 : 1985 Admission Diagnosis: Attending: DRU ACRRANZA Current LOS: 2 Anticipated DC Date: Planned Disposition: Primary Insurance: [employer]ICA[employer] Discharge Planning Comments: CM CONTACTED [place] WITH [facility] FOR CONSULT. Leg Man: Ora Keane Appended by Ora Keane on 04/19/2020 15:27 CDT: PATIENT BEING DC'D TO HOME IN AMBULANCE AND [facility] WILL READMIT ON ARRIVAL TO HOME. PATIENT HAS FAMILY WAITING ON HIM AT HOME. DCP- Discharge Planning Updated by [id number]: Nyasia Vaz on 04/17/20 11:[address] CM had consult for [facility]. Patient is requiring IV pain medication. CM called [facility] since patient had [facility] at home. Hospice came to eval and patient and spoke to him about code status. Patient stated that he wants everything done and aggressive treatment. He doesn't want to . Hospice stated that if patient changes his mind then to re-consult. Last DP export: 04/19/20 2:34 p Patient Name: YEMI DAVID Page [id number] at 1055 All edits/amendments must be made on the electronic document DICTATION DATE: 04/20/20 1055 ELECTRIC MOTOR REPAIRING SUPERVISOR: CHIO 04/20/20 1055 RPT#: [id number] DC DATE:04/19/20 STATUS: DIS IN [facility] [address] [place] [address] END OF REPORT
== END 2020-04-19 17:08 | disposition home health service (06) | DRG 977 ==
LOC: D.ER 00:48 → D.MS 04:04 → OBSVTIME 04:04 → D.ER 04:19 → D.MS 18:31
PROVIDERS: Surgery; ADMIT Legal Medicine; ATTEND Legal Medicine
DX: B20 Human immunodeficiency virus [HIV] disease (principal); E43 Unspecified severe protein-calorie malnutrition; R64 Cachexia; Z68.1 Body mass index [BMI] 19.9 or less, adult; K52.9 Noninfective gastroenteritis and colitis, unspecified; F17.200 Nicotine dependence, unspecified, uncomplicated; R62.7 Adult failure to thrive; K21.9 Gastro-esophageal reflux disease without esophagitis